=== PATIENT | female | born 1965 | race Caucasian/White ===

== ENCOUNTER 2020-12-01 13:39 | Outpatient (REF) | payer OTHER, SELFPAY ==
[2020-12-01 17:51] LABS: Fentanyl, urine POSITIVE (Not Detect)
== END 2020-12-01 13:40 | disposition home or self-care (01) ==
LOC: HO.LNP 13:39
PROVIDERS: Visit Provider Internal Medicine
DX: F11.20 Opioid dependence, uncomplicated (principal); Z51.81 Encounter for therapeutic drug level monitoring
CPT/HCPCS: 80305; 80307

== ENCOUNTER 2020-12-08 10:48 | Outpatient (REF) | payer OTHER, SELFPAY ==
[2020-12-08 13:27] LABS: Fentanyl, urine POSITIVE (Not Detect)
== END 2020-12-08 10:49 | disposition home or self-care (01) ==
LOC: HO.LNP 10:48
PROVIDERS: Visit Provider Internal Medicine
DX: F11.90 Opioid use, unspecified, uncomplicated (principal); Z79.899 Other long term (current) drug therapy
CPT/HCPCS: 80305; 80307

== ENCOUNTER 2021-01-17 14:33 | Outpatient (REF) | payer OTHER, SELFPAY ==
[2021-01-17 18:48] LABS: Fentanyl, urine POSITIVE (Not Detect)
== END 2021-01-17 14:34 | disposition home or self-care (01) ==
LOC: HO.LNP 14:33
PROVIDERS: Visit Provider Internal Medicine
DX: F11.20 Opioid dependence, uncomplicated (principal); Z79.899 Other long term (current) drug therapy
CPT/HCPCS: 80305; 80307

== ENCOUNTER 2021-01-26 15:11 | Outpatient (REF) | payer OTHER, SELFPAY ==
[2021-01-26 17:31] LABS: Fentanyl, urine Not Detected (Not Detect)
== END 2021-01-26 15:12 | disposition home or self-care (01) ==
LOC: HO.LNP 15:11
PROVIDERS: Visit Provider Internal Medicine
DX: F11.20 Opioid dependence, uncomplicated (principal); Z79.899 Other long term (current) drug therapy
CPT/HCPCS: 80305; 80307

== ENCOUNTER → 2021-02-23 13:59 | Outpatient (BNVA) | payer OTHER, SELFPAY | DX: Z51.81 Encounter for therapeutic drug level monitoring (principal); F11.20 Opioid dependence, uncomplicated | CPT/HCPCS: 80305 ==

== ENCOUNTER 2021-03-07 15:03 | Outpatient (REF) | payer OTHER, SELFPAY ==
[2021-03-07 18:42] LABS: Fentanyl, urine Not Detected (Not Detect)
[2021-03-11 09:03] LABS: Buprenorphine 195; Naloxone 213; Norbuprenorphine 700
== END 2021-03-07 15:04 | disposition home or self-care (01) ==
LOC: HO.LAB 15:03
PROVIDERS: Visit Provider Internal Medicine
DX: F11.90 Opioid use, unspecified, uncomplicated (principal); Z51.81 Encounter for therapeutic drug level monitoring
CPT/HCPCS: 80305; 80307; 80348; 80362

== ENCOUNTER → 2021-03-14 16:10 | Outpatient (BNVA) | payer OTHER, SELFPAY | PROVIDERS: Visit Provider Internal Medicine | DX: Z51.81 Encounter for therapeutic drug level monitoring (principal); Z79.899 Other long term (current) drug therapy | CPT/HCPCS: 80305 ==

== ENCOUNTER → 2021-03-22 15:17 | Outpatient (BNVA) | payer OTHER, SELFPAY | PROVIDERS: Visit Provider Internal Medicine | DX: F11.20 Opioid dependence, uncomplicated (principal) | CPT/HCPCS: 80305 ==

== ENCOUNTER 2021-06-07 23:40 | Inpatient (IN) | payer OTHER, SELFPAY ==
--- NOTE | ~2021-06-07 | CT_ITS ---
EXAMINATION: CT HEAD WITHOUT CONTRAST CLINICAL INFORMATION: Altered mental status COMPARISON: None TECHNIQUE: Contiguous axial imaging was performed from the skull base to vertex without intravenous administration of contrast. This CT examination was performed using dose optimization techniques as appropriate, variously including the following: *Automated exposure control *Adjustment of mA and/or kV according to patient size (this includes techniques or standardized protocols for targeted exams where dose is matched to indication/reason for exam; i.e. extremities or head) *Use of iterative reconstruction technique DLP: 582 mGy-cm FINDINGS: There is no evidence of acute intracranial hemorrhage or territorial infarction. No abnormal mass effect or midline shift is seen. Bradley to white matter differentiation is well preserved. No extra-axial fluid collections are identified. The ventricles are normal in size. There is no abnormal attenuation within the brain parenchyma. The osseous structures and soft tissues are normal. The mastoid air cells and visualized portions of the paranasal sinuses are well aerated. CT/CT head/brain wo con IMPRESSION: No acute intracranial pathology.
--- NOTE | ~2021-06-07 | CT_ITS ---
EXAMINATION: CT ABDOMEN AND PELVIS WITHOUT CONTRAST CLINICAL INFORMATION: Abdominal pain. Altered mental status. COMPARISON: CT chest noncontrast 06/08/2021. TECHNIQUE: Multidetector volumetric imaging was performed from the superior aspect of the liver through the pubic symphysis without contrast. Sagittal and coronal reformatted images were obtained on the technologist's workstation. CT chest also performed, described in separate report. Preliminary wet read provided earlier during a CT scan time. This CT examination was performed using dose optimization techniques as appropriate, variously including the following: *Automated exposure control *Adjustment of mA and/or kV according to patient size (this includes techniques or standardized protocols for targeted exams where dose is matched to indication/reason for exam; i.e. extremities or head) *Use of iterative reconstruction technique DLP: 385 mGy-cm FINDINGS: LUNG BASES: The visualized lung bases are unremarkable. LIVER, GALLBLADDER, AND BILIARY TREE: Streak artifact upper abdomen, patient's arms down. Liver is smooth in contour and homogeneous. No intrahepatic ductal dilatation. Gallbladder not well visualized, no stone visible wall thickening. Common duct 6-7 mm, upper normal. No visible ductal calculus. PANCREAS: Unremarkable. SPLEEN: Unremarkable. ADRENAL GLANDS: Unremarkable. KIDNEYS AND URETERS: Normal in size and smooth in contour. No hydronephrosis or hydroureter or perinephric stranding. No calculi. Probable tiny cyst mid lower right kidney. No additional imaging follow-up recommended. BLADDER: The bladder is distended despite presence of a Arevalo catheter. No wall thickening or debris. GASTROINTESTINAL TRACT: No bowel obstruction or focal inflammatory changes in bowel or mesentery. Normal appendix. No ascites or fluid collection. ABDOMINAL WALL: No significant hernia is appreciated. LYMPH NODES: No lymphadenopathy. VASCULAR: Unremarkable. PELVIC VISCERA: Unremarkable. OSSEOUS STRUCTURES: Grade 1 spondylolisthesis L4-L5. No spondylolysis. CT/CT abdomen pelvis wo con IMPRESSION: -No bowel obstruction or focal inflammatory changes. Normal appendix. -Common duct upper normal. No visible calculus. No intrahepatic ductal dilatation. -No hydronephrosis or perinephric stranding. -Distended urinary bladder, Arevalo catheter present, possibly clamped. -Grade 1 spondylolisthesis L4-L5. -CT chest described in separate report.
--- NOTE | ~2021-06-07 | CT_ITS ---
EXAMINATION: CT CHEST WITHOUT CONTRAST CLINICAL INFORMATION: Altered mental status, pain COMPARISON: None TECHNIQUE: Multidetector volumetric CT imaging of the chest is performed without intravenous contrast. Axial MIP volume rendering provided. Sagittal and coronal reformatted images were obtained. CT abdomen and pelvis described in separate report. Preliminary retrograde provided earlier during IT downtime. This CT examination was performed using dose optimization techniques as appropriate, variously including the following: *Automated exposure control *Adjustment of mA and/or kV according to patient size (this includes techniques or standardized protocols for targeted exams where dose is matched to indication/reason for exam; i.e. extremities or head) *Use of iterative reconstruction technique DLP: 242 mGy-cm FINDINGS: LUNGS: No pneumothorax. No airspace consolidation or groundglass opacity. There is some respiratory motion artifact punctate subpleural nodule anterior right upper lobe measures under 4 mm, series . Fleischner guidelines below. MEDIASTINUM: Heart size normal. No pericardial effusion. Thoracic aorta normal in caliber. No hilar or mediastinal adenopathy. Streak artifact through supraclavicular region limits assessment thyroid. PLEURA: No pneumothorax, pleural thickening, or effusion. AXILLA: No lymphadenopathy. UPPER ABDOMEN: CT abdomen and pelvis described in separate report. OSSEOUS STRUCTURES: No acute bony abnormality. There is hardware lower cervical spine with Zero profile implants. CT/CT chest wo con IMPRESSION: -No pneumothorax, airspace consolidation, or effusion. -Mediastinum unremarkable on noncontrast exam. -CT abdomen and pelvis described in separate report. -Small subpleural nodule anterior right upper lobe under 4 mm. Fleischner guidelines below. Reference: The Fleischner Society recommendations for management of incidentally detected pulmonary nodules in adults age 35 and greater are based on average nodule size and patient risk category. The recommendations do not apply to lung cancer screening, patients with immunosuppression, or patients with known primary cancer. Single solid nodule average size < 6 mm: Low Risk Patient: No routine follow-up. High Risk Patient: Optional CT at 12 months. Certain patients at high risk with suspicious nodule morphology, upper lobe location, or both may warrant 12-month follow-up.
[2021-06-07 23:46] VITALS: BP 150/97; PULSE 84; O2SAT 98; BMI 22.4
[2021-06-08] VITALS (19 sets, daily range): BP systolic 111–166; BP diastolic 62–97; PULSE 71–102; RESP 16–29; TEMP 36.6–37.6; O2SAT 94–100; BMI 16.8
--- NOTE | 2021-06-08 02:48 | ED.GENADULT ---
HPI - General Adult General Chief complaint: General Medical Stated complaint: withdrawal Time Seen by Provider: 06/08/21 02:48 Source: patient Mode of arrival: ambulatory Limitations: altered mental status History of Present Illness HPI narrative: Patient history of fentanyl abuse supposed to be on Suboxone comes here as is feeling withdrawal from opiates which she used about 20 hours ago patient is very confused not speaking Straight, not telling us in details Related Data Previous Rx's Medication Instructions Recorded buprenorphine 12 mg-naloxone 3 mg 1 film SUBLINGUAL Q24H 14 Days #14 03/23/21 sublingual film (Suboxone) ea Allergies Allergy/AdvReac Type Severity Reaction Status Date / Time No Known Allergies Allergy Verified 03/22/21 15:33 Review of Systems Review of Systems: Yes Unobtainable due to mental status PMFSH Past Medical History Medical History Opioid use disorder Social History Social History Patient Tobacco Use Status: Current everyday Tobacco user Cigarettes Per Day: 3 Years Smoked: 30 Advance Directives: No Physical Exam ED Vital Signs: Vital Signs - 24 hr 06/08/21 02:54 06/08/21 04:00 06/08/21 06:00 Temperature 97.8 F Pulse Rate 80 88 Respiratory Rate 22 H 16 16 Blood Pressure 138/88 161/93 H Pulse Oximetry 99 100 BMI result Body Mass Index 22.4 Appearance: Sleepy. Eyes: PERRLA, HEENT: Pharynx normal. Oral Mucosa moist atraumatic normocephalic Neck: Normal inspection. Neck supple. CVS: Normal heart rate and rhythm. Pulses normal. Respiratory: No respiratory distress. Equal air entry bilateral, Abdomen: Soft and nontender. Bowel sounds are present, no mass palpable, Skin: Skin warm and dry. Normal skin color. Normal skin turgor. Extremities: No lower extremity edema. No calf tenderness Neuro: Lethargic and sleepy No motor deficit. Medical Decision Making MDM Narrative Medical decision making narrative: Patient with history of fentanyl abuse lab shows dehydration with calcium level of 11 bicarb of 21 unable to get the urine yet patient is still confused will get head CT although there is no signs of trauma Lab Data Result diagrams: 06/08/21 03:09 06/08/21 03:09 Labs: Lab Results 06/08/21 06/08/21 06/08/21 Range/Units 03:09 03:09 03:09 WBC 9.8 (4.8-10.8) X10*3/uL RBC 6.20 H (4.20-5.50) X10*6/uL Hgb 18.2 H (12.0-16.0) g/dl Hct 51.8 H (37.0-47.0) % MCV 83.5 (80.0-98.0) fL MCH 29.4 (27.0-33.0) pg MCHC 35.1 H (31.0-35.0) g/dl RDW 12.2 (11.0-16.0) % Plt Count 302 (160-400) X10*3/uL MPV 9.5 (9.4-12.3) fL Immature Gran % (Auto) 0.4 (0.0-0.4) % Neut % (Auto) 91.6 H (45-73) % Lymph % (Auto) 6.1 L (20-40) % [place] % (Auto) 1.8 L (2-11) % Eos % (Auto) 0.0 (0-4) % Baso % (Auto) 0.1 (0-2) % Lymph # (Auto) 0.6 L (1.2-4.9) X10*3/uL [place] # (Auto) 0.2 (0.1-1.2) X10*3/uL Eos # (Auto) 0.0 (0.0-0.4) X10*3/uL Baso # (Auto) 0.0 (0.0-0.2) X10*3/uL Abs Immat Gran (auto) 0.04 H (0.00-0.03) X10*3/uL Absolute Neuts (auto) 9.0 H (2.0-8.3) x10*3/uL Absolute Nucleated RBC 0.000 (0.0-0.012) X10*3/uL Nucleated RBC % (auto) 0.0 (0.0-0.2) /100WBC Smear Tech's Comments VERIFIED Sodium 138 (135-145) mmol/L Potassium 4.4 (3.3-5.1) mmol/L Chloride 101 (96-108) mmol/L Carbon Dioxide 21 L (22-29) mmol/L Anion Gap 20 (12-20) BUN 8 L (9-16) mg/dL Creatinine 0.82 (0.5-1.4) mg/dL Estim Creat Clear Calc 68.9 Estimated GFR > 60 Random Glucose 122 H (60-115) mg/dL Calcium 11.0 H (8.4-10.2) mg/dL Total Bilirubin 1.2 H (0.0-1.0) mg/dL AST 33 H (5-31) U/L ALT 16 (0-31) U/L Alkaline Phosphatase 99 (39-117) U/L Total Protein 9.3 H (6.5-8.0) g/dL Albumin 5.7 H (3.5-5.0) g/dL Ethyl Alcohol < 10 mg/dL Discharge Plan Discharge Clinical Impression: Opioid use disorder Patient Disposition: Still a Patient Instructions: Opioid Use Disorder (ED) Prescriptions: No Action buprenorphine-naloxone [Suboxone] 12-3 mg film 1 film sublingual Q24H 14 Days Qty: 14 0RF
[2021-06-08 03:13] LABS: Basophils Percent Auto 0.1 % (0-2); Hematocrit 51.8 % (37.0-47.0); Hemoglobin 18.2 g/dl (12.0-16.0); Imm Gran Abs Auto 0.04 X10*3/uL (0.00-0.03); Imm Gran Pct Auto 0.4 % (0.0-0.4); Lymphocytes Absolute Auto 0.6 X10*3/uL (1.2-4.9); Lymphocytes Percent Auto 6.1 % (20-40); MANUAL DIFF FLAG SCAN; Mean Corpuscular HGB Conc 35.1 g/dl (31.0-35.0); Mean Corpuscular Hemoglobin 29.4 pg (27.0-33.0); Mean Corpuscular Volume 83.5 fL (80.0-98.0); Mean Platelet Volume 9.5 fL (9.4-12.3); Monocytes Absolute Auto 0.2 X10*3/uL (0.1-1.2); Monocytes Percent Auto 1.8 % (2-11); Neutrophils Percent Auto 91.6 % (45-73); Platelet Count 302 X10*3/uL (160-400); Red Cell Distribution Width 12.2 % (11.0-16.0); SCAN SMEAR FLAG 1; White Blood Count 9.8 X10*3/uL (4.8-10.8)
[2021-06-08 03:30] LABS: Ethanol < 10 mg/dL
[2021-06-08 03:31] LABS: SLIDE REVIEW VERIFIED
[2021-06-08 03:44] LABS: Alanine Aminotransferase 16 U/L (0-31); Albumin Level 5.7 g/dL (3.5-5.0); Alkaline Phosphatase 99 U/L (39-117); Anion Gap 20 (12-20); Aspartate Amino Transferase 33 U/L (5-31); Bilirubin Total 1.2 mg/dL (0.0-1.0); Blood Urea Nitrogen 8 mg/dL (9-16); Carbon Dioxide 21 mmol/L (22-29); Chloride 101 mmol/L (96-108); Creatinine Clr Calc Pharmacy 68.9; Estimated Glomerular Filt Rate > 60; Glucose Random 122 mg/dL (60-115); Potassium 4.4 mmol/L (3.3-5.1); Sodium 138 mmol/L (135-145); Total Protein 9.3 g/dL (6.5-8.0)
[2021-06-08] MEDS: 0.9 % Sodium Chloride 1,000 ML 999 ML IV ×3 (04:55→11:49)
[2021-06-08] MEDS: Buprenorphine/Naloxone 4/1 mg FILM 1 FILM SUBLINGUAL ×2 (07:31→08:53)
[2021-06-08 08:02] LABS: COVID-19 Test Negative (Negative); IDNOW Serial# 16C4AD1C
--- NOTE | 2021-06-08 08:09 | PC.NURSE ---
Report received, patient is asleep on stretcher. Dr. Mccormick at bedside. Patient is confused, unable to state place, year, or president, Patient appears to be in withdrawal. Unable to state the last time she used heroin or suboxone, states days ago. Patient is tremorous, sneezing, yawning, hypertensive. aware. Medicated with suboxone and changed at this time.
[2021-06-08 08:31] LABS: Appearance Urine CLEAR; Color Urine YELLOW; Glucose Urine UA NEG (NEG); Leukocyte Esterase Urine NEG (NEG); Nitrite Urine NEG (NEG); PH 6.5 (5.0-8.0); Specific Gravity - Urine 1.015 (1.005-1.025); UACC Culture Trigger NO; Urine Blood TRACE (NEG); Urine Ketones 40 MG/DL (NEG); Urine Protein NEG (NEG-TRACE)
[2021-06-08] MEDS: LORazepam 2 MG/ML VIAL 1 MG IVPUSH (08:53)
--- NOTE | 2021-06-08 08:53 | MHC.RECOVRN ---
Met with pt in ED18 to discuss substance use. Pt oriented to self only. Pt is unable to report last use of substances, however, reports using heroin 4-5 bags, [place], in the past. Pt reports occasional alcohol use. Denies other substances. Pt reports GI upset, visibly tearing, yawning, and anxious during conversation. When asked questions, pt consistently states I don't know. Pt reports hx of Suboxone, believes it to be recent. Per Cristobal, pts last script was in March from the [facility]. When asked where pt received Suboxone pt only able to state a treatment facility. Discussed with provider. Will continue to follow.
[2021-06-08 09:06] LABS: Amphetamine Screen Urine Not Detected (Not Detect); Barbiturates, Urine Not Detected (Not Detect); Benzodiazepines Screen Urine Not Detected (Not Detect); Cannabinoid Screen Urine Not Detected (Not Detect); Cocaine Screen Urine Not Detected (Not Detect); Fentanyl, urine POSITIVE (Not Detect); Opiate Screen Urine POSITIVE (Not Detect); Phencyclidine Screen Urine Not Detected (Not Detect); RBC Urine 0 /HPF (0); WBC Urine 0 /HPF (0-4)
--- NOTE | 2021-06-08 09:12 | PC.NURSE ---
Patient ambulated to restroom with assistance and urine sample obtained. Patient remains confused. project coach came to bedside to talk with patient but patient a poor historian at this time. Medicated with Ativan and additional dose of suboxone. Will continue to monitor.
[2021-06-08 10:39] LABS: INTERNATIONAL NORM RATIO 1.1 (0.9-1.1); Prothrombin Time 12.2 SEC (9.9-13.0)
[2021-06-08 10:42] LABS: Partial Thromboplastin Time 41.6 SEC (24.1-38.0)
[2021-06-08 10:43] LABS: Lactic Acid 1.1 mmol/L (0.5-2.0)
[2021-06-08 10:45] LABS: C Reactive Protein 0.04 mg/dL (< or = 0.50)
--- NOTE | 2021-06-08 10:54 | MHC.RECOVRN ---
Follow up with pt after Ativan and second Suboxone dose. Pt appears in less opiate withdrawal, no tearing or yawning. Pt completely unable to hold a conversation, more confused and disoriented since prior interaction. Discussed with provider as well as Gardenia Paulson APRN.
[2021-06-08] MEDS: LORazepam 2 MG/ML VIAL IVPUSH ×2 (10:58→11:25)
--- NOTE | 2021-06-08 11:00 | PC.NURSE ---
Addendum entered by Mahsa Ruvalcaba 06/08/21 14:59: Patients daughter arrives and reports patient was seen at [facility] last night and discharged even though A+O x 2. Patient found to be at mothers house confused and banging on door with no shoes on. Daughter reports patient has hx of epilepsy and takes Keppra. Reports this is not patients baseline. Original Note: Patient continues to be disoriented, becoming increasingly agitated. Patient trying to get out of bed but is unsteady, altered, and disoriented. Respirations regular and even, vitals remain stable. Patient medicated with Ativan and Hung NS 1L. Will continue to monitor. 1:1 at bedside to ensure patient safety.
--- NOTE | 2021-06-08 11:21 | ECG_ITS ---
Test Reason : medical clearance Blood Pressure : / mmHG Vent. Rate : 102 BPM Atrial Rate : 102 BPM P-R Int : 170 ms QRS Dur : 084 ms QT Int : 354 ms P-R-T Axes : 080 077 019 degrees QTc Int : 461 ms Artifact in tracing Sinus tachycardia cannot exclude old Septal infarct , age undetermined ; can be from body habitus/lead placement Abnormal ECG No previous ECGs available Referred By: Geovanna Mccormick Electronically Signed By:MARITZA FREEMAN
--- NOTE | 2021-06-08 11:25 | PC.NURSE ---
Patient medicated with additional dose of Ativan. Remains agitated. MD aware. Will continue to monitor.
[2021-06-08 11:27] LABS: Erythrocyte Sedimentation Rate 2 MM/HR (0-20)
--- NOTE | 2021-06-08 11:45 | PC.NURSE ---
Patient medicated with olanzapine. Becoming increasingly agitated and disoriented. Patient is confused and not making sense. Respirations regular and even. Alligator skin on legs. No longer yawning. Frequent attempts to go to bathroom but only voids minimal amount. Bladder scan reveals retaining urine ~500ml. Plan is for cline cath but once patient is calm and can tolerate.
[2021-06-08] MEDS: OLANZapine 10 MG VIAL 5 MG IM (11:46)
[2021-06-08] MEDS: Thiamine HCL 200 MG in 0.9 % Sodium Chloride 100 ML 204 MG IV (11:49)
--- NOTE | 2021-06-08 12:20 | PC.NURSE ---
Patient medicated with valium due to continued agitation.
[2021-06-08 12:24] LABS: Magnesium 1.9 mg/dL (1.6-2.6)
--- NOTE | 2021-06-08 12:24 | ED_ITS ---
HPI - General Adult General Chief complaint: General Medical Stated complaint: withdrawal Time Seen by Provider: 06/08/21 02:48 Source: patient Mode of arrival: ambulatory Limitations: altered mental status Related Data Home Medications Medication Instructions Recorded Confirmed amitriptyline 10 mg tablet 2 tab PO BEDTIME 06/08/21 06/08/21 amlodipine 10 mg tablet 1 tab PO DAILY 06/08/21 06/08/21 buprenorphine 8 mg-naloxone 2 mg 2 film SUBLINGUAL DAILY 06/08/21 06/08/21 sublingual film levetiracetam 500 mg tablet 750 mg PO Q12H 06/08/21 06/08/21 Allergies Allergy/AdvReac Type Severity Reaction Status Date / Time No Known Allergies Allergy Verified 03/22/21 15:33 [facility] Past Medical History Medical History Opioid use disorder Social History Social History Household Members: Unknown / Unable to assess Unable to assess alcohol history related to: Unknown Patient Tobacco Use Status: Tobacco use Unknown Cigarettes Per Day: 3 Years Smoked: 30 Use of substances other than those prescribed or required for medical reasons: Unknown Substance Use Type Other:: TOX SCREEN POSITIVE FOR OPIATES AND FENTANYL Currently Displaying Signs/Symptoms of Drug Intoxication Withdrawal: No Advance Directives: No Recently lost weight without trying: Unsure Nutrition Risks: On aspiration precautions Patient : No : No Poor oral hygiene: Yes Physical Exam ED Vital Signs: Vital Signs - 24 hr 06/08/21 07:24 06/08/21 08:11 06/08/21 11:00 Temperature 98.4 F 98.6 F 98.6 F Pulse Rate 95 82 93 Respiratory Rate 19 16 17 Blood Pressure 166/96 H 143/91 H 160/83 H Pulse Oximetry 100 99 97 06/08/21 12:00 06/08/21 14:09 Temperature Pulse Rate 102 H 102 H Respiratory Rate 18 18 Blood Pressure 114/97 H 165/95 H Pulse Oximetry 97 BMI result Body Mass Index 22.4 Medical Decision Making Lab Data Result diagrams: 06/09/21 05:10 06/09/21 05:10 Labs: Lab Results 06/08/21 06/08/21 06/08/21 Range/Units 03:09 03:09 03:09 WBC 9.8 (4.8-10.8) X10*3/uL RBC 6.20 H (4.20-5.50) X10*6/uL Hgb 18.2 H (12.0-16.0) g/dl Hct 51.8 H (37.0-47.0) % MCV 83.5 (80.0-98.0) fL MCH 29.4 (27.0-33.0) pg MCHC 35.1 H (31.0-35.0) g/dl RDW 12.2 (11.0-16.0) % Plt Count 302 (160-400) X10*3/uL MPV 9.5 (9.4-12.3) fL Immature Gran % (Auto) 0.4 (0.0-0.4) % Neut % (Auto) 91.6 H (45-73) % Lymph % (Auto) 6.1 L (20-40) % [place] % (Auto) 1.8 L (2-11) % Eos % (Auto) 0.0 (0-4) % Baso % (Auto) 0.1 (0-2) % Lymph # (Auto) 0.6 L (1.2-4.9) X10*3/uL [place] # (Auto) 0.2 (0.1-1.2) X10*3/uL Eos # (Auto) 0.0 (0.0-0.4) X10*3/uL Baso # (Auto) 0.0 (0.0-0.2) X10*3/uL Abs Immat Gran (auto) 0.04 H (0.00-0.03) X10*3/uL Absolute Neuts (auto) 9.0 H (2.0-8.3) x10*3/uL Absolute Nucleated RBC 0.000 (0.0-0.012) X10*3/uL Nucleated RBC % (auto) 0.0 (0.0-0.2) /100WBC Smear Tech's Comments VERIFIED ESR (0-20) MM/HR PT (9.9-13.0) SEC INR (0.9-1.1) APTT (24.1-38.0) SEC VBG pH (7.32-7.43) VBG pCO2 mmHg VBG pO2 mmHg VBG HCO3 (22-26) mmol/L VBG O2 Saturation % VBG Base Excess mmol/L Sodium 138 (135-145) mmol/L Potassium 4.4 (3.3-5.1) mmol/L Chloride 101 (96-108) mmol/L Carbon Dioxide 21 L (22-29) mmol/L Anion Gap 20 (12-20) BUN 8 L (9-16) mg/dL Creatinine 0.82 (0.5-1.4) mg/dL Estim Creat Clear Calc 68.9 Estimated GFR > 60 Random Glucose 122 H (60-115) mg/dL Lactic Acid (0.5-2.0) mmol/L Calcium 11.0 H (8.4-10.2) mg/dL Magnesium (1.6-2.6) mg/dL Total Bilirubin 1.2 H (0.0-1.0) mg/dL AST 33 H (5-31) U/L ALT 16 (0-31) U/L Alkaline Phosphatase 99 (39-117) U/L Ammonia (13-55) umol/L Total Creatine Kinase (26-140) U/L C-Reactive Protein (< or = 0.50) mg/dL Total Protein 9.3 H (6.5-8.0) g/dL Albumin 5.7 H (3.5-5.0) g/dL Urine Color Urine Appearance Urine pH (5.0-8.0) Ur Specific [place] (1.005-1.025) Urine Protein (NEG-TRACE) MG/DL Urine Glucose (UA) (NEG) MG/DL Urine Ketones (NEG) MG/DL Urine Blood (NEG) Urine Nitrite (NEG) Ur Leukocyte Esterase (NEG) Urine RBC (0) /HPF Urine WBC (0-4) /HPF Ur Squamous Epith Cells /LPF Urine Bacteria /LPF Salicylates (15-30) mg/dL Urine Opiates Screen (Not Detect) Urine Fentanyl Screen (Not Detect) Acetaminophen (<30) mcg/mL Ur Barbiturates Screen (Not Detect) Ur Phencyclidine Scrn (Not Detect) Ur Amphetamines Screen (Not Detect) U Benzodiazepines Scrn (Not Detect) Urine Cocaine Screen (Not Detect) U Marijuana (THC) Screen (Not Detect) Ethyl Alcohol < 10 mg/dL COVID-19 (CHANG) (Negative) COVID-19 Clin Com 06/08/21 06/08/21 06/08/21 Range/Units 07:23 08:24 08:24 WBC (4.8-10.8) X10*3/uL RBC (4.20-5.50) X10*6/uL Hgb (12.0-16.0) g/dl Hct (37.0-47.0) % MCV (80.0-98.0) fL MCH (27.0-33.0) pg MCHC (31.0-35.0) g/dl RDW (11.0-16.0) % Plt Count (160-400) X10*3/uL MPV (9.4-12.3) fL Immature Gran % (Auto) (0.0-0.4) % Neut % (Auto) (45-73) % Lymph % (Auto) (20-40) % [place] % (Auto) (2-11) % Eos % (Auto) (0-4) % Baso % (Auto) (0-2) % Lymph # (Auto) (1.2-4.9) X10*3/uL [place] # (Auto) (0.1-1.2) X10*3/uL Eos # (Auto) (0.0-0.4) X10*3/uL Baso # (Auto) (0.0-0.2) X10*3/uL Abs Immat Gran (auto) (0.00-0.03) X10*3/uL Absolute Neuts (auto) (2.0-8.3) x10*3/uL Absolute Nucleated RBC (0.0-0.012) X10*3/uL Nucleated RBC % (auto) (0.0-0.2) /100WBC Smear Tech's Comments ESR (0-20) MM/HR PT (9.9-13.0) SEC INR (0.9-1.1) APTT (24.1-38.0) SEC VBG pH (7.32-7.43) VBG pCO2 mmHg VBG pO2 mmHg VBG HCO3 (22-26) mmol/L VBG O2 Saturation % VBG Base Excess mmol/L Sodium (135-145) mmol/L Potassium (3.3-5.1) mmol/L Chloride (96-108) mmol/L Carbon Dioxide (22-29) mmol/L Anion Gap (12-20) BUN (9-16) mg/dL Creatinine (0.5-1.4) mg/dL Estim Creat Clear Calc Estimated GFR Random Glucose (60-115) mg/dL Lactic Acid (0.5-2.0) mmol/L Calcium (8.4-10.2) mg/dL Magnesium (1.6-2.6) mg/dL Total Bilirubin (0.0-1.0) mg/dL AST (5-31) U/L ALT (0-31) U/L Alkaline Phosphatase (39-117) U/L Ammonia (13-55) umol/L Total Creatine Kinase (26-140) U/L C-Reactive Protein (< or = 0.50) mg/dL Total Protein (6.5-8.0) g/dL Albumin (3.5-5.0) g/dL Urine Color YELLOW Urine Appearance CLEAR Urine pH 6.5 (5.0-8.0) Ur Specific [place] 1.015 (1.005-1.025) Urine Protein NEG (NEG-TRACE) MG/DL Urine Glucose (UA) NEG (NEG) MG/DL Urine Ketones 40 (NEG) MG/DL Urine Blood TRACE (NEG) Urine Nitrite NEG (NEG) Ur Leukocyte Esterase NEG (NEG) Urine RBC 0 (0) /HPF Urine WBC 0 (0-4) /HPF Ur Squamous Epith Cells NONE /LPF Urine Bacteria NONE /LPF Salicylates (15-30) mg/dL Urine Opiates Screen POSITIVE H (Not Detect) Urine Fentanyl Screen POSITIVE H (Not Detect) Acetaminophen (<30) mcg/mL Ur Barbiturates Screen Not Detected (Not Detect) Ur Phencyclidine Scrn Not Detected (Not Detect) Ur Amphetamines Screen Not Detected (Not Detect) U Benzodiazepines Scrn Not Detected (Not Detect) Urine Cocaine Screen Not Detected (Not Detect) U Marijuana (THC) Screen Not Detected (Not Detect) Ethyl Alcohol mg/dL COVID-19 (CHANG) Negative (Negative) COVID-19 Clin Com See Note 06/08/21 06/08/21 06/08/21 Range/Units 10:21 10:21 10:22 WBC (4.8-10.8) X10*3/uL RBC (4.20-5.50) X10*6/uL Hgb (12.0-16.0) g/dl Hct (37.0-47.0) % MCV (80.0-98.0) fL MCH (27.0-33.0) pg MCHC (31.0-35.0) g/dl RDW (11.0-16.0) % Plt Count (160-400) X10*3/uL MPV (9.4-12.3) fL Immature Gran % (Auto) (0.0-0.4) % Neut % (Auto) (45-73) % Lymph % (Auto) (20-40) % [place] % (Auto) (2-11) % Eos % (Auto) (0-4) % Baso % (Auto) (0-2) % Lymph # (Auto) (1.2-4.9) X10*3/uL [place] # (Auto) (0.1-1.2) X10*3/uL Eos # (Auto) (0.0-0.4) X10*3/uL Baso # (Auto) (0.0-0.2) X10*3/uL Abs Immat Gran (auto) (0.00-0.03) X10*3/uL Absolute Neuts (auto) (2.0-8.3) x10*3/uL Absolute Nucleated RBC (0.0-0.012) X10*3/uL Nucleated RBC % (auto) (0.0-0.2) /100WBC Smear Tech's Comments ESR 2 (0-20) MM/HR PT (9.9-13.0) SEC INR (0.9-1.1) APTT (24.1-38.0) SEC VBG pH (7.32-7.43) VBG pCO2 mmHg VBG pO2 mmHg VBG HCO3 (22-26) mmol/L VBG O2 Saturation % VBG Base Excess mmol/L Sodium (135-145) mmol/L Potassium (3.3-5.1) mmol/L Chloride (96-108) mmol/L Carbon Dioxide (22-29) mmol/L Anion Gap (12-20) BUN (9-16) mg/dL Creatinine (0.5-1.4) mg/dL Estim Creat Clear Calc Estimated GFR Random Glucose (60-115) mg/dL Lactic Acid 1.1 (0.5-2.0) mmol/L Calcium (8.4-10.2) mg/dL Magnesium 1.9 (1.6-2.6) mg/dL Total Bilirubin (0.0-1.0) mg/dL AST (5-31) U/L ALT (0-31) U/L Alkaline Phosphatase (39-117) U/L Ammonia (13-55) umol/L Total Creatine Kinase 78 (26-140) U/L C-Reactive Protein 0.04 (< or = 0.50) mg/dL Total Protein (6.5-8.0) g/dL Albumin (3.5-5.0) g/dL Urine Color Urine Appearance Urine pH (5.0-8.0) Ur Specific [place] (1.005-1.025) Urine Protein (NEG-TRACE) MG/DL Urine Glucose (UA) (NEG) MG/DL Urine Ketones (NEG) MG/DL Urine Blood (NEG) Urine Nitrite (NEG) Ur Leukocyte Esterase (NEG) Urine RBC (0) /HPF Urine WBC (0-4) /HPF Ur Squamous Epith Cells /LPF Urine Bacteria /LPF Salicylates (15-30) mg/dL Urine Opiates Screen (Not Detect) Urine Fentanyl Screen (Not Detect) Acetaminophen (<30) mcg/mL Ur Barbiturates Screen (Not Detect) Ur Phencyclidine Scrn (Not Detect) Ur Amphetamines Screen (Not Detect) U Benzodiazepines Scrn (Not Detect) Urine Cocaine Screen (Not Detect) U Marijuana (THC) Screen (Not Detect) Ethyl Alcohol mg/dL COVID-19 (CHANG) (Negative) COVID-19 Clin Com 06/08/21 06/08/21 06/08/21 Range/Units 10:22 13:10 13:10 WBC (4.8-10.8) X10*3/uL RBC (4.20-5.50) X10*6/uL Hgb (12.0-16.0) g/dl Hct (37.0-47.0) % MCV (80.0-98.0) fL MCH (27.0-33.0) pg MCHC (31.0-35.0) g/dl RDW (11.0-16.0) % Plt Count (160-400) X10*3/uL MPV (9.4-12.3) fL Immature Gran % (Auto) (0.0-0.4) % Neut % (Auto) (45-73) % Lymph % (Auto) (20-40) % [place] % (Auto) (2-11) % Eos % (Auto) (0-4) % Baso % (Auto) (0-2) % Lymph # (Auto) (1.2-4.9) X10*3/uL [place] # (Auto) (0.1-1.2) X10*3/uL Eos # (Auto) (0.0-0.4) X10*3/uL Baso # (Auto) (0.0-0.2) X10*3/uL Abs Immat Gran (auto) (0.00-0.03) X10*3/uL Absolute Neuts (auto) (2.0-8.3) x10*3/uL Absolute Nucleated RBC (0.0-0.012) X10*3/uL Nucleated RBC % (auto) (0.0-0.2) /100WBC Smear Tech's Comments ESR (0-20) MM/HR PT 12.2 (9.9-13.0) SEC INR 1.1 (0.9-1.1) APTT 41.6 H (24.1-38.0) SEC VBG pH (7.32-7.43) VBG pCO2 mmHg VBG pO2 mmHg VBG HCO3 (22-26) mmol/L VBG O2 Saturation % VBG Base Excess mmol/L Sodium (135-145) mmol/L Potassium (3.3-5.1) mmol/L Chloride (96-108) mmol/L Carbon Dioxide (22-29) mmol/L Anion Gap (12-20) BUN (9-16) mg/dL Creatinine (0.5-1.4) mg/dL Estim Creat Clear Calc Estimated GFR Random Glucose (60-115) mg/dL Lactic Acid (0.5-2.0) mmol/L Calcium (8.4-10.2) mg/dL Magnesium (1.6-2.6) mg/dL Total Bilirubin (0.0-1.0) mg/dL AST (5-31) U/L ALT (0-31) U/L Alkaline Phosphatase (39-117) U/L Ammonia 25 (13-55) umol/L Total Creatine Kinase (26-140) U/L C-Reactive Protein (< or = 0.50) mg/dL Total Protein (6.5-8.0) g/dL Albumin (3.5-5.0) g/dL Urine Color Urine Appearance Urine pH (5.0-8.0) Ur Specific [place] (1.005-1.025) Urine Protein (NEG-TRACE) MG/DL Urine Glucose (UA) (NEG) MG/DL Urine Ketones (NEG) MG/DL Urine Blood (NEG) Urine Nitrite (NEG) Ur Leukocyte Esterase (NEG) Urine RBC (0) /HPF Urine WBC (0-4) /HPF Ur Squamous Epith Cells /LPF Urine Bacteria /LPF Salicylates < 5.0 L (15-30) mg/dL Urine Opiates Screen (Not Detect) Urine Fentanyl Screen (Not Detect) Acetaminophen < 1 (<30) mcg/mL Ur Barbiturates Screen (Not Detect) Ur Phencyclidine Scrn (Not Detect) Ur Amphetamines Screen (Not Detect) U Benzodiazepines Scrn (Not Detect) Urine Cocaine Screen (Not Detect) U Marijuana (THC) Screen (Not Detect) Ethyl Alcohol mg/dL COVID-19 (CHANG) (Negative) COVID-19 Clin Com 06/08/21 Range/Units 13:13 WBC (4.8-10.8) X10*3/uL RBC (4.20-5.50) X10*6/uL Hgb (12.0-16.0) g/dl Hct (37.0-47.0) % MCV (80.0-98.0) fL MCH (27.0-33.0) pg MCHC (31.0-35.0) g/dl RDW (11.0-16.0) % Plt Count (160-400) X10*3/uL MPV (9.4-12.3) fL Immature Gran % (Auto) (0.0-0.4) % Neut % (Auto) (45-73) % Lymph % (Auto) (20-40) % [place] % (Auto) (2-11) % Eos % (Auto) (0-4) % Baso % (Auto) (0-2) % Lymph # (Auto) (1.2-4.9) X10*3/uL [place] # (Auto) (0.1-1.2) X10*3/uL Eos # (Auto) (0.0-0.4) X10*3/uL Baso # (Auto) (0.0-0.2) X10*3/uL Abs Immat Gran (auto) (0.00-0.03) X10*3/uL Absolute Neuts (auto) (2.0-8.3) x10*3/uL Absolute Nucleated RBC (0.0-0.012) X10*3/uL Nucleated RBC % (auto) (0.0-0.2) /100WBC Smear Tech's Comments ESR (0-20) MM/HR PT (9.9-13.0) SEC INR (0.9-1.1) APTT (24.1-38.0) SEC VBG pH 7.32 (7.32-7.43) VBG pCO2 42 mmHg VBG pO2 38 mmHg VBG HCO3 22 (22-26) mmol/L VBG O2 Saturation 56.0 % VBG Base Excess -3.6 mmol/L Sodium (135-145) mmol/L Potassium (3.3-5.1) mmol/L Chloride (96-108) mmol/L Carbon Dioxide (22-29) mmol/L Anion Gap (12-20) BUN (9-16) mg/dL Creatinine (0.5-1.4) mg/dL Estim Creat Clear Calc Estimated GFR Random Glucose (60-115) mg/dL Lactic Acid (0.5-2.0) mmol/L Calcium (8.4-10.2) mg/dL Magnesium (1.6-2.6) mg/dL Total Bilirubin (0.0-1.0) mg/dL AST (5-31) U/L ALT (0-31) U/L Alkaline Phosphatase (39-117) U/L Ammonia (13-55) umol/L Total Creatine Kinase (26-140) U/L C-Reactive Protein (< or = 0.50) mg/dL Total Protein (6.5-8.0) g/dL Albumin (3.5-5.0) g/dL Urine Color Urine Appearance Urine pH (5.0-8.0) Ur Specific [place] (1.005-1.025) Urine Protein (NEG-TRACE) MG/DL Urine Glucose (UA) (NEG) MG/DL Urine Ketones (NEG) MG/DL Urine Blood (NEG) Urine Nitrite (NEG) Ur Leukocyte Esterase (NEG) Urine RBC (0) /HPF Urine WBC (0-4) /HPF Ur Squamous Epith Cells /LPF Urine Bacteria /LPF Salicylates (15-30) mg/dL Urine Opiates Screen (Not Detect) Urine Fentanyl Screen (Not Detect) Acetaminophen (<30) mcg/mL Ur Barbiturates Screen (Not Detect) Ur Phencyclidine Scrn (Not Detect) Ur Amphetamines Screen (Not Detect) U Benzodiazepines Scrn (Not Detect) Urine Cocaine Screen (Not Detect) U Marijuana (THC) Screen (Not Detect) Ethyl Alcohol mg/dL COVID-19 (CHANG) (Negative) COVID-19 Clin Com Discharge Plan Discharge Clinical Impression: Opioid use disorder, Acute delirium Patient Disposition: Admitted As Inpatient Interventions: Admission Worksheet (ED) Last Done: 06/08/21 23:32 Discharge Date/Time: 06/08/21 21:00
--- NOTE | 2021-06-08 12:27 | PC.NURSE ---
Patient remains agitated and altered. Patient is confused, recognizes daughter but continues to not remember year, place, or president. Respirations regular and even, vitals stable. Dr. Mccormick at bedside and will order new medication for agitation.
--- NOTE | 2021-06-08 12:40 | PC.NURSE ---
Hung NS 1L and Thiamine drip,? alcohol withdrawal per daughter she drinks one drink per day. Patient remains disoriented, aggitated, and confused.
[2021-06-08] MEDS: diazePAM 10 MG/2 ML CARTRIDGE 5 MG IVPUSH (12:50)
--- NOTE | 2021-06-08 12:58 | PC.NURSE ---
mc from [facility] with [facility] worker in rp room. daughter with them as well.
[2021-06-08 13:20] LABS: VBG Base Excess -3.6 mmol/L; VBG HCO3 22 mmol/L (22-26); VBG pCO2 42 mmHg; VBG pH 7.32 (7.32-7.43); VBG pO2 38 mmHg
[2021-06-08 13:24] LABS: Ammonia 25 umol/L (13-55)
[2021-06-08 13:32] LABS: Acetaminophen LAB < 1 mcg/mL (<30); Salicylate < 5.0 mg/dL (15-30)
[2021-06-08 13:44] LABS: Venous Blood Gas Refer to POC result
[2021-06-08] MEDS: dexmedeTOMIDidine HCL/NS 400 MCG/100 ML INFUS..BTL 15.31 MCG IVCONT (13:49)
--- NOTE | 2021-06-08 14:12 | PHA.MEDREC ---
Pharmacy Consult ? Medication Reconciliation Pharmacy has completed the medication reconciliation. Med history obtained from pt's pharmacy
[2021-06-08 16:52] LABS: TSH reflex Free T4 0.15 uIU/mL (0.32-4.0)
[2021-06-08] MEDS: dexmedeTOMIDidine HCL/NS 400 MCG/100 ML INFUS..BTL 5.74 MCG IVCONT (16:53)
[2021-06-08] MEDS: Dextrose 5 % and 0.9 % NaCl 1,000 ML 100 ML IVCONT (16:59)
[2021-06-08 17:26] LABS: Free T4 (Free Thyroxine) 1.04 ng/dL (0.71-1.85)
--- NOTE | 2021-06-08 17:38 | PC.NURSE ---
PER PATIENT RECORDS PRIMARY CONTACT WAS HER CASA OCHOA ([phone]). HE IS CURRENTLY AT [facility] IN THE ICU AND UNABLE TO BE REACHED FOR CONSENT/AUTHORIZATION. PATIENTS SECOND CONTACT WAS HER PARENT/MOTHER MEGHAN ([phone]). SHE IS PER PATIENT'S DAUGHTER ROLO. NEW PERSON TO NOTIFY IS PATIENTS DAUGHTER ROLO ([phone]). ADMISSION WEIGHT: 45.9 KG. MD AND PHARMACY NOTIFIED. PATIENT ARRIVED ON PRECEDEX GTT AT 1.2 MCG/KG/HR. DECREASED TO 0.5 MCG/KG/HR PER MD. BEDSIDE ETCO2 SETUP AND CURRENT READING OF 25 ON ROOM AIR.
[2021-06-08 19:59] LABS: Alanine Aminotransferase 9 U/L (0-31); Albumin Level 3.7 g/dL (3.5-5.0); Alkaline Phosphatase 59 U/L (39-117); Anion Gap 10 (12-20); Aspartate Amino Transferase 17 U/L (5-31); Bilirubin Total 0.9 mg/dL (0.0-1.0); Blood Urea Nitrogen 9 mg/dL (9-16); Carbon Dioxide 21 mmol/L (22-29); Chloride 112 mmol/L (96-108); Estimated Glomerular Filt Rate > 60; Glucose Random 136 mg/dL (60-115); Magnesium 2.1 mg/dL (1.6-2.6); Phosphorus 2.7 mg/dL (2.7-4.5); Potassium 3.6 mmol/L (3.3-5.1); Sodium 139 mmol/L (135-145); Total Protein 5.7 g/dL (6.5-8.0)
[2021-06-08] MEDS: Lactated Ringers 500 ML 999 ML IV (21:34)
[2021-06-08] MEDS: KCl 20 mEq in 5% Dex/0.45% Sod 20 MEQ/1,000 ML IV.SOLN 125 MEQ IVCONT (22:05)
[2021-06-09] VITALS (15 sets, daily range): BP systolic 114–166; BP diastolic 69–94; PULSE 63–110; RESP 11–31; TEMP 36.1–37.3; O2SAT 93–98; BMI 17.0
--- NOTE | 2021-06-09 00:11 | P.HPCC_ITS ---
History of Present Illness Date of Service: 06/08/21 <Genia Ryan PA-C - Last Filed: 06/09/21 00:27> Attending physician on admission: Eleanor Gan <AYSHA Ruiz Last Filed: 06/09/21 00:27> Chief Complaint: AMS <Genia Ryan PA-C - Last Filed: 06/09/21 00:27> Patient is a 55-year-old female with a past medical history of opioid use disorder, previously on Suboxone with RX as recently as March 23, 2021 pres ented to the ED early this morning c/o feeling like she was withdrawing from opiates. patient was able to report that she last used about 20 hours prior to arrival but otherwise is not able to give an accurate history. patient's daughter came to the emergency department several hours after her mother's arrival and explained that she was at [facility] yesterday for abdominal pain, was told was opiate withdrawal, was given Suboxone and sent to her mother's house in an Uber. Physical exam revealed no signs of trauma, labs revealed dehydration with calcium of 11, bicarb of 21. Tox screen + opiates and fentanyl. Head CT was negative. Hours later, patient then began showing signs of withdrawal, piloerection, fatigue and hypertensive. patient was given low-dose Suboxone 05/13 which helped albeit mildly. patient became extremely agitated in the emergency department, she was given several doses of IV Ativan, IM zyprexa, IV valium. addiction medicine was consulted and they did come evaluate the patient while she was in the emergency department. At this point, the patient was admitted to the ICU by Dr Gan to manage her delirium and agitation. She was started on a Precedex drip with very good results. Intubation was not necessary. <AYSHA Ruiz Last Filed: 06/09/21 00:27> Review of Systems Review of Systems: Yes Unobtainable due to mental status <AYSHA Ruiz Last Filed: 06/09/21 00:27> [facility] Past Medical History Medical History: Medical History Opioid use disorder <AYSHA Ruiz Filed: 06/09/21 00:27> Social History Social History: Social History Household Members: Unknown / Unable to assess Unable to assess alcohol history related to: Unknown Patient Tobacco Use Status: Tobacco use Unknown Cigarettes Per Day: 3 Years Smoked: 30 service: No Current occupational status: employed <Genia Ryan PA-C - Last Filed: 06/09/21 00:27> Meds Allergies/Adverse reactions: Allergies Allergy/AdvReac Type Severity Reaction Status Date / Time No Known Allergies Allergy Verified 06/23/21 15:12 <Genia Ryan PA-C - Last Filed: 06/09/21 00:27> Active Medications: Current Medications Dexmedetomidine HCl (Precedex) 400 mcg in 100 mls @ 0 mls/hr IVCONT .Q0M VEL; Protocol Last Admin: 06/08/21 16:53 Dose: 0.5 mcg/kg/hr, 5.74 mls/hr Documented by: Potassium Chloride/Dextrose/Sod Cl () 20 meq in 1,000 mls @ 125 mls/hr IVCONT .Q8H VEL Last Admin: 06/08/21 22:05 Dose: 125 mls/hr Documented by: Pharmacy Consult (Consult Rx Perform Med Rec) 1 each MISCELLANE ONCE PRN PRN Reason: Consult order <Genia Ryan PA-C - Last Filed: 06/09/21 00:27> Home medications: Home Medications Medication Instructions Recorded Confirmed Last Taken Type amitriptyline 10 mg tablet 2 tab PO BEDTIME 06/08/21 06/08/21 Unknown History amlodipine 10 mg tablet 1 tab PO DAILY 06/08/21 06/08/21 Unknown History levetiracetam 500 mg tablet 750 mg PO Q12H 06/08/21 06/08/21 Unknown History <Genia Ryan PA-C - Last Filed: 06/09/21 00:27> Physical Exam Vital Signs: Vital Signs: Last Vital Signs Temp 99.6 F 06/08/21 21:00 Pulse 80 06/08/21 23:00 Resp 24 H 06/08/21 23:00 BP 126/68 06/08/21 23:00 Pulse Ox 96 06/08/21 23:00 BMI result Body Mass Index 16.8 <Genia Ryan PA-C - Last Filed: 06/09/21 00:27> Const: Other: patient is sleeping soundly in her hospital bed <Genia Ryan PA-C - Last Filed: 06/09/21 00:27> General: poor hygiene <Genia Ryan PA-C - Last Filed: 06/09/21 00:27> Nutritional Appearance: thin <Genia Ryan PA-C - Last Filed: 06/09/21 00:27> HEENT: Head: Yes normal to inspection, Yes normocephalic and Yes atraumatic <Genia Ryan PA-C - Last Filed: 06/09/21 00:27> General nose exam: Normal external nose present <Genia Ryan PA-C - Last Filed: 06/09/21 00:27> Face and sinus: Yes normal facial exam <Genia Ryan PA-C - Last Filed: 06/09/21 00:27> Neck: Neck: Yes normal visual inspection <Genia Ryan PA-C - Last Filed: 06/09/21 00:27> Resp: Effort & Inspection: normal respiratory effort <Genia Ryan PA-C - Last Filed: 06/09/21 00:27> Auscultation: clear to auscultation bilaterally <Genia Ryan PA-C - Last Filed: 06/09/21 00:27> Cardio: Rate: regular rate <Genia Ryan PA-C - Last Filed: 06/09/21 00:27> Rhythm: regular rhythm <AYSHA Ruiz Last Filed: 06/09/21 00:27> Heart sounds: normal S1 and S2 <Genia Ryan PA-C - Last Filed: 06/09/21 00:27> GI: Palpation (GI): Soft to palpation and nontender <JASON Ruiz Last Filed: 06/09/21 00:27> Extrem: General: Yes no pedal edema <AYSHA Ruiz Last Filed: 06/09/21 00:27> Results Labs CBC and Chem 7: : 06/09/21 05:10 06/09/21 05:10 <Genia Ryan PA-C - Last Filed: 06/09/21 00:27> Labs: Laboratory Results - last 24 hr 06/08/21 06/08/21 06/08/21 03:09 03:09 03:09 MCV 83.5 MCH 29.4 MCHC 35.1 H RDW 12.2 Plt Count 302 MPV 9.5 Immature Gran % (Auto) 0.4 Neut % (Auto) 91.6 H Lymph % (Auto) 6.1 L [place] % (Auto) 1.8 L Eos % (Auto) 0.0 Baso % (Auto) 0.1 Lymph # (Auto) 0.6 L [place] # (Auto) 0.2 Eos # (Auto) 0.0 Baso # (Auto) 0.0 Abs Immat Gran (auto) 0.04 H Absolute Neuts (auto) 9.0 H Absolute Nucleated RBC 0.000 Nucleated RBC % (auto) 0.0 Smear Tech's Comments VERIFIED ESR PT INR APTT VBG pH VBG pCO2 VBG pO2 VBG HCO3 VBG O2 Saturation VBG Base Excess Anion Gap 20 Estim Creat Clear Calc 68.9 Estimated GFR > 60 Random Glucose 122 H Lactic Acid Calcium 11.0 H Phosphorus Magnesium Total Bilirubin 1.2 H AST 33 H ALT 16 Alkaline Phosphatase 99 Ammonia Total Creatine Kinase C-Reactive Protein Total Protein 9.3 H Albumin 5.7 H TSH Free T4 Urine Color Urine Appearance Urine pH Ur Specific [place] Urine Protein Urine Glucose (UA) Urine Ketones Urine Blood Urine Nitrite Ur Leukocyte Esterase Urine RBC Urine WBC Ur Squamous Epith Cells Urine Bacteria Salicylates Urine Opiates Screen Urine Fentanyl Screen Acetaminophen Ur Barbiturates Screen Ur Phencyclidine Scrn Ur Amphetamines Screen U Benzodiazepines Scrn Urine Cocaine Screen U Marijuana (THC) Screen Ethyl Alcohol < 10 COVID-19 (CHANG) COVID-19 Clin Com 06/08/21 06/08/21 06/08/21 07:23 08:24 08:24 MCV MCH MCHC RDW Plt Count MPV Immature Gran % (Auto) Neut % (Auto) Lymph % (Auto) [place] % (Auto) Eos % (Auto) Baso % (Auto) Lymph # (Auto) [place] # (Auto) Eos # (Auto) Baso # (Auto) Abs Immat Gran (auto) Absolute Neuts (auto) Absolute Nucleated RBC Nucleated RBC % (auto) Smear Tech's Comments ESR PT INR APTT VBG pH VBG pCO2 VBG pO2 VBG HCO3 VBG O2 Saturation VBG Base Excess Anion Gap Estim Creat Clear Calc Estimated GFR Random Glucose Lactic Acid Calcium Phosphorus Magnesium Total Bilirubin AST ALT Alkaline Phosphatase Ammonia Total Creatine Kinase C-Reactive Protein Total Protein Albumin TSH Free T4 Urine Color YELLOW Urine Appearance CLEAR Urine pH 6.5 Ur Specific [place] 1.015 Urine Protein NEG Urine Glucose (UA) NEG Urine Ketones 40 Urine Blood TRACE Urine Nitrite NEG Ur Leukocyte Esterase NEG Urine RBC 0 Urine WBC 0 Ur Squamous Epith Cells NONE Urine Bacteria NONE Salicylates Urine Opiates Screen POSITIVE H Urine Fentanyl Screen POSITIVE H Acetaminophen Ur Barbiturates Screen Not Detected Ur Phencyclidine Scrn Not Detected Ur Amphetamines Screen Not Detected U Benzodiazepines Scrn Not Detected Urine Cocaine Screen Not Detected U Marijuana (THC) Screen Not Detected Ethyl Alcohol COVID-19 (CHANG) Negative COVID-[employer] See Note 06/08/21 06/08/21 06/08/21 10:21 10:21 10:22 MCV MCH MCHC RDW Plt Count MPV Immature Gran % (Auto) Neut % (Auto) Lymph % (Auto) [place] % (Auto) Eos % (Auto) Baso % (Auto) Lymph # (Auto) [place] # (Auto) Eos # (Auto) Baso # (Auto) Abs Immat Gran (auto) Absolute Neuts (auto) Absolute Nucleated RBC Nucleated RBC % (auto) Smear Tech's Comments ESR 2 PT INR APTT VBG pH VBG pCO2 VBG pO2 VBG HCO3 VBG O2 Saturation VBG Base Excess Anion Gap Estim Creat Clear Calc Estimated GFR Random Glucose Lactic Acid 1.1 Calcium Phosphorus Magnesium 1.9 Total Bilirubin AST ALT Alkaline Phosphatase Ammonia Total Creatine Kinase 78 C-Reactive Protein 0.04 Total Protein Albumin TSH Free T4 Urine Color Urine Appearance Urine pH Ur Specific [place] Urine Protein Urine Glucose (UA) Urine Ketones Urine Blood Urine Nitrite Ur Leukocyte Esterase Urine RBC Urine WBC Ur Squamous Epith Cells Urine Bacteria Salicylates Urine Opiates Screen Urine Fentanyl Screen Acetaminophen Ur Barbiturates Screen Ur Phencyclidine Scrn Ur Amphetamines Screen U Benzodiazepines Scrn Urine Cocaine Screen U Marijuana (THC) Screen Ethyl Alcohol COVID-19 (CHANG) COVID-[employer] 06/08/21 06/08/21 06/08/21 10:22 13:10 13:10 MCV MCH MCHC RDW Plt Count MPV Immature Gran % (Auto) Neut % (Auto) Lymph % (Auto) [place] % (Auto) Eos % (Auto) Baso % (Auto) Lymph # (Auto) [place] # (Auto) Eos # (Auto) Baso # (Auto) Abs Immat Gran (auto) Absolute Neuts (auto) Absolute Nucleated RBC Nucleated RBC % (auto) Smear Tech's Comments ESR PT 12.2 INR 1.1 APTT 41.6 H VBG pH VBG pCO2 VBG pO2 VBG HCO3 VBG O2 Saturation VBG Base Excess Anion Gap Estim Creat Clear Calc Estimated GFR Random Glucose Lactic Acid Calcium Phosphorus Magnesium Total Bilirubin AST ALT Alkaline Phosphatase Ammonia 25 Total Creatine Kinase C-Reactive Protein Total Protein Albumin TSH Free T4 Urine Color Urine Appearance Urine pH Ur Specific [place] Urine Protein Urine Glucose (UA) Urine Ketones Urine Blood Urine Nitrite Ur Leukocyte Esterase Urine RBC Urine WBC Ur Squamous Epith Cells Urine Bacteria Salicylates < 5.0 L Urine Opiates Screen Urine Fentanyl Screen Acetaminophen < 1 Ur Barbiturates Screen Ur Phencyclidine Scrn Ur Amphetamines Screen U Benzodiazepines Scrn Urine Cocaine Screen U Marijuana (THC) Screen Ethyl Alcohol COVID-19 (CHANG) COVID-19 Clin Com 06/08/21 06/08/21 06/08/21 13:13 15:57 19:34 MCV MCH MCHC RDW Plt Count MPV Immature Gran % (Auto) Neut % (Auto) Lymph % (Auto) [place] % (Auto) Eos % (Auto) Baso % (Auto) Lymph # (Auto) [place] # (Auto) Eos # (Auto) Baso # (Auto) Abs Immat Gran (auto) Absolute Neuts (auto) Absolute Nucleated RBC Nucleated RBC % (auto) Smear Tech's Comments ESR PT INR APTT VBG pH 7.32 VBG pCO2 42 VBG pO2 38 VBG HCO3 22 VBG O2 Saturation 56.0 VBG Base Excess -3.6 Anion Gap 10 L Estim Creat Clear Calc 70.0 Estimated GFR > 60 Random Glucose 136 H Lactic Acid Calcium 9.0 D Phosphorus 2.7 Magnesium 2.1 Total Bilirubin 0.9 AST 17 D ALT 9 Alkaline Phosphatase 59 D Ammonia Total Creatine Kinase C-Reactive Protein Total Protein 5.7 L D Albumin 3.7 D TSH 0.15 L Free T4 1.04 Urine Color Urine Appearance Urine pH Ur Specific [place] Urine Protein Urine Glucose (UA) Urine Ketones Urine Blood Urine Nitrite Ur Leukocyte Esterase Urine RBC Urine WBC Ur Squamous Epith Cells Urine Bacteria Salicylates Urine Opiates Screen Urine Fentanyl Screen Acetaminophen Ur Barbiturates Screen Ur Phencyclidine Scrn Ur Amphetamines Screen U Benzodiazepines Scrn Urine Cocaine Screen U Marijuana (THC) Screen Ethyl Alcohol COVID-19 (CHANG) COVID-19 Clin Com <Genia Ryan PA-C - Last Filed: 06/09/21 00:27> Imaging Radiologist's Impressions: Impressions Head CT 06/08/21 06:58 IMPRESSION: No acute intracranial pathology. Abdomen/Pelvis CT 06/08/21 16:34 IMPRESSION: -No bowel obstruction or focal inflammatory changes. Normal appendix. -Common duct upper normal. No visible calculus. No intrahepatic ductal dilatation. -No hydronephrosis or perinephric stranding. -Distended urinary bladder, Arevalo catheter present, possibly clamped. -Grade 1 spondylolisthesis L4-L5. -CT chest described in separate report. Chest CT 06/08/21 16:34 IMPRESSION: -No pneumothorax, airspace consolidation, or effusion. -Mediastinum unremarkable on noncontrast exam. -CT abdomen and pelvis described in separate report. -Small subpleural nodule anterior right upper lobe under 4 mm. Fleischner guidelines below. Reference: The Fleischner Society recommendations for management of incidentally detected pulmonary nodules in adults age 35 and greater are based on average nodule size and patient risk category. The recommendations do not apply to lung cancer screening, patients with immunosuppression, or patients with known primary cancer. Single solid nodule average size < 6 mm: Low Risk Patient: No routine follow-up. High Risk Patient: Optional CT at 12 months. Certain patients at high risk with suspicious nodule morphology, upper lobe location, or both may warrant 12-month follow-up. <Genia Ryan PA-C - Last Filed: 06/09/21 00:27> Assessment and Plan (1) Opioid use disorder: likely continue Suboxone tomorrow <Genia Ryan PA-C - Last Filed: 06/09/21 00:27> (2) Acute delirium: Status: Resolved <AYSHA Ruiz Last Filed: 06/09/21 00:27> Recheck CMP, phos, mag; monitor vital signs and patient's breathing, keep patient on Precedex drip overnight and reassess in the morning with sedation vacation <Genia Ryan PA-C - Last Filed: 06/09/21 00:27> Critical Care Time Critical Care Time (minutes): 30 <Genia Ryan PA-C - Last Filed: 06/09/21 00:27>
[2021-06-09] MEDS: Nicotine 14 MG PATCH.TD24 TRANSDERMA (01:28)
[2021-06-09 05:18] LABS: VBG Base Excess -2.8 mmol/L; VBG HCO3 19 mmol/L (22-26); VBG pCO2 27 mmHg; VBG pH 7.46 (7.32-7.43); VBG pO2 95 mmHg
[2021-06-09 05:21] LABS: MANUAL DIFF FLAG NO
[2021-06-09 05:25] LABS: Basophils Percent Auto 0.3 % (0-2); Eosinophils Percent Auto 0.6 % (0-4); Hematocrit 39.8 % (37.0-47.0); Hemoglobin 13.9 g/dl (12.0-16.0); Imm Gran Abs Auto 0.04 X10*3/uL (0.00-0.03); Imm Gran Pct Auto 0.6 % (0.0-0.4); Lymphocytes Absolute Auto 1.8 X10*3/uL (1.2-4.9); Mean Corpuscular HGB Conc 34.9 g/dl (31.0-35.0); Mean Corpuscular Hemoglobin 29.4 pg (27.0-33.0); Mean Corpuscular Volume 84.1 fL (80.0-98.0); Mean Platelet Volume 9.7 fL (9.4-12.3); Monocytes Absolute Auto 0.5 X10*3/uL (0.1-1.2); Monocytes Percent Auto 7.1 % (2-11); Neutrophils Absolute Auto 4.6 x10*3/uL (2.0-8.3); Neutrophils Percent Auto 65.4 % (45-73); Platelet Count 231 X10*3/uL (160-400); Red Blood Count 4.73 X10*6/uL (4.20-5.50)
--- NOTE | 2021-06-09 05:27 | PC.NURSE ---
Addendum entered by Jamey Prescott RN 06/09/21 06:25: Patient voices interest in continuing suboxone today. MD aware. Addendum entered by Jamey Prescott RN 06/09/21 05:48: Precedex gtt turned off at 05:45 per PA. Patient resting calmly in bed. Original Note: Assumed care at 19:00. Patient is continuing on precedex gtt related to agitation. She was initially on a doserate of 0.5 mcg/kg/hour. She was restless and picking at lines and tubes. She was mostly redirectable, but this was recurring, with telesitter in place. Precedex was uptitrated to 0.75 mcg/kg/hr per PA. Plan to turn this off in the morning. Patient remains easily arousable, oriented to name and location, vague to confused about situation and time. Forgetful. Poor articulation. Follows commands, moves all extremities. PERRLA. Patient denies pain and nausea. T-max was 99.6 temporal artery scan. Patient was tachypneic at times, especially while asleep with RR in 20's-30. Other vitals unremarkable. CO2 sensor nasal cannula with readings around 25-27. Room air, despite intermittent tachypnea, is breathing easily, and with shallow respirations, diminished lung sounds to auscultation at bases. Patient with sinus rhythm on monitor with mildly elevated T-waves during the 19:00-00:00 portion of the night, which seemed to correct over the course of the morning; she also has U-waves that are not elevated. Patient with NPO status in effect as a precaution due to initial concern of risk for intubation, discussed with PA, and order remained overnight. Patient with no BM overnight. Arevalo catheter per MD and for I/Os. Patient had 4 hours of 15 cc/hour pale dilute urine at the start of the evening. Discussed with PA, and fluids were changed in response, patient recieved a 500 cc LR bolus, follwed by a change in the continuous fluids to D5% 1/2 NS with 20 mEq of KCl. Skin is intact. No signs of withdrawal. Patient is pleasant and somewhat resistant to care at times, which seems to be improving overnight.
[2021-06-09 05:28] LABS: Venous Blood Gas Refer to POC result
[2021-06-09 05:40] LABS: Alanine Aminotransferase 7 U/L (0-31); Albumin Level 3.6 g/dL (3.5-5.0); Alkaline Phosphatase 59 U/L (39-117); Anion Gap 9 (12-20); Aspartate Amino Transferase 17 U/L (5-31); Bilirubin Total 1.1 mg/dL (0.0-1.0); Blood Urea Nitrogen 9 mg/dL (9-16); Carbon Dioxide 22 mmol/L (22-29); Chloride 112 mmol/L (96-108); Creatinine Clr Calc Pharmacy 66.9; Estimated Glomerular Filt Rate > 60; Glucose Random 137 mg/dL (60-115); Magnesium 1.9 mg/dL (1.6-2.6); Phosphorus 2.2 mg/dL (2.7-4.5); Potassium 3.7 mmol/L (3.3-5.1); Sodium 139 mmol/L (135-145); Total Protein 5.5 g/dL (6.5-8.0)
[2021-06-09] MEDS: KCl 20 mEq in 5% Dex/0.45% Sod 20 MEQ/1,000 ML IV.SOLN 125 MEQ IVCONT ×2 (06:20→14:53)
--- NOTE | 2021-06-09 08:28 | P.PNCC_ITS ---
Subjective Subjective Date of Service: 06/09/21 Interval History: 55-year-old female who was admitted with acute delirium with a urine urinalysis positive for opiates and fen supposedly on a Suboxone withdrawal program also is a smoker but we do not know anything about alcohol history and had a normal EKG in normal sinus rhythm really did not display features of a significant toxidrome and she responded to into her agitation very well but with some he dexmedetomidine and basically slept all night and then this morning she awakens with good cognitive function calm comfortable asking for her Suboxone and were waiting for dose of eyesight Critical Care Time (minutes): 35 Physical Exam Vital Signs: Vital Signs: Last Vital Signs Temp 97.3 F 06/09/21 07:00 Pulse 80 06/09/21 08:00 Resp 29 H 06/09/21 08:00 BP 131/84 06/09/21 08:00 Pulse Ox 96 06/09/21 08:00 BMI result Body Mass Index 17.0 Wake alert and oriented nonfocal neurologically Cardiovascular by bedside echo showing normal LV and RV function Abdomen benign soft no organomegaly The chest without adventitious Sounds skin periphery no cellulitis no livedo Objective Data Labs CBC & Chem 7: 06/09/21 05:10 06/09/21 05:10 Labs: Laboratory Results - last 24 hr 06/08/21 06/08/21 06/08/21 08:24 08:24 10:21 WBC RBC Hgb Hct MCV MCH MCHC RDW Plt Count MPV Immature Gran % (Auto) Neut % (Auto) Lymph % (Auto) [place] % (Auto) Eos % (Auto) Baso % (Auto) Lymph # (Auto) [place] # (Auto) Eos # (Auto) Baso # (Auto) Abs Immat Gran (auto) Absolute Neuts (auto) Absolute Nucleated RBC Nucleated RBC % (auto) ESR PT INR APTT VBG pH VBG pCO2 VBG pO2 VBG HCO3 VBG O2 Saturation VBG Base Excess Sodium Potassium Chloride Carbon Dioxide Anion Gap BUN Creatinine Estim Creat Clear Calc Estimated GFR Random Glucose Lactic Acid 1.1 Calcium Phosphorus Magnesium Total Bilirubin AST ALT Alkaline Phosphatase Ammonia Total Creatine Kinase C-Reactive Protein Total Protein Albumin TSH Free T4 Urine Color YELLOW Urine Appearance CLEAR Urine pH 6.5 Ur Specific [place] 1.015 Urine Protein NEG Urine Glucose (UA) NEG Urine Ketones 40 Urine Blood TRACE Urine Nitrite NEG Ur Leukocyte Esterase NEG Urine RBC 0 Urine WBC 0 Ur Squamous Epith Cells NONE Urine Bacteria NONE Salicylates Urine Opiates Screen POSITIVE H Urine Fentanyl Screen POSITIVE H Acetaminophen Ur Barbiturates Screen Not Detected Ur Phencyclidine Scrn Not Detected Ur Amphetamines Screen Not Detected U Benzodiazepines Scrn Not Detected Urine Cocaine Screen Not Detected U Marijuana (THC) Screen Not Detected 06/08/21 06/08/21 06/08/21 10:21 10:22 10:22 WBC RBC Hgb Hct MCV MCH MCHC RDW Plt Count MPV Immature Gran % (Auto) Neut % (Auto) Lymph % (Auto) [place] % (Auto) Eos % (Auto) Baso % (Auto) Lymph # (Auto) [place] # (Auto) Eos # (Auto) Baso # (Auto) Abs Immat Gran (auto) Absolute Neuts (auto) Absolute Nucleated RBC Nucleated RBC % (auto) ESR 2 PT 12.2 INR 1.1 APTT 41.6 H VBG pH VBG pCO2 VBG pO2 VBG HCO3 VBG O2 Saturation VBG Base Excess Sodium Potassium Chloride Carbon Dioxide Anion Gap BUN Creatinine Estim Creat Clear Calc Estimated GFR Random Glucose Lactic Acid Calcium Phosphorus Magnesium 1.9 Total Bilirubin AST ALT Alkaline Phosphatase Ammonia Total Creatine Kinase 78 C-Reactive Protein 0.04 Total Protein Albumin TSH Free T4 Urine Color Urine Appearance Urine pH Ur Specific [place] Urine Protein Urine Glucose (UA) Urine Ketones Urine Blood Urine Nitrite Ur Leukocyte Esterase Urine RBC Urine WBC Ur Squamous Epith Cells Urine Bacteria Salicylates Urine Opiates Screen Urine Fentanyl Screen Acetaminophen Ur Barbiturates Screen Ur Phencyclidine Scrn Ur Amphetamines Screen U Benzodiazepines Scrn Urine Cocaine Screen U Marijuana (THC) Screen 06/08/21 06/08/21 06/08/21 13:10 13:10 13:13 WBC RBC Hgb Hct MCV MCH MCHC RDW Plt Count MPV Immature Gran % (Auto) Neut % (Auto) Lymph % (Auto) [place] % (Auto) Eos % (Auto) Baso % (Auto) Lymph # (Auto) [place] # (Auto) Eos # (Auto) Baso # (Auto) Abs Immat Gran (auto) Absolute Neuts (auto) Absolute Nucleated RBC Nucleated RBC % (auto) ESR PT INR APTT VBG pH 7.32 VBG pCO2 42 VBG pO2 38 VBG HCO3 22 VBG O2 Saturation 56.0 VBG Base Excess -3.6 Sodium Potassium Chloride Carbon Dioxide Anion Gap BUN Creatinine Estim Creat Clear Calc Estimated GFR Random Glucose Lactic Acid Calcium Phosphorus Magnesium Total Bilirubin AST ALT Alkaline Phosphatase Ammonia 25 Total Creatine Kinase C-Reactive Protein Total Protein Albumin TSH Free T4 Urine Color Urine Appearance Urine pH Ur Specific [place] Urine Protein Urine Glucose (UA) Urine Ketones Urine Blood Urine Nitrite Ur Leukocyte Esterase Urine RBC Urine WBC Ur Squamous Epith Cells Urine Bacteria Salicylates < 5.0 L Urine Opiates Screen Urine Fentanyl Screen Acetaminophen < 1 Ur Barbiturates Screen Ur Phencyclidine Scrn Ur Amphetamines Screen U Benzodiazepines Scrn Urine Cocaine Screen U Marijuana (THC) Screen 06/08/21 06/08/21 06/09/21 15:57 19:34 05:10 WBC 7.0 RBC 4.73 D Hgb 13.9 D Hct 39.8 D MCV 84.1 MCH 29.4 MCHC 34.9 RDW 12.0 Plt Count 231 MPV 9.7 Immature Gran % (Auto) 0.6 H Neut % (Auto) 65.4 Lymph % (Auto) 26.0 [place] % (Auto) 7.1 Eos % (Auto) 0.6 Baso % (Auto) 0.3 Lymph # (Auto) 1.8 [place] # (Auto) 0.5 Eos # (Auto) 0.0 Baso # (Auto) 0.0 Abs Immat Gran (auto) 0.04 H Absolute Neuts (auto) 4.6 Absolute Nucleated RBC 0.000 Nucleated RBC % (auto) 0.0 ESR PT INR APTT VBG pH VBG pCO2 VBG pO2 VBG HCO3 VBG O2 Saturation VBG Base Excess Sodium 139 Potassium 3.6 Chloride 112 H Carbon Dioxide 21 L Anion Gap 10 L BUN 9 Creatinine 0.65 Estim Creat Clear Calc 70.0 Estimated GFR > 60 Random Glucose 136 H Lactic Acid Calcium 9.0 D Phosphorus 2.7 Magnesium 2.1 Total Bilirubin 0.9 AST 17 D ALT 9 Alkaline Phosphatase 59 D Ammonia Total Creatine Kinase C-Reactive Protein Total Protein 5.7 L D Albumin 3.7 D TSH 0.15 L Free T4 1.04 Urine Color Urine Appearance Urine pH Ur Specific [place] Urine Protein Urine Glucose (UA) Urine Ketones Urine Blood Urine Nitrite Ur Leukocyte Esterase Urine RBC Urine WBC Ur Squamous Epith Cells Urine Bacteria Salicylates Urine Opiates Screen Urine Fentanyl Screen Acetaminophen Ur Barbiturates Screen Ur Phencyclidine Scrn Ur Amphetamines Screen U Benzodiazepines Scrn Urine Cocaine Screen U Marijuana (THC) Screen 06/09/21 06/09/21 05:10 05:10 WBC RBC Hgb Hct MCV MCH MCHC RDW Plt Count MPV Immature Gran % (Auto) Neut % (Auto) Lymph % (Auto) [place] % (Auto) Eos % (Auto) Baso % (Auto) Lymph # (Auto) [place] # (Auto) Eos # (Auto) Baso # (Auto) Abs Immat Gran (auto) Absolute Neuts (auto) Absolute Nucleated RBC Nucleated RBC % (auto) ESR PT INR APTT VBG pH 7.46 H VBG pCO2 27 VBG pO2 95 VBG HCO3 19 L VBG O2 Saturation 98.0 VBG Base Excess -2.8 Sodium 139 Potassium 3.7 Chloride 112 H Carbon Dioxide 22 Anion Gap 9 L BUN 9 Creatinine 0.68 Estim Creat Clear Calc 66.9 Estimated GFR > 60 Random Glucose 137 H Lactic Acid Calcium 9.0 Phosphorus 2.2 L Magnesium 1.9 Total Bilirubin 1.1 H AST 17 ALT 7 Alkaline Phosphatase 59 Ammonia Total Creatine Kinase C-Reactive Protein Total Protein 5.5 L Albumin 3.6 TSH Free T4 Urine Color Urine Appearance Urine pH Ur Specific [place] Urine Protein Urine Glucose (UA) Urine Ketones Urine Blood Urine Nitrite Ur Leukocyte Esterase Urine RBC Urine WBC Ur Squamous Epith Cells Urine Bacteria Salicylates Urine Opiates Screen Urine Fentanyl Screen Acetaminophen Ur Barbiturates Screen Ur Phencyclidine Scrn Ur Amphetamines Screen U Benzodiazepines Scrn Urine Cocaine Screen U Marijuana (THC) Screen Progress Note: A&P Assessment and plan (1) Acute delirium: Status: Acute (2) Opioid use disorder: Status: Acute (3) Opioid use: Status: Acute (4) Encephalopathy, toxic: Status: Acute Plan And plan is to transfer upstairs probably should have a a behavioral health consult I think at this point Quality Stroke Does the patient have a stroke diagnosis?: No VTE Prior VTE?: No VTE Risk Level:: Medical - moderate - high VTE Device Contraindication: N/A - Device Ordered VTE Drug Contraindication: Treatment Not Tolerated
--- NOTE | 2021-06-09 09:24 | P.CDIC_ITS ---
CDI Concurrent Query Documentation Clarification: PHYSICIAN'S DOCUMENTATION REQUEST Date of Query: 06/09/21 0925 Patient Name: Mary Aviles Admit Date: 06/08/21 Dear Doctor, A review of the medical record indicates additional documentation may be needed. Please review below and update the documentation accordingly. Clinical Indicators: Height: [] 5'5 Weight: [] 46.5 kg BMI: [] 17.1 Other Clinical Notes Supporting Significance of the BMI: Risk Factors/Clinical Indicators/Treatments Per H&P, nutritional appearance thin No Nutrition Assessment in EMR If possible, please provide an associated diagnosis related to the abnormal BMI, such as: For a BMI <= 19: * Underweight * Weight loss * Cachexia * Anorexia Or: * BMI is not significant * Other (please specify) * Unable to determine Use of terms such as suspected, likely, concern for, or probable (associated with a specific diagnosis that is being evaluated, monitored, or treated as if it exists) are acceptable and can be coded in the inpatient setting, when documented at the time of discharge. Thank you, Jimena Sheppard RN Extension: [phone] Please use your independent medical judgment in providing your response. THIS QUERY IS PART OF THE PERMANENT MEDICAL RECORD Provider Response: Other Other Diagnosis: BMI not significant
--- NOTE | 2021-06-09 09:48 | MHC.RECOVRN ---
Met with pt in 253 to follow up regarding Suboxone. Pt awake, alert, sitting in bed eating breakfast. Easily engaged in conversation. Pt reports last use of heroin was 3-4 days ago, 1 sniff. Pt would like to reinitiate Suboxone. After discussion with MD, pt will receive 4/1 mg film. Will continue to follow. Discussed with Gardenia Paulson APRN.
[2021-06-09] MEDS: Buprenorphine/Naloxone 4/1 mg FILM 1 FILM SUBLINGUAL ×3 (10:08→17:50)
--- NOTE | 2021-06-09 10:10 | MHC.CM.PN ---
Met with pt to discuss d/c planning needs. Pt resides with spouse (currently hospitalized) and minor dtr (17). She works, drives and has no services or adaptive equipment. Pt is active with [facility] outpt treatment office of Dr. Cruz for suboxone and plans to continue upon d/c. She states her PCP is someone at [address] [place] [address] but hasn't received care in years and can't recall MD. Will attempt to verify. Pt states she will call her dtr for transport when she is medically ready. She notes her spouse is presently hospitalized at [facility]. HCP declined at this time. CM to follow for d/c needs.
--- NOTE | 2021-06-09 10:21 | MHC.CLN ---
RE: CONSULT PT IS UNDER WT FOR HT PT WITH BMI 17 AND WT HX REVEALS WT BELOW IBW X 6 MONTHS WITH HX OPIOD USE DISORDER PREVIOUS WT HX 43.09KG (12/01/20); PT WITH 8% WT GAIN X 6 MONTHS OVER ALL BUT REMAINS UNDER WT FOR HT DIET RX: REGULAR-APPROPRIATE OBSERVED PT SITTING UP IN BED EATING BREAKFAST RECOMMEND ADDING ENSURE BID TO INCREASE KCALS AND PROMOTE WT GAIN SUPP TO PROVIDE 700KCALS, 40G PROTEIN MONITOR PO INTAKE CLOSELY SEE ALSO FULL CLINICAL NUTRITION ASSESSMENT
[2021-06-09] MEDS: levETIRAcetam 250 MG TABLET 750 MG PO ×2 (14:08→21:29)
--- NOTE | 2021-06-09 15:12 | PC.NURSE ---
PRECEDEX GTT TURNED OFF AT 0547. PALMER REMOVED AT 0730. ALL DTV COMPLETED. BM X 1. PASSED SWALLOW EVALUATION - ATE 50% OF MEALS. SUBOXONE X 2 ADMINISTERED ORDERED. PATIENTS DAUGHTER BEDSIDE TO VISIT AND UPDATED ON STATUS AND TRANSFER TO NEW UNIT.
--- NOTE | 2021-06-09 16:41 | PC.NURSE ---
Patient HR noted to be 145 per electronic device monitor tech while patient was transferring to the bedside commode. HR down to 88 when patient was back to bed. LAUREN Fletcher made aware.
[2021-06-09] MEDS: Acetaminophen 325 MG TABLET 650 MG PO (16:49)
--- NOTE | 2021-06-09 18:45 | HO.ADDICT_ITS ---
History of Present Illness Date of Service: 06/09/2021 Chief Complaint: A toxic delirium Reason for Consult: OUD-restart suboxone Requesting physician: Eleanor Gan Sources of Information: patient interviewed and chart reviewed Additional Sources of Information: Recovery Support RN [facility] Narrative: Patient is a 56 year old female with history of OUD currently medically admitted after presenting to ED with acute delirium of unknown etiology. Required brief intubation and stay in ICU. When seen by this music writer, patient awake, alert pleasant and engaged in interview. Chart reviewed and noted that patient was being seen at [facility] program late last year for OUD. Patient requesting to restart suboxone, state historical society director ordered and administered Suboxone 4mg earlier with good effect. At time of interview, patient's teenage daughter present, so full history not obtained. Patient reporting that 4mg helpful, requesting additional 4mg later today. Did not appear to be experiencing acute withdrwawal sx. Denies any withdrawal sx aside from some anxiety. Review of Systems Constitutional: Reports as per HPI Diagnostics Vital Signs (24Hr): Vital Signs - 24 hr 06/08/21 19:00 06/08/21 20:00 06/08/21 21:00 Temperature 99.6 F Pulse Rate 71 93 83 Respiratory Rate 27 H 27 H 25 H Blood Pressure 118/74 119/69 116/62 Pulse Oximetry 95 95 96 06/08/21 22:00 06/08/21 23:00 06/09/21 00:00 Temperature 99.1 F Pulse Rate 71 80 78 Respiratory Rate 26 H 24 H 29 H Blood Pressure 116/62 126/68 114/71 Pulse Oximetry 96 96 96 06/09/21 01:00 06/09/21 02:00 06/09/21 03:00 Temperature Pulse Rate 71 68 71 Respiratory Rate 29 H 26 H 30 H Blood Pressure 125/71 124/76 122/78 Pulse Oximetry 96 96 95 06/09/21 04:00 06/09/21 05:00 06/09/21 06:00 Temperature 98.1 F Pulse Rate 67 63 65 Respiratory Rate 29 H 19 27 H Blood Pressure 128/69 139/91 H 139/91 H Pulse Oximetry 96 95 96 06/09/21 07:00 06/09/21 08:00 06/09/21 09:00 Temperature 97.3 F Pulse Rate 76 80 105 H Respiratory Rate 17 29 H 11 L Blood Pressure 122/71 131/84 133/82 Pulse Oximetry 98 96 93 06/09/21 10:00 06/09/21 12:00 06/09/21 16:00 Temperature 98.8 F 98.2 F Pulse Rate 102 H 110 H 83 Respiratory Rate 31 H 19 Blood Pressure 145/92 H 166/88 H Pulse Oximetry 97 94 98 BMI result Body Mass Index 17.0 Labs Results: 06/09/21 05:10 06/09/21 05:10 Labs: Laboratory Results - last 48 hr 06/08/21 06/08/21 06/08/21 03:09 03:09 03:09 WBC 9.8 RBC 6.20 H Hgb 18.2 H Hct 51.8 H MCV 83.5 MCH 29.4 MCHC 35.1 H RDW 12.2 Plt Count 302 MPV 9.5 Immature Gran % (Auto) 0.4 Neut % (Auto) 91.6 H Lymph % (Auto) 6.1 L Stanley % (Auto) 1.8 L Eos % (Auto) 0.0 Baso % (Auto) 0.1 Lymph # (Auto) 0.6 L Stanley # (Auto) 0.2 Eos # (Auto) 0.0 Baso # (Auto) 0.0 Abs Immat Gran (auto) 0.04 H Absolute Neuts (auto) 9.0 H Absolute Nucleated RBC 0.000 Nucleated RBC % (auto) 0.0 Smear Tech's Comments VERIFIED ESR PT INR APTT VBG pH VBG pCO2 VBG pO2 VBG HCO3 VBG O2 Saturation VBG Base Excess Sodium 138 Potassium 4.4 Chloride 101 Carbon Dioxide 21 L Anion Gap 20 BUN 8 L Creatinine 0.82 Estim Creat Clear Calc 68.9 Estimated GFR > 60 Random Glucose 122 H Lactic Acid Calcium 11.0 H Phosphorus Magnesium Total Bilirubin 1.2 H AST 33 H ALT 16 Alkaline Phosphatase 99 Ammonia Total Creatine Kinase C-Reactive Protein Total Protein 9.3 H Albumin 5.7 H TSH Free T4 Urine Color Urine Appearance Urine pH Ur Specific [place] Urine Protein Urine Glucose (UA) Urine Ketones Urine Blood Urine Nitrite Ur Leukocyte Esterase Urine RBC Urine WBC Ur Squamous Epith Cells Urine Bacteria Salicylates Urine Opiates Screen Urine Fentanyl Screen Acetaminophen Ur Barbiturates Screen Ur Phencyclidine Scrn Ur Amphetamines Screen U Benzodiazepines Scrn Urine Cocaine Screen U Marijuana (THC) Screen Ethyl Alcohol < 10 COVID-19 (CHANG) COVID-19 Clin Com 06/08/21 06/08/21 06/08/21 07:23 08:24 08:24 WBC RBC Hgb Hct MCV MCH MCHC RDW Plt Count MPV Immature Gran % (Auto) Neut % (Auto) Lymph % (Auto) Stanley % (Auto) Eos % (Auto) Baso % (Auto) Lymph # (Auto) Stanley # (Auto) Eos # (Auto) Baso # (Auto) Abs Immat Gran (auto) Absolute Neuts (auto) Absolute Nucleated RBC Nucleated RBC % (auto) Smear Tech's Comments ESR PT INR APTT VBG pH VBG pCO2 VBG pO2 VBG HCO3 VBG O2 Saturation VBG Base Excess Sodium Potassium Chloride Carbon Dioxide Anion Gap BUN Creatinine Estim Creat Clear Calc Estimated GFR Random Glucose Lactic Acid Calcium Phosphorus Magnesium Total Bilirubin AST ALT Alkaline Phosphatase Ammonia Total Creatine Kinase C-Reactive Protein Total Protein Albumin TSH Free T4 Urine Color YELLOW Urine Appearance CLEAR Urine pH 6.5 Ur Specific [place] 1.015 Urine Protein NEG Urine Glucose (UA) NEG Urine Ketones 40 Urine Blood TRACE Urine Nitrite NEG Ur Leukocyte Esterase NEG Urine RBC 0 Urine WBC 0 Ur Squamous Epith Cells NONE Urine Bacteria NONE Salicylates Urine Opiates Screen POSITIVE H Urine Fentanyl Screen POSITIVE H Acetaminophen Ur Barbiturates Screen Not Detected Ur Phencyclidine Scrn Not Detected Ur Amphetamines Screen Not Detected U Benzodiazepines Scrn Not Detected Urine Cocaine Screen Not Detected U Marijuana (THC) Screen Not Detected Ethyl Alcohol COVID-19 (CHANG) Negative COVID-19 [facility] See Note 06/08/21 06/08/21 06/08/21 10:21 10:21 10:22 WBC RBC Hgb Hct MCV MCH MCHC RDW Plt Count MPV Immature Gran % (Auto) Neut % (Auto) Lymph % (Auto) Stanley % (Auto) Eos % (Auto) Baso % (Auto) Lymph # (Auto) Stanley # (Auto) Eos # (Auto) Baso # (Auto) Abs Immat Gran (auto) Absolute Neuts (auto) Absolute Nucleated RBC Nucleated RBC % (auto) Smear Tech's Comments ESR 2 PT INR APTT VBG pH VBG pCO2 VBG pO2 VBG HCO3 VBG O2 Saturation VBG Base Excess Sodium Potassium Chloride Carbon Dioxide Anion Gap BUN Creatinine Estim Creat Clear Calc Estimated GFR Random Glucose Lactic Acid 1.1 Calcium Phosphorus Magnesium 1.9 Total Bilirubin AST ALT Alkaline Phosphatase Ammonia Total Creatine Kinase 78 C-Reactive Protein 0.04 Total Protein Albumin TSH Free T4 Urine Color Urine Appearance Urine pH Ur Specific [place] Urine Protein Urine Glucose (UA) Urine Ketones Urine Blood Urine Nitrite Ur Leukocyte Esterase Urine RBC Urine WBC Ur Squamous Epith Cells Urine Bacteria Salicylates Urine Opiates Screen Urine Fentanyl Screen Acetaminophen Ur Barbiturates Screen Ur Phencyclidine Scrn Ur Amphetamines Screen U Benzodiazepines Scrn Urine Cocaine Screen U Marijuana (THC) Screen Ethyl Alcohol COVID-19 (CHANG) COVID-[place] 06/08/21 06/08/21 06/08/21 10:22 13:10 13:10 WBC RBC Hgb Hct MCV MCH MCHC RDW Plt Count MPV Immature Gran % (Auto) Neut % (Auto) Lymph % (Auto) Stanley % (Auto) Eos % (Auto) Baso % (Auto) Lymph # (Auto) Stanley # (Auto) Eos # (Auto) Baso # (Auto) Abs Immat Gran (auto) Absolute Neuts (auto) Absolute Nucleated RBC Nucleated RBC % (auto) Smear Tech's Comments ESR PT 12.2 INR 1.1 APTT 41.6 H VBG pH VBG pCO2 VBG pO2 VBG HCO3 VBG O2 Saturation VBG Base Excess Sodium Potassium Chloride Carbon Dioxide Anion Gap BUN Creatinine Estim Creat Clear Calc Estimated GFR Random Glucose Lactic Acid Calcium Phosphorus Magnesium Total Bilirubin AST ALT Alkaline Phosphatase Ammonia 25 Total Creatine Kinase C-Reactive Protein Total Protein Albumin TSH Free T4 Urine Color Urine Appearance Urine pH Ur Specific [place] Urine Protein Urine Glucose (UA) Urine Ketones Urine Blood Urine Nitrite Ur Leukocyte Esterase Urine RBC Urine WBC Ur Squamous Epith Cells Urine Bacteria Salicylates < 5.0 L Urine Opiates Screen Urine Fentanyl Screen Acetaminophen < 1 Ur Barbiturates Screen Ur Phencyclidine Scrn Ur Amphetamines Screen U Benzodiazepines Scrn Urine Cocaine Screen U Marijuana (THC) Screen Ethyl Alcohol COVID-19 (CHANG) COVID-[place] 06/08/21 06/08/21 06/08/21 13:13 15:57 19:34 WBC RBC Hgb Hct MCV MCH MCHC RDW Plt Count MPV Immature Gran % (Auto) Neut % (Auto) Lymph % (Auto) Stanley % (Auto) Eos % (Auto) Baso % (Auto) Lymph # (Auto) Stanley # (Auto) Eos # (Auto) Baso # (Auto) Abs Immat Gran (auto) Absolute Neuts (auto) Absolute Nucleated RBC Nucleated RBC % (auto) Smear Tech's Comments ESR PT INR APTT VBG pH 7.32 VBG pCO2 42 VBG pO2 38 VBG HCO3 22 VBG O2 Saturation 56.0 VBG Base Excess -3.6 Sodium 139 Potassium 3.6 Chloride 112 H Carbon Dioxide 21 L Anion Gap 10 L BUN 9 Creatinine 0.65 Estim Creat Clear Calc 70.0 Estimated GFR > 60 Random Glucose 136 H Lactic Acid Calcium 9.0 D Phosphorus 2.7 Magnesium 2.1 Total Bilirubin 0.9 AST 17 D ALT 9 Alkaline Phosphatase 59 D Ammonia Total Creatine Kinase C-Reactive Protein Total Protein 5.7 L D Albumin 3.7 D TSH 0.15 L Free T4 1.04 Urine Color Urine Appearance Urine pH Ur Specific [place] Urine Protein Urine Glucose (UA) Urine Ketones Urine Blood Urine Nitrite Ur Leukocyte Esterase Urine RBC Urine WBC Ur Squamous Epith Cells Urine Bacteria Salicylates Urine Opiates Screen Urine Fentanyl Screen Acetaminophen Ur Barbiturates Screen Ur Phencyclidine Scrn Ur Amphetamines Screen U Benzodiazepines Scrn Urine Cocaine Screen U Marijuana (THC) Screen Ethyl Alcohol COVID-19 (CHANG) COVID-19 Clin Com 06/09/21 06/09/21 06/09/21 05:10 05:10 05:10 WBC 7.0 RBC 4.73 D Hgb 13.9 D Hct 39.8 D MCV 84.1 MCH 29.4 MCHC 34.9 RDW 12.0 Plt Count 231 MPV 9.7 Immature Gran % (Auto) 0.6 H Neut % (Auto) 65.4 Lymph % (Auto) 26.0 Stanley % (Auto) 7.1 Eos % (Auto) 0.6 Baso % (Auto) 0.3 Lymph # (Auto) 1.8 Stanley # (Auto) 0.5 Eos # (Auto) 0.0 Baso # (Auto) 0.0 Abs Immat Gran (auto) 0.04 H Absolute Neuts (auto) 4.6 Absolute Nucleated RBC 0.000 Nucleated RBC % (auto) 0.0 Smear Tech's Comments ESR PT INR APTT VBG pH 7.46 H VBG pCO2 27 VBG pO2 95 VBG HCO3 19 L VBG O2 Saturation 98.0 VBG Base Excess -2.8 Sodium 139 Potassium 3.7 Chloride 112 H Carbon Dioxide 22 Anion Gap 9 L BUN 9 Creatinine 0.68 Estim Creat Clear Calc 66.9 Estimated GFR > 60 Random Glucose 137 H Lactic Acid Calcium 9.0 Phosphorus 2.2 L Magnesium 1.9 Total Bilirubin 1.1 H AST 17 ALT 7 Alkaline Phosphatase 59 Ammonia Total Creatine Kinase C-Reactive Protein Total Protein 5.5 L Albumin 3.6 TSH Free T4 Urine Color Urine Appearance Urine pH Ur Specific [place] Urine Protein Urine Glucose (UA) Urine Ketones Urine Blood Urine Nitrite Ur Leukocyte Esterase Urine RBC Urine WBC Ur Squamous Epith Cells Urine Bacteria Salicylates Urine Opiates Screen Urine Fentanyl Screen Acetaminophen Ur Barbiturates Screen Ur Phencyclidine Scrn Ur Amphetamines Screen U Benzodiazepines Scrn Urine Cocaine Screen U Marijuana (THC) Screen Ethyl Alcohol COVID-19 (CHANG) COVID-19 Clin Com Imaging Radiology Impressions: ITS Impressions Head CT 06/08/21 06:58 IMPRESSION: No acute intracranial pathology. Abdomen/Pelvis CT 06/08/21 16:34 IMPRESSION: -No bowel obstruction or focal inflammatory changes. Normal appendix. -Common duct upper normal. No visible calculus. No intrahepatic ductal dilatation. -No hydronephrosis or perinephric stranding. -Distended urinary bladder, Arevalo catheter present, possibly clamped. -Grade 1 spondylolisthesis L4-L5. -CT chest described in separate report. Chest CT 06/08/21 16:34 IMPRESSION: -No pneumothorax, airspace consolidation, or effusion. -Mediastinum unremarkable on noncontrast exam. -CT abdomen and pelvis described in separate report. -Small subpleural nodule anterior right upper lobe under 4 mm. Fleischner guidelines below. Reference: The Fleischner Society recommendations for management of incidentally detected pulmonary nodules in adults age 35 and greater are based on average nodule size and patient risk category. The recommendations do not apply to lung cancer screening, patients with immunosuppression, or patients with known primary cancer. Single solid nodule average size < 6 mm: Low Risk Patient: No routine follow-up. High Risk Patient: Optional CT at 12 months. Certain patients at high risk with suspicious nodule morphology, upper lobe location, or both may warrant 12-month follow-up. Mental Status Exam Mental Status Exam Patient Appearance: Disheveled (hospital attire) Patient Orientation: Person, Place and Situation Level of Consciousness: Awake, Appropriate and Alert Patient Behavior: Appropriate and Cooperative Affect Description: Appropriate and Anxious Patient Cognition Impaired: No Thought Process: Intact Judgement: Good Medications Medications Current Medications Acetaminophen (Acetaminophen 325 Mg Tablet) 650 mg PO Q6H PRN PRN Reason: mild pain (Scale 1-3), fever Last Admin: 06/09/21 16:49 Dose: 650 mg Documented by: Amlodipine Besylate (Amlodipine Besylate 10 Mg Tablet) 10 mg PO DAILY [facility]; Protocol Buprenorphine/Naloxone (Buprenorphine/Naloxone 8/2 Mg Film) 2 film SUBLINGUAL DAILY [facility] Potassium Chloride/Dextrose/Sod Cl () 20 meq in 1,000 mls @ 125 mls/hr IVCONT .Q8H [facility] Last Admin: 06/09/21 14:53 Dose: 125 mls/hr Documented by: Levetiracetam (Levetiracetam 250 Mg Tablet) 750 mg PO BID [facility] Last Admin: 06/09/21 14:08 Dose: 750 mg Documented by: Nicotine (Nicotine 14 Mg Patch.Td24) 14 mg TRANSDERMA DAILY [facility] Last Admin: 06/09/21 07:36 Dose: Not Given Documented by: Pharmacy Consult (Consult Rx Perform Med Rec) 1 each MISCELLANE ONCE PRN PRN Reason: Consult order Allergies Allergies Allergy/AdvReac Type Severity Reaction Status Date / Time No Known Allergies Allergy Verified 03/22/21 15:33 Assessment & Plan Assessment & Plan (1) Opioid use disorder: Status: Acute Code(s): F11.90 - Opioid use, unspecified, uncomplicated Assessment and Plan: * additional 4mg at 2pm and another 4mg at 6pm (total of 12 mg today) * 8mg BID already ordered for tomorrow * Recovery support will follow up in AM and ensure connection to community providers I spent ___30___ minutes with the patient and/or on the patient floor today, greater than?50% of which was spent counseling/coordinating care. [facility] Past Medical History Medical History Opioid use disorder Social History Social History Household Members: Unknown / Unable to assess Unable to assess alcohol history related to: Unknown Patient Tobacco Use Status: Tobacco use Unknown Cigarettes Per Day: 3 Years Smoked: 30 Use of substances other than those prescribed or required for medical reasons: Unknown Substance Use Type Other:: TOX SCREEN POSITIVE FOR OPIATES AND FENTANYL Currently Displaying Signs/Symptoms of Drug Intoxication Withdrawal: No Advance Directives: No Recently lost weight without trying: Unsure Nutrition Risks: On aspiration precautions Patient : No : No Poor oral hygiene: Yes service: No Current occupational status: employed
[2021-06-10] MEDS: KCl 20 mEq in 5% Dex/0.45% Sod 20 MEQ/1,000 ML IV.SOLN 125 MEQ IVCONT (01:23)
[2021-06-10 03:24] VITALS: BP 147/98; PULSE 87; RESP 18; TEMP 36.1; O2SAT 98
[2021-06-10 04:00] VITALS: BMI 16.9
[2021-06-10 08:00] VITALS: BP 140/91; PULSE 86; RESP 17; TEMP 36; O2SAT 98
[2021-06-10] MEDS: Buprenorphine/Naloxone 8/2 mg FILM 1 FILM SUBLINGUAL ×2 (09:36→17:29)
[2021-06-10] MEDS: levETIRAcetam 250 MG TABLET 750 MG PO ×2 (09:36→20:02)
[2021-06-10] MEDS: Nicotine 14 MG PATCH.TD24 TRANSDERMA (09:36)
[2021-06-10] MEDS: amLODIPine Besylate 10 MG TABLET PO (09:37)
--- NOTE | 2021-06-10 11:46 | HO.PM.IMPN ---
Subjective Subjective Date of Service: 06/10/21 Interval History: downgraded from the ICU yesterday, no overnight events seen and examined this morning vague about events leading up to hospitalization/drug use still seems a bit confused no specific complaints Review of Systems Review of Systems: Yes all other systems are reviewed and are negative Constitutional Constitutional: Denies chills and Denies fever(s) Cardiovascular Cardiovascular: Denies chest pain, Denies palpitations and Denies dyspnea Respiratory Respiratory: Denies cough and Denies dyspnea Gastrointestinal Gastrointestinal: Denies abdominal pain, Denies nausea and Denies vomiting Endocrine Endocrine: Denies palpitations Physical Exam Vital Signs: Vital Signs: Last Vital Signs Temp 96.8 F 06/10/21 08:00 Pulse 86 06/10/21 08:00 Resp 17 06/10/21 08:00 BP 140/91 H 06/10/21 08:00 Pulse Ox 98 06/10/21 08:00 BMI result Body Mass Index 16.9 Const: General: cooperative, comfortable, alert and awake Nutritional Appearance: average body habitus Eyes: Pupils: Equal, round and reactive pupils present EOM: EOMs intact bilaterally Resp: Effort & Inspection: normal respiratory effort and able to speak in complete sentences Auscultation: clear to auscultation bilaterally Cardio: Rate: regular rate Heart sounds: S1 normal heart sound present and S2 normal heart sound present GI: Inspection: No distended Palpation (GI): Soft to palpation and nontender Neuro: Cranial nerves: Yes Equal, round and reactive pupils present Extrem: Other: moving all 4 extremities spontaneously, no pedal edema Objective Data Active Medications Acetaminophen (Acetaminophen 325 Mg Tablet) 650 mg PO Q6H PRN PRN Reason: mild pain (Scale 1-3), fever Last Admin: 06/09/21 16:49 Dose: 650 mg Documented by: COTDUANE Amlodipine Besylate (Amlodipine Besylate 10 Mg Tablet) 10 mg PO DAILY [facility]; Protocol Last Admin: 06/10/21 09:37 Dose: 10 mg Documented by: SASCHA Buprenorphine/Naloxone (Buprenorphine/Naloxone 8/2 Mg Film) 1 film SUBLINGUAL BID [facility] Last Admin: 06/10/21 09:36 Dose: 1 film Documented by: SASCHA Levetiracetam (Levetiracetam 250 Mg Tablet) 750 mg PO BID [facility] Last Admin: 06/10/21 09:36 Dose: 750 mg Documented by: SASCHA Nicotine (Nicotine 14 Mg Patch.Td24) 14 mg TRANSDERMA DAILY [facility] Last Admin: 06/10/21 09:36 Dose: 14 mg Documented by: SASCHA Pharmacy Consult (Consult Rx Perform Med Rec) 1 each MISCELLANE ONCE PRN PRN Reason: Consult order Labs CBC & Chem 7: 06/09/21 05:10 06/09/21 05:10 Microbiology Microbiology Results: Microbiology 06/08/21 10:21 Blood Culture - Preliminary Blood - Venous No growth after 24 hours. 06/08/21 10:22 Blood Culture - Preliminary Blood - Venous No growth after 24 hours. Assessment and Plan (1) Encephalopathy, toxic: Status: Acute Plan This is a 55 year old female with a history of opiate use disorder previously on suboxone, seizure disorder, HTN who presented to the ED 06/08 and admitted to the ICU for delirium/encephalopathy suspected secondary to drug overdose requiring precedex drip secondary to agitation downgraded to the medical floor on 06/09 Toxic encephalopathy Suspected secondary to drug ingestion. Tox screen +for fentanyl and opiates. brain imaging negative no infectious etiology identified, chest CT, abdominal CT, UA negative blood cultures negative to date seems to be improving Opiate use disorder addiction medicine following resumed on suboxone seizure disorder continue Keppra hypertension continue Norvasc monitor blood pressure closely Attending - dr. bui patient requires ongoing inpatient hospitalization secondary to encephalopathy Quality Stroke Does the patient have a stroke diagnosis?: No VTE Prior VTE?: No VTE Risk Level:: Medical - moderate - high VTE Device Contraindication: N/A - Device Ordered VTE Drug Contraindication: Treatment Not Tolerated
[2021-06-10 11:47] VITALS: BP 133/76; PULSE 99; RESP 17; TEMP 36; O2SAT 100
--- NOTE | 2021-06-10 12:25 | MHC.CM.PN ---
CASE MANAGEMENT FOLLOWING FOR DISCHARGE. PLAN IS CARE TEAM CONSULT AND DC HOME - SELF CARE
--- NOTE | 2021-06-10 12:38 | MHC.RECOVRN ---
Pt has a follow up appt at the [facility] with Gardenia Paulson APRN, on 06/16/21 at 11:15AM.
[2021-06-10 13:02] LABS: Calcium (PTHI) 9.1 mg/dL (8.6-10.4); PTHI 70 pg/mL (16-77)
--- NOTE | 2021-06-10 14:19 | HO.ADDICTPRO ---
Subjective Subjective Date of Service: 06/10/21 Reason For Visit: A toxic delirium Interim History: Patient seen in follow up with [facility]SRN. Awake, alert, somewhat slow to respond to questions Reports currently using approx 4 bags heroin IN QD. Reports she starting using heroin approx 2 years ago to deal with her migraines--previous MAT provided noted that patient was using opiates on and off since age 19. Tolerating Suboxone dosing. Denies any withdrawal sx. Discussed recovery supports--patient could not identify any. Patient was noted to have some difficulty with word finding or even recalling things such as name of her pharmacy or current day of the week. Per RN who saw her in ED, patient has much improved. Discussed this with attending provider Review of Systems Medical Review of Systems: unchanged Mental Status Exam Mental Status Exam Patient Appearance: Appropriate Patient Orientation: Person and Place Level of Consciousness: Awake and Alert Patient Behavior: Appropriate and Guarded Mood Description: Anxious ( overwhelmed ) Affect Description: Anxious Speech Pattern: Clear and Difficulty Finding Words Thought Process: Linear Thought Content: positive for [place] Judgement: Fair Diagnostics Vital Signs (24Hr): Vital Signs - 24 hr 06/09/21 16:00 06/09/21 20:00 06/09/21 23:39 Temperature 98.2 F 97 F 97.2 F Pulse Rate 83 92 88 Respiratory Rate 19 20 20 Blood Pressure 166/88 H 160/93 H 150/94 H Pulse Oximetry 98 97 97 06/10/21 03:24 06/10/21 08:00 06/10/21 11:47 Temperature 97 F 96.8 F 96.8 F Pulse Rate 87 86 99 Respiratory Rate 18 17 17 Blood Pressure 147/98 H 140/91 H 133/76 Pulse Oximetry 98 98 100 BMI result Body Mass Index 16.9 Labs Results: 06/09/21 05:10 06/09/21 05:10 Labs: Laboratory Results - last 48 hr 06/08/21 06/08/21 06/08/21 15:57 15:58 19:34 WBC RBC Hgb Hct MCV MCH MCHC RDW Plt Count MPV Immature Gran % (Auto) Neut % (Auto) Lymph % (Auto) Butts % (Auto) Eos % (Auto) Baso % (Auto) Lymph # (Auto) Butts # (Auto) Eos # (Auto) Baso # (Auto) Abs Immat Gran (auto) Absolute Neuts (auto) Absolute Nucleated RBC Nucleated RBC % (auto) VBG pH VBG pCO2 VBG pO2 VBG HCO3 VBG O2 Saturation VBG Base Excess Sodium 139 Potassium 3.6 Chloride 112 H Carbon Dioxide 21 L Anion Gap 10 L BUN 9 Creatinine 0.65 Estim Creat Clear Calc 70.0 Estimated GFR > 60 Random Glucose 136 H Calcium 9.0 D Phosphorus 2.7 Magnesium 2.1 Total Bilirubin 0.9 AST 17 D ALT 9 Alkaline Phosphatase 59 D Total Protein 5.7 L D Albumin 3.7 D TSH 0.15 L Free T4 1.04 PTH Intact 70 Calcium (PTH Intact) 9.1 06/09/21 06/09/21 06/09/21 05:10 05:10 05:10 WBC 7.0 RBC 4.73 D Hgb 13.9 D Hct 39.8 D MCV 84.1 MCH 29.4 MCHC 34.9 RDW 12.0 Plt Count 231 MPV 9.7 Immature Gran % (Auto) 0.6 H Neut % (Auto) 65.4 Lymph % (Auto) 26.0 Butts % (Auto) 7.1 Eos % (Auto) 0.6 Baso % (Auto) 0.3 Lymph # (Auto) 1.8 Butts # (Auto) 0.5 Eos # (Auto) 0.0 Baso # (Auto) 0.0 Abs Immat Gran (auto) 0.04 H Absolute Neuts (auto) 4.6 Absolute Nucleated RBC 0.000 Nucleated RBC % (auto) 0.0 VBG pH 7.46 H VBG pCO2 27 VBG pO2 95 VBG HCO3 19 L VBG O2 Saturation 98.0 VBG Base Excess -2.8 Sodium 139 Potassium 3.7 Chloride 112 H Carbon Dioxide 22 Anion Gap 9 L BUN 9 Creatinine 0.68 Estim Creat Clear Calc 66.9 Estimated GFR > 60 Random Glucose 137 H Calcium 9.0 Phosphorus 2.2 L Magnesium 1.9 Total Bilirubin 1.1 H AST 17 ALT 7 Alkaline Phosphatase 59 Total Protein 5.5 L Albumin 3.6 TSH Free T4 PTH Intact Calcium (PTH Intact) Imaging Radiology Impressions: ITS Impressions Head CT 06/08/21 06:58 IMPRESSION: No acute intracranial pathology. Abdomen/Pelvis CT 06/08/21 16:34 IMPRESSION: -No bowel obstruction or focal inflammatory changes. Normal appendix. -Common duct upper normal. No visible calculus. No intrahepatic ductal dilatation. -No hydronephrosis or perinephric stranding. -Distended urinary bladder, Arevalo catheter present, possibly clamped. -Grade 1 spondylolisthesis L4-L5. -CT chest described in separate report. Chest CT 06/08/21 16:34 IMPRESSION: -No pneumothorax, airspace consolidation, or effusion. -Mediastinum unremarkable on noncontrast exam. -CT abdomen and pelvis described in separate report. -Small subpleural nodule anterior right upper lobe under 4 mm. Fleischner guidelines below. Reference: The Fleischner Society recommendations for management of incidentally detected pulmonary nodules in adults age 35 and greater are based on average nodule size and patient risk category. The recommendations do not apply to lung cancer screening, patients with immunosuppression, or patients with known primary cancer. Single solid nodule average size < 6 mm: Low Risk Patient: No routine follow-up. High Risk Patient: Optional CT at 12 months. Certain patients at high risk with suspicious nodule morphology, upper lobe location, or both may warrant 12-month follow-up. Medications Medications Current Medications Acetaminophen (Acetaminophen 325 Mg Tablet) 650 mg PO Q6H PRN PRN Reason: mild pain (Scale 1-3), fever Last Admin: 06/09/21 16:49 Dose: 650 mg Documented by: Amlodipine Besylate (Amlodipine Besylate 10 Mg Tablet) 10 mg PO DAILY [facility]; Protocol Last Admin: 06/10/21 09:37 Dose: 10 mg Documented by: Buprenorphine/Naloxone (Buprenorphine/Naloxone 8/2 Mg Film) 1 film SUBLINGUAL BID [facility] Last Admin: 06/10/21 09:36 Dose: 1 film Documented by: Levetiracetam (Levetiracetam 250 Mg Tablet) 750 mg PO BID [facility] Last Admin: 06/10/21 09:36 Dose: 750 mg Documented by: Nicotine (Nicotine 14 Mg Patch.Td24) 14 mg TRANSDERMA DAILY [facility] Last Admin: 06/10/21 09:36 Dose: 14 mg Documented by: Pharmacy Consult (Consult Rx Perform Med Rec) 1 each MISCELLANE ONCE PRN PRN Reason: Consult order Allergies Allergies Allergy/AdvReac Type Severity Reaction Status Date / Time No Known Allergies Allergy Verified 03/22/21 15:33 Assessment & Plan Assessment & Plan (1) Opioid use disorder: Status: Acute Code(s): F11.90 - Opioid use, unspecified, uncomplicated Assessment and Plan: Suboxone 8mg BID--will change second dose to earlier in the evning as patient identified late dosing affects her sleep Outpatient rx sent to pharmacy on record Appt scheduled at [facility] for June 16 11:15am take home narcan ordreed as well I spent __20____ minutes with the patient and/or on the patient floor today, greater than?50% of which was spent counseling/coordinating care.
[2021-06-10 16:00] VITALS: BP 112/73; PULSE 86; RESP 16; TEMP 37.3; O2SAT 99
[2021-06-10 20:00] VITALS: BP 135/84; PULSE 78; RESP 18; TEMP 37.3; O2SAT 100
[2021-06-10] MEDS: Acetaminophen 325 MG TABLET 650 MG PO (20:08)
[2021-06-11] VITALS: BP 113/74; PULSE 83; RESP 16; TEMP 36.5; O2SAT 98
[2021-06-11 04:00] VITALS: BP 130/61; PULSE 64; RESP 16; TEMP 36.9; O2SAT 98
[2021-06-11 06:00] VITALS: BMI 18.1
[2021-06-11 07:31] VITALS: BP 126/69; PULSE 86; RESP 16; TEMP 36.3; O2SAT 99
[2021-06-11] MEDS: Buprenorphine/Naloxone 8/2 mg FILM 1 FILM SUBLINGUAL (09:33)
[2021-06-11] MEDS: Nicotine 14 MG PATCH.TD24 TRANSDERMA (09:33)
[2021-06-11] MEDS: levETIRAcetam 250 MG TABLET 750 MG PO (09:34)
[2021-06-11] MEDS: amLODIPine Besylate 10 MG TABLET PO (09:34)
--- NOTE | 2021-06-11 10:03 | MHC.CM.PN ---
Addendum entered by Ольга Fabian 06/11/21 11:00: THIS GEOLOGY SCIENTIST SPOKE WITH DAUGHTER ROLO ([phone]) WHO STATES THAT BECAUSE SHE IS IN DCF CUSTODY, SHE SHOULD NOT BE THE ONE TO TRANSPORT PATIENT HOME. ROLO HAS SECURED TRANSPORTATION WITH PATIENT'S SISTER, ULISES ([phone]) AT TIME OF DC. CASE MANAGEMENT TO NOTIFY ULISES WHEN CARE TEAM HAS MET WITH PATIENT IS SHE IS READY TO GO HOME. RN AWARE. Original Note: PATIENT IS DC HOME TODAY SHE WILL NEED HELP WITH TRANSPORT. CARE TEAM NEEDS TO VISIT TO GIVE UPCOMING APPOINTMENT INFORMATION.
--- NOTE | 2021-06-11 10:40 | PM.DS ---
DS: Providers Provider Date of Service: 06/11/21 Date of admission: 06/08/21 14:21 Primary care physician: Luis Medina MD Consults: 06/09/21 06:43 Addiction Medicine Routine Consulting Provider: Gardenia Paulson Reason for consultation: suboxone for opiate abuse Has provider been notified: Yes 06/09/21 08:45 Consult to Care Team Routine Comment: Reason for consultation: drug intoxication/overdose causing delirium now resolved Attending physician on discharge: Obed Granados Discharging clinician: Sofia Gil DS: Diagnosis Discharge Diagnosis (1) Opioid use disorder: Status: Acute DS: Summary Hospital Course Hospital Course: HP as per admitting provider Patient is a 55-year-old female with a past medical history of opioid use disorder, previously on Suboxone? with RX as recently as March 23, 2021 presented to the ED early this morning c/o feeling like she was withdrawing from opiates.? patient was able to report that she last used about 20 hours prior to arrival but otherwise is not able to give an accurate history.? patient's daughter came to the emergency department several hours after her mother's arrival and explained that she was at [facility] yesterday for abdominal pain, was told was opiate withdrawal, was given Suboxone and sent to her mother's house in an Uber. Physical exam revealed no signs of trauma, labs revealed dehydration with calcium of 11, bicarb of 21. Tox screen + opiates and fentanyl. Head CT was negative. Hours later, patient? then began showing signs of withdrawal, piloerection, fatigue and hypertensive.? patient was given low-dose Suboxone 05/13 which helped albeit mildly.? patient? became extremely agitated in the emergency department, she was given several doses of IV Ativan, IM zyprexa, IV valium.? addiction medicine was consulted and they did come evaluate the patient while she was in the emergency department. At this point, the patient was admitted to the ICU by Dr Gan to manage her delirium and agitation.? She was started on a Precedex drip with very good results. Intubation was not necessary . She was subsequently tx to the medical floor. Toxic encephalopathy Suspected secondary to drug ingestion. Tox screen +for fentanyl and opiates. brain imaging negative no infectious etiology identified, chest CT, abdominal CT, UA negative blood cultures negative to date significantly improved encouraged to stop using street drugs and continue on with recovery Opiate use disorder Seen by addiction medicine resumed on suboxone ?seizure disorder ?continue Keppra ?hypertension ?continue Norvas Time Spent with Patient Time attestation: Total time spent providing and/or coordinating discharge services: Discharge coordination time: Greater than 30 minutes Quality: Safe Use of Opioids Does Pt have an Active Cancer Diagnosis on the Problem List?: No Quality: Stroke Does the patient have a stroke diagnosis?: No Physical Exam Vital Signs: Vital Signs: Last Vital Signs Temp 97.3 F 06/11/21 07:31 Pulse 86 06/11/21 07:31 Resp 16 06/11/21 07:31 BP 126/69 06/11/21 07:31 Pulse Ox 99 06/11/21 07:31 BMI result Body Mass Index 18.1 Appearing in no acute distress head is normocephalic atraumatic eyes pupils are PERRLA sclera is anicteric mouth throat mucous membranes are intact and moist neck is supple no lymphadenopathy, no JVD noted lung sounds are clear to auscultation heart regular rate rhythm, clear S1, S2 positive bowel sounds, abdomen is soft, nontender neuro patient is alert x3, no focal deficits DS: Data Data Completed and Pending Labs on day of discharge: Laboratory Results - last 24 hr 06/08/21 15:58 PTH Intact 70 Calcium (PTH Intact) 9.1 Preliminary micro results at discharge 06/08/21 10:21 Blood Culture - Preliminary Blood - Venous No growth after 48 hours. 06/08/21 10:22 Blood Culture - Preliminary Blood - Venous No growth after 48 hours. Discharge Plan Discharge Anticipated Discharge Date/Time: 06/11/21 10:24 Patient Disposition: Home, Self-Care Discharge Diagnosis: Delirium Discharge Medications: New buprenorphine-naloxone [Suboxone] 8-2 mg film 1 film sublingual BID 5 Days Qty: 11 0RF Continued levetiracetam 500 mg tablet 750 mg PO Q12H 0RF amitriptyline 10 mg tablet 2 tab PO BEDTIME 0RF amlodipine 10 mg tablet 1 tab PO DAILY 0RF buprenorphine-naloxone 8-2 mg film 2 film sublingual DAILY 0RF Discharge Orders: Discharge Order (Routine); Ordered 06/11/21 Ordered By: Sofia Gil Diet: advance to usual diet Activity on Discharge: As tolerated Stand Alone Forms: Patient Portal Discharge page Care Plan Goals: No further drug use Health Concerns: Delirium Plan of Treatment: Follow up with your primary care provider as needed continue with suboxone stop using drugs and and seek community supports for help with drug cessation Assessment: See discharge summary Patient Instructions: Opioid Use Disorder (ED)
[2021-06-13 10:01] LABS: PEU-Protein Creat Ratio Rand 0.222 (0.021-0.161); PEU-Rand. Prot/Creat Ratio 222 mg/g creat (21-161); PEU-Random Ur. Gamma Globulin 0 %; PEU-Random Urine A1 Globulin 0 %; PEU-Random Urine A2 Globulin 0 %; PEU-Random Urine Albumin 100 %; PEU-Random Urine Beta Globulin 0 %; PEU-Random Urine Creatinine 27 mg/dL (20-275); PEU-Random Urine Protein 6 mg/dL (5-24)
[2021-06-13 23:20] LABS: Prot Elec - Alpha1 0.3 g/dL (0.2-0.3); Prot Elec - Alpha2 0.6 g/dL (0.5-0.9); Prot Elec - Beta 1 0.4 g/dL (0.4-0.6); Prot Elec - Beta 2 0.2 g/dL (0.2-0.5); Prot Elec - Gamma 0.6 g/dL (0.8-1.7); Prot Elec - Total Protein 6.1 g/dL (6.1-8.1)
== END 2021-06-11 12:28 | disposition home or self-care (01) | DRG 812 ==
LOC: HO.ED 06-08 13:11 → HO.EDOVER 06-08 15:05 → HO.ICU 06-08 15:36 → HO.S3 06-09 14:06
PROVIDERS: Emergency Medicine; Physician Assistant; Admitting Provider Internal Medicine Cardiovascular Disease; Emergency Provider Internal Medicine; PCP Psychiatry & Neurology Neurology; Visit Provider Nurse Practitioner Acute Care
DX: T40.2X1A Poisoning by other opioids, accidental (unintentional), initial encounter (principal); G92.8 Other toxic encephalopathy; F11.921 Opioid use, unspecified with intoxication delirium; G40.909 Epilepsy, unspecified, not intractable, without status epilepticus; I10 Essential (primary) hypertension; E86.0 Dehydration; Z20.822 Contact with and (suspected) exposure to COVID-19; Z79.899 Other long term (current) drug therapy
CPT/HCPCS: 36415; 70450; 71250; 74176; 80053; 80143; 80179; 80307; 81001; 82077; 82140; 82550; 82570; 82803; 83605; 83735; 83970; 84100; 84156; 84165; 84166; 84439; 84443; 85025; 85610; 85652; 85730; 86140; 87040; 87635; 93005; 96361; 96365; 96366; 96372; 96375; 96376; 99285; C1758; J2060; J3360; J3411

== ENCOUNTER → 2021-06-16 11:19 | Outpatient (BNVA) | payer OTHER, SELFPAY | PROVIDERS: PCP Psychiatry & Neurology Neurology; Visit Provider Nurse Practitioner Psychiatric/Mental Health | DX: Z51.81 Encounter for therapeutic drug level monitoring (principal); F11.20 Opioid dependence, uncomplicated | CPT/HCPCS: 80305 ==

== ENCOUNTER → 2021-06-23 15:03 | Outpatient (BNVA) | payer OTHER, SELFPAY | PROVIDERS: PCP Psychiatry & Neurology Neurology; Visit Provider Nurse Practitioner Psychiatric/Mental Health | DX: Z51.81 Encounter for therapeutic drug level monitoring (principal); F11.20 Opioid dependence, uncomplicated | CPT/HCPCS: 80305 ==

== ENCOUNTER 2022-09-08 13:03 | Inpatient (IN) | payer SELFPAY ==
[2022-09-08] VITALS (21 sets, daily range): BP systolic 140–191; BP diastolic 89–125; PULSE 74–156; RESP 15–30; TEMP 32–38.6; O2SAT 97–100; BMI 17.6
--- NOTE | ~2022-09-08 | CT_ITS ---
EXAMINATION: CT HEAD WITHOUT CONTRAST CLINICAL INFORMATION: Altered mental status. Headache. COMPARISON: 06/08/2021 TECHNIQUE: Contiguous axial imaging was performed from the skull base to vertex without intravenous administration of contrast. This CT examination was performed using dose optimization techniques as appropriate, variously including the following: *Automated exposure control *Adjustment of mA and/or kV according to patient size (this includes techniques or standardized protocols for targeted exams where dose is matched to indication/reason for exam; i.e. extremities or head) *Use of iterative reconstruction technique DLP: 562 mGy-cm FINDINGS: Motion artifact technically degrades image quality. There is no evidence of acute intracranial hemorrhage or large territorial infarction. No mass effect or midline shift is seen. Bradley to white matter differentiation is preserved. No extra-axial fluid collections are identified. The ventricles are normal in size. The osseous structures and soft tissues are unremarkable. The mastoid air cells and visualized portions of the paranasal sinuses are well aerated. CT/CT head/brain wo IV con IMPRESSION: No acute intracranial pathology.
--- NOTE | ~2022-09-08 | CT_ITS ---
EXAMINATION: CT ANGIOGRAM OF THE CHEST WITH AND WITHOUT CONTRAST (CT PULMONARY ANGIOGRAM FOR PE) CLINICAL INFORMATION: Reason for Exam R/O PE, PNA COMPARISON: Radiograph from earlier today. TECHNIQUE: Prior to contrast administration, noncontrast localization images were obtained. Subsequently, multidetector volumetric imaging was performed from the thoracic inlet to below the diaphragms following the administration of 65 mL Omnipaque 350 intravenous contrast. No contrast reaction reported Sagittal, coronal, and MIP oblique sagittal reformatted images were obtained on the CT workstation, uploaded to PACS, and reviewed. This CT examination was performed using dose optimization techniques as appropriate, variously including the following: *Automated exposure control *Adjustment of mA and/or kV according to patient size (this includes techniques or standardized protocols for targeted exams where dose is matched to indication/reason for exam; i.e. extremities or head) *Use of iterative reconstruction technique Total exam dose-length product 254 mGy-cm FINDINGS: QUALITY OF STUDY/CONTRAST BOLUS: Suboptimal. PULMONARY ARTERIES: There is no central pulmonary embolism. Suboptimal opacification of the lobar and segmental levels. THORACIC AORTA: No aneurysm. No dissection. LUNG: Endotracheal tube terminates 4 cm above the roni. The central airways are patent. Moderate centrilobular and paraseptal emphysema. No pulmonary nodules. PLEURA: No pleural effusion or pneumothorax. MEDIASTINUM: Normal heart size. No pericardial effusion. No hilar or mediastinal lymphadenopathy. No evidence of septal bowing or right heart strain. CORONARY ARTERY CALCIFICATION: None visualized on this study. CHEST WALL/AXILLA: No axillary or internal mammary lymphadenopathy. OSSEOUS STRUCTURES: No acute or suspicious osseous abnormality. UPPER ABDOMEN: Unremarkable. No reflux of contrast into the hepatic veins to suggest elevated right heart pressures. CT/CT angio chest PE protocol IMPRESSION: 1. No central pulmonary embolism. Suboptimal opacification of the lobar and segmental levels. If clinically indicated repeat attempt of CT angiogram could be performed. Alternatively a nuclear medicine VQ scan could be performed. 2. Moderate emphysema. No acute pulmonary finding. VTE: indeterminate
--- NOTE | ~2022-09-08 | XR_ITS ---
EXAMINATION: XR CHEST CLINICAL INFORMATION: Intubated, check endotracheal tube. COMPARISON: None available. TECHNIQUE: Frontal view of the chest was obtained. FINDINGS: Support devices: Endotracheal tube tip approximately 5 cm proximal to roni. Enteric tube not included on the study but seen below left hemidiaphragm. The side port overlies the gastroesophageal junction. No significant abnormality is noted involving the heart, lungs, mediastinum, bony thorax or soft tissues. XR/XR chest 1V IMPRESSION: 1. Endotracheal tube tip approximately 5 cm proximal to roni. 2. Enteric tube side-port overlies the gastroesophageal junction and should be advanced approximately 3 to 5 cm. 3. No acute cardiopulmonary process.
[2022-09-08] MEDS: 0.9 % Sodium Chloride 1,000 ML 999 ML IV (13:10)
[2022-09-08] MEDS: diphenhydrAMINE HCL 50 MG/ML VIAL IVPUSH (13:10)
[2022-09-08] MEDS: LORazepam 2 MG/ML VIAL IM (13:15)
[2022-09-08] MEDS: Rocuronium Bromide 50 MG/5 ML VIAL 30 MG IVPUSH (13:25)
[2022-09-08] MEDS: Etomidate 20 MG/10 ML VIAL 15 MG IVPUSH (13:25)
--- NOTE | 2022-09-08 13:29 | ECG_ITS ---
Test Reason : SEIZRE Blood Pressure : / mmHG Vent. Rate : 172 BPM Atrial Rate : 000 BPM P-R Int : 000 ms QRS Dur : 078 ms QT Int : 270 ms P-R-T Axes : 000 087 -04 degrees QTc Int : 456 ms Sinus tachycardia Marked ST abnormality, possible inferior subendocardial injury Marked ST abnormality, possible anterior subendocardial injury Abnormal ECG When compared with ECG of 08-JUN-2021 13:16, Vent. rate has increased BY 70 BPM Criteria for Septal infarct are no longer Present ST now depressed in Inferior leads ST now depressed in Anterolateral leads Referred By: David Mcgee Electronically Signed By:MARK RODRIGUEZ MD
[2022-09-08] MEDS: propofoL 1,000 MG/100 ML VIAL 8.1 MG IVCONT (13:35)
--- NOTE | 2022-09-08 13:51 | ED_ITS ---
HPI - Altered Mental Status General Chief Complaint: Altered Mental Status Stated Complaint: OD Time Seen by Provider: 09/08/22 13:11 Source: family ( and daughter) Mode of arrival: other (Carried into the emergency department by her ) Limitations: altered mental status History of Present Illness HPI narrative: 57-year-old female with history of opiate use disorder who presents emergency department for evaluation of altered mental status. The states the patient got up this morning and was having a migraine headache and appeared to be altered. He states that this is happened to her before in the past. The patient drank some Coca-Cola and then ice water at around 11:30 hours. At [facility] 12:00 hours the patient became more altered and agitated, her eyes were open, she was not answering questions. The patient may have had a seizure at home. The patient became less responsive and the family then decided to bring her to the emergency department. The patient was carried into the emergency department by her and in triage she was given Narcan intranasal with no effect and brought immediately to the resuscitation room. I evaluated the patient immediately on presentation to the room, she was awake but seemed to be in rigid spasm, her head was twisted to 1 side, her mouth was open and stiff, she seem respond to verbal stimuli but did not answer questions, she had pedal spasm in carpal spasm and rigidity of her upper extremities. The patient was very tachycardic, she was breathing spontaneously in her O2 saturations were 98% on 4 L via nasal cannula pain. Initially I thought she was either having a dystonic reaction or hyperventilation syndrome with carpal pedal spasm. She was given Benadryl 50 mg IV and I ordered Ativan 2 mg IV however prior to getting the Ativan the patient had a tonic clonic seizure, after the seizure she was breathing spontaneously but was not protecting her airway therefore I decided to intubate her to protect her airway. She was given etomidate 15 mg IV and rocuronium 30 mg IV and she was intubated by the Physician Nozzleman. Shila Maxwell. She was placed on a propofol drip . I ordered a laboratory evaluation CT scan of the brain was ordered. Was able to obtain more information from the patient's . Patient does use intranasal heroin daily. He states that she does not eat and may have undiagnosed anorexia. states that the patient did take her Keppra and amitriptyline for her migraine headache prior to the onset of her symptoms The patient was hospitalized here 420 08/2021 for opiate withdrawal an agitated delirium and was in the intensive care unit. Related Data Home Medications Medication Instructions Recorded Confirmed amitriptyline 10 mg tablet 2 tab PO BEDTIME 06/08/21 09/08/22 amlodipine 10 mg tablet 1 tab PO DAILY 06/08/21 09/08/22 levetiracetam 500 mg tablet 750 mg PO Q12H 06/08/21 09/08/22 Allergies Allergy/AdvReac Type Severity Reaction Status Date / Time No Known Allergies Allergy Verified 06/23/21 15:12 Review of Systems 2 Review of Systems: Yes Unobtainable due to mental status PMFSH Past Medical History PMFSH Narrative: Past medical history: Opiate use disorder , daily intranasal heroin use, agita jolynn delirium requiring hospitalization. Social history: She lives with her . Her and daughter here in the emergency department patient occasionally smokes cigarettes. The patient drinks 1 rum and Coke per night according to the . The patient does use daily intranasal heroin. Medical History Opioid use disorder Social History Social History Household Members: Unknown / Unable to assess Unable to assess alcohol history related to: Unknown Patient Tobacco Use Status: Tobacco use Unknown Cigarettes Per Day: 3 Years Smoked: 30 Advance Directives: Yes Advance Directives Information Provided: Yes Advance Directives on File: No service: No Current occupational status: employed Physical Exam ED Vital Signs: Vital Signs - 24 hr 09/08/22 13:09 09/08/22 13:35 09/08/22 13:40 Temperature Pulse Rate 156 H 147 H Respiratory Rate 30 H 16 Blood Pressure 191/121 H 171/125 H Pulse Oximetry 98 100 Oxygen Delivery Method Room Air Fraction of Inspired Oxygen 50 09/08/22 14:04 09/08/22 14:43 09/08/22 14:57 Temperature 101 F H Pulse Rate 151 H Respiratory Rate 16 Blood Pressure 165/119 H Pulse Oximetry 99 Oxygen Delivery Method Fraction of Inspired Oxygen 50 09/08/22 15:10 09/08/22 15:44 09/08/22 15:50 Temperature 99.0 F 99 F Pulse Rate 142 H 148 H Respiratory Rate 20 20 Blood Pressure 163/118 H 172/116 H Pulse Oximetry 98 Oxygen Delivery Method Mechanical Ventilation Fraction of Inspired Oxygen BMI result Body Mass Index 17.6 Vital signs revealed tachycardia, tachypnea, hypertension and O2 saturation whi ch was 98% initially on room air and 98% on 4 L via nasal cannula General: Patient appears to be awake but has spasms of her neck with her head twisted to left, her mouth is open, her upper extremities are rigid, she has carpals pedal spasm, she seems to minimally respond to verbal stimuli but does not respond to painful stimuli Neck: Spasm Lungs: Clear to auscultation breath sounds symmetric bilateral Heart: Tachycardia Lungs: Breath sounds are symmetric bilaterally, no wheezing rales or rhonchi Abdomen: Thin, normal bowel sounds, no tenderness Back: No CVA tenderness Extremities: Carpal pedal spasm, rigid upper and lower extremity Neuro: Patient has rigidity in spasm of her neck upper extremities and lower extremity Medications Administered Generic Name Dose Route Start Last Admin Trade Name Freq PRN Reason Stop Dose Admin Heparin Sodium (Porcine) 5,000 unit 09/08/22 17:00 09/08/22 17:00 Heparin Sodium,Porcine 5,000 Unit/Ml Vial SUBCUT 5,000 unit Q8H VEL Administration Propofol 1,000 mg in 100 mls @ 0 mls/hr 09/08/22 13:45 09/08/22 15:10 Diprivan IVCONT 50 mcg/kg/min .Q0M VEL 13.5 mls/hr Titration Protocol Per Protocol Lactated Ringer's 1,000 mls @ 100 mls/hr 09/08/22 16:45 09/08/22 16:59 Lr IVCONT 100 mls/hr .Q10H VEL Administration Fentanyl 1,000 mcg in 100 mls @ 5 mls/hr 09/08/22 16:45 09/08/22 16:57 Sublimaze/Ns IVCONT 50 mcg/hr .Q20H VEL 5 mls/hr Administration Protocol 50 MCG/HR Levetiracetam 1,000 mg in 100 mls @ 400 mls/hr 09/08/22 18:00 09/08/22 18:22 Keppra IV Infused Q12H VEL Infusion Discontinued Medications Generic Name Dose Route Start Last Admin Trade Name Freq PRN Reason Stop Dose Admin Acetaminophen 650 mg 09/08/22 14:49 09/08/22 14:54 Acetaminophen Supp 650 Mg Supp.Rect NE 09/08/22 14:50 650 mg ONCE ONE Administration Diphenhydramine HCl 50 mg 09/08/22 13:28 09/08/22 13:10 Diphenhydramine Hcl 50 Mg/Ml Vial IVPUSH 09/08/22 13:29 50 mg ONCE STA Administration Etomidate 15 mg 09/08/22 13:32 09/08/22 13:25 Etomidate 20 Mg/10 Ml Vial IVPUSH 09/08/22 13:33 15 mg ONCE ONE Administration Sodium Chloride 1,000 mls @ 999 mls/hr 09/08/22 13:28 09/08/22 14:10 Ns IV 09/08/22 14:28 Infused .Q1H1M STA Infusion Ceftriaxone Sodium 1 gm/ 50 mls @ 100 mls/hr 09/08/22 15:23 09/08/22 16:25 Sodium Chloride IV 09/08/22 15:52 Infused ONCE ONE Infusion Vancomycin HCl 1,250 mg/ 250 mls @ 166.667 mls/hr 09/08/22 15:30 09/08/22 18:01 Sodium Chloride IV 09/08/22 16:59 Infused ONCE ONE Infusion Lorazepam 2 mg 09/08/22 13:28 09/08/22 13:15 Lorazepam 2 Mg/Ml Vial IM 09/08/22 13:29 2 mg STAT STA Administration Rocuronium [place] 30 mg 09/08/22 13:32 09/08/22 13:25 Rocuronium [place] 50 Mg/5 Ml Vial IVPUSH 09/08/22 13:33 30 mg ONCE ONE Administration Medical Decision Making Medical Decision Making MDM Narrative: 57-year-old female who is brought to the emergency department for evaluation of altered mental status which started this morning when the patient woke up and got progressively worse. The patient was brought to emergency department by her family and was carried into the triage area by her . She was given Narcan in triage. In the resuscitation room the patient appeared to be awake, did respond to verbal stimuli but not painful stimuli, she was in rigid spasm with her head twisted to 1 side, her upper extremities were rigid she had carpal pedal spasm. Patient was given Benadryl 50 mg IV and then shortly after that she had a tonic clonic seizure. She was given Ativan 2 mg IV. The seizure stopped with the patient was not protecting her airway therefore she given RSI with etomidate and rocuronium and intubated with a 7.0 endotracheal tube. Patient was placed on a ventilator with settings of AC/respiratory rate 16/tidal volume 350/50% FiO2. Patient was also started on a propofol drip. I will obtain CT scan of the head, chest x-ray and laboratory evaluation. 1513: The patient did have a rectal temperature of a 101 degrees F, therefore I performed a spinal tap to rule out meningitis. I did order ceftriaxone 1 g IV and vancomycin 1250 mg IV I did discuss the patient's presentation with the covering rpg programmer analyst, Dr. Meeks. 1805: I did discuss the patient's laboratory abnormalities with the covering rpg programmer analyst, and he was aware of them and wrote admitting orders I did discuss these abnormalities with the patient's family as well. Repeat troponin will be obtained at 18:30 hours. 1955: Repeat high sensitive troponin I was 375.5 which is less than a 50% delta compared to time 0. This suggests that the patient did not have acute myocardial injury. Differential Diagnosis Differential Diagnoses: The differential diagnosis associated with the presentation includes Differential diagnosis includes but is not limited to stroke, cerebral bleed, hyperventilation syndrome with carpopedal spasm, dystonic reaction, heroin overdose, unknown drug overdose possibly Xylazine, meningitis, seizure Admission/Observation Consideration of admission/observation: Escalation of care including admission/observation considered Consult Healthcare Provider Management of the patient was discussed with: Hospitalist (Powdered Sugar Pulverizer Operator, Dr. Meeks) Lab Data [facility] Lab Attestation statement: I reviewed the patient's lab results. 1753: My independent interpretation patient's laboratory evaluation is as follows: WBC elevated 20,200 with a left shift 86 neutrophils no bands. Elevated H&H 18.7 and 53.9. Platelet count was normal. Coags revealed an elevated PTT of 44.5. Sodium elevated 150-suggesting that she is dehydrated/water depleted. Chloride elevated 116 bicarb low 19. BUN elevated 23 with a normal creatinine at 0.81. Glucose elevated 138. Bilirubin elevated 1.6. CK elevated 200. Troponin elevated 280. BNP elevated 876. TSH low 0.08 but the T4 was normal. CSF analysis revealed normal glucose, normal protein, 0 WBCs, 10 RBCs, clear colorless fluid. Encephalitis panel was negative. 09/08/22 15:37 Labs: Lab Results 09/08/22 09/08/22 09/08/22 Range/Units 13:10 14:02 14:02 WBC (4.8-10.8) X10*3/uL RBC (4.20-5.50) X10*6/uL Hgb (12.0-16.0) g/dl Hct (37.0-47.0) % MCV (80.0-98.0) fL MCH (27.0-33.0) pg MCHC (31.0-35.0) g/dl RDW (11.0-16.0) % Plt Count (160-400) X10*3/uL MPV (9.4-12.3) fL Immature Gran % (Auto) (0.0-0.4) % Neut % (Auto) (45-73) % Lymph % (Auto) (20-40) % [place] % (Auto) (2-11) % Eos % (Auto) (0-4) % Baso % (Auto) (0-2) % Lymph # (Auto) (1.2-4.9) X10*3/uL [place] # (Auto) (0.1-1.2) X10*3/uL Eos # (Auto) (0.0-0.4) X10*3/uL Baso # (Auto) (0.0-0.2) X10*3/uL Abs Immat Gran (auto) (0.00-0.03) X10*3/uL Absolute Neuts (auto) (2.0-8.3) x10*3/uL Absolute Nucleated RBC (0.0-0.012) X10*3/uL Nucleated RBC % (auto) (0.0-0.2) /100WBC Smear Tech's Comments PT (11.1-13.3) SEC INR (0.9-1.1) APTT (26.0-36.4) SEC Sodium (135-145) mmol/L Potassium (3.3-5.1) mmol/L Chloride (96-108) mmol/L Carbon Dioxide (22-29) mmol/L Anion Gap (12-20) BUN (9-16) mg/dL Creatinine (0.5-1.4) mg/dL Estim Creat Clear Calc Estimated GFR POC Glucose 184 H (60-115) mg/dL Random Glucose (60-115) mg/dL Lactic Acid (0.5-2.0) mmol/L Calcium (8.4-10.2) mg/dL Total Bilirubin (0.0-1.0) mg/dL AST (5-31) U/L ALT (0-31) U/L Alkaline Phosphatase (39-117) U/L Total Creatine Kinase (26-140) U/L Troponin I High Sens (<3.5-17.0) ng/L B-Natriuretic Peptide (<100) pg/mL Total Protein (6.5-8.0) g/dL Albumin (3.5-5.0) g/dL Lipase (8-78) U/L TSH (0.32-4.0) uIU/mL Free T4 (0.71-1.85) ng/dL Thyroxine (T4) (4.5-12.0) ug/dL Urine Color Yellow Urine Appearance Cloudy Urine pH 5.5 (5.0-9.0) Ur Specific [place] 1.025 (1.005-1.025) Urine Protein >=1000 (4+) H (Neg-Trace) mg/dL Urine Glucose (UA) 100 H (Negative) mg/dL Urine Ketones Negative (Negative) mg/dL Urine Blood Large (3+) H (Negative) Urine Nitrite Negative (Negative) Ur Leukocyte Esterase Negative (Negative) Urine RBC 3-5 H (0-2) /HPF Urine WBC 6-10 H (0-5) /HPF Ur Squamous Epith Cells 6-10 (0-2) /HPF Urine Bacteria None Seen (None Seen) Hyaline Casts >20 (0-2) /LPF Granular Casts Present CSF Tube Number CSF Volume ML CSF Appearance CSF Color CSF WBC MM*3 CSF RBC MM*3 CSF Appearance (b) CSF Glucose mg/dL CSF Total Protein (15-45) mg/dL CSF C.neoform/gat PCR (Not Detect.) CSF CMV DNA (PCR) (Not Detect.) CSF Enterovirus (PCR) (Not Detect.) CSF E. coli K1 (PCR) (Not Detect.) CSF H. influenzae (PCR) (Not Detect.) CSF HSV I (PCR) (Not Detect.) CSF HSV II (PCR) (Not Detect.) CSF HHV 6 (PCR) (Not Detect.) CSF L.monocytogenes PCR (Not Detect.) CSF N. meningitidis PCR (Not Detect.) CSF Parechovirus (PCR) (Not Detect.) CSF S. agalactiae (PCR) (Not Detect.) CSF S. pneumoniae (PCR) (Not Detect.) CSF VZV (PCR) (Not Detect.) Salicylates (15-30) mg/dL Urine Opiates Screen Not Detected (Not Detect) Urine Fentanyl Screen POSITIVE H (Not Detect) Acetaminophen (<30) mcg/mL Ur Barbiturates Screen Not Detected (Not Detect) Ur Phencyclidine Scrn Not Detected (Not Detect) Ur Amphetamines Screen Not Detected (Not Detect) U Benzodiazepines Scrn Not Detected (Not Detect) Urine Cocaine Screen Not Detected (Not Detect) U Marijuana (THC) Screen Not Detected (Not Detect) Ethyl Alcohol mg/dL COVID-19 (CHANG) (Negative) COVID-19 Clin Com 09/08/22 09/08/22 09/08/22 Range/Units 15:19 15:19 15:19 WBC (4.8-10.8) X10*3/uL RBC (4.20-5.50) X10*6/uL Hgb (12.0-16.0) g/dl Hct (37.0-47.0) % MCV (80.0-98.0) fL MCH (27.0-33.0) pg MCHC (31.0-35.0) g/dl RDW (11.0-16.0) % Plt Count (160-400) X10*3/uL MPV (9.4-12.3) fL Immature Gran % (Auto) (0.0-0.4) % Neut % (Auto) (45-73) % Lymph % (Auto) (20-40) % [place] % (Auto) (2-11) % Eos % (Auto) (0-4) % Baso % (Auto) (0-2) % Lymph # (Auto) (1.2-4.9) X10*3/uL [place] # (Auto) (0.1-1.2) X10*3/uL Eos # (Auto) (0.0-0.4) X10*3/uL Baso # (Auto) (0.0-0.2) X10*3/uL Abs Immat Gran (auto) (0.00-0.03) X10*3/uL Absolute Neuts (auto) (2.0-8.3) x10*3/uL Absolute Nucleated RBC (0.0-0.012) X10*3/uL Nucleated RBC % (auto) (0.0-0.2) /100WBC Smear Tech's Comments PT (11.1-13.3) SEC INR (0.9-1.1) APTT (26.0-36.4) SEC Sodium (135-145) mmol/L Potassium (3.3-5.1) mmol/L Chloride (96-108) mmol/L Carbon Dioxide (22-29) mmol/L Anion Gap (12-20) BUN (9-16) mg/dL Creatinine (0.5-1.4) mg/dL Estim Creat Clear Calc Estimated GFR POC Glucose (60-115) mg/dL Random Glucose (60-115) mg/dL Lactic Acid (0.5-2.0) mmol/L Calcium (8.4-10.2) mg/dL Total Bilirubin (0.0-1.0) mg/dL AST (5-31) U/L ALT (0-31) U/L Alkaline Phosphatase (39-117) U/L Total Creatine Kinase (26-140) U/L Troponin I High Sens (<3.5-17.0) ng/L B-Natriuretic Peptide (<100) pg/mL Total Protein (6.5-8.0) g/dL Albumin (3.5-5.0) g/dL Lipase (8-78) U/L TSH (0.32-4.0) uIU/mL Free T4 (0.71-1.85) ng/dL Thyroxine (T4) (4.5-12.0) ug/dL Urine Color Urine Appearance Urine pH (5.0-9.0) Ur Specific [place] (1.005-1.025) Urine Protein (Neg-Trace) mg/dL Urine Glucose (UA) (Negative) mg/dL Urine Ketones (Negative) mg/dL Urine Blood (Negative) Urine Nitrite (Negative) Ur Leukocyte Esterase (Negative) Urine RBC (0-2) /HPF Urine WBC (0-5) /HPF Ur Squamous Epith Cells (0-2) /HPF Urine Bacteria (None Seen) Hyaline Casts (0-2) /LPF Granular Casts CSF Tube Number 2 4 CSF Volume 1.0 ML CSF Appearance CLEAR CSF Color COLORLESS CSF WBC 0 MM*3 CSF RBC 10 MM*3 CSF Appearance (b) Clear, Colorless CSF Glucose 114 mg/dL CSF Total Protein 39.5 (15-45) mg/dL CSF C.neoform/gat PCR Not Detected (Not Detect.) CSF CMV DNA (PCR) Not Detected (Not Detect.) CSF Enterovirus (PCR) Not Detected (Not Detect.) CSF E. coli K1 (PCR) Not Detected (Not Detect.) CSF H. influenzae (PCR) Not Detected (Not Detect.) CSF HSV I (PCR) Not Detected (Not Detect.) CSF HSV II (PCR) Not Detected (Not Detect.) CSF HHV 6 (PCR) Not Detected (Not Detect.) CSF L.monocytogenes PCR Not Detected (Not Detect.) CSF N. meningitidis PCR Not Detected (Not Detect.) CSF Parechovirus (PCR) Not Detected (Not Detect.) CSF S. agalactiae (PCR) Not Detected (Not Detect.) CSF S. pneumoniae (PCR) Not Detected (Not Detect.) CSF VZV (PCR) Not Detected (Not Detect.) Salicylates (15-30) mg/dL Urine Opiates Screen (Not Detect) Urine Fentanyl Screen (Not Detect) Acetaminophen (<30) mcg/mL Ur Barbiturates Screen (Not Detect) Ur Phencyclidine Scrn (Not Detect) Ur Amphetamines Screen (Not Detect) U Benzodiazepines Scrn (Not Detect) Urine Cocaine Screen (Not Detect) U Marijuana (THC) Screen (Not Detect) Ethyl Alcohol mg/dL COVID-19 (CHANG) (Negative) COVID-19 Clin Com 09/08/22 09/08/22 09/08/22 Range/Units 15:37 15:37 15:37 WBC 20.2 H (4.8-10.8) X10*3/uL RBC 6.37 H D (4.20-5.50) X10*6/uL Hgb 18.7 H D (12.0-16.0) g/dl Hct 53.9 H D (37.0-47.0) % MCV 84.6 (80.0-98.0) fL MCH 29.4 (27.0-33.0) pg MCHC 34.7 (31.0-35.0) g/dl RDW 12.9 (11.0-16.0) % Plt Count 355 D (160-400) X10*3/uL MPV 11.0 (9.4-12.3) fL Immature Gran % (Auto) 0.8 H (0.0-0.4) % Neut % (Auto) 86.1 H (45-73) % Lymph % (Auto) 4.8 L (20-40) % [place] % (Auto) 8.1 (2-11) % Eos % (Auto) 0.0 (0-4) % Baso % (Auto) 0.2 (0-2) % Lymph # (Auto) 1.0 L (1.2-4.9) X10*3/uL [place] # (Auto) 1.6 H (0.1-1.2) X10*3/uL Eos # (Auto) 0.0 (0.0-0.4) X10*3/uL Baso # (Auto) 0.0 (0.0-0.2) X10*3/uL Abs Immat Gran (auto) 0.17 H (0.00-0.03) X10*3/uL Absolute Neuts (auto) 17.4 H (2.0-8.3) x10*3/uL Absolute Nucleated RBC 0.000 (0.0-0.012) X10*3/uL Nucleated RBC % (auto) 0.0 (0.0-0.2) /100WBC Smear Tech's Comments VERIFIED PT 12.4 (11.1-13.3) SEC INR 1.0 (0.9-1.1) APTT 44.5 H (26.0-36.4) SEC Sodium (135-145) mmol/L Potassium (3.3-5.1) mmol/L Chloride (96-108) mmol/L Carbon Dioxide (22-29) mmol/L Anion Gap (12-20) BUN (9-16) mg/dL Creatinine (0.5-1.4) mg/dL Estim Creat Clear Calc Estimated GFR POC Glucose (60-115) mg/dL Random Glucose (60-115) mg/dL Lactic Acid 2.4 H* (0.5-2.0) mmol/L Calcium (8.4-10.2) mg/dL Total Bilirubin (0.0-1.0) mg/dL AST (5-31) U/L ALT (0-31) U/L Alkaline Phosphatase (39-117) U/L Total Creatine Kinase (26-140) U/L Troponin I High Sens (<3.5-17.0) ng/L B-Natriuretic Peptide (<100) pg/mL Total Protein (6.5-8.0) g/dL Albumin (3.5-5.0) g/dL Lipase (8-78) U/L TSH (0.32-4.0) uIU/mL Free T4 (0.71-1.85) ng/dL Thyroxine (T4) (4.5-12.0) ug/dL Urine Color Urine Appearance Urine pH (5.0-9.0) Ur Specific [place] (1.005-1.025) Urine Protein (Neg-Trace) mg/dL Urine Glucose (UA) (Negative) mg/dL Urine Ketones (Negative) mg/dL Urine Blood (Negative) Urine Nitrite (Negative) Ur Leukocyte Esterase (Negative) Urine RBC (0-2) /HPF Urine WBC (0-5) /HPF Ur Squamous Epith Cells (0-2) /HPF Urine Bacteria (None Seen) Hyaline Casts (0-2) /LPF Granular Casts CSF Tube Number CSF Volume ML CSF Appearance CSF Color CSF WBC MM*3 CSF RBC MM*3 CSF Appearance (b) CSF Glucose mg/dL CSF Total Protein (15-45) mg/dL CSF C.neoform/gat PCR (Not Detect.) CSF CMV DNA (PCR) (Not Detect.) CSF Enterovirus (PCR) (Not Detect.) CSF E. coli K1 (PCR) (Not Detect.) CSF H. influenzae (PCR) (Not Detect.) CSF HSV I (PCR) (Not Detect.) CSF HSV II (PCR) (Not Detect.) CSF HHV 6 (PCR) (Not Detect.) CSF L.monocytogenes PCR (Not Detect.) CSF N. meningitidis PCR (Not Detect.) CSF Parechovirus (PCR) (Not Detect.) CSF S. agalactiae (PCR) (Not Detect.) CSF S. pneumoniae (PCR) (Not Detect.) CSF VZV (PCR) (Not Detect.) Salicylates (15-30) mg/dL Urine Opiates Screen (Not Detect) Urine Fentanyl Screen (Not Detect) Acetaminophen (<30) mcg/mL Ur Barbiturates Screen (Not Detect) Ur Phencyclidine Scrn (Not Detect) Ur Amphetamines Screen (Not Detect) U Benzodiazepines Scrn (Not Detect) Urine Cocaine Screen (Not Detect) U Marijuana (THC) Screen (Not Detect) Ethyl Alcohol mg/dL COVID-19 (CHANG) (Negative) COVID-19 Clin Com 09/08/22 09/08/22 09/08/22 Range/Units 15:37 15:37 15:37 WBC (4.8-10.8) X10*3/uL RBC (4.20-5.50) X10*6/uL Hgb (12.0-16.0) g/dl Hct (37.0-47.0) % MCV (80.0-98.0) fL MCH (27.0-33.0) pg MCHC (31.0-35.0) g/dl RDW (11.0-16.0) % Plt Count (160-400) X10*3/uL MPV (9.4-12.3) fL Immature Gran % (Auto) (0.0-0.4) % Neut % (Auto) (45-73) % Lymph % (Auto) (20-40) % [place] % (Auto) (2-11) % Eos % (Auto) (0-4) % Baso % (Auto) (0-2) % Lymph # (Auto) (1.2-4.9) X10*3/uL [place] # (Auto) (0.1-1.2) X10*3/uL Eos # (Auto) (0.0-0.4) X10*3/uL Baso # (Auto) (0.0-0.2) X10*3/uL Abs Immat Gran (auto) (0.00-0.03) X10*3/uL Absolute Neuts (auto) (2.0-8.3) x10*3/uL Absolute Nucleated RBC (0.0-0.012) X10*3/uL Nucleated RBC % (auto) (0.0-0.2) /100WBC Smear Tech's Comments PT (11.1-13.3) SEC INR (0.9-1.1) APTT (26.0-36.4) SEC Sodium (135-145) mmol/L Potassium (3.3-5.1) mmol/L Chloride (96-108) mmol/L Carbon Dioxide (22-29) mmol/L Anion Gap (12-20) BUN (9-16) mg/dL Creatinine (0.5-1.4) mg/dL Estim Creat Clear Calc Estimated GFR POC Glucose (60-115) mg/dL Random Glucose (60-115) mg/dL Lactic Acid (0.5-2.0) mmol/L Calcium (8.4-10.2) mg/dL Total Bilirubin (0.0-1.0) mg/dL AST (5-31) U/L ALT (0-31) U/L Alkaline Phosphatase (39-117) U/L Total Creatine Kinase (26-140) U/L Troponin I High Sens 280.7 H* (<3.5-17.0) ng/L B-Natriuretic Peptide 876 H (<100) pg/mL Total Protein (6.5-8.0) g/dL Albumin (3.5-5.0) g/dL Lipase (8-78) U/L TSH (0.32-4.0) uIU/mL Free T4 (0.71-1.85) ng/dL Thyroxine (T4) (4.5-12.0) ug/dL Urine Color Urine Appearance Urine pH (5.0-9.0) Ur Specific [place] (1.005-1.025) Urine Protein (Neg-Trace) mg/dL Urine Glucose (UA) (Negative) mg/dL Urine Ketones (Negative) mg/dL Urine Blood (Negative) Urine Nitrite (Negative) Ur Leukocyte Esterase (Negative) Urine RBC (0-2) /HPF Urine WBC (0-5) /HPF Ur Squamous Epith Cells (0-2) /HPF Urine Bacteria (None Seen) Hyaline Casts (0-2) /LPF Granular Casts CSF Tube Number CSF Volume ML CSF Appearance CSF Color CSF WBC MM*3 CSF RBC MM*3 CSF Appearance (b) CSF Glucose mg/dL CSF Total Protein (15-45) mg/dL CSF C.neoform/gat PCR (Not Detect.) CSF CMV DNA (PCR) (Not Detect.) CSF Enterovirus (PCR) (Not Detect.) CSF E. coli K1 (PCR) (Not Detect.) CSF H. influenzae (PCR) (Not Detect.) CSF HSV I (PCR) (Not Detect.) CSF HSV II (PCR) (Not Detect.) CSF HHV 6 (PCR) (Not Detect.) CSF L.monocytogenes PCR (Not Detect.) CSF N. meningitidis PCR (Not Detect.) CSF Parechovirus (PCR) (Not Detect.) CSF S. agalactiae (PCR) (Not Detect.) CSF S. pneumoniae (PCR) (Not Detect.) CSF VZV (PCR) (Not Detect.) Salicylates (15-30) mg/dL Urine Opiates Screen (Not Detect) Urine Fentanyl Screen (Not Detect) Acetaminophen (<30) mcg/mL Ur Barbiturates Screen (Not Detect) Ur Phencyclidine Scrn (Not Detect) Ur Amphetamines Screen (Not Detect) U Benzodiazepines Scrn (Not Detect) Urine Cocaine Screen (Not Detect) U Marijuana (THC) Screen (Not Detect) Ethyl Alcohol mg/dL COVID-19 (CHANG) Negative (Negative) COVID-19 Clin Com See Note 09/08/22 09/08/22 09/08/22 Range/Units 15:37 15:37 15:59 WBC (4.8-10.8) X10*3/uL RBC (4.20-5.50) X10*6/uL Hgb (12.0-16.0) g/dl Hct (37.0-47.0) % MCV (80.0-98.0) fL MCH (27.0-33.0) pg MCHC (31.0-35.0) g/dl RDW (11.0-16.0) % Plt Count (160-400) X10*3/uL MPV (9.4-12.3) fL Immature Gran % (Auto) (0.0-0.4) % Neut % (Auto) (45-73) % Lymph % (Auto) (20-40) % [place] % (Auto) (2-11) % Eos % (Auto) (0-4) % Baso % (Auto) (0-2) % Lymph # (Auto) (1.2-4.9) X10*3/uL [place] # (Auto) (0.1-1.2) X10*3/uL Eos # (Auto) (0.0-0.4) X10*3/uL Baso # (Auto) (0.0-0.2) X10*3/uL Abs Immat Gran (auto) (0.00-0.03) X10*3/uL Absolute Neuts (auto) (2.0-8.3) x10*3/uL Absolute Nucleated RBC (0.0-0.012) X10*3/uL Nucleated RBC % (auto) (0.0-0.2) /100WBC Smear Tech's Comments PT (11.1-13.3) SEC INR (0.9-1.1) APTT (26.0-36.4) SEC Sodium 150 H (135-145) mmol/L Potassium 3.8 (3.3-5.1) mmol/L Chloride 116 H (96-108) mmol/L Carbon Dioxide 19 L (22-29) mmol/L Anion Gap 19 (12-20) BUN 23 H (9-16) mg/dL Creatinine 0.81 (0.5-1.4) mg/dL Estim Creat Clear Calc 53.7 Estimated GFR > 60 POC Glucose (60-115) mg/dL Random Glucose 138 H (60-115) mg/dL Lactic Acid (0.5-2.0) mmol/L Calcium 10.4 H D (8.4-10.2) mg/dL Total Bilirubin 1.6 H (0.0-1.0) mg/dL AST 28 (5-31) U/L ALT 22 (0-31) U/L Alkaline Phosphatase 70 (39-117) U/L Total Creatine Kinase 201 H (26-140) U/L Troponin I High Sens (<3.5-17.0) ng/L B-Natriuretic Peptide (<100) pg/mL Total Protein 7.9 (6.5-8.0) g/dL Albumin 5.2 H (3.5-5.0) g/dL Lipase 103 H (8-78) U/L TSH 0.08 L (0.32-4.0) uIU/mL Free T4 1.12 (0.71-1.85) ng/dL Thyroxine (T4) 8.7 (4.5-12.0) ug/dL Urine Color Urine Appearance Urine pH (5.0-9.0) Ur Specific Brielle (1.005-1.025) Urine Protein (Neg-Trace) mg/dL Urine Glucose (UA) (Negative) mg/dL Urine Ketones (Negative) mg/dL Urine Blood (Negative) Urine Nitrite (Negative) Ur Leukocyte Esterase (Negative) Urine RBC (0-2) /HPF Urine WBC (0-5) /HPF Ur Squamous Epith Cells (0-2) /HPF Urine Bacteria (None Seen) Hyaline Casts (0-2) /LPF Granular Casts CSF Tube Number CSF Volume ML CSF Appearance CSF Color CSF WBC MM*3 CSF RBC MM*3 CSF Appearance (b) CSF Glucose mg/dL CSF Total Protein (15-45) mg/dL CSF C.neoform/gat PCR (Not Detect.) CSF CMV DNA (PCR) (Not Detect.) CSF Enterovirus (PCR) (Not Detect.) CSF E. coli K1 (PCR) (Not Detect.) CSF H. influenzae (PCR) (Not Detect.) CSF HSV I (PCR) (Not Detect.) CSF HSV II (PCR) (Not Detect.) CSF HHV 6 (PCR) (Not Detect.) CSF L.monocytogenes PCR (Not Detect.) CSF N. meningitidis PCR (Not Detect.) CSF Parechovirus (PCR) (Not Detect.) CSF S. agalactiae (PCR) (Not Detect.) CSF S. pneumoniae (PCR) (Not Detect.) CSF VZV (PCR) (Not Detect.) Salicylates < 5.0 L (15-30) mg/dL Urine Opiates Screen (Not Detect) Urine Fentanyl Screen (Not Detect) Acetaminophen < 17 (<30) mcg/mL Ur Barbiturates Screen (Not Detect) Ur Phencyclidine Scrn (Not Detect) Ur Amphetamines Screen (Not Detect) U Benzodiazepines Scrn (Not Detect) Urine Cocaine Screen (Not Detect) U Marijuana (THC) Screen (Not Detect) Ethyl Alcohol < 10 mg/dL COVID-19 ([facility]ANG) (Negative) COVID-19 Clin Com Independent Interpretation I performed an independent interpretation of an: EKG, Plain X-Ray and CT Scan Interpretation: My independent interpretation the patient's chest x-ray is as follows: SVT with a rate of 172, no ST segment elevation, no ST segment depression, no PACs, no PVCs My independent interpretation of the patient's chest x-ray one view: Hyperinflated lungs, no pneumonia, ET tube above the roni, NG tube in stomach My independent interpretation the patient's CT scan the brain is as follows: No acute disease, no bleed, no fracture Radiology Impression Discussion of test interpretation with radiology: I have reviewed the radio logist's reading. Radiologist Impression: CT head/brain wo IV con IMPRESSION: No acute intracranial pathology. Dictated By: Demarcus Ga MD XR chest 1V IMPRESSION: 1. Endotracheal tube tip approximately 5 cm proximal to roni. 2. Enteric tube side-port overlies the gastroesophageal junction and should be advanced approximately 3 to 5 cm. 3. No acute cardiopulmonary process. Dictated By:Rod Jackson MD Procedures Intubation Time out performed: Yes sedative: Etomidate Mg Given: 15 paralytic: Rocuronium Mg Given: 30 Laryngoscope: fiber optic video scope Assist Device Used: fiber optic device ET Tube Size: 7 ET Tube Uncuffed: No Tube Secured Depth (cm): 22 Tube Secured Location: lips Lumbar Puncture Time Out Performed: No Patient Position: right lateral decubitus Skin Prep: Povidone-Iodine 1% Local Anesthetic: lidocaine 1% Amount of anesthesia used (mL): 3 Spinal Needle Gauge: 20G Interspace Used: L4-L5 Fluid Initially Obtained: bloody (Traumatic tap, cleared by 4th 2) Complications: none Critical Care Time Critical Care Time Total Critical Care Time: 80 Attestation: Critical Care: The patient was critically ill with a high probability of imminent or life threatening deterioration. I spent greater than 30 minutes of discontinuous time evaluating the patient,delivering critical care at the bedside, discussing and evaluating pertinent data with consultants. Critical care time does not include time spent performing separately billable procedures or teaching. Total time spent performing critical care was 80 minutes. Discharge Plan Discharge Clinical Impression: Acute alteration in mental status, Generalized tonic-clonic seizure, Dystonia, Opiate use Patient Disposition: Admitted As Inpatient
--- NOTE | 2022-09-08 14:05 | PC.NURSE ---
At 1400 soft restraints applied, due to Pt being intubated on vent to avoid interference with medical tubing.
[2022-09-08 14:12] LABS: Appearance Urine Cloudy; Color Urine Yellow; Glucose Urine UA 100 mg/dL (Negative); Leukocyte Esterase Urine Negative (Negative); Nitrite Urine Negative (Negative); PH 5.5 (5.0-9.0); Specific Gravity - Urine 1.025 (1.005-1.025); UMIC TRIGGER UACC YES; Urine Blood Large (3+) (Negative); Urine Ketones Negative (Negative); Urine Protein >=1000 (4+) mg/dL (Neg-Trace)
[2022-09-08 14:25] LABS: Amphetamine Screen Urine Not Detected (Not Detect); Barbiturates, Urine Not Detected (Not Detect); Benzodiazepines Screen Urine Not Detected (Not Detect); Cannabinoid Screen Urine Not Detected (Not Detect); Cocaine Screen Urine Not Detected (Not Detect); Fentanyl, urine POSITIVE (Not Detect); Opiate Screen Urine Not Detected (Not Detect); Phencyclidine Screen Urine Not Detected (Not Detect)
[2022-09-08 14:31] LABS: Bacteria Urine None Seen (None Seen); Granular Casts Urine Present; Hyaline Casts Urine >20 /LPF (0-2); UACC Culture Trigger YES
[2022-09-08] MEDS: Acetaminophen Supp 650 MG SUPP.RECT PR (14:54)
--- NOTE | 2022-09-08 15:07 | PC.NURSE ---
LP done by MD Mcgee- samples obtained and will be walked to lab
--- NOTE | 2022-09-08 15:07 | PC.RT ---
RT called to pt room, pt intubated secondary to airway protection.Pt was int with 7.0 ett, secured @ 24 @ the lip. 1 attempt, no difficulty noted. pt placed on pnuemopack and trans to CT scan without issue. pt transitioned to [address] currently awaiting transfer to ICU.
[2022-09-08 15:18] LABS: Glucose, Whole Blood 184 mg/dL (60-115)
--- NOTE | 2022-09-08 15:19 | PC.NURSE ---
spoke with the lab d/t CSF lab stickers not having numbers on them- they stated it did not matter which sticker goes on which vial.
[2022-09-08] MEDS: cefTRIAXone sodium 1 GM in 0.9 % Sodium Chloride 50 ML IV (16:01)
[2022-09-08 16:07] LABS: Basophils Percent Auto 0.2 % (0-2); Hematocrit 53.9 % (37.0-47.0); Hemoglobin 18.7 g/dl (12.0-16.0); Imm Gran Abs Auto 0.17 X10*3/uL (0.00-0.03); Imm Gran Pct Auto 0.8 % (0.0-0.4); Lymphocytes Percent Auto 4.8 % (20-40); MANUAL DIFF FLAG SCAN; Mean Corpuscular HGB Conc 34.7 g/dl (31.0-35.0); Mean Corpuscular Hemoglobin 29.4 pg (27.0-33.0); Mean Corpuscular Volume 84.6 fL (80.0-98.0); Monocytes Absolute Auto 1.6 X10*3/uL (0.1-1.2); Monocytes Percent Auto 8.1 % (2-11); Neutrophils Absolute Auto 17.4 x10*3/uL (2.0-8.3); Neutrophils Percent Auto 86.1 % (45-73); Platelet Count 355 X10*3/uL (160-400); Red Blood Count 6.37 X10*6/uL (4.20-5.50); Red Cell Distribution Width 12.9 % (11.0-16.0); SCAN SMEAR FLAG 1; White Blood Count 20.2 X10*3/uL (4.8-10.8)
--- NOTE | 2022-09-08 16:11 | PHA.MEDREC ---
Pharmacy Consult ? Medication Reconciliation Pharmacy has completed the medication reconciliation. Spoke with patient daughter Tabby on the phone. She read of patient's medications. Susy Marshall, PharmD
[2022-09-08 16:12] LABS: Lactic Acid 2.4 mmol/L (0.5-2.0)
[2022-09-08 16:16] LABS: Glucose CSF 114 mg/dL; Total Protein CSF 39.5 mg/dL (15-45)
[2022-09-08 16:18] LABS: COVID-19 Test Negative (Negative); IDNOW Serial# 08D9AD1C
[2022-09-08 16:19] LABS: Prothrombin Time 12.4 SEC (11.1-13.3)
[2022-09-08 16:22] LABS: Partial Thromboplastin Time 44.5 SEC (26.0-36.4)
[2022-09-08] MEDS: vancomycin HCL 1,250 MG in 0.9 % Sodium Chloride 250 ML 166.67 MG IV (16:24)
[2022-09-08 16:26] LABS: Acetaminophen LAB < 17 mcg/mL (<30); Ethanol < 10 mg/dL; Salicylate < 5.0 mg/dL (15-30)
[2022-09-08 16:27] LABS: B Type Natriuretic Peptide 876 pg/mL (<100)
[2022-09-08 16:27] LABS: CSF Appearance Clear, Colorless; CSF Tube # 2
[2022-09-08 16:32] LABS: SLIDE REVIEW VERIFIED
[2022-09-08 16:38] LABS: Alanine Aminotransferase 22 U/L (0-31); Albumin Level 5.2 g/dL (3.5-5.0); Alkaline Phosphatase 70 U/L (39-117); Anion Gap 19 (12-20); Aspartate Amino Transferase 28 U/L (5-31); Bilirubin Total 1.6 mg/dL (0.0-1.0); Blood Urea Nitrogen 23 mg/dL (9-16); Calcium 10.4 mg/dL (8.4-10.2); Carbon Dioxide 19 mmol/L (22-29); Chloride 116 mmol/L (96-108); Creatinine Clr Calc Pharmacy 53.7; Estimated Glomerular Filt Rate > 60; Glucose Random 138 mg/dL (60-115); Lipase 103 U/L (8-78); Potassium 3.8 mmol/L (3.3-5.1); Sodium 150 mmol/L (135-145); Total Protein 7.9 g/dL (6.5-8.0)
[2022-09-08 16:39] LABS: Appearance CSF CLEAR; CSF Tube # 4; Color CSF COLORLESS; Red Blood Cell CSF 10 MM*3; White Blood Cell CSF 0 MM*3
[2022-09-08 16:49] LABS: Troponin-I High Sensitivity 280.7 ng/L (<3.5-17.0)
[2022-09-08 16:53] LABS: T4 Thyroxine 8.7 ug/dL (4.5-12.0); TSH reflex Free T4 0.08 uIU/mL (0.32-4.0)
[2022-09-08] MEDS: fentaNYL citrate/NS 1,000 MCG/100 ML PLAST..BAG 5 MCG IVCONT (16:57)
[2022-09-08] MEDS: Lactated Ringers 1,000 ML 100 ML IVCONT (16:59)
[2022-09-08] MEDS: Heparin Sodium,Porcine 5,000 UNIT/ML VIAL 5000 UNIT SUBCUT (17:00)
[2022-09-08 17:24] LABS: Cryptococcus neoformans/gattii Not Detected (Not Detect.); Enterovirus Not Detected (Not Detect.); Escherichia coli K1 Not Detected (Not Detect.)
[2022-09-08 17:25] LABS: Haemophilus influenzae Not Detected (Not Detect.); Herpes simplex virus 1 Not Detected (Not Detect.); Herpes simplex virus 2 Not Detected (Not Detect.); Human herpesvirus 6 Not Detected (Not Detect.); Human parechovirus Not Detected (Not Detect.); Listeria monocytogenes Not Detected (Not Detect.); Neisseria meningitidis Not Detected (Not Detect.); Streptococcus agalactiae Not Detected (Not Detect.); Streptococcus pneumoniae Not Detected (Not Detect.); Varicella zoster virus Not Detected (Not Detect.)
[2022-09-08 17:46] LABS: Reflex Lactate? Lactic Acid Added
[2022-09-08 17:56] LABS: Free T4 (Free Thyroxine) 1.12 ng/dL (0.71-1.85)
[2022-09-08] MEDS: levETIRAcetam in NaCl (iso-os) 1,000 MG/100 ML PIGGYBACK 400 MG IV (18:08)
[2022-09-08 18:27] LABS: ~Lactic Acid-LAB USE ONLY 1.7 mmol/L (0.5-2.0)
--- NOTE | 2022-09-08 19:19 | PC.NURSE ---
Nurse to nurse report given to Debby SR. PRICING ANALYST, patient to bet reexported to ICU 253 by transporter and ED nurse.
[2022-09-08 19:33] LABS: Troponin-I High Sensitivity 375.5 ng/L (<3.5-17.0)
[2022-09-08] MEDS: Metoprolol Tartrate 5 MG/5 ML VIAL IVPUSH ×2 (20:15→21:50)
[2022-09-08] MEDS: propofoL 1,000 MG/100 ML VIAL 13.5 MG IVCONT (20:21)
[2022-09-08 21:00] LABS: Basophils Absolute Auto 0.1 X10*3/uL (0.0-0.2); Basophils Percent Auto 0.2 % (0-2); Hemoglobin 17.9 g/dl (12.0-16.0); Imm Gran Abs Auto 0.11 X10*3/uL (0.00-0.03); Imm Gran Pct Auto 0.5 % (0.0-0.4); Lymphocytes Absolute Auto 1.8 X10*3/uL (1.2-4.9); Lymphocytes Percent Auto 8.9 % (20-40); MANUAL DIFF FLAG SCAN; Mean Corpuscular HGB Conc 34.4 g/dl (31.0-35.0); Mean Corpuscular Hemoglobin 29.1 pg (27.0-33.0); Mean Corpuscular Volume 84.4 fL (80.0-98.0); Mean Platelet Volume 10.7 fL (9.4-12.3); Monocytes Absolute Auto 2.1 X10*3/uL (0.1-1.2); Monocytes Percent Auto 10.6 % (2-11); Neutrophils Absolute Auto 16.1 x10*3/uL (2.0-8.3); Neutrophils Percent Auto 79.8 % (45-73); Platelet Count 330 X10*3/uL (160-400); Red Blood Count 6.16 X10*6/uL (4.20-5.50); Red Cell Distribution Width 12.9 % (11.0-16.0); SCAN SMEAR FLAG 1; White Blood Count 20.2 X10*3/uL (4.8-10.8)
[2022-09-08 21:11] LABS: D Dimer High Sensitivity 240 NG/ML
[2022-09-08 21:23] LABS: Alanine Aminotransferase 22 U/L (0-31); Albumin Level 4.6 g/dL (3.5-5.0); Alkaline Phosphatase 64 U/L (39-117); Anion Gap 21 (12-20); Aspartate Amino Transferase 28 U/L (5-31); Bilirubin Total 1.1 mg/dL (0.0-1.0); Blood Urea Nitrogen 26 mg/dL (9-16); Carbon Dioxide 19 mmol/L (22-29); Chloride 114 mmol/L (96-108); Creatinine Clr Calc Pharmacy 59.7; Estimated Glomerular Filt Rate > 60; Glucose Random 152 mg/dL (60-115); Magnesium 2.6 mg/dL (1.6-2.6); Phosphorus 4.8 mg/dL (2.7-4.5); Potassium 3.6 mmol/L (3.3-5.1); Sodium 150 mmol/L (135-145); Total Protein 7.2 g/dL (6.5-8.0)
[2022-09-08] MEDS: Metoprolol Tartrate 25 MG TABLET PO (21:39)
[2022-09-08] MEDS: Acetaminophen 325 MG TABLET 975 MG PO (21:39)
--- NOTE | 2022-09-08 21:43 | PM.CCHP ---
History of Present Illness Date of Service: 09/08/22 Attending physician on admission: Mariano Meeks Chief Complaint: Mental status changes/seizure disorder/opiate withdrawal HPI: ?49-year-old female with underlying history of polysubstance abuse including prior opioid prescription drugs, heroin use, daily alcohol ingestion, tobacco up abuse, chronic migraine headaches for which her claims she with use heroin when they got really bad as no one else would prescribe for opioids, had attempted Suboxone in the past but it was not successful. ?Patient presented to the emergency room with altered mental status, had not been eating or drinking well other than Coca-Cola an ice water.? While at home around noon the patient may have had a seizure by 11-12 o'clock the think she had a seizure and became less and less responsive so family decided to bring her to the ER.? At triage she was given intranasal Narcan which did awake her but had become rigid and spastic with her head towards 1 side, Deng but not answering any questions.? Her initial vital signs were overall stable, she was given Benadryl thinking this was related to a dystonic reaction but subsequently she had a tonic-clonic seizure which Ativan 2 mg IV was given subsequently she was not breathing spontaneously therefore she was intubated for airway protection. ? The workup in the ER included a head CT which was negative, white count 20.2, H&H of 18.7 in 53.9, platelets 355, sodium 150, potassium 3.8, chloride 116, carbon dioxide 19, anion gap 19, BUN ?23, creatinine 0.8, random glucose 138, lactic acid 2.4 which went down to 1.7, calcium 10.4, total bilirubin 1.6, troponin to 80.7, BNP a 76, lipase 103.? U tox were positive for fentanyl only. ?Alcohol level less than 10. ?TSH 0.08, free T4 1.12. ?Urinalysis appears to be contaminated and not reflective of a UTI. ?She had a lumbar puncture and fluid analysis is overall normal. ?COVID negative. Patient was given 1 L of IV fluids, placed on Keppra.? Was treated empirically with vancomycin and Rocephin as there was a concern his she my had aspirated although her x-ray did not show any infiltrates. ? Subsequently patient was transferred to the ICU for further care.? According to her , he was unaware and was almost certain that she had no consume any drugs in the past few days. ? ROS:? Unable to obtain ? Past Medical History:? As above ? Past Surgical History: none ? Family history:? Noncontributory ? Social History: ?Lives at home with her , on hoarding to him she would use a bundle of heroin every 2-3 days a, drinks 2-3 alcoholic beverages per day, smokes about 5 cigarettes a day.? He is no aware of her consuming fentanyl. ? CODE STATUS: FULL CODE ? Allergies: NKDA ? Home Medications: See Med Rec ? PHYSICAL EXAM: VS: ?170/112, 150, 16, 98% on a mechanical ventilator with settings of AC, 15, 400, 5, 30% FiO2 General:? Sedated and intubated Skin:? Intact, no lesions, edema, erythema, clubbing or cyanosis.? No ulcers. HEENT:? Head is normocephalic, atraumatic. Buccal mucosa is dry. Cardiac:? Clear S1-S2, no murmurs rubs or gallops. Pulmonary:? Clear to auscultation, no wheezes, rales or rhonchi. Abdomen:? Protuberant, positive bowel sounds in all 4 quadrants.? Soft, nontender, no rebound or guarding.? Musculoskeletal:? Passive range of motion full full stream it is at the major joints reveal no cogwheeling, no crepitus, no leg edema.? No calf or leg asymmetry. Neurologic:? As above. Vascular:? 2+ pulses upper and lower extremities distally. ?Less than 2nd capillary refill bilaterally finger and toes ? SIGNIFICANT LABORATORY DATA:? As above ? REVIEW OF IMAGES: ?As above ? EKG REVIEW: ?Sinus tachycardia rate 172 beats per minute, ST depressions throughout the anterior lateral and inferior leads.? No ST elevations.? QT 270. ? ASSESSMENT : 1. Chemical encephalopathy likely due to drug use 2. Chronic seizure disorder with present activity today 3. Reactive sinus tachycardia 4. Reactive versus infective leukocytosis 5. Acute kidney injury with BUN to creatinine ratio of 36 6. Hypovolemic hypernatremia 7. Severe dehydration 8. Metabolic and lactic acidosis likely due to severe dehydration and CHANDLER, so far there is no evidence of infection and/or sepsis although she fits the criteria for systemic inflammatory response syndrome 9. Hyperphosphatemia due to CHANDLER 10. BNP and troponin abnormality likely stress myopathy 11. Polysubstance abuse 12. EKG abnormalities with ST depressions rule out a stress myopathy, less likely ACS 13. FUO rule out drug reaction, endocarditis; other occult infection including but no suspected intra-abdominal pathology, very this likely lupus, lymphomas or leukemias, occult cancer such as renal, pancreatic or hepatic cellular carcinoma, lemierre?s syndrome; however given the severe migraine, temporal arteritis may be considered ? PLAN OF CARE: Admit to ICU, monitor vital signs, I's and O's, continue with sedation and obtain blood gas, titrate her FiO2 as tolerated, patient appears significantly dry, only receive 1 L of IV fluids and has significant tenting of skin, 1/2 L of IV fluids will be given x1 and will attempt to control her heart rate with beta-blockers, repeat laboratories now, recycle troponin levels and repeat EKG.? She has developed a new onset fever of unknown origin therefore CT of the chest will be ordered to further evaluate for aspiration pneumonia and less likely PE in the setting of troponin and BNP abnormalities.? Blood cultures have been ordered, will order an echo to rule out endocarditis.? Given her history of drug abuse, will cover her with Vanco and Zosyn until a source is found. ? GI PROPHYLAXIS: ?Famotidine DVT PROPHYLAXIS:? Heparin subQ ? 2300 clinical update The IV fluids worked great along with beta-blockers for this patient, she is now sinus rhythm at 70 beats per minute.? Remains hemodynamically stable, she is finally making urine as she was not doing so before. ?CT angiogram shows no PE, no evidence of pneumonia, other emphysematous changes noted.? No masses. ? Repeat EKG shows normal sinus rhythm ventricular rate 79 beats per minute.? There is no ST elevations, no ST depressions.? QTC 410.? In comparison to admission EKG disease a normal study with resolution of the ST depressions. ? Critical care time used for critical evaluation of this patient, diagnosis, treatment and coordination of care, review her records and documentation TOTAL CRITICAL CARE TIME? 90? MIN . discussion and coordination with consultants, completely separate from any procedures performed. Patient's care was discussed in detail with Dr. Meeks.? He is aware of all the above as well as the plan of care for this patient. ? [facility] Past Medical History Medical History Opioid use disorder Social History Social History Household Members: Significant Other Unable to assess alcohol history related to: Unknown Patient Tobacco Use Status: Current someday Tobacco user Cigarettes Per Day: 3 Years Smoked: 30 Use of substances other than those prescribed or required for medical reasons: Yes Substance Use Type: Heroin and Opiates Last Used Substance: Just Prior to Admission Currently Displaying Signs/Symptoms of Drug Intoxication Withdrawal: No Advance Directives: No Advance Directives Information Provided: Yes Advance Directives on File: No Recently lost weight without trying: Unsure Nutrition Risks: Anorexia and Poor intake 0-25% >4 days Patient : No service: No Current occupational status: employed Meds Allergies Allergy/AdvReac Type Severity Reaction Status Date / Time No Known Allergies Allergy Verified 06/23/21 15:12 Active Medications: Current Medications Acetaminophen (Acetaminophen 325 Mg Tablet) 975 mg PO Q8H PRN PRN Reason: Fever Last Admin: 09/08/22 21:39 Dose: 975 mg Chlorhexidine Gluconate (Chlorhexidine Gluc Oral Rinse 15 Ml Mouthwash) 15 ml BUCCAL Q8H VEL Last Admin: 09/08/22 20:25 Dose: Not Given Famotidine (Famotidine/Pf 20 Mg/2 Ml Vial) 20 mg IVPUSH DAILY [facility] Heparin Sodium (Porcine) (Heparin Sodium,Porcine 5,000 Unit/Ml Vial) 5,000 unit SUBCUT Q8H VEL Last Admin: 09/08/22 17:00 Dose: 5,000 unit Propofol (Diprivan) 1,000 mg in 100 mls @ 0 mls/hr IVCONT .Q0M VEL; Protocol Last Admin: 09/08/22 20:21 Dose: 50 mcg/kg/min, 13.5 mls/hr Lactated Ringer's (Lr) 1,000 mls @ 100 mls/hr IVCONT .Q10H VEL Last Admin: 09/08/22 16:59 Dose: 100 mls/hr Fentanyl (Sublimaze/Ns) 1,000 mcg in 100 mls @ 5 mls/hr IVCONT .Q20H VEL; Protocol Last Titration: 09/08/22 20:00 Dose: 75 mcg/hr, 7.5 mls/hr Levetiracetam (Keppra) 1,000 mg in 100 mls @ 400 mls/hr IV Q12H [facility] Last Infusion: 09/08/22 18:22 Dose: Infused Metoprolol Tartrate (Metoprolol Tartrate 25 Mg Tablet) 25 mg PO TID [facility]; Protocol Last Admin: 09/08/22 21:39 Dose: 25 mg Naloxone HCl (Naloxone Hcl 0.4 Mg/Ml Vial) 0.2 mg IVPUSH Q2M PRN PRN Reason: Excessive sedation or RR < 8 Home Medications Medication Instructions Recorded Confirmed Last Taken Type amitriptyline 10 mg tablet 2 tab PO BEDTIME 06/08/21 09/08/22 Unknown History amlodipine 10 mg tablet 1 tab PO DAILY 06/08/21 09/08/22 Unknown History levetiracetam 500 mg tablet 750 mg PO Q12H 06/08/21 09/08/22 Unknown History Physical Exam Vital Signs: Vital Signs: Last Vital Signs Temp 101.5 F H 09/08/22 21:00 Pulse 125 H 09/08/22 21:00 Resp 17 09/08/22 21:00 BP 142/106 H 09/08/22 21:00 Pulse Ox 97 09/08/22 21:00 O2 Del Method Mechanical Ventil ation 09/08/22 21:00 FiO2 30 09/08/22 21:00 BMI result Body Mass Index 17.6 Results Labs 09/08/22 20:53 09/08/22 20:53 Labs: Laboratory Results - last 24 hr 09/08/22 09/08/22 09/08/22 13:10 14:02 14:02 MCV MCH MCHC RDW Plt Count MPV Immature Gran % (Auto) Neut % (Auto) Lymph % (Auto) [place] % (Auto) Eos % (Auto) Baso % (Auto) Lymph # (Auto) [place] # (Auto) Eos # (Auto) Baso # (Auto) Abs Immat Gran (auto) Absolute Neuts (auto) Absolute Nucleated RBC Nucleated RBC % (auto) Smear Tech's Comments PT INR APTT D-Dimer High Sensitivty Anion Gap Estim Creat Clear Calc Estimated GFR POC Glucose 184 H Random Glucose Lactic Acid Lactic Acid F/U @ 2Hr Calcium Phosphorus Magnesium Total Bilirubin AST ALT Alkaline Phosphatase Total Creatine Kinase B-Natriuretic Peptide Total Protein Albumin Lipase TSH Free T4 Thyroxine (T4) Urine Color Yellow Urine Appearance Cloudy Urine pH 5.5 Ur Specific [place] 1.025 Urine Protein >=1000 (4+) H Urine Glucose (UA) 100 H Urine Ketones Negative Urine Blood Large (3+) H Urine Nitrite Negative Ur Leukocyte Esterase Negative Urine RBC 3-5 H Urine WBC 6-10 H Ur Squamous Epith Cells 6-10 Urine Bacteria None Seen Hyaline Casts >20 Granular Casts Present CSF Tube Number CSF Volume CSF Appearance CSF Color CSF WBC CSF RBC CSF Appearance (b) CSF Glucose CSF Total Protein CSF C.neoform/gat PCR CSF CMV DNA (PCR) CSF Enterovirus (PCR) CSF E. coli K1 (PCR) CSF H. influenzae (PCR) CSF HSV I (PCR) CSF HSV II (PCR) CSF HHV 6 (PCR) CSF L.monocytogenes PCR CSF N. meningitidis PCR CSF Parechovirus (PCR) CSF S. agalactiae (PCR) CSF S. pneumoniae (PCR) CSF VZV (PCR) Salicylates Urine Opiates Screen Not Detected Urine Fentanyl Screen POSITIVE H Acetaminophen Ur Barbiturates Screen Not Detected Ur Phencyclidine Scrn Not Detected Ur Amphetamines Screen Not Detected U Benzodiazepines Scrn Not Detected Urine Cocaine Screen Not Detected U Marijuana (THC) Screen Not Detected Ethyl Alcohol COVID-19 (CHANG) COVID-19 Clin Com 09/08/22 09/08/22 09/08/22 15:19 15:19 15:19 MCV MCH MCHC RDW Plt Count MPV Immature Gran % (Auto) Neut % (Auto) Lymph % (Auto) [place] % (Auto) Eos % (Auto) Baso % (Auto) Lymph # (Auto) [place] # (Auto) Eos # (Auto) Baso # (Auto) Abs Immat Gran (auto) Absolute Neuts (auto) Absolute Nucleated RBC Nucleated RBC % (auto) Smear Tech's Comments PT INR APTT D-Dimer High Sensitivty Anion Gap Estim Creat Clear Calc Estimated GFR POC Glucose Random Glucose Lactic Acid Lactic Acid F/U @ 2Hr Calcium Phosphorus Magnesium Total Bilirubin AST ALT Alkaline Phosphatase Total Creatine Kinase B-Natriuretic Peptide Total Protein Albumin Lipase TSH Free T4 Thyroxine (T4) Urine Color Urine Appearance Urine pH Ur Specific [place] Urine Protein Urine Glucose (UA) Urine Ketones Urine Blood Urine Nitrite Ur Leukocyte Esterase Urine RBC Urine WBC Ur Squamous Epith Cells Urine Bacteria Hyaline Casts Granular Casts CSF Tube Number 2 4 CSF Volume 1.0 CSF Appearance CLEAR CSF Color COLORLESS CSF WBC 0 CSF RBC 10 CSF Appearance (b) Clear, Colorless CSF Glucose 114 CSF Total Protein 39.5 CSF C.neoform/gat PCR Not Detected CSF CMV DNA (PCR) Not Detected CSF Enterovirus (PCR) Not Detected CSF E. coli K1 (PCR) Not Detected CSF H. influenzae (PCR) Not Detected CSF HSV I (PCR) Not Detected CSF HSV II (PCR) Not Detected CSF HHV 6 (PCR) Not Detected CSF L.monocytogenes PCR Not Detected CSF N. meningitidis PCR Not Detected CSF Parechovirus (PCR) Not Detected CSF S. agalactiae (PCR) Not Detected CSF S. pneumoniae (PCR) Not Detected CSF VZV (PCR) Not Detected Salicylates Urine Opiates Screen Urine Fentanyl Screen Acetaminophen Ur Barbiturates Screen Ur Phencyclidine Scrn Ur Amphetamines Screen U Benzodiazepines Scrn Urine Cocaine Screen U Marijuana (THC) Screen Ethyl Alcohol COVID-19 (CHANG) COVID-19 Clin Com 09/08/22 09/08/22 09/08/22 15:37 15:37 15:37 MCV 84.6 MCH 29.4 MCHC 34.7 RDW 12.9 Plt Count 355 D MPV 11.0 Immature Gran % (Auto) 0.8 H Neut % (Auto) 86.1 H Lymph % (Auto) 4.8 L [place] % (Auto) 8.1 Eos % (Auto) 0.0 Baso % (Auto) 0.2 Lymph # (Auto) 1.0 L [place] # (Auto) 1.6 H Eos # (Auto) 0.0 Baso # (Auto) 0.0 Abs Immat Gran (auto) 0.17 H Absolute Neuts (auto) 17.4 H Absolute Nucleated RBC 0.000 Nucleated RBC % (auto) 0.0 Smear Tech's Comments VERIFIED PT 12.4 INR 1.0 APTT 44.5 H D-Dimer High Sensitivty Anion Gap Estim Creat Clear Calc Estimated GFR POC Glucose Random Glucose Lactic Acid 2.4 H* Lactic Acid F/U @ 2Hr Calcium Phosphorus Magnesium Total Bilirubin AST ALT Alkaline Phosphatase Total Creatine Kinase B-Natriuretic Peptide Total Protein Albumin Lipase TSH Free T4 Thyroxine (T4) Urine Color Urine Appearance Urine pH Ur Specific [place] Urine Protein Urine Glucose (UA) Urine Ketones Urine Blood Urine Nitrite Ur Leukocyte Esterase Urine RBC Urine WBC Ur Squamous Epith Cells Urine Bacteria Hyaline Casts Granular Casts CSF Tube Number CSF Volume CSF Appearance CSF Color CSF WBC CSF RBC CSF Appearance (b) CSF Glucose CSF Total Protein CSF C.neoform/gat PCR CSF CMV DNA (PCR) CSF Enterovirus (PCR) CSF E. coli K1 (PCR) CSF H. influenzae (PCR) CSF HSV I (PCR) CSF HSV II (PCR) CSF HHV 6 (PCR) CSF L.monocytogenes PCR CSF N. meningitidis PCR CSF Parechovirus (PCR) CSF S. agalactiae (PCR) CSF S. pneumoniae (PCR) CSF VZV (PCR) Salicylates Urine Opiates Screen Urine Fentanyl Screen Acetaminophen Ur Barbiturates Screen Ur Phencyclidine Scrn Ur Amphetamines Screen U Benzodiazepines Scrn Urine Cocaine Screen U Marijuana (THC) Screen Ethyl Alcohol COVID-19 (CHANG) COVID-19 Clin Com 09/08/22 09/08/22 09/08/22 15:37 15:37 15:37 MCV MCH MCHC RDW Plt Count MPV Immature Gran % (Auto) Neut % (Auto) Lymph % (Auto) [place] % (Auto) Eos % (Auto) Baso % (Auto) Lymph # (Auto) [place] # (Auto) Eos # (Auto) Baso # (Auto) Abs Immat Gran (auto) Absolute Neuts (auto) Absolute Nucleated RBC Nucleated RBC % (auto) Smear Tech's Comments PT INR APTT D-Dimer High Sensitivty Anion Gap Estim Creat Clear Calc Estimated GFR POC Glucose Random Glucose Lactic Acid Lactic Acid F/U @ 2Hr Calcium Phosphorus Magnesium Total Bilirubin AST ALT Alkaline Phosphatase Total Creatine Kinase B-Natriuretic Peptide 876 H Total Protein Albumin Lipase TSH Free T4 Thyroxine (T4) Urine Color Urine Appearance Urine pH Ur Specific [place] Urine Protein Urine Glucose (UA) Urine Ketones Urine Blood Urine Nitrite Ur Leukocyte Esterase Urine RBC Urine WBC Ur Squamous Epith Cells Urine Bacteria Hyaline Casts Granular Casts CSF Tube Number CSF Volume CSF Appearance CSF Color CSF WBC CSF RBC CSF Appearance (b) CSF Glucose CSF Total Protein CSF C.neoform/gat PCR CSF CMV DNA (PCR) CSF Enterovirus (PCR) CSF E. coli K1 (PCR) CSF H. influenzae (PCR) CSF HSV I (PCR) CSF HSV II (PCR) CSF HHV 6 (PCR) CSF L.monocytogenes PCR CSF N. meningitidis PCR CSF Parechovirus (PCR) CSF S. agalactiae (PCR) CSF S. pneumoniae (PCR) CSF VZV (PCR) Salicylates < 5.0 L Urine Opiates Screen Urine Fentanyl Screen Acetaminophen < 17 Ur Barbiturates Screen Ur Phencyclidine Scrn Ur Amphetamines Screen U Benzodiazepines Scrn Urine Cocaine Screen U Marijuana (THC) Screen Ethyl Alcohol COVID-19 (CHANG) Negative COVID-19 Clin Com See Note 09/08/22 09/08/22 09/08/22 15:37 15:59 18:06 MCV MCH MCHC RDW Plt Count MPV Immature Gran % (Auto) Neut % (Auto) Lymph % (Auto) [place] % (Auto) Eos % (Auto) Baso % (Auto) Lymph # (Auto) [place] # (Auto) Eos # (Auto) Baso # (Auto) Abs Immat Gran (auto) Absolute Neuts (auto) Absolute Nucleated RBC Nucleated RBC % (auto) Smear Tech's Comments PT INR APTT D-Dimer High Sensitivty Anion Gap 19 Estim Creat Clear Calc 53.7 Estimated GFR > 60 POC Glucose Random Glucose 138 H Lactic Acid Lactic Acid F/U @ 2Hr 1.7 Calcium 10.4 H D Phosphorus Magnesium Total Bilirubin 1.6 H AST 28 ALT 22 Alkaline Phosphatase 70 Total Creatine Kinase 201 H B-Natriuretic Peptide Total Protein 7.9 Albumin 5.2 H Lipase 103 H TSH 0.08 L Free T4 1.12 Thyroxine (T4) 8.7 Urine Color Urine Appearance Urine pH Ur Specific [place] Urine Protein Urine Glucose (UA) Urine Ketones Urine Blood Urine Nitrite Ur Leukocyte Esterase Urine RBC Urine WBC Ur Squamous Epith Cells Urine Bacteria Hyaline Casts Granular Casts CSF Tube Number CSF Volume CSF Appearance CSF Color CSF WBC CSF RBC CSF Appearance (b) CSF Glucose CSF Total Protein CSF C.neoform/gat PCR CSF CMV DNA (PCR) CSF Enterovirus (PCR) CSF E. coli K1 (PCR) CSF H. influenzae (PCR) CSF HSV I (PCR) CSF HSV II (PCR) CSF HHV 6 (PCR) CSF L.monocytogenes PCR CSF N. meningitidis PCR CSF Parechovirus (PCR) CSF S. agalactiae (PCR) CSF S. pneumoniae (PCR) CSF VZV (PCR) Salicylates Urine Opiates Screen Urine Fentanyl Screen Acetaminophen Ur Barbiturates Screen Ur Phencyclidine Scrn Ur Amphetamines Screen U Benzodiazepines Scrn Urine Cocaine Screen U Marijuana (THC) Screen Ethyl Alcohol < 10 COVID-19 (CHANG) COVID-19 Clin Com 09/08/22 09/08/22 09/08/22 20:53 20:53 20:53 MCV 84.4 MCH 29.1 MCHC 34.4 RDW 12.9 Plt Count 330 MPV 10.7 Immature Gran % (Auto) 0.5 H Neut % (Auto) 79.8 H Lymph % (Auto) 8.9 L [place] % (Auto) 10.6 Eos % (Auto) 0.0 Baso % (Auto) 0.2 Lymph # (Auto) 1.8 [place] # (Auto) 2.1 H Eos # (Auto) 0.0 Baso # (Auto) 0.1 Abs Immat Gran (auto) 0.11 H Absolute Neuts (auto) 16.1 H Absolute Nucleated RBC 0.000 Nucleated RBC % (auto) 0.0 Smear Tech's Comments PT INR APTT D-Dimer High Sensitivty 240 Anion Gap 21 H Estim Creat Clear Calc 59.7 Estimated GFR > 60 POC Glucose Random Glucose 152 H Lactic Acid Lactic Acid F/U @ 2Hr Calcium 10.0 Phosphorus 4.8 H Magnesium 2.6 Total Bilirubin 1.1 H AST 28 ALT 22 Alkaline Phosphatase 64 Total Creatine Kinase B-Natriuretic Peptide Total Protein 7.2 Albumin 4.6 Lipase TSH Free T4 Thyroxine (T4) Urine Color Urine Appearance Urine pH Ur Specific [place] Urine Protein Urine Glucose (UA) Urine Ketones Urine Blood Urine Nitrite Ur Leukocyte Esterase Urine RBC Urine WBC Ur Squamous Epith Cells Urine Bacteria Hyaline Casts Granular Casts CSF Tube Number CSF Volume CSF Appearance CSF Color CSF WBC CSF RBC CSF Appearance (b) CSF Glucose CSF Total Protein CSF C.neoform/gat PCR CSF CMV DNA (PCR) CSF Enterovirus (PCR) CSF E. coli K1 (PCR) CSF H. influenzae (PCR) CSF HSV I (PCR) CSF HSV II (PCR) CSF HHV 6 (PCR) CSF L.monocytogenes PCR CSF N. meningitidis PCR CSF Parechovirus (PCR) CSF S. agalactiae (PCR) CSF S. pneumoniae (PCR) CSF VZV (PCR) Salicylates Urine Opiates Screen Urine Fentanyl Screen Acetaminophen Ur Barbiturates Screen Ur Phencyclidine Scrn Ur Amphetamines Screen U Benzodiazepines Scrn Urine Cocaine Screen U Marijuana (THC) Screen Ethyl Alcohol COVID-19 (CHANG) COVID-19 Clin Com Imaging Radiologist's Impressions: Impressions Chest X-Ray 09/08/22 14:35 IMPRESSION: 1. Endotracheal tube tip approximately 5 cm proximal to roni. 2. Enteric tube side-port overlies the gastroesophageal junction and should be advanced approximately 3 to 5 cm. 3. No acute cardiopulmonary process. Head CT 09/08/22 14:35 IMPRESSION: No acute intracranial pathology. Assessment and Plan Time Spent With Patient Time: Total time managing care of this patient today ____ minutes.
[2022-09-08 22:25] LABS: ABG Base Excess 0.6 mmol/L; ABG HCO3 22 mmol/L (22-26); ABG pCO2 30 mmHg (32-45); ABG pH 7.48 (7.35-7.45); ABG pO2 139 mmHg (83-108)
[2022-09-08] MEDS: Lactated Ringers 1,000 ML 999 ML IV ×2 (22:40→23:48)
[2022-09-08 22:41] LABS: ABG Refer to POC result
[2022-09-08] MEDS: Midazolam HCl/PF 2 MG/2 ML VIAL IVPUSH (23:00)
[2022-09-08] MEDS: iohexoL 350 MG/ML 100 ML INFUS..BTL 65 ML IV (23:36)
[2022-09-09] VITALS (33 sets, daily range): BP systolic 121–154; BP diastolic 75–93; PULSE 60–84; RESP 15–21; TEMP 34.9–38.4; O2SAT 94–99; BMI 17.1
--- NOTE | 2022-09-09 | ECG_ITS ---
Test Reason : repeat Blood Pressure : / mmHG Vent. Rate : 079 BPM Atrial Rate : 079 BPM P-R Int : 120 ms QRS Dur : 076 ms QT Int : 410 ms P-R-T Axes : 074 073 -26 degrees QTc Int : 470 ms Normal sinus rhythm Septal infarct , age undetermined T wave abnormality, consider inferior ischemia Abnormal ECG When compared to the previous EKG of Vent. rate has decreased Significant improvement in ST depressions Referred By: Julio Vanegas Electronically Signed By:MARK RODRIGUEZ MD
[2022-09-09] MEDS: Lactated Ringers 1,000 ML 100 ML IVCONT ×2 (00:49→10:01)
[2022-09-09] MEDS: Chlorhexidine Gluc Oral Rinse 15 ML MOUTHWASH BUCCAL ×3 (00:49→15:12)
[2022-09-09] MEDS: Heparin Sodium,Porcine 5,000 UNIT/ML VIAL 5000 UNIT SUBCUT ×2 (00:50→07:39)
[2022-09-09] MEDS: fentaNYL citrate/NS 1,000 MCG/100 ML PLAST..BAG 5 MCG IVCONT (01:38)
[2022-09-09] MEDS: propofoL 1,000 MG/100 ML VIAL 10.8 MG IVCONT ×2 (03:49→20:54)
[2022-09-09] MEDS: levETIRAcetam in NaCl (iso-os) 1,000 MG/100 ML PIGGYBACK 400 MG IV ×2 (05:11→17:54)
[2022-09-09 05:14] LABS: VBG Base Excess 3.7 mmol/L; VBG HCO3 26 mmol/L (22-26); VBG pCO2 33 mmHg; VBG pO2 42 mmHg
[2022-09-09] MEDS: amLODIPine Besylate 10 MG TABLET PO ×2 (05:14→07:40)
[2022-09-09 05:25] LABS: MANUAL DIFF FLAG NO
[2022-09-09 05:27] LABS: Basophils Absolute Auto 0.1 X10*3/uL (0.0-0.2); Basophils Percent Auto 0.3 % (0-2); Hematocrit 43.8 % (37.0-47.0); Imm Gran Abs Auto 0.11 X10*3/uL (0.00-0.03); Imm Gran Pct Auto 0.7 % (0.0-0.4); Lymphocytes Absolute Auto 1.6 X10*3/uL (1.2-4.9); Lymphocytes Percent Auto 9.7 % (20-40); Mean Corpuscular HGB Conc 34.2 g/dl (31.0-35.0); Mean Corpuscular Hemoglobin 29.6 pg (27.0-33.0); Mean Corpuscular Volume 86.4 fL (80.0-98.0); Monocytes Absolute Auto 1.1 X10*3/uL (0.1-1.2); Monocytes Percent Auto 6.6 % (2-11); Neutrophils Absolute Auto 13.4 x10*3/uL (2.0-8.3); Neutrophils Percent Auto 82.7 % (45-73); Platelet Count 212 X10*3/uL (160-400); Red Blood Count 5.07 X10*6/uL (4.20-5.50); White Blood Count 16.2 X10*3/uL (4.8-10.8)
[2022-09-09 05:45] LABS: Venous Blood Gas Refer to POC result
[2022-09-09 05:50] LABS: Alanine Aminotransferase 22 U/L (0-31); Albumin Level 3.8 g/dL (3.5-5.0); Alkaline Phosphatase 50 U/L (39-117); Anion Gap 15 (12-20); Aspartate Amino Transferase 32 U/L (5-31); Bilirubin Total 1.1 mg/dL (0.0-1.0); Blood Urea Nitrogen 20 mg/dL (9-16); Calcium 9.3 mg/dL (8.4-10.2); Carbon Dioxide 22 mmol/L (22-29); Chloride 113 mmol/L (96-108); Creatinine Clr Calc Pharmacy 61.3; Estimated Glomerular Filt Rate > 60; Glucose Random 115 mg/dL (60-115); Lipase 68 U/L (8-78); Phosphorus 3.2 mg/dL (2.7-4.5); Potassium 3.2 mmol/L (3.3-5.1); Sodium 147 mmol/L (135-145); Total Protein 5.9 g/dL (6.5-8.0)
--- NOTE | 2022-09-09 06:00 | PC.NURSE ---
Pt admitted to ICU on 09/08 at approx 2000 from ED. Upon initial assessment- pt sedated on propofol/fentanyl, RASS -4, intermittently emerges from sedation, restless, RUIZ but not to command, +cough/gag. Tmax 101.5 via esophageal probe, given APAP with some effect. On arrival, ST on tele, HR up to 150s, given Lopressor 5 mg IVP x2 with some effect. Narrow pulse pressure, minimal UOP, very cloudy/concentrated. Given 2L LR IV bolus with good effect, HR 60-80s, repeat EKG completed. At 2300- pt brought to ED for CTA chest without incident, given versed 2 mg IVP pre-procedure. ETT #7.0, 24 cm at lip. On AC/VC settings. OGT advanced per PA after CXR, small amount of dark brown output. Arevalo in place, UOP approx 50-100 ml/hr. Smear BM. Skin overall intact. Full CHG bath given, repositioned in bed q2hr, bed locked in low position. Pt updated at bedside and aware of plan of care/pt status.
[2022-09-09] MEDS: Potassium Chloride Packet 20 MEQ PACKET 40 MEQ PO (06:58)
[2022-09-09] MEDS: Piperacillin Sodium/Tazobactam 4.5 GM in 0.9 % Sodium Chloride 100 ML IV ×3 (07:30→20:55)
[2022-09-09] MEDS: Metoprolol Tartrate 25 MG TABLET PO (07:40)
[2022-09-09] MEDS: Famotidine/PF 20 MG/2 ML VIAL IVPUSH (07:40)
[2022-09-09] MEDS: vancomycin HCL 750 MG in 0.9 % Sodium Chloride 250 ML 265 MG IV ×2 (09:05→20:55)
[2022-09-09 09:12] LABS: OBS Int Ctl Valid YES; OBS1 POSITIVE (NEGATIVE)
--- NOTE | 2022-09-09 10:12 | PM.CCPN ---
Subjective Subjective Date of Service: 09/09/22 Interval History: 57-year-old lady with underlying history of polysubstance abuse including opioids, alcohol tobacco, also seizure disorder on Keppra admitted on 09/08/2022 with alteration of mental status. On ER evaluation patient with full body rigidity and tonic-clonic seizure requiring intubation. CT head with no acute findings. Laboratory studies significant for intravascular volume depletion. Patient started on empiric antibiotics and IV fluid support, and transferred to intensive care unit. Critical Care Time (minutes): 45 Physical Exam Vital Signs: Vital Signs: Last Vital Signs Temp 100.2 F 09/09/22 08:00 Pulse 68 09/09/22 09:45 Resp 18 09/09/22 09:45 BP 140/79 H 09/09/22 08:00 Pulse Ox 98 09/09/22 08:00 O2 Del Method Mechanical Ventil ation 09/09/22 08:00 FiO2 21 09/09/22 08:20 BMI result Body Mass Index 17.1 Const: General: no acute distress and other (Sedated on the vent, agitated with sedation vacation) Nutritional Appearance: malnourished Eyes: Sclerae: sclerae normal EOM: EOMs intact bilaterally Neck: Neck: Yes no lymphadenopathy, Yes trachea midline and Yes supple Resp: Auscultation: clear to auscultation bilaterally Cardio: Rate: regular rate Rhythm: regular rhythm Heart sounds: no gallops, no murmurs and no rubs GI: Palpation (GI): Soft to palpation and Other GI palpation findings present ( Nontender) Auscultation: normal bowel sounds Extrem: General: Yes no pedal edema, No clubbing and No cyanosis Objective Data Labs 09/09/22 05:02 09/09/22 05:02 Labs: Laboratory Results - last 24 hr 09/08/22 09/08/22 09/08/22 13:10 14:02 14:02 WBC RBC Hgb Hct MCV MCH MCHC RDW Plt Count MPV Immature Gran % (Auto) Neut % (Auto) Lymph % (Auto) [place] % (Auto) Eos % (Auto) Baso % (Auto) Lymph # (Auto) [place] # (Auto) Eos # (Auto) Baso # (Auto) Abs Immat Gran (auto) Absolute Neuts (auto) Absolute Nucleated RBC Nucleated RBC % (auto) Smear Tech's Comments PT INR APTT D-Dimer High Sensitivty O2 Saturation ABG pH at Pt Temp ABG pCO2 at Pt Temp ABG pO2 at Pt Temp ABG HCO3 ABG Base Excess (Actual) VBG pH VBG pCO2 VBG pO2 VBG HCO3 VBG O2 Saturation VBG Base Excess Sodium Potassium Chloride Carbon Dioxide Anion Gap BUN Creatinine Estim Creat Clear Calc Estimated GFR POC Glucose 184 H Random Glucose Lactic Acid Lactic Acid F/U @ 2Hr Calcium Phosphorus Magnesium Total Bilirubin AST ALT Alkaline Phosphatase Total Creatine Kinase Troponin I High Sens B-Natriuretic Peptide Total Protein Albumin Lipase TSH Free T4 Thyroxine (T4) Urine Color Yellow Urine Appearance Cloudy Urine pH 5.5 Ur Specific [place] 1.025 Urine Protein >=1000 (4+) H Urine Glucose (UA) 100 H Urine Ketones Negative Urine Blood Large (3+) H Urine Nitrite Negative Ur Leukocyte Esterase Negative Urine RBC 3-5 H Urine WBC 6-10 H Ur Squamous Epith Cells 6-10 Urine Bacteria None Seen Hyaline Casts >20 Granular Casts Present CSF Tube Number CSF Volume CSF Appearance CSF Color CSF WBC CSF RBC CSF Appearance (b) CSF Glucose CSF Total Protein CSF C.neoform/gat PCR CSF CMV DNA (PCR) CSF Enterovirus (PCR) CSF E. coli K1 (PCR) CSF H. influenzae (PCR) CSF HSV I (PCR) CSF HSV II (PCR) CSF HHV 6 (PCR) CSF L.monocytogenes PCR CSF N. meningitidis PCR CSF Parechovirus (PCR) CSF S. agalactiae (PCR) CSF S. pneumoniae (PCR) CSF VZV (PCR) Stool Occult Blood Salicylates Urine Opiates Screen Not Detected Urine Fentanyl Screen POSITIVE H Acetaminophen Ur Barbiturates Screen Not Detected Ur Phencyclidine Scrn Not Detected Ur Amphetamines Screen Not Detected U Benzodiazepines Scrn Not Detected Urine Cocaine Screen Not Detected U Marijuana (THC) Screen Not Detected Ethyl Alcohol COVID-19 ([facility]) COVID-19 Clin Com 09/08/22 09/08/22 09/08/22 15:19 15:19 15:19 WBC RBC Hgb Hct MCV MCH MCHC RDW Plt Count MPV Immature Gran % (Auto) Neut % (Auto) Lymph % (Auto) [place] % (Auto) Eos % (Auto) Baso % (Auto) Lymph # (Auto) [place] # (Auto) Eos # (Auto) Baso # (Auto) Abs Immat Gran (auto) Absolute Neuts (auto) Absolute Nucleated RBC Nucleated RBC % (auto) Smear Tech's Comments PT INR APTT D-Dimer High Sensitivty O2 Saturation ABG pH at Pt Temp ABG pCO2 at Pt Temp ABG pO2 at Pt Temp ABG HCO3 ABG Base Excess (Actual) VBG pH VBG pCO2 VBG pO2 VBG HCO3 VBG O2 Saturation VBG Base Excess Sodium Potassium Chloride Carbon Dioxide Anion Gap BUN Creatinine Estim Creat Clear Calc Estimated GFR POC Glucose Random Glucose Lactic Acid Lactic Acid F/U @ 2Hr Calcium Phosphorus Magnesium Total Bilirubin AST ALT Alkaline Phosphatase Total Creatine Kinase Troponin I High Sens B-Natriuretic Peptide Total Protein Albumin Lipase TSH Free T4 Thyroxine (T4) Urine Color Urine Appearance Urine pH Ur Specific [place] Urine Protein Urine Glucose (UA) Urine Ketones Urine Blood Urine Nitrite Ur Leukocyte Esterase Urine RBC Urine WBC Ur Squamous Epith Cells Urine Bacteria Hyaline Casts Granular Casts CSF Tube Number 2 4 CSF Volume 1.0 CSF Appearance CLEAR CSF Color COLORLESS CSF WBC 0 CSF RBC 10 CSF Appearance (b) Clear, Colorless CSF Glucose 114 CSF Total Protein 39.5 CSF C.neoform/gat PCR Not Detected CSF CMV DNA (PCR) Not Detected CSF Enterovirus (PCR) Not Detected CSF E. coli K1 (PCR) Not Detected CSF H. influenzae (PCR) Not Detected CSF HSV I (PCR) Not Detected CSF HSV II (PCR) Not Detected CSF HHV 6 (PCR) Not Detected CSF L.monocytogenes PCR Not Detected CSF N. meningitidis PCR Not Detected CSF Parechovirus (PCR) Not Detected CSF S. agalactiae (PCR) Not Detected CSF S. pneumoniae (PCR) Not Detected CSF VZV (PCR) Not Detected Stool Occult Blood Salicylates Urine Opiates Screen Urine Fentanyl Screen Acetaminophen Ur Barbiturates Screen Ur Phencyclidine Scrn Ur Amphetamines Screen U Benzodiazepines Scrn Urine Cocaine Screen U Marijuana (THC) Screen Ethyl Alcohol COVID-19 ([facility]) COVID-19 Clin Com 09/08/22 09/08/22 09/08/22 15:37 15:37 15:37 WBC 20.2 H RBC 6.37 H D Hgb 18.7 H D Hct 53.9 H D MCV 84.6 MCH 29.4 MCHC 34.7 RDW 12.9 Plt Count 355 D MPV 11.0 Immature Gran % (Auto) 0.8 H Neut % (Auto) 86.1 H Lymph % (Auto) 4.8 L [place] % (Auto) 8.1 Eos % (Auto) 0.0 Baso % (Auto) 0.2 Lymph # (Auto) 1.0 L [place] # (Auto) 1.6 H Eos # (Auto) 0.0 Baso # (Auto) 0.0 Abs Immat Gran (auto) 0.17 H Absolute Neuts (auto) 17.4 H Absolute Nucleated RBC 0.000 Nucleated RBC % (auto) 0.0 Smear Tech's Comments VERIFIED PT 12.4 INR 1.0 APTT 44.5 H D-Dimer High Sensitivty O2 Saturation ABG pH at Pt Temp ABG pCO2 at Pt Temp ABG pO2 at Pt Temp ABG HCO3 ABG Base Excess (Actual) VBG pH VBG pCO2 VBG pO2 VBG HCO3 VBG O2 Saturation VBG Base Excess Sodium Potassium Chloride Carbon Dioxide Anion Gap BUN Creatinine Estim Creat Clear Calc Estimated GFR POC Glucose Random Glucose Lactic Acid 2.4 H* Lactic Acid F/U @ 2Hr Calcium Phosphorus Magnesium Total Bilirubin AST ALT Alkaline Phosphatase Total Creatine Kinase Troponin I High Sens B-Natriuretic Peptide Total Protein Albumin Lipase TSH Free T4 Thyroxine (T4) Urine Color Urine Appearance Urine pH Ur Specific [place] Urine Protein Urine Glucose (UA) Urine Ketones Urine Blood Urine Nitrite Ur Leukocyte Esterase Urine RBC Urine WBC Ur Squamous Epith Cells Urine Bacteria Hyaline Casts Granular Casts CSF Tube Number CSF Volume CSF Appearance CSF Color CSF WBC CSF RBC CSF Appearance (b) CSF Glucose CSF Total Protein CSF C.neoform/gat PCR CSF CMV DNA (PCR) CSF Enterovirus (PCR) CSF E. coli K1 (PCR) CSF H. influenzae (PCR) CSF HSV I (PCR) CSF HSV II (PCR) CSF HHV 6 (PCR) CSF L.monocytogenes PCR CSF N. meningitidis PCR CSF Parechovirus (PCR) CSF S. agalactiae (PCR) CSF S. pneumoniae (PCR) CSF VZV (PCR) Stool Occult Blood Salicylates Urine Opiates Screen Urine Fentanyl Screen Acetaminophen Ur Barbiturates Screen Ur Phencyclidine Scrn Ur Amphetamines Screen U Benzodiazepines Scrn Urine Cocaine Screen U Marijuana (THC) Screen Ethyl Alcohol COVID-19 ([facility]) COVID-19 Clin Com 09/08/22 09/08/22 09/08/22 15:37 15:37 15:37 WBC RBC Hgb Hct MCV MCH MCHC RDW Plt Count MPV Immature Gran % (Auto) Neut % (Auto) Lymph % (Auto) [place] % (Auto) Eos % (Auto) Baso % (Auto) Lymph # (Auto) [place] # (Auto) Eos # (Auto) Baso # (Auto) Abs Immat Gran (auto) Absolute Neuts (auto) Absolute Nucleated RBC Nucleated RBC % (auto) Smear Tech's Comments PT INR APTT D-Dimer High Sensitivty O2 Saturation ABG pH at Pt Temp ABG pCO2 at Pt Temp ABG pO2 at Pt Temp ABG HCO3 ABG Base Excess (Actual) VBG pH VBG pCO2 VBG pO2 VBG HCO3 VBG O2 Saturation VBG Base Excess Sodium Potassium Chloride Carbon Dioxide Anion Gap BUN Creatinine Estim Creat Clear Calc Estimated GFR POC Glucose Random Glucose Lactic Acid Lactic Acid F/U @ 2Hr Calcium Phosphorus Magnesium Total Bilirubin AST ALT Alkaline Phosphatase Total Creatine Kinase Troponin I High Sens 280.7 H* B-Natriuretic Peptide 876 H Total Protein Albumin Lipase TSH Free T4 Thyroxine (T4) Urine Color Urine Appearance Urine pH Ur Specific [place] Urine Protein Urine Glucose (UA) Urine Ketones Urine Blood Urine Nitrite Ur Leukocyte Esterase Urine RBC Urine WBC Ur Squamous Epith Cells Urine Bacteria Hyaline Casts Granular Casts CSF Tube Number CSF Volume CSF Appearance CSF Color CSF WBC CSF RBC CSF Appearance (b) CSF Glucose CSF Total Protein CSF C.neoform/gat PCR CSF CMV DNA (PCR) CSF Enterovirus (PCR) CSF E. coli K1 (PCR) CSF H. influenzae (PCR) CSF HSV I (PCR) CSF HSV II (PCR) CSF HHV 6 (PCR) CSF L.monocytogenes PCR CSF N. meningitidis PCR CSF Parechovirus (PCR) CSF S. agalactiae (PCR) CSF S. pneumoniae (PCR) CSF VZV (PCR) Stool Occult Blood Salicylates Urine Opiates Screen Urine Fentanyl Screen Acetaminophen Ur Barbiturates Screen Ur Phencyclidine Scrn Ur Amphetamines Screen U Benzodiazepines Scrn Urine Cocaine Screen U Marijuana (THC) Screen Ethyl Alcohol COVID-19 ([facility]ANG) Negative COVID-19 Clin Com See Note 09/08/22 09/08/22 09/08/22 15:37 15:37 15:59 WBC RBC Hgb Hct MCV MCH MCHC RDW Plt Count MPV Immature Gran % (Auto) Neut % (Auto) Lymph % (Auto) [place] % (Auto) Eos % (Auto) Baso % (Auto) Lymph # (Auto) [place] # (Auto) Eos # (Auto) Baso # (Auto) Abs Immat Gran (auto) Absolute Neuts (auto) Absolute Nucleated RBC Nucleated RBC % (auto) Smear Tech's Comments PT INR APTT D-Dimer High Sensitivty O2 Saturation ABG pH at Pt Temp ABG pCO2 at Pt Temp ABG pO2 at Pt Temp ABG HCO3 ABG Base Excess (Actual) VBG pH VBG pCO2 VBG pO2 VBG HCO3 VBG O2 Saturation VBG Base Excess Sodium 150 H Potassium 3.8 Chloride 116 H Carbon Dioxide 19 L Anion Gap 19 BUN 23 H Creatinine 0.81 Estim Creat Clear Calc 53.7 Estimated GFR > 60 POC Glucose Random Glucose 138 H Lactic Acid Lactic Acid F/U @ 2Hr Calcium 10.4 H D Phosphorus Magnesium Total Bilirubin 1.6 H AST 28 ALT 22 Alkaline Phosphatase 70 Total Creatine Kinase 201 H Troponin I High Sens B-Natriuretic Peptide Total Protein 7.9 Albumin 5.2 H Lipase 103 H TSH 0.08 L Free T4 1.12 Thyroxine (T4) 8.7 Urine Color Urine Appearance Urine pH Ur Specific [place] Urine Protein Urine Glucose (UA) Urine Ketones Urine Blood Urine Nitrite Ur Leukocyte Esterase Urine RBC Urine WBC Ur Squamous Epith Cells Urine Bacteria Hyaline Casts Granular Casts CSF Tube Number CSF Volume CSF Appearance CSF Color CSF WBC CSF RBC CSF Appearance (b) CSF Glucose CSF Total Protein CSF C.neoform/gat PCR CSF CMV DNA (PCR) CSF Enterovirus (PCR) CSF E. coli K1 (PCR) CSF H. influenzae (PCR) CSF HSV I (PCR) CSF HSV II (PCR) CSF HHV 6 (PCR) CSF L.monocytogenes PCR CSF N. meningitidis PCR CSF Parechovirus (PCR) CSF S. agalactiae (PCR) CSF S. pneumoniae (PCR) CSF VZV (PCR) Stool Occult Blood Salicylates < 5.0 L Urine Opiates Screen Urine Fentanyl Screen Acetaminophen < 17 Ur Barbiturates Screen Ur Phencyclidine Scrn Ur Amphetamines Screen U Benzodiazepines Scrn Urine Cocaine Screen U Marijuana (THC) Screen Ethyl Alcohol < 10 COVID-19 ([facility]) COVID-19 Clin Com 09/08/22 09/08/22 09/08/22 18:06 18:52 20:53 WBC 20.2 H RBC 6.16 H Hgb 17.9 H Hct 52.0 H MCV 84.4 MCH 29.1 MCHC 34.4 RDW 12.9 Plt Count 330 MPV 10.7 Immature Gran % (Auto) 0.5 H Neut % (Auto) 79.8 H Lymph % (Auto) 8.9 L [place] % (Auto) 10.6 Eos % (Auto) 0.0 Baso % (Auto) 0.2 Lymph # (Auto) 1.8 [place] # (Auto) 2.1 H Eos # (Auto) 0.0 Baso # (Auto) 0.1 Abs Immat Gran (auto) 0.11 H Absolute Neuts (auto) 16.1 H Absolute Nucleated RBC 0.000 Nucleated RBC % (auto) 0.0 Smear Tech's Comments PT INR APTT D-Dimer High Sensitivty O2 Saturation ABG pH at Pt Temp ABG pCO2 at Pt Temp ABG pO2 at Pt Temp ABG HCO3 ABG Base Excess (Actual) VBG pH VBG pCO2 VBG pO2 VBG HCO3 VBG O2 Saturation VBG Base Excess Sodium Potassium Chloride Carbon Dioxide Anion Gap BUN Creatinine Estim Creat Clear Calc Estimated GFR POC Glucose Random Glucose Lactic Acid Lactic Acid F/U @ 2Hr 1.7 Calcium Phosphorus Magnesium Total Bilirubin AST ALT Alkaline Phosphatase Total Creatine Kinase Troponin I High Sens 375.5 H* B-Natriuretic Peptide Total Protein Albumin Lipase TSH Free T4 Thyroxine (T4) Urine Color Urine Appearance Urine pH Ur Specific [place] Urine Protein Urine Glucose (UA) Urine Ketones Urine Blood Urine Nitrite Ur Leukocyte Esterase Urine RBC Urine WBC Ur Squamous Epith Cells Urine Bacteria Hyaline Casts Granular Casts CSF Tube Number CSF Volume CSF Appearance CSF Color CSF WBC CSF RBC CSF Appearance (b) CSF Glucose CSF Total Protein CSF C.neoform/gat PCR CSF CMV DNA (PCR) CSF Enterovirus (PCR) CSF E. coli K1 (PCR) CSF H. influenzae (PCR) CSF HSV I (PCR) CSF HSV II (PCR) CSF HHV 6 (PCR) CSF L.monocytogenes PCR CSF N. meningitidis PCR CSF Parechovirus (PCR) CSF S. agalactiae (PCR) CSF S. pneumoniae (PCR) CSF VZV (PCR) Stool Occult Blood Salicylates Urine Opiates Screen Urine Fentanyl Screen Acetaminophen Ur Barbiturates Screen Ur Phencyclidine Scrn Ur Amphetamines Screen U Benzodiazepines Scrn Urine Cocaine Screen U Marijuana (THC) Screen Ethyl Alcohol COVID-19 ([facility]) COVID-19 Clin Com 09/08/22 09/08/22 09/08/22 20:53 20:53 22:13 WBC RBC Hgb Hct MCV MCH MCHC RDW Plt Count MPV Immature Gran % (Auto) Neut % (Auto) Lymph % (Auto) [place] % (Auto) Eos % (Auto) Baso % (Auto) Lymph # (Auto) [place] # (Auto) Eos # (Auto) Baso # (Auto) Abs Immat Gran (auto) Absolute Neuts (auto) Absolute Nucleated RBC Nucleated RBC % (auto) Smear Tech's Comments PT INR APTT D-Dimer High Sensitivty 240 O2 Saturation 99.0 ABG pH at Pt Temp 7.48 H ABG pCO2 at Pt Temp 30 L ABG pO2 at Pt Temp 139 H ABG HCO3 22 ABG Base Excess (Actual) 0.6 VBG pH VBG pCO2 VBG pO2 VBG HCO3 VBG O2 Saturation VBG Base Excess Sodium 150 H Potassium 3.6 Chloride 114 H Carbon Dioxide 19 L Anion Gap 21 H BUN 26 H Creatinine 0.73 Estim Creat Clear Calc 59.7 Estimated GFR > 60 POC Glucose Random Glucose 152 H Lactic Acid Lactic Acid F/U @ 2Hr Calcium 10.0 Phosphorus 4.8 H Magnesium 2.6 Total Bilirubin 1.1 H AST 28 ALT 22 Alkaline Phosphatase 64 Total Creatine Kinase 207 H Troponin I High Sens B-Natriuretic Peptide Total Protein 7.2 Albumin 4.6 Lipase TSH Free T4 Thyroxine (T4) Urine Color Urine Appearance Urine pH Ur Specific [place] Urine Protein Urine Glucose (UA) Urine Ketones Urine Blood Urine Nitrite Ur Leukocyte Esterase Urine RBC Urine WBC Ur Squamous Epith Cells Urine Bacteria Hyaline Casts Granular Casts CSF Tube Number CSF Volume CSF Appearance CSF Color CSF WBC CSF RBC CSF Appearance (b) CSF Glucose CSF Total Protein CSF C.neoform/gat PCR CSF CMV DNA (PCR) CSF Enterovirus (PCR) CSF E. coli K1 (PCR) CSF H. influenzae (PCR) CSF HSV I (PCR) CSF HSV II (PCR) CSF HHV 6 (PCR) CSF L.monocytogenes PCR CSF N. meningitidis PCR CSF Parechovirus (PCR) CSF S. agalactiae (PCR) CSF S. pneumoniae (PCR) CSF VZV (PCR) Stool Occult Blood Salicylates Urine Opiates Screen Urine Fentanyl Screen Acetaminophen Ur Barbiturates Screen Ur Phencyclidine Scrn Ur Amphetamines Screen U Benzodiazepines Scrn Urine Cocaine Screen U Marijuana (THC) Screen Ethyl Alcohol COVID-19 ([facility]ANG) COVID-19 Clin Com 09/09/22 09/09/22 09/09/22 05:02 05:02 05:02 WBC 16.2 H RBC 5.07 Hgb 15.0 Hct 43.8 MCV 86.4 MCH 29.6 MCHC 34.2 RDW 13.0 Plt Count 212 D MPV 11.0 Immature Gran % (Auto) 0.7 H Neut % (Auto) 82.7 H Lymph % (Auto) 9.7 L [place] % (Auto) 6.6 Eos % (Auto) 0.0 Baso % (Auto) 0.3 Lymph # (Auto) 1.6 [place] # (Auto) 1.1 Eos # (Auto) 0.0 Baso # (Auto) 0.1 Abs Immat Gran (auto) 0.11 H Absolute Neuts (auto) 13.4 H Absolute Nucleated RBC 0.000 Nucleated RBC % (auto) 0.0 Smear Tech's Comments PT INR APTT D-Dimer High Sensitivty O2 Saturation ABG pH at Pt Temp ABG pCO2 at Pt Temp ABG pO2 at Pt Temp ABG HCO3 ABG Base Excess (Actual) VBG pH VBG pCO2 VBG pO2 VBG HCO3 VBG O2 Saturation VBG Base Excess Sodium 147 H Potassium 3.2 L Chloride 113 H Carbon Dioxide 22 Anion Gap 15 BUN 20 H Creatinine 0.71 Estim Creat Clear Calc 61.3 Estimated GFR > 60 POC Glucose Random Glucose 115 Lactic Acid Lactic Acid F/U @ 2Hr Calcium 9.3 D Phosphorus 3.2 Magnesium 2.0 Total Bilirubin 1.1 H AST 32 H ALT 22 Alkaline Phosphatase 50 Total Creatine Kinase Troponin I High Sens 224.0 H* B-Natriuretic Peptide Total Protein 5.9 L Albumin 3.8 Lipase 68 TSH Free T4 Thyroxine (T4) Urine Color Urine Appearance Urine pH Ur Specific [place] Urine Protein Urine Glucose (UA) Urine Ketones Urine Blood Urine Nitrite Ur Leukocyte Esterase Urine RBC Urine WBC Ur Squamous Epith Cells Urine Bacteria Hyaline Casts Granular Casts CSF Tube Number CSF Volume CSF Appearance CSF Color CSF WBC CSF RBC CSF Appearance (b) CSF Glucose CSF Total Protein CSF C.neoform/gat PCR CSF CMV DNA (PCR) CSF Enterovirus (PCR) CSF E. coli K1 (PCR) CSF H. influenzae (PCR) CSF HSV I (PCR) CSF HSV II (PCR) CSF HHV 6 (PCR) CSF L.monocytogenes PCR CSF N. meningitidis PCR CSF Parechovirus (PCR) CSF S. agalactiae (PCR) CSF S. pneumoniae (PCR) CSF VZV (PCR) Stool Occult Blood Salicylates Urine Opiates Screen Urine Fentanyl Screen Acetaminophen Ur Barbiturates Screen Ur Phencyclidine Scrn Ur Amphetamines Screen U Benzodiazepines Scrn Urine Cocaine Screen U Marijuana (THC) Screen Ethyl Alcohol COVID-19 ([facility]ANG) COVID-19 Clin Com 09/09/22 09/09/22 05:02 08:46 WBC RBC Hgb Hct MCV MCH MCHC RDW Plt Count MPV Immature Gran % (Auto) Neut % (Auto) Lymph % (Auto) [place] % (Auto) Eos % (Auto) Baso % (Auto) Lymph # (Auto) [place] # (Auto) Eos # (Auto) Baso # (Auto) Abs Immat Gran (auto) Absolute Neuts (auto) Absolute Nucleated RBC Nucleated RBC % (auto) Smear Tech's Comments PT INR APTT D-Dimer High Sensitivty O2 Saturation ABG pH at Pt Temp ABG pCO2 at Pt Temp ABG pO2 at Pt Temp ABG HCO3 ABG Base Excess (Actual) VBG pH 7.50 H VBG pCO2 33 VBG pO2 42 VBG HCO3 26 VBG O2 Saturation 76.0 VBG Base Excess 3.7 Sodium Potassium Chloride Carbon Dioxide Anion Gap BUN Creatinine Estim Creat Clear Calc Estimated GFR POC Glucose Random Glucose Lactic Acid Lactic Acid F/U @ 2Hr Calcium Phosphorus Magnesium Total Bilirubin AST ALT Alkaline Phosphatase Total Creatine Kinase Troponin I High Sens B-Natriuretic Peptide Total Protein Albumin Lipase TSH Free T4 Thyroxine (T4) Urine Color Urine Appearance Urine pH Ur Specific [place] Urine Protein Urine Glucose (UA) Urine Ketones Urine Blood Urine Nitrite Ur Leukocyte Esterase Urine RBC Urine WBC Ur Squamous Epith Cells Urine Bacteria Hyaline Casts Granular Casts CSF Tube Number CSF Volume CSF Appearance CSF Color CSF WBC CSF RBC CSF Appearance (b) CSF Glucose CSF Total Protein CSF C.neoform/gat PCR CSF CMV DNA (PCR) CSF Enterovirus (PCR) CSF E. coli K1 (PCR) CSF H. influenzae (PCR) CSF HSV I (PCR) CSF HSV II (PCR) CSF HHV 6 (PCR) CSF L.monocytogenes PCR CSF N. meningitidis PCR CSF Parechovirus (PCR) CSF S. agalactiae (PCR) CSF S. pneumoniae (PCR) CSF VZV (PCR) Stool Occult Blood POSITIVE Salicylates Urine Opiates Screen Urine Fentanyl Screen Acetaminophen Ur Barbiturates Screen Ur Phencyclidine Scrn Ur Amphetamines Screen U Benzodiazepines Scrn Urine Cocaine Screen U Marijuana (THC) Screen Ethyl Alcohol COVID-19 ([facility]) COVID-19 Clin Com Microbiology Microbiology Results: Microbiology 09/08/22 15:19 Cerebrospinal Fluid Gram Stain - Final 09/08/22 15:19 Cerebrospinal Fluid CSF Examination - Final 09/08/22 15:19 Cerebrospinal Fluid Fluid Description - Final 09/08/22 15:19 Cerebrospinal Fluid CSF Culture - Preliminary No growth to date. Progress Note: A&P Assessment and plan (1) Acute alteration in mental status: Status: Acute (2) Generalized tonic-clonic seizure: Status: Acute (3) Intravascular volume depletion: Status: Acute (4) Polysubstance abuse: Status: Acute Plan Assessment: 57-year-old lady with underlying polysubstance abuse and seizure disorder admitted with lethargy/alteration of mental status, rigidity, and seizure requiring intubation and ventilatory support Plan: Neuro: CT head with no acute findings. Likely dystonic reaction. Underlying seizure disorder. Continue on Keppra. Cardiac: 2D echo is pending. Rise and fall in troponin level likely secondary to demand ischemia. Pulmonary: Intubated for airway protection, continue to titrate off ventilatory support as tolerated. Renal: Hypernatremia secondary to intravascular volume depletion, improved with IV fluids. Not oliguric. Continue to monitor renal indices and urine output. Endo: No acute issues. GI: Overnight with melanotic bowel movement. Hemoglobin is stable. Also with increased OGT output, likely secondary to opioid withdrawal. ID: Cultures are pending. Empirically covered with broad-spectrum antibiotics. Heme/Onc: No acute issues. Psych: No acute issues. Miscellaneous: No acute issues. Prophylaxis: Heparin, famotidine Diet: NPO Critical care time spent: 45 minutes Quality Stroke Does the patient have a stroke diagnosis?: No VTE Prior VTE?: No VTE Risk Level:: Medical - moderate - high VTE Device Contraindication: N/A - Device Ordered VTE Drug Contraindication: N/A - Med Ordered
[2022-09-09] MEDS: propofoL 1,000 MG/100 ML VIAL 13.5 MG IVCONT ×2 (10:20→15:09)
[2022-09-09] MEDS: Dextrose 5 % and Lactated Ring 1,000 ML 50 ML IVCONT (10:55)
[2022-09-09] MEDS: Pantoprazole Sodium 40 MG/10 ML VIAL IVPUSH (11:06)
--- NOTE | 2022-09-09 11:10 | PC.NURSE ---
Addendum entered by Celia Villafana RN 09/09/22 19:25: EGD completed at bedside by Dr. Heber SORENSEN, anesthesia MD, RN. Consent obtained from pt spouse prior to procedure. Original Note: Assumed care of patient [id number] had large, dark brown, liquid BM. Stool sample collected. MD ordered OBS, Pt provided full bed bath. 09:00 sedation vacation started per MD, propofol gtt paused. 09:30 Pt able to follow commands to squeeze hands b/l, does not open eyes. Pt began showing signs of nausea, gagging on ET tube. Pt very restless, reaching for ET tube, moving legs to edge of bed. MD notified and to bedside. Pt required oral suctioning. Per MD, end sedation vacation and re-sedate pt for concern for nausea and vomiting, airway protection. OG tube connected to low intermittent wall suction. 300 ml dark gastric secretions removed. 10:45 continuous fluids changed per orders to D5LR @50 ml/hr 11:00 MD notified of red/bloody gastric secretions via OG tube to intermittent suction. GI consult ordered, new H+H lab checked, Protonix 40 IVP given per orders, Protonix gtt started
[2022-09-09 11:34] LABS: MANUAL DIFF FLAG NO
[2022-09-09 11:39] LABS: Basophils Percent Auto 0.2 % (0-2); Hematocrit 46.9 % (37.0-47.0); Hemoglobin 15.9 g/dl (12.0-16.0); Imm Gran Abs Auto 0.13 X10*3/uL (0.00-0.03); Imm Gran Pct Auto 0.8 % (0.0-0.4); Lymphocytes Absolute Auto 1.8 X10*3/uL (1.2-4.9); Lymphocytes Percent Auto 10.1 % (20-40); Mean Corpuscular HGB Conc 33.9 g/dl (31.0-35.0); Mean Corpuscular Hemoglobin 29.4 pg (27.0-33.0); Mean Corpuscular Volume 86.7 fL (80.0-98.0); Mean Platelet Volume 10.9 fL (9.4-12.3); Monocytes Absolute Auto 1.4 X10*3/uL (0.1-1.2); Monocytes Percent Auto 8.2 % (2-11); Neutrophils Absolute Auto 13.9 x10*3/uL (2.0-8.3); Neutrophils Percent Auto 80.7 % (45-73); Platelet Count 191 X10*3/uL (160-400); Red Blood Count 5.41 X10*6/uL (4.20-5.50); Red Cell Distribution Width 12.9 % (11.0-16.0); White Blood Count 17.3 X10*3/uL (4.8-10.8)
[2022-09-09] MEDS: Pantoprazole Sodium 80 MG in 0.9 % Sodium Chloride 80 ML 10 MG IV ×2 (11:50→19:58)
[2022-09-09] MEDS: fentaNYL citrate/NS 1,000 MCG/100 ML PLAST..BAG 10 MCG IVCONT ×2 (13:52→23:00)
--- NOTE | 2022-09-09 14:48 | PM.EVENT ---
Event Note Date of Service: 09/09/22 Event Note: GI Consult-History from ICU staff, and daughter, and EMR Imp: UGI bleed with associated melena and blood via OG tube. Presently stable and without signs of active bleeding. Hgb stable. She has a history of substance abuse, EtOH use, and smoking. She takes Kylie [place] almost daily, but no other chronic ASA/NSAIDs. Diff dx: UGI bleed due to PUD, gastritis, esophagitis Rec: EGD before extubation. Full consent has been obtained from the patient's daughter and , including risks of bleeding and perforation. Continue IV PPI and follow labs. D/W her daughter and in detail . They are comfortable with this plan. Thanks Time Spent With Patient Time: Total time managing care of this patient today ____ minutes.
--- NOTE | 2022-09-09 14:58 | MHC.SHP ---
Pre-Procedural Eval Section A Date of Service: 09/09/22 The patient is an INPATIENT: Yes The History & Physical has been completed within 30 days and I have reviewed it.: Yes Section B Chief Complaint: AMS Allergies: Allergies Allergy/AdvReac Type Severity Reaction Status Date / Time No Known Allergies Allergy Verified 06/23/21 15:12 Plan I have reviewed the history and physical and performed a pertinent physical examination on my patient. No changes have occurred unless specified. Time Spent With Patient Time: Total time managing care of this patient today ____ minutes.
--- NOTE | 2022-09-09 16:22 | HO.ANESPROP2 ---
HPI - Anesthesia Eval Consult details Narrative: GI bleed PMFSH Active Problems Active Problems: All Active Problems (Updated 09/09/22 @ 10:18 by Mariano Meeks MD) Polysubstance abuse (Acute) Intravascular volume depletion (Acute) Acute alteration in mental status (Acute) Generalized tonic-clonic seizure (Acute) Dystonia (Acute) Opiate use (Acute) Past Medical History Medical History Opioid use disorder Family History Family history of problems with anesthesia: No Surgical History History of Problems with Anesthesia: No Social History Social History Household Members: Significant Other Unable to assess alcohol history related to: Unknown Patient Tobacco Use Status: Current someday Tobacco user Cigarettes Per Day: 3 Years Smoked: 30 Use of substances other than those prescribed or required for medical reasons: Yes Substance Use Type: Heroin and Opiates Last Used Substance: Just Prior to Admission Currently Displaying Signs/Symptoms of Drug Intoxication Withdrawal: No Advance Directives: No Advance Directives Information Provided: Yes Advance Directives on File: No Recently lost weight without trying: Unsure Nutrition Risks: Anorexia and Poor intake 0-25% >4 days Patient : No service: No Current occupational status: employed Meds Allergies Allergy/AdvReac Type Severity Reaction Status Date / Time No Known Allergies Allergy Verified 06/23/21 15:12 Active Medications: Current Medications Acetaminophen (Acetaminophen 325 Mg Tablet) 975 mg PO Q8H PRN PRN Reason: Fever Last Admin: 09/08/22 21:39 Dose: 975 mg Amlodipine Besylate (Amlodipine Besylate 10 Mg Tablet) 10 mg PO DAILY VEL; Protocol Last Admin: 09/09/22 07:40 Dose: 10 mg Chlorhexidine Gluconate (Chlorhexidine Gluc Oral Rinse 15 Ml Mouthwash) 15 ml BUCCAL Q8H VEL Last Admin: 09/09/22 15:12 Dose: 15 ml Propofol (Diprivan) 1,000 mg in 100 mls @ 0 mls/hr IVCONT .Q0M VEL; Protocol Last Admin: 09/09/22 15:09 Dose: 50 mcg/kg/min, 13.5 mls/hr Fentanyl (Sublimaze/Ns) 1,000 mcg in 100 mls @ 5 mls/hr IVCONT .Q20H VEL; Protocol Last Admin: 09/09/22 13:52 Dose: 100 mcg/hr, 10 mls/hr Levetiracetam (Keppra) 1,000 mg in 100 mls @ 400 mls/hr IV Q12H VEL Last Infusion: 09/09/22 05:49 Dose: Infused Piperacillin Sod/Tazobactam (Sod 4.5 gm/ Sodium Chloride) 100 mls @ 200 mls/hr IV Q6H VEL Last Infusion: 09/09/22 13:48 Dose: Infused Vancomycin HCl 750 mg/ Sodium (Chloride) 265 mls @ 265 mls/hr IV Q12H VEL Last Infusion: 09/09/22 10:09 Dose: Infused Dextrose/Lactated Ringer's (D5lr) 1,000 mls @ 100 mls/hr IVCONT .Q10H [facility] Last Admin: 09/09/22 10:55 Dose: 50 mls/hr Pantoprazole Sodium 80 mg/ (Sodium Chloride) 100 mls @ 10 mls/hr IV .Q10H VEL Last Admin: 09/09/22 11:50 Dose: 8 mg/hr, 10 mls/hr Naloxone HCl (Naloxone Hcl 0.4 Mg/Ml Vial) 0.2 mg IVPUSH Q2M PRN PRN Reason: Excessive sedation or RR < 8 Pharmacy Consult (Consult Rx Vancomycin Dosing) 1 each MISCELLANE DAILY PRN PRN Reason: Consult order Home Medications Medication Instructions Recorded Confirmed Last Taken Type amitriptyline 10 mg tablet 2 tab PO BEDTIME 06/08/21 09/08/22 Unknown History amlodipine 10 mg tablet 1 tab PO DAILY 06/08/21 09/08/22 Unknown History levetiracetam 500 mg tablet 750 mg PO Q12H 06/08/21 09/08/22 Unknown History Exam Exam Date and Time: September 09, 2022 162 Height,Weight and Vital Signs: Height 5 ft 3 in Weight 43.9 kg Last Vital Signs Temp 99.7 F 09/09/22 14:53 Pulse 70 09/09/22 14:53 Resp 15 09/09/22 14:53 BP 128/78 09/09/22 14:53 Pulse Ox 97 09/09/22 14:53 O2 Del Method Mechanical Ventilation 09/09/22 14:53 FiO2 21 09/09/22 15:22 Pertinent Lab Results Pertinent Lab Results: Laboratory Tests 09/08/22 09/08/22 09/08/22 13:10 14:02 14:02 WBC RBC Hgb Hct MCV MCH MCHC RDW Plt Count MPV Immature Gran % (Auto) Neut % (Auto) Lymph % (Auto) [place] % (Auto) Eos % (Auto) Baso % (Auto) Lymph # (Auto) [place] # (Auto) Eos # (Auto) Baso # (Auto) Abs Immat Gran (auto) Absolute Neuts (auto) Absolute Nucleated RBC Nucleated RBC % (auto) Smear Tech's Comments PT INR APTT D-Dimer High Sensitivty O2 Saturation ABG pH at Pt Temp ABG pCO2 at Pt Temp ABG pO2 at Pt Temp ABG HCO3 ABG Base Excess (Actual) VBG pH VBG pCO2 VBG pO2 VBG HCO3 VBG O2 Saturation VBG Base Excess Sodium Potassium Chloride Carbon Dioxide Anion Gap BUN Creatinine Estim Creat Clear Calc Estimated GFR POC Glucose 184 H Random Glucose Lactic Acid Lactic Acid F/U @ 2Hr Calcium Phosphorus Magnesium Total Bilirubin AST ALT Alkaline Phosphatase Total Creatine Kinase Troponin I High Sens B-Natriuretic Peptide Total Protein Albumin Lipase TSH Free T4 Thyroxine (T4) Urine Color Yellow Urine Appearance Cloudy Urine pH 5.5 Ur Specific [place] 1.025 Urine Protein >=1000 (4+) H Urine Glucose (UA) 100 H Urine Ketones Negative Urine Blood Large (3+) H Urine Nitrite Negative Ur Leukocyte Esterase Negative Urine RBC 3-5 H Urine WBC 6-10 H Ur Squamous Epith Cells 6-10 Urine Bacteria None Seen Hyaline Casts >20 Granular Casts Present CSF Tube Number CSF Volume CSF Appearance CSF Color CSF WBC CSF RBC CSF Appearance (b) CSF Glucose CSF Total Protein CSF C.neoform/gat PCR CSF CMV DNA (PCR) CSF Enterovirus (PCR) CSF E. coli K1 (PCR) CSF H. influenzae (PCR) CSF HSV I (PCR) CSF HSV II (PCR) CSF HHV 6 (PCR) CSF L.monocytogenes PCR CSF N. meningitidis PCR CSF Parechovirus (PCR) CSF S. agalactiae (PCR) CSF S. pneumoniae (PCR) CSF VZV (PCR) Stool Occult Blood Salicylates Urine Opiates Screen Not Detected Urine Fentanyl Screen POSITIVE H Acetaminophen Ur Barbiturates Screen Not Detected Ur Phencyclidine Scrn Not Detected Ur Amphetamines Screen Not Detected U Benzodiazepines Scrn Not Detected Urine Cocaine Screen Not Detected U Marijuana (THC) Screen Not Detected Ethyl Alcohol COVID-19 (CHANG) COVID-19 Clin Com 09/08/22 09/08/22 09/08/22 15:19 15:19 15:19 WBC RBC Hgb Hct MCV MCH MCHC RDW Plt Count MPV Immature Gran % (Auto) Neut % (Auto) Lymph % (Auto) [place] % (Auto) Eos % (Auto) Baso % (Auto) Lymph # (Auto) [place] # (Auto) Eos # (Auto) Baso # (Auto) Abs Immat Gran (auto) Absolute Neuts (auto) Absolute Nucleated RBC Nucleated RBC % (auto) Smear Tech's Comments PT INR APTT D-Dimer High Sensitivty O2 Saturation ABG pH at Pt Temp ABG pCO2 at Pt Temp ABG pO2 at Pt Temp ABG HCO3 ABG Base Excess (Actual) VBG pH VBG pCO2 VBG pO2 VBG HCO3 VBG O2 Saturation VBG Base Excess Sodium Potassium Chloride Carbon Dioxide Anion Gap BUN Creatinine Estim Creat Clear Calc Estimated GFR POC Glucose Random Glucose Lactic Acid Lactic Acid F/U @ 2Hr Calcium Phosphorus Magnesium Total Bilirubin AST ALT Alkaline Phosphatase Total Creatine Kinase Troponin I High Sens B-Natriuretic Peptide Total Protein Albumin Lipase TSH Free T4 Thyroxine (T4) Urine Color Urine Appearance Urine pH Ur Specific [place] Urine Protein Urine Glucose (UA) Urine Ketones Urine Blood Urine Nitrite Ur Leukocyte Esterase Urine RBC Urine WBC Ur Squamous Epith Cells Urine Bacteria Hyaline Casts Granular Casts CSF Tube Number 2 4 CSF Volume 1.0 CSF Appearance CLEAR CSF Color COLORLESS CSF WBC 0 CSF RBC 10 CSF Appearance (b) Clear, Colorless CSF Glucose 114 CSF Total Protein 39.5 CSF C.neoform/gat PCR Not Detected CSF CMV DNA (PCR) Not Detected CSF Enterovirus (PCR) Not Detected CSF E. coli K1 (PCR) Not Detected CSF H. influenzae (PCR) Not Detected CSF HSV I (PCR) Not Detected CSF HSV II (PCR) Not Detected CSF HHV 6 (PCR) Not Detected CSF L.monocytogenes PCR Not Detected CSF N. meningitidis PCR Not Detected CSF Parechovirus (PCR) Not Detected CSF S. agalactiae (PCR) Not Detected CSF S. pneumoniae (PCR) Not Detected CSF VZV (PCR) Not Detected Stool Occult Blood Salicylates Urine Opiates Screen Urine Fentanyl Screen Acetaminophen Ur Barbiturates Screen Ur Phencyclidine Scrn Ur Amphetamines Screen U Benzodiazepines Scrn Urine Cocaine Screen U Marijuana (THC) Screen Ethyl Alcohol COVID-19 (CHANG) COVID-19 Clin Com 09/08/22 09/08/22 09/08/22 15:37 15:37 15:37 WBC 20.2 H RBC 6.37 H D Hgb 18.7 H D Hct 53.9 H D MCV 84.6 MCH 29.4 MCHC 34.7 RDW 12.9 Plt Count 355 D MPV 11.0 Immature Gran % (Auto) 0.8 H Neut % (Auto) 86.1 H Lymph % (Auto) 4.8 L [place] % (Auto) 8.1 Eos % (Auto) 0.0 Baso % (Auto) 0.2 Lymph # (Auto) 1.0 L [place] # (Auto) 1.6 H Eos # (Auto) 0.0 Baso # (Auto) 0.0 Abs Immat Gran (auto) 0.17 H Absolute Neuts (auto) 17.4 H Absolute Nucleated RBC 0.000 Nucleated RBC % (auto) 0.0 Smear Tech's Comments VERIFIED PT 12.4 INR 1.0 APTT 44.5 H D-Dimer High Sensitivty O2 Saturation ABG pH at Pt Temp ABG pCO2 at Pt Temp ABG pO2 at Pt Temp ABG HCO3 ABG Base Excess (Actual) VBG pH VBG pCO2 VBG pO2 VBG HCO3 VBG O2 Saturation VBG Base Excess Sodium Potassium Chloride Carbon Dioxide Anion Gap BUN Creatinine Estim Creat Clear Calc Estimated GFR POC Glucose Random Glucose Lactic Acid 2.4 H* Lactic Acid F/U @ 2Hr Calcium Phosphorus Magnesium Total Bilirubin AST ALT Alkaline Phosphatase Total Creatine Kinase Troponin I High Sens B-Natriuretic Peptide Total Protein Albumin Lipase TSH Free T4 Thyroxine (T4) Urine Color Urine Appearance Urine pH Ur Specific [place] Urine Protein Urine Glucose (UA) Urine Ketones Urine Blood Urine Nitrite Ur Leukocyte Esterase Urine RBC Urine WBC Ur Squamous Epith Cells Urine Bacteria Hyaline Casts Granular Casts CSF Tube Number CSF Volume CSF Appearance CSF Color CSF WBC CSF RBC CSF Appearance (b) CSF Glucose CSF Total Protein CSF C.neoform/gat PCR CSF CMV DNA (PCR) CSF Enterovirus (PCR) CSF E. coli K1 (PCR) CSF H. influenzae (PCR) CSF HSV I (PCR) CSF HSV II (PCR) CSF HHV 6 (PCR) CSF L.monocytogenes PCR CSF N. meningitidis PCR CSF Parechovirus (PCR) CSF S. agalactiae (PCR) CSF S. pneumoniae (PCR) CSF VZV (PCR) Stool Occult Blood Salicylates Urine Opiates Screen Urine Fentanyl Screen Acetaminophen Ur Barbiturates Screen Ur Phencyclidine Scrn Ur Amphetamines Screen U Benzodiazepines Scrn Urine Cocaine Screen U Marijuana (THC) Screen Ethyl Alcohol COVID-19 (CHANG) COVID-19 Clin Com 09/08/22 09/08/22 09/08/22 15:37 15:37 15:37 WBC RBC Hgb Hct MCV MCH MCHC RDW Plt Count MPV Immature Gran % (Auto) Neut % (Auto) Lymph % (Auto) [place] % (Auto) Eos % (Auto) Baso % (Auto) Lymph # (Auto) [place] # (Auto) Eos # (Auto) Baso # (Auto) Abs Immat Gran (auto) Absolute Neuts (auto) Absolute Nucleated RBC Nucleated RBC % (auto) Smear Tech's Comments PT INR APTT D-Dimer High Sensitivty O2 Saturation ABG pH at Pt Temp ABG pCO2 at Pt Temp ABG pO2 at Pt Temp ABG HCO3 ABG Base Excess (Actual) VBG pH VBG pCO2 VBG pO2 VBG HCO3 VBG O2 Saturation VBG Base Excess Sodium Potassium Chloride Carbon Dioxide Anion Gap BUN Creatinine Estim Creat Clear Calc Estimated GFR POC Glucose Random Glucose Lactic Acid Lactic Acid F/U @ 2Hr Calcium Phosphorus Magnesium Total Bilirubin AST ALT Alkaline Phosphatase Total Creatine Kinase Troponin I High Sens 280.7 H* B-Natriuretic Peptide 876 H Total Protein Albumin Lipase TSH Free T4 Thyroxine (T4) Urine Color Urine Appearance Urine pH Ur Specific [place] Urine Protein Urine Glucose (UA) Urine Ketones Urine Blood Urine Nitrite Ur Leukocyte Esterase Urine RBC Urine WBC Ur Squamous Epith Cells Urine Bacteria Hyaline Casts Granular Casts CSF Tube Number CSF Volume CSF Appearance CSF Color CSF WBC CSF RBC CSF Appearance (b) CSF Glucose CSF Total Protein CSF C.neoform/gat PCR CSF CMV DNA (PCR) CSF Enterovirus (PCR) CSF E. coli K1 (PCR) CSF H. influenzae (PCR) CSF HSV I (PCR) CSF HSV II (PCR) CSF HHV 6 (PCR) CSF L.monocytogenes PCR CSF N. meningitidis PCR CSF Parechovirus (PCR) CSF S. agalactiae (PCR) CSF S. pneumoniae (PCR) CSF VZV (PCR) Stool Occult Blood Salicylates Urine Opiates Screen Urine Fentanyl Screen Acetaminophen Ur Barbiturates Screen Ur Phencyclidine Scrn Ur Amphetamines Screen U Benzodiazepines Scrn Urine Cocaine Screen U Marijuana (THC) Screen Ethyl Alcohol COVID-19 (CHANG) Negative COVID-19 Clin Com See Note 09/08/22 09/08/22 09/08/22 15:37 15:37 15:59 WBC RBC Hgb Hct MCV MCH MCHC RDW Plt Count MPV Immature Gran % (Auto) Neut % (Auto) Lymph % (Auto) [place] % (Auto) Eos % (Auto) Baso % (Auto) Lymph # (Auto) [place] # (Auto) Eos # (Auto) Baso # (Auto) Abs Immat Gran (auto) Absolute Neuts (auto) Absolute Nucleated RBC Nucleated RBC % (auto) Smear Tech's Comments PT INR APTT D-Dimer High Sensitivty O2 Saturation ABG pH at Pt Temp ABG pCO2 at Pt Temp ABG pO2 at Pt Temp ABG HCO3 ABG Base Excess (Actual) VBG pH VBG pCO2 VBG pO2 VBG HCO3 VBG O2 Saturation VBG Base Excess Sodium 150 H Potassium 3.8 Chloride 116 H Carbon Dioxide 19 L Anion Gap 19 BUN 23 H Creatinine 0.81 Estim Creat Clear Calc 53.7 Estimated GFR > 60 POC Glucose Random Glucose 138 H Lactic Acid Lactic Acid F/U @ 2Hr Calcium 10.4 H D Phosphorus Magnesium Total Bilirubin 1.6 H AST 28 ALT 22 Alkaline Phosphatase 70 Total Creatine Kinase 201 H Troponin I High Sens B-Natriuretic Peptide Total Protein 7.9 Albumin 5.2 H Lipase 103 H TSH 0.08 L Free T4 1.12 Thyroxine (T4) 8.7 Urine Color Urine Appearance Urine pH Ur Specific [place] Urine Protein Urine Glucose (UA) Urine Ketones Urine Blood Urine Nitrite Ur Leukocyte Esterase Urine RBC Urine WBC Ur Squamous Epith Cells Urine Bacteria Hyaline Casts Granular Casts CSF Tube Number CSF Volume CSF Appearance CSF Color CSF WBC CSF RBC CSF Appearance (b) CSF Glucose CSF Total Protein CSF C.neoform/gat PCR CSF CMV DNA (PCR) CSF Enterovirus (PCR) CSF E. coli K1 (PCR) CSF H. influenzae (PCR) CSF HSV I (PCR) CSF HSV II (PCR) CSF HHV 6 (PCR) CSF L.monocytogenes PCR CSF N. meningitidis PCR CSF Parechovirus (PCR) CSF S. agalactiae (PCR) CSF S. pneumoniae (PCR) CSF VZV (PCR) Stool Occult Blood Salicylates < 5.0 L Urine Opiates Screen Urine Fentanyl Screen Acetaminophen < 17 Ur Barbiturates Screen Ur Phencyclidine Scrn Ur Amphetamines Screen U Benzodiazepines Scrn Urine Cocaine Screen U Marijuana (THC) Screen Ethyl Alcohol < 10 COVID-19 (CHANG) COVID-19 Clin Com 09/08/22 09/08/22 09/08/22 18:06 18:52 20:53 WBC 20.2 H RBC 6.16 H Hgb 17.9 H Hct 52.0 H MCV 84.4 MCH 29.1 MCHC 34.4 RDW 12.9 Plt Count 330 MPV 10.7 Immature Gran % (Auto) 0.5 H Neut % (Auto) 79.8 H Lymph % (Auto) 8.9 L [place] % (Auto) 10.6 Eos % (Auto) 0.0 Baso % (Auto) 0.2 Lymph # (Auto) 1.8 [place] # (Auto) 2.1 H Eos # (Auto) 0.0 Baso # (Auto) 0.1 Abs Immat Gran (auto) 0.11 H Absolute Neuts (auto) 16.1 H Absolute Nucleated RBC 0.000 Nucleated RBC % (auto) 0.0 Smear Tech's Comments PT INR APTT D-Dimer High Sensitivty O2 Saturation ABG pH at Pt Temp ABG pCO2 at Pt Temp ABG pO2 at Pt Temp ABG HCO3 ABG Base Excess (Actual) VBG pH VBG pCO2 VBG pO2 VBG HCO3 VBG O2 Saturation VBG Base Excess Sodium Potassium Chloride Carbon Dioxide Anion Gap BUN Creatinine Estim Creat Clear Calc Estimated GFR POC Glucose Random Glucose Lactic Acid Lactic Acid F/U @ 2Hr 1.7 Calcium Phosphorus Magnesium Total Bilirubin AST ALT Alkaline Phosphatase Total Creatine Kinase Troponin I High Sens 375.5 H* B-Natriuretic Peptide Total Protein Albumin Lipase TSH Free T4 Thyroxine (T4) Urine Color Urine Appearance Urine pH Ur Specific [place] Urine Protein Urine Glucose (UA) Urine Ketones Urine Blood Urine Nitrite Ur Leukocyte Esterase Urine RBC Urine WBC Ur Squamous Epith Cells Urine Bacteria Hyaline Casts Granular Casts CSF Tube Number CSF Volume CSF Appearance CSF Color CSF WBC CSF RBC CSF Appearance (b) CSF Glucose CSF Total Protein CSF C.neoform/gat PCR CSF CMV DNA (PCR) CSF Enterovirus (PCR) CSF E. coli K1 (PCR) CSF H. influenzae (PCR) CSF HSV I (PCR) CSF HSV II (PCR) CSF HHV 6 (PCR) CSF L.monocytogenes PCR CSF N. meningitidis PCR CSF Parechovirus (PCR) CSF S. agalactiae (PCR) CSF S. pneumoniae (PCR) CSF VZV (PCR) Stool Occult Blood Salicylates Urine Opiates Screen Urine Fentanyl Screen Acetaminophen Ur Barbiturates Screen Ur Phencyclidine Scrn Ur Amphetamines Screen U Benzodiazepines Scrn Urine Cocaine Screen U Marijuana (THC) Screen Ethyl Alcohol COVID-19 (CHANG) COVID-19 Clin Com 09/08/22 09/08/22 09/08/22 20:53 20:53 22:13 WBC RBC Hgb Hct MCV MCH MCHC RDW Plt Count MPV Immature Gran % (Auto) Neut % (Auto) Lymph % (Auto) [place] % (Auto) Eos % (Auto) Baso % (Auto) Lymph # (Auto) [place] # (Auto) Eos # (Auto) Baso # (Auto) Abs Immat Gran (auto) Absolute Neuts (auto) Absolute Nucleated RBC Nucleated RBC % (auto) Smear Tech's Comments PT INR APTT D-Dimer High Sensitivty 240 O2 Saturation 99.0 ABG pH at Pt Temp 7.48 H ABG pCO2 at Pt Temp 30 L ABG pO2 at Pt Temp 139 H ABG HCO3 22 ABG Base Excess (Actual) 0.6 VBG pH VBG pCO2 VBG pO2 VBG HCO3 VBG O2 Saturation VBG Base Excess Sodium 150 H Potassium 3.6 Chloride 114 H Carbon Dioxide 19 L Anion Gap 21 H BUN 26 H Creatinine 0.73 Estim Creat Clear Calc 59.7 Estimated GFR > 60 POC Glucose Random Glucose 152 H Lactic Acid Lactic Acid F/U @ 2Hr Calcium 10.0 Phosphorus 4.8 H Magnesium 2.6 Total Bilirubin 1.1 H AST 28 ALT 22 Alkaline Phosphatase 64 Total Creatine Kinase 207 H Troponin I High Sens B-Natriuretic Peptide Total Protein 7.2 Albumin 4.6 Lipase TSH Free T4 Thyroxine (T4) Urine Color Urine Appearance Urine pH Ur Specific [place] Urine Protein Urine Glucose (UA) Urine Ketones Urine Blood Urine Nitrite Ur Leukocyte Esterase Urine RBC Urine WBC Ur Squamous Epith Cells Urine Bacteria Hyaline Casts Granular Casts CSF Tube Number CSF Volume CSF Appearance CSF Color CSF WBC CSF RBC CSF Appearance (b) CSF Glucose CSF Total Protein CSF C.neoform/gat PCR CSF CMV DNA (PCR) CSF Enterovirus (PCR) CSF E. coli K1 (PCR) CSF H. influenzae (PCR) CSF HSV I (PCR) CSF HSV II (PCR) CSF HHV 6 (PCR) CSF L.monocytogenes PCR CSF N. meningitidis PCR CSF Parechovirus (PCR) CSF S. agalactiae (PCR) CSF S. pneumoniae (PCR) CSF VZV (PCR) Stool Occult Blood Salicylates Urine Opiates Screen Urine Fentanyl Screen Acetaminophen Ur Barbiturates Screen Ur Phencyclidine Scrn Ur Amphetamines Screen U Benzodiazepines Scrn Urine Cocaine Screen U Marijuana (THC) Screen Ethyl Alcohol COVID-19 (CHANG) COVID-19 Clin Com 09/09/22 09/09/22 09/09/22 05:02 05:02 05:02 WBC 16.2 H RBC 5.07 Hgb 15.0 Hct 43.8 MCV 86.4 MCH 29.6 MCHC 34.2 RDW 13.0 Plt Count 212 D MPV 11.0 Immature Gran % (Auto) 0.7 H Neut % (Auto) 82.7 H Lymph % (Auto) 9.7 L [place] % (Auto) 6.6 Eos % (Auto) 0.0 Baso % (Auto) 0.3 Lymph # (Auto) 1.6 [place] # (Auto) 1.1 Eos # (Auto) 0.0 Baso # (Auto) 0.1 Abs Immat Gran (auto) 0.11 H Absolute Neuts (auto) 13.4 H Absolute Nucleated RBC 0.000 Nucleated RBC % (auto) 0.0 Smear Tech's Comments PT INR APTT D-Dimer High Sensitivty O2 Saturation ABG pH at Pt Temp ABG pCO2 at Pt Temp ABG pO2 at Pt Temp ABG HCO3 ABG Base Excess (Actual) VBG pH VBG pCO2 VBG pO2 VBG HCO3 VBG O2 Saturation VBG Base Excess Sodium 147 H Potassium 3.2 L Chloride 113 H Carbon Dioxide 22 Anion Gap 15 BUN 20 H Creatinine 0.71 Estim Creat Clear Calc 61.3 Estimated GFR > 60 POC Glucose Random Glucose 115 Lactic Acid Lactic Acid F/U @ 2Hr Calcium 9.3 D Phosphorus 3.2 Magnesium 2.0 Total Bilirubin 1.1 H AST 32 H ALT 22 Alkaline Phosphatase 50 Total Creatine Kinase Troponin I High Sens 224.0 H* B-Natriuretic Peptide Total Protein 5.9 L Albumin 3.8 Lipase 68 TSH Free T4 Thyroxine (T4) Urine Color Urine Appearance Urine pH Ur Specific [place] Urine Protein Urine Glucose (UA) Urine Ketones Urine Blood Urine Nitrite Ur Leukocyte Esterase Urine RBC Urine WBC Ur Squamous Epith Cells Urine Bacteria Hyaline Casts Granular Casts CSF Tube Number CSF Volume CSF Appearance CSF Color CSF WBC CSF RBC CSF Appearance (b) CSF Glucose CSF Total Protein CSF C.neoform/gat PCR CSF CMV DNA (PCR) CSF Enterovirus (PCR) CSF E. coli K1 (PCR) CSF H. influenzae (PCR) CSF HSV I (PCR) CSF HSV II (PCR) CSF HHV 6 (PCR) CSF L.monocytogenes PCR CSF N. meningitidis PCR CSF Parechovirus (PCR) CSF S. agalactiae (PCR) CSF S. pneumoniae (PCR) CSF VZV (PCR) Stool Occult Blood Salicylates Urine Opiates Screen Urine Fentanyl Screen Acetaminophen Ur Barbiturates Screen Ur Phencyclidine Scrn Ur Amphetamines Screen U Benzodiazepines Scrn Urine Cocaine Screen U Marijuana (THC) Screen Ethyl Alcohol COVID-19 (CHANG) COVID-19 Clin Com 09/09/22 09/09/22 09/09/22 05:02 08:46 11:30 WBC 17.3 H RBC 5.41 Hgb 15.9 Hct 46.9 MCV 86.7 MCH 29.4 MCHC 33.9 RDW 12.9 Plt Count 191 MPV 10.9 Immature Gran % (Auto) 0.8 H Neut % (Auto) 80.7 H Lymph % (Auto) 10.1 L [place] % (Auto) 8.2 Eos % (Auto) 0.0 Baso % (Auto) 0.2 Lymph # (Auto) 1.8 [place] # (Auto) 1.4 H Eos # (Auto) 0.0 Baso # (Auto) 0.0 Abs Immat Gran (auto) 0.13 H Absolute Neuts (auto) 13.9 H Absolute Nucleated RBC 0.000 Nucleated RBC % (auto) 0.0 Smear Tech's Comments PT INR APTT D-Dimer High Sensitivty O2 Saturation ABG pH at Pt Temp ABG pCO2 at Pt Temp ABG pO2 at Pt Temp ABG HCO3 ABG Base Excess (Actual) VBG pH 7.50 H VBG pCO2 33 VBG pO2 42 VBG HCO3 26 VBG O2 Saturation 76.0 VBG Base Excess 3.7 Sodium Potassium Chloride Carbon Dioxide Anion Gap BUN Creatinine Estim Creat Clear Calc Estimated GFR POC Glucose Random Glucose Lactic Acid Lactic Acid F/U @ 2Hr Calcium Phosphorus Magnesium Total Bilirubin AST ALT Alkaline Phosphatase Total Creatine Kinase Troponin I High Sens B-Natriuretic Peptide Total Protein Albumin Lipase TSH Free T4 Thyroxine (T4) Urine Color Urine Appearance Urine pH Ur Specific [place] Urine Protein Urine Glucose (UA) Urine Ketones Urine Blood Urine Nitrite Ur Leukocyte Esterase Urine RBC Urine WBC Ur Squamous Epith Cells Urine Bacteria Hyaline Casts Granular Casts CSF Tube Number CSF Volume CSF Appearance CSF Color CSF WBC CSF RBC CSF Appearance (b) CSF Glucose CSF Total Protein CSF C.neoform/gat PCR CSF CMV DNA (PCR) CSF Enterovirus (PCR) CSF E. coli K1 (PCR) CSF H. influenzae (PCR) CSF HSV I (PCR) CSF HSV II (PCR) CSF HHV 6 (PCR) CSF L.monocytogenes PCR CSF N. meningitidis PCR CSF Parechovirus (PCR) CSF S. agalactiae (PCR) CSF S. pneumoniae (PCR) CSF VZV (PCR) Stool Occult Blood POSITIVE Salicylates Urine Opiates Screen Urine Fentanyl Screen Acetaminophen Ur Barbiturates Screen Ur Phencyclidine Scrn Ur Amphetamines Screen U Benzodiazepines Scrn Urine Cocaine Screen U Marijuana (THC) Screen Ethyl Alcohol COVID-19 ([facility]ANG) COVID-19 Clin Com Airway Mallampati Class: Patient Non-Cooperative (intubated) TM Dist: >3cm Neck ROM: Full Loose/Missing/Broken Teeth: No Heart: RRR Lungs: CTA Assessment and Plan Assessment Anesthesia Assessment: Anesthesia Plan Discussed and Chart Reviewed Final Anesthetic Review Family History of Problems with Anesthesia: No History of Problems with Anesthesia: No NPO: Yes ASA Class: III and Emergency Final Preanesthetic Review: No Changes in Pt Med Stat, Meds/Allgs Chart Reviewed, Consent Obtained/Reviewed and Anes Risks/Benef Reviewed Patient Risk: High Procedure Risk: Low Anesthetic Plan Anesthetic Plan: Other (already intubated sedated) Disposition: Inp. Admit - ICU
--- NOTE | 2022-09-09 17:35 | P.BOP_ITS ---
Brief Operative Note Date of Service: 09/09/22 Pre-op diagnosis: UGI Bleed Post-op diagnosis: other (Ulcer at EG Junction due to ? Nasreen-Buck tear, Hiatal hernia) Procedure: EGD Surgeon: Aniket Buck Anesthesia: MAC Was an Physical Science Technician used for this Procedure?: No Estimated blood loss (mL): 0 Pathology: none sent Condition: stable Disposition: ICU
--- NOTE | 2022-09-09 17:36 | PM.EVENT ---
Event Note Date of Service: 09/09/22 Event Note: GI-EGD-Full note dictated-D/W in detail. Findings: 1. Benign appearing ulcer at the EG Junction at 37cm with a clean base and no bleeding 2. Hiatal hernia 3. No esophagitis 4. Stomach and duodenum WNL, except for a few suction reyna in the stomach from the OG tube. No bleeding nor old blood in the UGI tract. Rec: Keep OG/NG tubes out unless asolutely needed. Continue IV PPI and then switch to po PPI when able to. Advance diet once extubated. F/U CBC. Thanks Time Spent With Patient Time: Total time managing care of this patient today ____ minutes.
--- NOTE | 2022-09-09 23:29 | CONS_ITS ---
DATE OF SERVICE: 09/09/2022 REASON FOR CONSULTATION: Melena and upper GI bleeding. HISTORY OF PRESENT ILLNESS: This has been obtained from the ICU staff, her daughter and , and the medical record. The patient is a 57-year-old female with a history of substance abuse who came into the hospital with unresponsiveness and a seizure and was intubated in the ER. Today, she was noted to have a large black stool with some bloody drainage from the oral gastric tube. She has had no previous history of GI bleeding according to the family. She does take Kylie-Alta just about every day, does smoke, and has 1-2 alcoholic beverages every day. She does use at least heroin and/or fentanyl. She has had no further black stools since the original one this morning and the drainage from the oral gastric tube has turned bilious. Her followup hemoglobin has been stable. MEDICATIONS: Currently include IV pantoprazole infusion, amlodipine, fentanyl, subcu heparin, naloxone p.r.n., IV Zosyn, propofol, and IV vancomycin. PAST MEDICAL HISTORY: Substance abuse. Seizure disorder. Neck surgery for disc disease. Cervical cancer. There is no reported history of cardiac disease, diabetes, nor any known pulmonary disease. FAMILY HISTORY: Noncontributory. REVIEW OF SYSTEMS: Presently not obtainable as she is intubated. PHYSICAL EXAMINATION: GENERAL: The patient is a thin, chronically ill appearing female, in no distress. She is intubated and fairly sedated. She does have periods of some moving around. SKIN: Warm and dry. Nonjaundiced. ABDOMEN: Soft, nondistended, nontender. EXTREMITIES: Without edema. LABORATORIES: Hemoglobin on admission was 18.7, which has drifted down to 15.0 this morning and then 15.9 at noon time. White blood cell count 17.3, platelets are 191,000. PT 12.4 with INR 1.0. Sodium 147, potassium 3.2, chloride 113, CO2 of 22, BUN 20, and creatinine 0.7. BUN yesterday was 26. Total bilirubin 1.1, AST 32, ALT 22, alkaline phosphatase 50, and albumin 3.8. Her toxicology screen was positive for fentanyl yesterday and alcohol level was nondetectable. Acetaminophen and salicylate levels were also nondetectable. COVID was negative. CT of her chest was negative for pulmonary embolism and upper abdominal organs were reportedly unremarkable. IMPRESSION: Given the patient's clinical history of what appears to be some self-limited bleeding, I suspect this represents a gastrointestinal bleed from erosive gastritis and/or esophagitis. Other possibilities would include peptic ulcer disease. At this point, she appears stable but nonetheless I would agree with upper endoscopy for diagnostic measures today such that it can be done before she is extubated. I do think that would help guide her care both in the acute and post-hospital setting. I did review the procedure in detail with her and daughter via telephone and full consent has been obtained for that, including risks of bleeding and perforation. In the meantime, I would hold the SQ heparin and continue the IV PPI, as well as follow her hemoglobin closely. This has all been discussed with the patient's daughter and in detail. They are comfortable with the plan. Thanks for consultation. MD JOAN Dean/MARK / [id number] MTDD
[2022-09-10] VITALS (30 sets, daily range): BP systolic 127–168; BP diastolic 67–90; PULSE 53–95; RESP 15–38; TEMP 34.6–37.6; O2SAT 25–100; BMI 17.1
--- NOTE | 2022-09-10 00:30 | OP_ITS ---
DATE OF SERVICE: 09/09/2022 SURGEON: Aniket Buck MD INDICATIONS: The patient presents for evaluation of upper GI bleeding. Full consent has been obtained from her , Ralf, by telephone consent due to her current medical status and inability to give her own consent. Full consent has been obtained including risks of bleeding and perforation. PREOPERATIVE DIAGNOSIS: Upper gastrointestinal bleeding. POSTOPERATIVE DIAGNOSIS: Upper gastrointestinal bleeding, ulcer at gastroesophageal junction, hiatal hernia. PROCEDURE PERFORMED: Esophagogastroduodenoscopy. ESTIMATED BLOOD LOSS: COMPLICATIONS: ANESTHESIA: Monitored anesthesia care. ASSISTANTS: SPECIMENS: DESCRIPTION OF PROCEDURE: The patient was in the supine position. The oral gastric tube was removed. The Olympus video gastroscope was passed in the posterior oropharynx and upper esophagus. The scope was advanced to the distal esophagus. The gastroesophageal junction appeared at 37 cm. This area was notable for an ulceration just at the gastroesophageal junction at approximately 37 cm. This appeared to be grossly benign with a clean base. There was no visible vessel nor bleeding. The scope was advanced into the stomach. There was a small hiatal hernia. The scope was advanced to the pylorus and the duodenum was cannulated to the descending portion. The duodenum including the bulb appeared normal without mass or ulceration. The scope was withdrawn back in the stomach. The gastric antrum and body appeared normal with good peristalsis. The scope was retroflexed visualizing the proximal stomach carefully, which appeared normal, without any sign of mass or ulceration. Of note, there were several superficial suction reyna in the proximal stomach in relation to the oral gastric tube. None of these were bleeding nor associated with ulceration. There was no blood nor coffee-grounds material in the upper GI tract. The scope was withdrawn back into the esophagus. The ulceration at the gastroesophageal junction was carefully inspected, and there did not appear to be any active bleeding. This appeared to be most consistent with a possible resolving Nasreen Buck tear. The scope was withdrawn through the remainder of the esophagus, which appeared normal. There was no esophagitis. The scope was withdrawn from the patient. She tolerated procedure well. IMPRESSION: 1. Ulceration at gastroesophageal junction with findings consistent with possible Nasreen-Buck tear. She did have a history of a lot of retching since admission in relation to her agitated state and intubated status. 2. Hiatal hernia. PLAN: I would recommend the patient not have any further placement of oral gastric or nasogastric tubes unless absolutely needed. She will continue on the IV PPI therapy. The PPI can be changed to oral PPI therapy and her diet can be advanced once she is extubated. She will have continuation of the IV PPI. Otherwise, and continue to follow up her hemoglobin. This has all been discussed with her in detail. MD JOAN Dean/MARK / [id number]
[2022-09-10] MEDS: Dextrose 5 % and Lactated Ring 1,000 ML 100 ML IVCONT ×3 (01:39→23:38)
[2022-09-10] MEDS: Piperacillin Sodium/Tazobactam 4.5 GM in 0.9 % Sodium Chloride 100 ML IV ×4 (02:00→20:17)
[2022-09-10] MEDS: Chlorhexidine Gluc Oral Rinse 15 ML MOUTHWASH BUCCAL ×2 (02:06→08:54)
[2022-09-10] MEDS: propofoL 1,000 MG/100 ML VIAL 10.8 MG IVCONT (04:11)
[2022-09-10] MEDS: levETIRAcetam in NaCl (iso-os) 1,000 MG/100 ML PIGGYBACK 400 MG IV ×2 (05:20→18:00)
[2022-09-10 05:22] LABS: VBG Base Excess 2.2 mmol/L; VBG HCO3 24 mmol/L (22-26); VBG pCO2 32 mmHg; VBG pH 7.49 (7.32-7.43); VBG pO2 58 mmHg
[2022-09-10] MEDS: Pantoprazole Sodium 80 MG in 0.9 % Sodium Chloride 80 ML 10 MG IV ×2 (05:24→15:35)
[2022-09-10 06:58] LABS: MANUAL DIFF FLAG NO
[2022-09-10 07:02] LABS: Basophils Percent Auto 0.3 % (0-2); Eosinophils Percent Auto 0.3 % (0-4); Hematocrit 37.8 % (37.0-47.0); Imm Gran Abs Auto 0.04 X10*3/uL (0.00-0.03); Imm Gran Pct Auto 0.4 % (0.0-0.4); Lymphocytes Absolute Auto 1.5 X10*3/uL (1.2-4.9); Lymphocytes Percent Auto 16.1 % (20-40); Mean Corpuscular HGB Conc 34.4 g/dl (31.0-35.0); Mean Corpuscular Hemoglobin 29.3 pg (27.0-33.0); Mean Corpuscular Volume 85.1 fL (80.0-98.0); Mean Platelet Volume 11.1 fL (9.4-12.3); Monocytes Absolute Auto 0.7 X10*3/uL (0.1-1.2); Monocytes Percent Auto 6.8 % (2-11); Neutrophils Absolute Auto 7.3 x10*3/uL (2.0-8.3); Neutrophils Percent Auto 76.1 % (45-73); Platelet Count 153 X10*3/uL (160-400); Red Blood Count 4.44 X10*6/uL (4.20-5.50); Red Cell Distribution Width 12.2 % (11.0-16.0); White Blood Count 9.6 X10*3/uL (4.8-10.8)
[2022-09-10 07:17] LABS: Vancomycin Random 7.3 mcg/mL (15-20)
[2022-09-10 07:28] LABS: Albumin Level 3.1 g/dL (3.5-5.0); Anion Gap 14 (12-20); Blood Urea Nitrogen 9 mg/dL (9-16); Calcium 8.5 mg/dL (8.4-10.2); Carbon Dioxide 21 mmol/L (22-29); Chloride 110 mmol/L (96-108); Creatinine Clr Calc Pharmacy 66.4; Estimated Glomerular Filt Rate > 60; Glucose Random 130 mg/dL (60-115); Magnesium 2.1 mg/dL (1.6-2.6); Phosphorus 2.6 mg/dL (2.7-4.5); Potassium 2.9 mmol/L (3.3-5.1); Sodium 142 mmol/L (135-145)
--- NOTE | 2022-09-10 08:16 | HE.PHANOTE ---
VANCOMYCIN DOSING ADDENDUM VANCOMYCIN LEVEL AFTER 3RD DOSE IS 7.3. INCREASING DOSE TO 1000 MG Q12H WITH NEXT TROUGH 09/11/22 @0700. CREATININE DECREASING .
[2022-09-10] MEDS: LORazepam 2 MG/ML VIAL IVPUSH (08:37)
[2022-09-10] MEDS: vancomycin HCL 1,000 MG in 0.9 % Sodium Chloride 250 ML 270 MG IV ×2 (08:54→21:29)
[2022-09-10] MEDS: Potassium Phosphate/NS 15 MMOL/250 ML PLAST..BAG 62.5 MMOL IV ×2 (08:54→13:09)
[2022-09-10] MEDS: Potassium Chloride/H20 10 MEQ/100 ML PIGGYBACK 100 MEQ IV ×4 (08:55→14:18)
[2022-09-10] MEDS: dexmedeTOMIDidine HCL/NS 400 MCG/100 ML INFUS..BTL IVCONT (10:14)
--- NOTE | 2022-09-10 10:39 | PM.CCPN ---
Subjective Subjective Date of Service: 09/10/22 Interval History: 57-year-old lady with underlying history of polysubstance abuse including opioids, alcohol tobacco, also seizure disorder on Keppra admitted on 09/08/2022 with alteration of mental status. On ER evaluation patient with full body rigidity and tonic-clonic seizure requiring intubation. CT head with no acute findings. Laboratory studies significant for intravascular volume depletion. Patient started on empiric antibiotics and IV fluid support, and transferred to intensive care unit. Extubated on 09/10/2022. However, with significant agitation, now requiring Precedex drip. No events overnight. Critical Care Time (minutes): 45 Physical Exam Vital Signs: Vital Signs: Last Vital Signs Temp 99.7 F 09/10/22 08:00 Pulse 78 09/10/22 10:00 Resp 27 H 09/10/22 10:00 BP 162/87 H 09/10/22 10:00 Pulse Ox 97 09/10/22 10:00 O2 Del Method Room Air 09/10/22 10:00 FiO2 21 09/10/22 08:08 BMI result Body Mass Index 17.1 Const: General: no acute distress and lethargic (Arousable, intermittently agitated) Nutritional Appearance: malnourished Orientation/consciousness: lethargic (Arousable, intermittently agitated) Eyes: Sclerae: sclerae normal EOM: EOMs intact bilaterally Neck: Neck: Yes no lymphadenopathy, Yes trachea midline and Yes supple Resp: Effort & Inspection: normal respiratory effort and no respiratory distress Auscultation: clear to auscultation bilaterally Cardio: Rate: regular rate Rhythm: regular rhythm Heart sounds: no gallops, no murmurs and no rubs GI: Palpation (GI): Soft to palpation and Other GI palpation findings present ( Nontender) Auscultation: normal bowel sounds Extrem: General: Yes no pedal edema, No clubbing and No cyanosis Objective Data Labs 09/10/22 05:14 09/10/22 05:14 Labs: Laboratory Results - last 24 hr 09/09/22 09/10/22 09/10/22 11:30 05:11 05:14 WBC 17.3 H 9.6 RBC 5.41 4.44 Hgb 15.9 13.0 Hct 46.9 37.8 MCV 86.7 85.1 MCH 29.4 29.3 MCHC 33.9 34.4 RDW 12.9 12.2 Plt Count 191 153 L MPV 10.9 11.1 Immature Gran % (Auto) 0.8 H 0.4 Neut % (Auto) 80.7 H 76.1 H Lymph % (Auto) 10.1 L 16.1 L [place] % (Auto) 8.2 6.8 Eos % (Auto) 0.0 0.3 Baso % (Auto) 0.2 0.3 Lymph # (Auto) 1.8 1.5 [place] # (Auto) 1.4 H 0.7 Eos # (Auto) 0.0 0.0 Baso # (Auto) 0.0 0.0 Abs Immat Gran (auto) 0.13 H 0.04 H Absolute Neuts (auto) 13.9 H 7.3 Absolute Nucleated RBC 0.000 0.000 Nucleated RBC % (auto) 0.0 0.0 VBG pH 7.49 H VBG pCO2 32 VBG pO2 58 VBG HCO3 24 VBG O2 Saturation 91.0 VBG Base Excess 2.2 Sodium Potassium Chloride Carbon Dioxide Anion Gap BUN Creatinine Estim Creat Clear Calc Estimated GFR Random Glucose Calcium Phosphorus Magnesium Albumin Random Vancomycin 09/10/22 09/10/22 05:14 05:15 WBC RBC Hgb Hct MCV MCH MCHC RDW Plt Count MPV Immature Gran % (Auto) Neut % (Auto) Lymph % (Auto) [place] % (Auto) Eos % (Auto) Baso % (Auto) Lymph # (Auto) [place] # (Auto) Eos # (Auto) Baso # (Auto) Abs Immat Gran (auto) Absolute Neuts (auto) Absolute Nucleated RBC Nucleated RBC % (auto) VBG pH VBG pCO2 VBG pO2 VBG HCO3 VBG O2 Saturation VBG Base Excess Sodium 142 Potassium 2.9 L Chloride 110 H Carbon Dioxide 21 L Anion Gap 14 BUN 9 Creatinine 0.64 Estim Creat Clear Calc 66.4 Estimated GFR > 60 Random Glucose 130 H Calcium 8.5 D Phosphorus 2.6 L Magnesium 2.1 Albumin 3.1 L Random Vancomycin 7.3 L Microbiology Microbiology Results: Microbiology 09/08/22 15:19 Cerebrospinal Fluid Gram Stain - Final 09/08/22 15:19 Cerebrospinal Fluid CSF Examination - Final 09/08/22 15:19 Cerebrospinal Fluid Fluid Description - Final 09/08/22 15:19 Cerebrospinal Fluid CSF Culture - Final No growth after 2 days 09/08/22 15:59 Blood - Venous Blood Culture - Preliminary No growth after 24 hours. 09/08/22 15:37 Blood - Venous Blood Culture - Preliminary No growth after 24 hours. 09/08/22 15:42 Urine Catheterized - Arevalo Catheter Urine Culture - Final No growth. Progress Note: A&P Assessment and plan (1) Delirium: Status: Acute (2) Polysubstance abuse: Status: Acute (3) Intravascular volume depletion: Status: Acute (4) Generalized tonic-clonic seizure: Status: Acute Plan Assessment: 57-year-old lady with underlying polysubstance abuse and seizure disorder admitted with lethargy/alteration of mental status, rigidity, and seizure requiring intubation and ventilatory support Plan: Neuro: CT head with no acute findings. Likely dystonic reaction. Underlying seizure disorder. Continue on Keppra. Now with significant delirium requiring Precedex drip, likely a manifestation of substance withdrawal, continue to titrate off as tolerated. Cardiac: 2D echo is pending. Rise and fall in troponin level likely secondary to demand ischemia. Pulmonary: Intubated for airway protection, extubated uneventfully on 09/10/2022. Renal: Hypernatremia secondary to intravascular volume depletion, improved with IV fluids. Not oliguric. Continue to monitor renal indices and urine output. Endo: No acute issues. GI: EGD with GE junction non bleeding ulcer. No rebleeding. Gastroenterology service care appreciated. Continue on PPI. ID: Cultures are pending. Empirically covered with broad-spectrum antibiotics. Heme/Onc: No acute issues. Psych: No acute issues. Miscellaneous: No acute issues. Prophylaxis: Heparin, ppi Diet: NPO Critical care time spent: 45 minutes Quality Stroke Does the patient have a stroke diagnosis?: No VTE Prior VTE?: No VTE Risk Level:: Medical - moderate - high VTE Device Contraindication: N/A - Device Ordered VTE Drug Contraindication: N/A - Med Ordered
--- NOTE | 2022-09-10 11:57 | HO.POSTANES ---
Post Anesthesia Evaluation Post Anesthesia Evaluation Date of Service: 09/10/22 Vital Signs: Vital Signs Temp Pulse Resp BP Pulse Ox O2 Del Method FiO2 09/10/22 08:20 60 25 L 09/10/22 08:21 60 25 H 09/10/22 08:08 21 09/10/22 08:00 21 09/10/22 11:00 65 37 H 143/78 H 100 Room Air 09/10/22 10:00 78 27 H 162/87 H 97 Room Air 09/10/22 09:00 72 20 144/88 H 95 Room Air 09/10/22 08:00 99.7 F 63 21 H 152/83 H 98 Mechanical Ventilation 09/10/22 07:00 99.5 F 54 15 152/85 H 98 Mechanical Ventilation 09/10/22 04:07 09/10/22 03:02 98.6 F 53 15 135/80 99 Mechanical Ventilation 09/10/22 02:11 99.1 F 56 15 138/80 97 Mechanical Ventilation 09/10/22 01:11 99.3 F 56 15 134/82 98 Mechanical Ventilation 09/10/22 00:10 99.5 F 58 15 141/83 H 97 Mechanical Ventilation 09/10/22 00:11 09/10/22 06:00 99.1 F 55 15 149/78 H 98 Mechanical Ventilation 09/10/22 05:00 58 15 127/85 97 Mechanical Ventilation 09/10/22 04:00 09/10/22 04:00 99.1 F 54 15 136/82 98 Mechanical Ventilation 09/10/22 00:00 21 Anesthesia: General Endotracheal-GETA Mental Status: Awake Pain Control: Satisfactory Nausea/Vomiting: None Hydration: Adequate Anesthesia-Related Issues: No Anes. Related Issues
--- NOTE | 2022-09-10 14:17 | MHC.CM.PN ---
Attempted to meet with patient in regards to discharge planning. Patient currently sleeping. No family present. Attempted to speak with patient's , Ralf, via telephone at [phone]. Left message requesting return telephone call. Patient is listed as self-pay and has no PCP listed. Facesheet faxed to [facility] [place] [facility] for follow up on Sunday. Continue to monitor for d/c needs.
[2022-09-11] VITALS (19 sets, daily range): BP systolic 132–166; BP diastolic 62–90; PULSE 58–69; RESP 16–39; TEMP 36.2–37.1; O2SAT 94–99; BMI 18.9
[2022-09-11 00:28] LABS: Venous Blood Gas Refer to POC result
[2022-09-11] MEDS: Piperacillin Sodium/Tazobactam 4.5 GM in 0.9 % Sodium Chloride 100 ML IV ×3 (01:45→14:05)
[2022-09-11] MEDS: Pantoprazole Sodium 80 MG in 0.9 % Sodium Chloride 80 ML 10 MG IV (01:46)
[2022-09-11 05:15] LABS: VBG Base Excess 4.4 mmol/L; VBG HCO3 25 mmol/L (22-26); VBG pCO2 28 mmHg; VBG pH 7.56 (7.32-7.43); VBG pO2 77 mmHg
[2022-09-11 05:17] LABS: MANUAL DIFF FLAG NO
[2022-09-11 05:18] LABS: Venous Blood Gas Refer to POC result
[2022-09-11 05:20] LABS: Basophils Percent Auto 0.2 % (0-2); Eosinophils Absolute Auto 0.4 X10*3/uL (0.0-0.4); Eosinophils Percent Auto 4.2 % (0-4); Hematocrit 37.9 % (37.0-47.0); Hemoglobin 13.2 g/dl (12.0-16.0); Imm Gran Abs Auto 0.04 X10*3/uL (0.00-0.03); Imm Gran Pct Auto 0.5 % (0.0-0.4); Lymphocytes Absolute Auto 1.3 X10*3/uL (1.2-4.9); Lymphocytes Percent Auto 15.1 % (20-40); Mean Corpuscular HGB Conc 34.8 g/dl (31.0-35.0); Mean Corpuscular Hemoglobin 29.5 pg (27.0-33.0); Mean Corpuscular Volume 84.6 fL (80.0-98.0); Mean Platelet Volume 10.7 fL (9.4-12.3); Monocytes Absolute Auto 0.5 X10*3/uL (0.1-1.2); Monocytes Percent Auto 5.7 % (2-11); Neutrophils Absolute Auto 6.5 x10*3/uL (2.0-8.3); Neutrophils Percent Auto 74.3 % (45-73); Platelet Count 143 X10*3/uL (160-400); Red Blood Count 4.48 X10*6/uL (4.20-5.50); Red Cell Distribution Width 11.7 % (11.0-16.0); White Blood Count 8.8 X10*3/uL (4.8-10.8)
[2022-09-11 05:32] LABS: Vancomycin Trough 9.8 mcg/mL (10.0-20.0)
[2022-09-11 05:36] LABS: Albumin Level 3.2 g/dL (3.5-5.0); Anion Gap 14 (12-20); Blood Urea Nitrogen 6 mg/dL (9-16); Calcium 8.5 mg/dL (8.4-10.2); Carbon Dioxide 21 mmol/L (22-29); Chloride 110 mmol/L (96-108); Creatinine Clr Calc Pharmacy 68.5; Estimated Glomerular Filt Rate > 60; Glucose Random 126 mg/dL (60-115); Magnesium 1.7 mg/dL (1.6-2.6); Phosphorus 2.9 mg/dL (2.7-4.5); Potassium 2.8 mmol/L (3.3-5.1); Sodium 142 mmol/L (135-145)
--- NOTE | 2022-09-11 06:08 | HE.PHANOTE ---
RE: vanco Trough on 09/11 came back at 9.8mg/L. Changed dose to 750mg Q8H with predicted AUC of 474, trough of 12.2mg/L. Next level to be drawn 09/12 @0700
[2022-09-11] MEDS: levETIRAcetam in NaCl (iso-os) 1,000 MG/100 ML PIGGYBACK 400 MG IV ×2 (06:13→17:50)
--- NOTE | 2022-09-11 07:00 | CA_ITS ---
Transthoracic Echocardiogram Patient (Last, First, Middle): Mary Aviles L Gender: Female Date of : 1965 Age: 57 Procedure Date: 09/11/2022 Procedure Type: Transthoracic Echocardiogram Location: ICU Height: 160.02 cm Weight: 48.08 kg BSA: 1.48 m2 Heart Rate: bpm BP: 136 / 70 mmHg Parts Driver: RIGOBERTO Referring MD: Julio AGUILAR Symptoms: fever, substance abuse, r/o endocarditis Study Quality: Technically Difficult, contrast ECG Rhythm: Sinus Conclusions: - The left ventricular systolic function is normal. The visually estimated ejection fraction is between 55-60%. - There is mild calcification of the aortic valve. - There is mild anterior mitral leaflet thickening. - Non specific thickening of anterior tricuspid leaflet; cannot exclude vegetation. - Technically difficult study. Findings Procedure Information Contrast agent, definity, is being given per protocol without apparent complications. Left Ventricle Normal left ventricular cavity size. There is normal left ventricular wall thickness. The left ventricular systolic function is normal. The visually estimated ejection fraction is between 55-60%. There is no evidence of regional wall motion abnormalities. Diastolic function is normal for age. Right Ventricle Normal right ventricular cavity size and systolic function. Atria Both atria are normal in size. Aortic Valve The aortic valve was not well visualized. There is mild calcification of the aortic valve. There is no aortic valve stenosis. There is no aortic valve regurgitation. Mitral Valve There is mild anterior mitral leaflet thickening. There is trace mitral valve regurgitation. There is no mitral valve stenosis. Pulmonic Valve The pulmonic valve is likely normal. Tricuspid Valve There is trace tricuspid valve regurgitation. There is no evidence of pulmonary hypertension. Non specific thickening of anterior tricuspid leaflet; cannot exclude vegetation. Great Vessels The asc aorta is normal in size. Venous The inferior vena cava is normal in size and collapses greater than 50% with inspiration. Pericardium/Pleural There is no evidence of pericardial effusion. Prior Study Comparison No prior study available for comparison. Measurements 2D Linear Measurements IVSd: 0.99 0.6-0.9/0.6-1.0 cm LVIDd: 4.17 3.9-5.3/4.2-5.9 cm LVIDd Index: 2.82 2.4-3.2/2.2-3.1 cm/m2 LVIDs: 2.71 2.0-3.6 cm LVPWd: 0.81 0.7-1.1 cm LA Diam: 2.70 2.7-3.8/3.0-4.0 cm LAIDs Index: 1.82 1.5-2.3 cm/m2 LV Mass: 145.65 67-162/88-224 g LV Mass Index: 98.41 43-95/49-115 g/m2 LVOT Diam: 1.70 3.0+(-)1.3 cm 2D Systolic Function EF 4C: 57.00 >55% EF 2C: 77.20 >55% Mitral Valve MV Pk E: 0.76 MV PK A: 0.73 MV Decel Time: 258.00 E/A: 1.00 E'Lateral: 7.07 E'Medial: 8.38 E/E' Med: 9.10 E/E' Lat: 10.80 PHT: 76.00 MVA PHT: 2.89 Decel [place]: 2.95 Aortic Valve AoV Pk Keyur: 1.15 AoV Mn Keyur: 0.77 AoV VTI: 0.26 AoV Pk Grad: 5.00 Aov Mn Grad: 3.00 DAVID Cont.VTI: 1.86 LVOT LVOT Pk Keyur: 0.98 LVOT Mn Keyur: 0.63 LVOT VTI: 0.21 LVOT Pk Grad: 4.00 LVOT Mn Grad: 2.00 LVOT Diam: 1.70 LVOT Area: 2.27 Diastolic Function MV Pk E: 0.76 MV Pk A: 0.73 E/A: 1.00 E'Medial: 8.38 E/E' Med: 9.10 E' Laterial: 7.07 E/E' Lat: 10.80 Right Ventricle TAPSE (mm): 27.90 TVS' Keyur: 13.20 Tricuspid Valve TR Pk Keyur: 1.94 TR Pk Grad: 15.00 Great Vessels Aorta Sinus of Valsalva: 2.80 2.0-3.5 cm Ao Asc: 2.90 2.1-3.4 cm Pulmonary Valve PV Pk Keyur: 0.95 Peak PV Grad: 4.00 Updated in Other Vendor System with Status of Final Yasmany Coreas MD electronically signed on 09/11/2022 11:46:27 AM with status of Final
[2022-09-11] MEDS: KCl 40 mEq in 5% Dex/0.45% Sod 40 MEQ/1,000 ML IV.SOLN 100 MEQ IVCONT ×2 (07:48→17:49)
[2022-09-11] MEDS: Potassium Chloride/H20 10 MEQ/100 ML PIGGYBACK 100 MEQ IV ×4 (08:02→13:24)
[2022-09-11 10:34] LABS: Erythrocyte Sedimentation Rate 8 MM/HR (0-20)
[2022-09-11] MEDS: vancomycin HCL 750 MG in 0.9 % Sodium Chloride 250 ML 265 MG IV (10:37)
[2022-09-11] MEDS: HYDROmorphone HCl 0.5 MG/0.5 ML SYRINGE 0.25 MG IVPUSH (10:48)
--- NOTE | 2022-09-11 11:17 | MHC.CM.PN ---
Pt continues care in ICU: on Precedex gtt for increasing aggitation s/p extubation. Strong hx of polysubstance abuse including opioids and ETOH. Pt unable to particpate in CM assessment or d/c planning. Call placed to spouse Ralf: message left requesting callback. Pt is listed as self pay and without a PCP. I It is expected pt will d/c to home: referral placed for [facility] consult once pt is medically stable. Unknown if Ralf can transport pt to home. CM to follow for finalization of d/c needs.
[2022-09-11] MEDS: methADONE HCl 20 MG/2 ML ORAL.CONC 10 MG PO (13:57)
--- NOTE | 2022-09-11 15:08 | P.PNCC_ITS ---
Subjective Subjective Date of Service: 09/11/22 Interval History: 57-year-old female longstanding daily history of polysubstance abuse including opiates heroin this time it was fentanyl but cocaine as well in the past presented with delirium to the point where CSF was obtained which was completely normal including chemistries 0 white cells and the no certainly no organism that was present by either by PCR or by Gram stain or by culture and we weaned her off the dexmedetomidine and she woke up appropriately good cognitive function still a little bit lethargic but we did begin a methadone program under the auspices of our substance abuse people and she passed a swallow exam currently eating and at this point the no off all drips she is ready to go to the floor longstanding history of seizure disorder and and part of her presentation was witnessed seizure activity we do not know because we do not have a level whether not she has been taking her Keppra but she has been on the Keppra since she was admitted to the hospital without any recurrence because of low-grade fever which could have been related to the no her substance she was cultured everything has been negative in she has been empirically on vancomycin and Zosyn and we did a bedside echo which tends to show some degree of of redundancy of the anterior mitral leaflet an of at least 1 of the tricuspid leaflets but nothing that I would distinct recall of vegetation and there was no dysfunction in terms of regurgitation of either valve aortic valve is well and the sed rate is only 8 so it is making it very much less likely that this represents an endocarditis but the plate through may be another set of surveillance cultures off antibiotics at this point Critical Care Time (minutes): 35 Physical Exam Vital Signs: Vital Signs: Last Vital Signs Temp 97.8 F 09/11/22 12:00 Pulse 63 09/11/22 14:00 Resp 38 H 09/11/22 14:00 BP 151/88 H 09/11/22 14:00 Pulse Ox 97 09/11/22 14:00 O2 Del Method Room Air 09/11/22 14:00 FiO2 21 09/10/22 08:08 BMI result Body Mass Index 18.9 now awake with good cognitive function nonfocal neurologically echo by echo her cardiac exam is class 1 no primary valve or pericardial disease chest is clear by exam and by x-ray abdomen soft with no organomegaly skin without cellulitis no acrocyanosis Objective Data Labs 09/11/22 05:10 09/11/22 05:10 Labs: Laboratory Results - last 24 hr 09/11/22 09/11/22 09/11/22 05:05 05:10 05:10 WBC 8.8 RBC 4.48 Hgb 13.2 Hct 37.9 MCV 84.6 MCH 29.5 MCHC 34.8 RDW 11.7 Plt Count 143 L MPV 10.7 Immature Gran % (Auto) 0.5 H Neut % (Auto) 74.3 H Lymph % (Auto) 15.1 L [place] % (Auto) 5.7 Eos % (Auto) 4.2 H Baso % (Auto) 0.2 Lymph # (Auto) 1.3 [place] # (Auto) 0.5 Eos # (Auto) 0.4 Baso # (Auto) 0.0 Abs Immat Gran (auto) 0.04 H Absolute Neuts (auto) 6.5 Absolute Nucleated RBC 0.000 Nucleated RBC % (auto) 0.0 ESR VBG pH 7.56 H VBG pCO2 28 VBG pO2 77 VBG HCO3 25 VBG O2 Saturation 97.0 VBG Base Excess 4.4 Sodium Potassium Chloride Carbon Dioxide Anion Gap BUN Creatinine Estim Creat Clear Calc Estimated GFR Random Glucose Calcium Phosphorus Magnesium Albumin Vancomycin Trough 9.8 L 09/11/22 09/11/22 05:10 05:10 WBC RBC Hgb Hct MCV MCH MCHC RDW Plt Count MPV Immature Gran % (Auto) Neut % (Auto) Lymph % (Auto) [place] % (Auto) Eos % (Auto) Baso % (Auto) Lymph # (Auto) [place] # (Auto) Eos # (Auto) Baso # (Auto) Abs Immat Gran (auto) Absolute Neuts (auto) Absolute Nucleated RBC Nucleated RBC % (auto) ESR 8 VBG pH VBG pCO2 VBG pO2 VBG HCO3 VBG O2 Saturation VBG Base Excess Sodium 142 Potassium 2.8 L Chloride 110 H Carbon Dioxide 21 L Anion Gap 14 BUN 6 L Creatinine 0.62 Estim Creat Clear Calc 68.5 Estimated GFR > 60 Random Glucose 126 H Calcium 8.5 Phosphorus 2.9 Magnesium 1.7 Albumin 3.2 L Vancomycin Trough Microbiology Microbiology Results: Microbiology 09/08/22 15:59 Blood - Venous Blood Culture - Preliminary No growth after 48 hours. 09/08/22 15:37 Blood - Venous Blood Culture - Preliminary No growth after 48 hours. 09/08/22 15:19 Cerebrospinal Fluid Gram Stain - Final 09/08/22 15:19 Cerebrospinal Fluid CSF Examination - Final 09/08/22 15:19 Cerebrospinal Fluid Fluid Description - Final 09/08/22 15:19 Cerebrospinal Fluid CSF Culture - Final No growth after 2 days 09/08/22 15:42 Urine Catheterized - Arevalo Catheter Urine Culture - Final No growth. Progress Note: A&P Assessment and plan (1) Delirium: Status: Acute (2) Polysubstance abuse: Status: Acute (3) Intravascular volume depletion: Status: Acute (4) Acute alteration in mental status: Status: Acute (5) Generalized tonic-clonic seizure: Status: Acute (6) Dystonia: Status: Acute (7) Opiate use: Status: Acute Plan at this point she will begin a methadone program and be attached to the substance abuse people will begin a diet and will be able to be transferred to the floor Quality Stroke Does the patient have a stroke diagnosis?: No VTE Prior VTE?: No VTE Risk Level:: Medical - moderate - high VTE Device Contraindication: N/A - Device Ordered VTE Drug Contraindication: N/A - Med Ordered
[2022-09-11] MEDS: Pantoprazole Sodium 40 MG/10 ML VIAL IVPUSH (15:41)
--- NOTE | 2022-09-11 15:45 | PM.EVENT ---
Event Note Date of Service: 09/11/22 Event Note: consult placed for psych covering provider but it appears it is for addiction medicine. Forwarded to Gardenia Paulson. Time Spent With Patient Time: Total time managing care of this patient today ____ minutes.
[2022-09-11 17:33] LABS: Anion Gap 13 (12-20); Blood Urea Nitrogen 5 mg/dL (9-16); Calcium 8.7 mg/dL (8.4-10.2); Carbon Dioxide 21 mmol/L (22-29); Chloride 110 mmol/L (96-108); Creatinine Clr Calc Pharmacy 75.4; Estimated Glomerular Filt Rate > 60; Glucose Random 141 mg/dL (60-115); Potassium 3.2 mmol/L (3.3-5.1); Sodium 141 mmol/L (135-145)
--- NOTE | 2022-09-11 19:26 | HO.ADDICTPRO ---
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 Currently medically admitted in ICU following seizure and reported opioid use. Seen by this check writer salesperson post extubation. Awake, alert, laying in bed. Soft spoken, reporting daily IN use of approx 4 bags heroin/fentanyl daily prior to hospital admission. Reporting nausea and loose stools for withdrawal sx. Discussed initiating medications for OUD and patient agreeable. Previously prescribed suboxone--June 2021. Review of Systems Constitutional: Reports as per HPI Mental Status Exam Mental Status Exam Patient Appearance: Fatigued Level of Consciousness: Awake and Alert Patient Behavior: Cooperative Affect Description: Constricted Diagnostics Vital Signs (24Hr): Vital Signs - 24 hr 09/10/22 20:01 09/10/22 21:01 09/10/22 22:01 Temperature 98 F Pulse Rate 63 60 59 Respiratory Rate 30 H 33 H 36 H Blood Pressure 145/78 H 140/67 H 157/78 H Pulse Oximetry 98 93 98 Oxygen Delivery Method Room Air Room Air Room Air 09/10/22 23:00 09/11/22 00:02 09/11/22 01:01 Temperature Pulse Rate 69 58 59 Respiratory Rate 31 H 37 H 37 H Blood Pressure 143/82 H 132/62 140/73 H Pulse Oximetry 98 95 95 Oxygen Delivery Method Room Air Room Air Room Air 09/11/22 02:01 09/11/22 03:01 09/11/22 04:00 Temperature Pulse Rate 68 58 63 Respiratory Rate 31 H 38 H 25 H Blood Pressure 133/71 144/77 H 132/82 Pulse Oximetry 94 95 97 Oxygen Delivery Method Room Air Room Air Room Air 09/11/22 05:00 09/11/22 06:00 09/11/22 07:00 Temperature 98.5 F Pulse Rate 60 67 68 Respiratory Rate 30 H 33 H 38 H Blood Pressure 139/84 147/87 H 153/83 H Pulse Oximetry 96 96 97 Oxygen Delivery Method Room Air Room Air Room Air 09/11/22 08:00 09/11/22 09:00 09/11/22 10:00 Temperature 98.7 F Pulse Rate 69 64 64 Respiratory Rate 32 H 39 H 39 H Blood Pressure 143/83 H 136/70 140/74 H Pulse Oximetry 98 96 98 Oxygen Delivery Method Room Air Room Air Room Air 09/11/22 11:00 09/11/22 12:00 09/11/22 13:00 Temperature 97.8 F Pulse Rate 59 64 67 Respiratory Rate 35 H 31 H 36 H Blood Pressure 153/84 H 150/90 H 166/82 H Pulse Oximetry 99 98 98 Oxygen Delivery Method Room Air Room Air Room Air 09/11/22 14:00 09/11/22 10:48 09/11/22 15:00 Temperature Pulse Rate 63 66 Respiratory Rate 38 H 25 H 22 H Blood Pressure 151/88 H 163/87 H Pulse Oximetry 97 99 Oxygen Delivery Method Room Air Room Air 09/11/22 15:50 Temperature 97.2 F Pulse Rate 64 Respiratory Rate 27 H Blood Pressure 153/81 H Pulse Oximetry 98 Oxygen Delivery Method Room Air BMI result Body Mass Index 18.9 Labs 09/11/22 05:10 09/11/22 17:11 Labs: Laboratory Results - last 48 hr 09/10/22 09/10/22 09/10/22 05:11 05:14 05:14 WBC 9.6 RBC 4.44 Hgb 13.0 Hct 37.8 MCV 85.1 MCH 29.3 MCHC 34.4 RDW 12.2 Plt Count 153 L MPV 11.1 Immature Gran % (Auto) 0.4 Neut % (Auto) 76.1 H Lymph % (Auto) 16.1 L [place] % (Auto) 6.8 Eos % (Auto) 0.3 Baso % (Auto) 0.3 Lymph # (Auto) 1.5 [place] # (Auto) 0.7 Eos # (Auto) 0.0 Baso # (Auto) 0.0 Abs Immat Gran (auto) 0.04 H Absolute Neuts (auto) 7.3 Absolute Nucleated RBC 0.000 Nucleated RBC % (auto) 0.0 ESR VBG pH 7.49 H VBG pCO2 32 VBG pO2 58 VBG HCO3 24 VBG O2 Saturation 91.0 VBG Base Excess 2.2 Sodium 142 Potassium 2.9 L Chloride 110 H Carbon Dioxide 21 L Anion Gap 14 BUN 9 Creatinine 0.64 Estim Creat Clear Calc 66.4 Estimated GFR > 60 Random Glucose 130 H Calcium 8.5 D Phosphorus 2.6 L Magnesium 2.1 Albumin 3.1 L Vancomycin Trough Random Vancomycin 09/10/22 09/11/22 09/11/22 05:15 05:05 05:10 WBC RBC Hgb Hct MCV MCH MCHC RDW Plt Count MPV Immature Gran % (Auto) Neut % (Auto) Lymph % (Auto) [place] % (Auto) Eos % (Auto) Baso % (Auto) Lymph # (Auto) [place] # (Auto) Eos # (Auto) Baso # (Auto) Abs Immat Gran (auto) Absolute Neuts (auto) Absolute Nucleated RBC Nucleated RBC % (auto) ESR VBG pH 7.56 H VBG pCO2 28 VBG pO2 77 VBG HCO3 25 VBG O2 Saturation 97.0 VBG Base Excess 4.4 Sodium Potassium Chloride Carbon Dioxide Anion Gap BUN Creatinine Estim Creat Clear Calc Estimated GFR Random Glucose Calcium Phosphorus Magnesium Albumin Vancomycin Trough 9.8 L Random Vancomycin 7.3 L 09/11/22 09/11/22 09/11/22 05:10 05:10 05:10 WBC 8.8 RBC 4.48 Hgb 13.2 Hct 37.9 MCV 84.6 MCH 29.5 MCHC 34.8 RDW 11.7 Plt Count 143 L MPV 10.7 Immature Gran % (Auto) 0.5 H Neut % (Auto) 74.3 H Lymph % (Auto) 15.1 L [place] % (Auto) 5.7 Eos % (Auto) 4.2 H Baso % (Auto) 0.2 Lymph # (Auto) 1.3 [place] # (Auto) 0.5 Eos # (Auto) 0.4 Baso # (Auto) 0.0 Abs Immat Gran (auto) 0.04 H Absolute Neuts (auto) 6.5 Absolute Nucleated RBC 0.000 Nucleated RBC % (auto) 0.0 ESR 8 VBG pH VBG pCO2 VBG pO2 VBG HCO3 VBG O2 Saturation VBG Base Excess Sodium 142 Potassium 2.8 L Chloride 110 H Carbon Dioxide 21 L Anion Gap 14 BUN 6 L Creatinine 0.62 Estim Creat Clear Calc 68.5 Estimated GFR > 60 Random Glucose 126 H Calcium 8.5 Phosphorus 2.9 Magnesium 1.7 Albumin 3.2 L Vancomycin Trough Random Vancomycin 09/11/22 17:11 WBC RBC Hgb Hct MCV MCH MCHC RDW Plt Count MPV Immature Gran % (Auto) Neut % (Auto) Lymph % (Auto) [place] % (Auto) Eos % (Auto) Baso % (Auto) Lymph # (Auto) [place] # (Auto) Eos # (Auto) Baso # (Auto) Abs Immat Gran (auto) Absolute Neuts (auto) Absolute Nucleated RBC Nucleated RBC % (auto) ESR VBG pH VBG pCO2 VBG pO2 VBG HCO3 VBG O2 Saturation VBG Base Excess Sodium 141 Potassium 3.2 L Chloride 110 H Carbon Dioxide 21 L Anion Gap 13 BUN 5 L Creatinine 0.62 Estim Creat Clear Calc 75.4 Estimated GFR > 60 Random Glucose 141 H Calcium 8.7 Phosphorus Magnesium Albumin Vancomycin Trough Random Vancomycin Imaging Radiology Impressions: ITS Impressions Chest X-Ray 09/08/22 14:35 IMPRESSION: 1. Endotracheal tube tip approximately 5 cm proximal to roni. 2. Enteric tube side-port overlies the gastroesophageal junction and should be advanced approximately 3 to 5 cm. 3. No acute cardiopulmonary process. Head CT 09/08/22 14:35 IMPRESSION: No acute intracranial pathology. Chest CTA 09/08/22 23:36 IMPRESSION: 1. No central pulmonary embolism. Suboptimal opacification of the lobar and segmental levels. If clinically indicated repeat attempt of CT angiogram could be performed. Alternatively a nuclear medicine VQ scan could be performed. 2. Moderate emphysema. No acute pulmonary finding. VTE: indeterminate Medications Medications Current Medications Acetaminophen (Acetaminophen 325 Mg Tablet) 975 mg PO Q8H PRN PRN Reason: Fever Last Admin: 09/08/22 21:39 Dose: 975 mg Amlodipine Besylate (Amlodipine Besylate 10 Mg Tablet) 10 mg PO DAILY VEL; Protocol Last Admin: 09/11/22 08:13 Dose: Not Given Levetiracetam (Keppra) 1,000 mg in 100 mls @ 400 mls/hr IV Q12H VEL Last Infusion: 09/11/22 18:29 Dose: Infused Potassium Chloride/Dextrose/Sod Cl (Kcl 40 Meq In 5% Dex/0.45% Sod) 40 meq in 1,000 mls @ 100 mls/hr IVCONT .Q10H VEL Last Admin: 09/11/22 17:49 Dose: 100 mls/hr Methadone HCl (Methadone Hcl 20 Mg/2 Ml Oral.Conc) 10 mg PO Q3H PRN PRN Reason: Opiate Withdrawal Last Admin: 09/11/22 13:57 Dose: 10 mg Naloxone HCl (Naloxone Hcl 0.4 Mg/Ml Vial) 0.2 mg IVPUSH Q2M PRN PRN Reason: Excessive sedation or RR < 8 Pantoprazole Sodium (Pantoprazole Sodium 40 Mg/10 Ml Vial) 40 mg IVPUSH BID@0630,1630 [facility] Last Admin: 09/11/22 15:41 Dose: 40 mg Allergies Allergies Allergy/AdvReac Type Severity Reaction Status Date / Time No Known Allergies Allergy Verified 06/23/21 15:12 Assessment & Plan Assessment & Plan (1) Opioid use disorder: Status: Acute Code(s): F11.90 - Opioid use, unspecified, uncomplicated Assessment and Plan: methadone 10mg q3H PRN opioid withdrawal max of 3 doses will follow up in AM and reasses--plan for ongoing treatment (if patient agreeable) Total time managing care of this patient today ____ minutes.
[2022-09-12 03:06] VITALS: BP 173/86; PULSE 60; RESP 16; TEMP 36; O2SAT 99
[2022-09-12] MEDS: KCl 40 mEq in 5% Dex/0.45% Sod 40 MEQ/1,000 ML IV.SOLN 100 MEQ IVCONT (03:37)
[2022-09-12 04:54] VITALS: BP 168/76
[2022-09-12] MEDS: levETIRAcetam in NaCl (iso-os) 1,000 MG/100 ML PIGGYBACK 400 MG IV (05:41)
[2022-09-12] MEDS: Pantoprazole Sodium 40 MG/10 ML VIAL IVPUSH (05:41)
[2022-09-12 06:20] LABS: Creatinine Clr Calc Pharmacy 74.2; Estimated Glomerular Filt Rate > 60
[2022-09-12 07:11] VITALS: BP 150/90; PULSE 64; RESP 18; TEMP 36.4; O2SAT 99
[2022-09-12] MEDS: amLODIPine Besylate 10 MG TABLET PO (07:44)
--- NOTE | 2022-09-12 09:23 | P.DS_ITS ---
DS: Providers Provider Date of Service: 09/12/22 Date of admission: 09/08/22 16:41 Primary care physician: Unknown Physician Consults: 09/09/22 10:58 Consult to Gastroenterology Routine Consulting Provider: [facility] [place] Gastroenterology Services Reason for consultation: UGIB 09/11/22 08:57 Consult to Psychiatry Routine Consulting Provider: Psych Covering Reason for consultation: polysubstance abuse/anorectic Has provider been notified: Yes DS: Diagnosis Discharge Diagnosis (1) Opioid use disorder: Status: Acute DS: Summary Hospital Course Hospital Course: ?49-year-old female with underlying history of polysubstance abuse including prior opioid prescription drugs, heroin use, daily alcohol ingestion, tobacco up abuse, chronic migraine headaches for which her claims she with use heroin when they got really bad as no one else would prescribe for opioids, had attempted Suboxone in the past but it was not successful. ?Patient presented to the emergency room with altered mental status, had not been eating or drinking well other than Coca-Cola an ice water.? While at home around noon the patient may have had a seizure by 11-12 o'clock the think she had a seizure and became less and less responsive so family decided to bring her to the ER.? At triage she was given intranasal Narcan which did awake her but had become rigid and spastic with her head towards 1 side, Deng but not answering any questions.? Her initial vital signs were overall stable, she was given Benadryl thinking this was related to a dystonic reaction but subsequently she had a tonic-clonic seizure which Ativan 2 mg IV was given subsequently she was not breathing spontaneously therefore she was intubated for airway protection. ? The workup in the ER included a head CT which was negative, white count 20.2, H&H of 18.7 in 53.9, platelets 355, sodium 150, potassium 3.8, chloride 116, carbon dioxide 19, anion gap 19, BUN ?23, creatinine 0.8, random glucose 138, lactic acid 2.4 which went down to 1.7, calcium 10.4, total bilirubin 1.6, troponin to 80.7, BNP a 76, lipase 103.? U tox were positive for fentanyl only. ?Alcohol level less than 10. ?TSH 0.08, free T4 1.12. ?Urinalysis appears to be contaminated and not reflective of a UTI. ?She had a lumbar puncture and fluid analysis is overall normal. ?COVID negative. Patient was given 1 L of IV fluids, placed on Keppra.? Was treated empirically with vancomycin and Rocephin as there was a concern his she my had aspirated although her x-ray did not show any infiltrates. ? Subsequently patient was transferred to the ICU for further care.? According to her , he was unaware and was almost certain that she had no consume any drugs in the past few days. 1. Chemical encephalopathy likely due to drug use 2. Chronic seizure disorder with present activity today 3. Reactive sinus tachycardia 4. Reactive versus infective leukocytosis 5. Acute kidney injury with BUN to creatinine ratio of 36 6. Hypovolemic hypernatremia 7. Severe dehydration 8. Metabolic and lactic acidosis likely due to severe dehydration and CHANDLER, so far there is no evidence of infection and/or sepsis although she fits the criteria for systemic inflammatory response syndrome 9. Hyperphosphatemia due to CHANDLER 10. BNP and troponin abnormality likely stress myopathy 11. Polysubstance abuse 12. EKG abnormalities with ST depressions rule out a stress myopathy, less likely ACS 13. FUO rule out drug reaction, endocarditis; other occult infection including but no suspected intra-abdominal pathology, very this likely lupus, lymphomas or leukemias, occult cancer such as renal, pancreatic or hepatic cellular carcinoma, lemierre?s syndrome; however given the severe migraine, temporal arteritis may be considered ? Patient was essentially admitted for delirium, metabolic encephalopathy, infectious work up with LP was negative, no other source of infection. It is now believed that she likely suffered chemical encephalopath as result of ilicit substance use, likely fentanyl laced with other substances. Over the course of hospitalization, her mental status has improved and is presently fully intact and coherent. Addiction medicine has seen and offering her treatment, illicit substance use avoidance has been discussed with her and she understands the dangers Time Spent with Patient Time attestation: Total time managing care of this patient today ____ minutes. Discharge coordination time: Greater than 30 minutes Quality: Safe Use of Opioids Does Pt have an Active Cancer Diagnosis on the Problem List?: No Quality: Stroke Does the patient have a stroke diagnosis?: No Physical Exam Vital Signs: Vital Signs: Last Vital Signs Temp 97.6 F 09/12/22 07:11 Pulse 64 09/12/22 07:11 Resp 18 09/12/22 07:11 BP 150/90 H 09/12/22 07:11 Pulse Ox 99 09/12/22 07:11 O2 Del Method Room Air 09/12/22 07:11 FiO2 21 09/10/22 08:08 BMI result Body Mass Index 18.9 DS: Data Data Completed and Pending Completed studies during hospitalization [Text1]: Procedures Insertion of Endotracheal Airway into Trachea, Via Natural or Artificial Opening (06/08/21) Labs on day of discharge: Laboratory Results - last 24 hr 09/11/22 09/11/22 09/12/22 05:10 17:11 05:47 ESR 8 Sodium 141 Potassium 3.2 L Chloride 110 H Carbon Dioxide 21 L Anion Gap 13 BUN 5 L Creatinine 0.62 0.63 Estim Creat Clear Calc 75.4 74.2 Estimated GFR > 60 > 60 Random Glucose 141 H Calcium 8.7 Preliminary micro results at discharge 09/08/22 15:59 Blood Culture - Preliminary Blood - Venous No growth after 48 hours. 09/08/22 15:37 Blood Culture - Preliminary Blood - Venous No growth after 48 hours. Discharge Plan Discharge Anticipated Discharge Date/Time: 09/12/22 12:03 Patient Disposition: Home, Self-Care Discharge Diagnosis: Metabolic encephalopathy Referrals: Physician,Unknown J [Primary Care Provider] - 1 Week Discharge Medications: New buprenorphine-naloxone [Suboxone] 8-2 mg film 1 film sublingual DAILY Qty: 4 0RF Continued levetiracetam 500 mg tablet 750 mg PO Q12H amitriptyline 10 mg tablet 2 tab PO BEDTIME amlodipine 10 mg tablet 1 tab PO DAILY No Action mirtazapine 7.5 mg tablet 7.5 mg PO BEDTIME Qty: 10 0RF buprenorphine-naloxone [Suboxone] 8-2 mg film 1 film sublingual BID Qty: 15 0RF Discharge Orders: Discharge Order (Routine); Ordered 09/12/22 Ordered By: Ronald Ron Diet: Advance to usual diet Activity on Discharge: As tolerated Stand Alone Forms: Patient Portal Discharge page Care Plan Goals: To stay abstinent from substance use Health Concerns: substance use desorder Plan of Treatment: take suboxone as recommended and follow up with addiction clinic on sunday Assessment: as abve Discharge Date/Time: 09/12/22 15:19
[2022-09-12] MEDS: levETIRAcetam 250 MG TABLET 750 MG PO (10:19)
[2022-09-12] MEDS: Potassium Chloride Packet 20 MEQ PACKET 40 MEQ PO (10:19)
[2022-09-12] MEDS: Naloxone HCl Nasal TAKE HOME 4 MG SPRAY 8 MG NOSTRILALT (11:16)
--- NOTE | 2022-09-12 12:12 | MHC.CM.PN ---
DP: PT HAS BEEN MEDICALLY CLEARED FOR DC HOME, NO SERVICES. WILL F/U WITH ADDICTION MEDICINE OUTPATIENT. PT HAS OWN RIDE HOME.
--- NOTE | 2022-09-12 12:18 | P.PNADD_ITS ---
Subjective Subjective Date of Service: 09/12/22 Reason For Visit: AMS Interim History: Patient seen in follow up Transferred to S[facility] --awake, alert, engaged in interview. Per hospitalist, patient cleared to discharge today. Chart reviewed, patient received one 10mg methadone dose yesterday in the early afternoon. Discussed discharge plan with patient, offered ATS referral for admission directly from [facility] [place], after considering for some time, patient declined. Reviewed MOUD, patient agreeable to suboxone restart. Not interested in daily visits to [facility]. Recovery supports limited and current living situation challenging as her uses opiates as well. Overdose prevention discussed and take home narcan ordered. Review of Systems Constitutional: Reports as per HPI and Reports no additional constitutional complaints Mental Status Exam Mental Status Exam Patient Appearance: Disheveled Patient Orientation: Person, Place and Situation Level of Consciousness: Awake and Alert Patient Behavior: Appropriate, Guarded and Passive Mood Description: Withdrawn and Constricted Thought Process: Slowed Thinking Judgement: Fair Diagnostics Vital Signs (24Hr): Vital Signs - 24 hr 09/11/22 13:00 09/11/22 14:00 09/11/22 15:00 Temperature Pulse Rate 67 63 66 Respiratory Rate 36 H 38 H 22 H Blood Pressure 166/82 H 151/88 H 163/87 H Pulse Oximetry 98 97 99 Oxygen Delivery Method Room Air Room Air Room Air 09/11/22 15:50 09/11/22 20:00 09/12/22 03:06 Temperature 97.2 F 97.6 F 96.8 F Pulse Rate 64 63 60 Respiratory Rate 27 H 16 16 Blood Pressure 153/81 H 165/83 H 173/86 H Pulse Oximetry 98 98 99 Oxygen Delivery Method Room Air Room Air Room Air 09/12/22 04:54 09/12/22 07:11 Temperature 97.6 F Pulse Rate 64 Respiratory Rate 18 Blood Pressure 168/76 H 150/90 H Pulse Oximetry 99 Oxygen Delivery Method Room Air BMI result Body Mass Index 18.9 Labs 09/11/22 05:10 09/12/22 05:47 Labs: Laboratory Results - last 48 hr 09/11/22 09/11/22 09/11/22 05:05 05:10 05:10 WBC 8.8 RBC 4.48 Hgb 13.2 Hct 37.9 MCV 84.6 MCH 29.5 MCHC 34.8 RDW 11.7 Plt Count 143 L MPV 10.7 Immature Gran % (Auto) 0.5 H Neut % (Auto) 74.3 H Lymph % (Auto) 15.1 L [place] % (Auto) 5.7 Eos % (Auto) 4.2 H Baso % (Auto) 0.2 Lymph # (Auto) 1.3 [place] # (Auto) 0.5 Eos # (Auto) 0.4 Baso # (Auto) 0.0 Abs Immat Gran (auto) 0.04 H Absolute Neuts (auto) 6.5 Absolute Nucleated RBC 0.000 Nucleated RBC % (auto) 0.0 ESR VBG pH 7.56 H VBG pCO2 28 VBG pO2 77 VBG HCO3 25 VBG O2 Saturation 97.0 VBG Base Excess 4.4 Sodium Potassium Chloride Carbon Dioxide Anion Gap BUN Creatinine Estim Creat Clear Calc Estimated GFR Random Glucose Calcium Phosphorus Magnesium Albumin Vancomycin Trough 9.8 L 09/11/22 09/11/22 09/11/22 05:10 05:10 17:11 WBC RBC Hgb Hct MCV MCH MCHC RDW Plt Count MPV Immature Gran % (Auto) Neut % (Auto) Lymph % (Auto) [place] % (Auto) Eos % (Auto) Baso % (Auto) Lymph # (Auto) [place] # (Auto) Eos # (Auto) Baso # (Auto) Abs Immat Gran (auto) Absolute Neuts (auto) Absolute Nucleated RBC Nucleated RBC % (auto) ESR 8 VBG pH VBG pCO2 VBG pO2 VBG HCO3 VBG O2 Saturation VBG Base Excess Sodium 142 141 Potassium 2.8 L 3.2 L Chloride 110 H 110 H Carbon Dioxide 21 L 21 L Anion Gap 14 13 BUN 6 L 5 L Creatinine 0.62 0.62 Estim Creat Clear Calc 68.5 75.4 Estimated GFR > 60 > 60 Random Glucose 126 H 141 H Calcium 8.5 8.7 Phosphorus 2.9 Magnesium 1.7 Albumin 3.2 L Vancomycin Trough 09/12/22 05:47 WBC RBC Hgb Hct MCV MCH MCHC RDW Plt Count MPV Immature Gran % (Auto) Neut % (Auto) Lymph % (Auto) [place] % (Auto) Eos % (Auto) Baso % (Auto) Lymph # (Auto) [place] # (Auto) Eos # (Auto) Baso # (Auto) Abs Immat Gran (auto) Absolute Neuts (auto) Absolute Nucleated RBC Nucleated RBC % (auto) ESR VBG pH VBG pCO2 VBG pO2 VBG HCO3 VBG O2 Saturation VBG Base Excess Sodium Potassium Chloride Carbon Dioxide Anion Gap BUN Creatinine 0.63 Estim Creat Clear Calc 74.2 Estimated GFR > 60 Random Glucose Calcium Phosphorus Magnesium Albumin Vancomycin Trough Imaging Radiology Impressions: ITS Impressions Chest X-Ray 09/08/22 14:35 IMPRESSION: 1. Endotracheal tube tip approximately 5 cm proximal to roni. 2. Enteric tube side-port overlies the gastroesophageal junction and should be advanced approximately 3 to 5 cm. 3. No acute cardiopulmonary process. Head CT 09/08/22 14:35 IMPRESSION: No acute intracranial pathology. Chest CTA 09/08/22 23:36 IMPRESSION: 1. No central pulmonary embolism. Suboptimal opacification of the lobar and segmental levels. If clinically indicated repeat attempt of CT angiogram could be performed. Alternatively a nuclear medicine VQ scan could be performed. 2. Moderate emphysema. No acute pulmonary finding. VTE: indeterminate Medications Medications Current Medications Acetaminophen (Acetaminophen 325 Mg Tablet) 975 mg PO Q8H PRN PRN Reason: Fever Last Admin: 09/08/22 21:39 Dose: 975 mg Amitriptyline HCl (Amitriptyline Hcl 10 Mg Tablet) 20 mg PO BEDTIME [facility] Amlodipine Besylate (Amlodipine Besylate 10 Mg Tablet) 10 mg PO DAILY [facility]; Protocol Last Admin: 09/12/22 07:44 Dose: 10 mg Levetiracetam (Levetiracetam 250 Mg Tablet) 750 mg PO Q12H [facility] Last Admin: 09/12/22 10:19 Dose: 750 mg Methadone HCl (Methadone Hcl 20 Mg/2 Ml Oral.Conc) 10 mg PO Q3H PRN PRN Reason: Opiate Withdrawal Last Admin: 09/11/22 13:57 Dose: 10 mg Naloxone HCl (Naloxone Hcl 0.4 Mg/Ml Vial) 0.2 mg IVPUSH Q2M PRN PRN Reason: Excessive sedation or RR < 8 Pantoprazole Sodium (Pantoprazole Sodium 40 Mg/10 Ml Vial) 40 mg IVPUSH BID@0630,1630 [facility] Last Admin: 09/12/22 05:41 Dose: 40 mg Allergies Allergies Allergy/AdvReac Type Severity Reaction Status Date / Time No Known Allergies Allergy Verified 06/23/21 15:12 Assessment & Plan Assessment & Plan (1) Opioid use disorder: Status: Acute Code(s): F11.90 - Opioid use, unspecified, uncomplicated Assessment and Plan: * Suboxone 8mg films sent to [facility] * take home narcan provided prior to discharge * follow up scheduled with [facility] 09/15 Total time managing care of this patient today _30___ minutes.
--- NOTE | 2022-09-12 13:36 | PC.NURSE ---
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 Daughter demanding Neuro see patient related to memory loss. This ghost writer explained she is medically cleared to discharge and to follow up with PCP. Pt daughter familiar with pt drug use and history. States the patients mother had ALZ. Encouraged to follow up out patient. Pt was A&Ox3 this AM during head to toe assessment.
== END 2022-09-12 15:19 | disposition home or self-care (01) | DRG 100 ==
LOC: HO.ED 15:57 → HO.EDOVER 16:49 → HO.ICU 16:54 → HO.S3 09-11 17:47
PROVIDERS: Internal Medicine; Internal Medicine Cardiovascular Disease; Physician Assistant Medical; Admitting Provider Internal Medicine Pulmonary Disease; Emergency Provider Emergency Medicine Emergency Medical Services; Visit Provider Internal Medicine
PROC: 0DJ08ZZ Inspection of Upper Intestinal Tract, Via Natural or Artificial Opening Endoscopic (ICD-10-PCS; CPT 43235; principal; 2022-09-09 16:30)
DX: G40.909 Epilepsy, unspecified, not intractable, without status epilepticus (principal); G92.8 Other toxic encephalopathy; K22.6 Gastro-esophageal laceration-hemorrhage syndrome; E87.0 Hyperosmolality and hypernatremia; N17.9 Acute kidney failure, unspecified; R65.10 Systemic inflammatory response syndrome (SIRS) of non-infectious origin without acute organ dysfunction; F11.23 Opioid dependence with withdrawal; E44.0 Moderate protein-calorie malnutrition; Z68.1 Body mass index [BMI] 19.9 or less, adult; F05 Delirium due to known physiological condition; F19.10 Other psychoactive substance abuse, uncomplicated; K46.9 Unspecified abdominal hernia without obstruction or gangrene; F17.210 Nicotine dependence, cigarettes, uncomplicated; Z71.6 Tobacco abuse counseling; E86.1 Hypovolemia; E86.0 Dehydration; G72.89 Other specified myopathies; Z20.822 Contact with and (suspected) exposure to COVID-19; Z79.899 Other long term (current) drug therapy
CPT/HCPCS: 36415; 36600; 70450; 71045; 71275; 80048; 80053; 80143; 80179; 80202; 80307; 81001; 82040; 82272; 82550; 82565; 82803; 82945; 82947; 83605; 83690; 83735; 83880; 84100; 84157; 84436; 84439; 84443; 84484; 85025; 85379; 85610; 85652; 85730; 87015; 87040; 87070; 87086; 87205; 87483; 87635; 89051; 93005; 93306; 94002; 94003; 94799; 99285; C1758; J0696; J1170; J1200; J1643; J1953; J2060; J2250; J2543; J3010; J3370; J3371; Q9967

== ENCOUNTER → 2022-09-08 13:29 | Outpatient (BNV) | payer SELFPAY | PROVIDERS: Emergency Provider Emergency Medicine Emergency Medical Services; Visit Provider Internal Medicine Cardiovascular Disease | DX: G40.89 Other seizures (principal) | CPT/HCPCS: 93010 ==

== ENCOUNTER 2022-09-08 16:41 | Outpatient (BNV) | payer SELFPAY | END 2022-09-09 03:06 | PROVIDERS: Admitting Provider Internal Medicine Pulmonary Disease; Emergency Provider Emergency Medicine Emergency Medical Services; Visit Provider Internal Medicine Cardiovascular Disease | DX: G40.89 Other seizures (principal) | CPT/HCPCS: 93010 ==

== ENCOUNTER 2022-09-08 16:41 | Outpatient (BNV) | payer SELFPAY | END 2022-09-11 07:00 | PROVIDERS: Admitting Provider Internal Medicine Pulmonary Disease; Emergency Provider Emergency Medicine Emergency Medical Services; Visit Provider Internal Medicine | DX: I35.8 Other nonrheumatic aortic valve disorders (principal) | CPT/HCPCS: 93306 ==

== ENCOUNTER → 2022-09-08 16:41 | Outpatient (BNV) | payer SELFPAY | PROVIDERS: Admitting Provider Internal Medicine Pulmonary Disease; Emergency Provider Emergency Medicine Emergency Medical Services; Visit Provider Physician Assistant Medical | DX: R41.0 Disorientation, unspecified (principal); F19.10 Other psychoactive substance abuse, uncomplicated; E86.1 Hypovolemia; G40.409 Other generalized epilepsy and epileptic syndromes, not intractable, without status epilepticus; G24.9 Dystonia, unspecified; F11.90 Opioid use, unspecified, uncomplicated | CPT/HCPCS: 99291 ==

== ENCOUNTER → 2022-09-08 16:41 | Outpatient (BNV) | payer SELFPAY | PROVIDERS: Admitting Provider Internal Medicine Pulmonary Disease; Emergency Provider Emergency Medicine Emergency Medical Services; Visit Provider Social Worker | DX: F11.20 Opioid dependence, uncomplicated (principal) | CPT/HCPCS: 99232; 99499 ==

== ENCOUNTER → 2022-09-08 16:41 | Outpatient (BNV) | payer SELFPAY | PROVIDERS: Admitting Provider Internal Medicine Pulmonary Disease; Emergency Provider Emergency Medicine Emergency Medical Services; Visit Provider Internal Medicine Pulmonary Disease | DX: R41.82 Altered mental status, unspecified (principal); G40.409 Other generalized epilepsy and epileptic syndromes, not intractable, without status epilepticus; E86.1 Hypovolemia; F19.10 Other psychoactive substance abuse, uncomplicated | CPT/HCPCS: 99291 ==

== ENCOUNTER → 2022-09-08 16:41 | Outpatient (BNV) | payer SELFPAY | PROVIDERS: Admitting Provider Internal Medicine Pulmonary Disease; Emergency Provider Emergency Medicine Emergency Medical Services; Visit Provider Internal Medicine | DX: F11.90 Opioid use, unspecified, uncomplicated (principal) | CPT/HCPCS: 99239 ==

== ENCOUNTER 2022-12-13 09:01 | Inpatient (IN) | payer MEDICAID, SELFPAY ==
[2022-12-13] VITALS (26 sets, daily range): BP systolic 118–179; BP diastolic 80–124; PULSE 99–155; RESP 14–38; TEMP 34.4–37.1; O2SAT 90–100; BMI 18.6
--- NOTE | ~2022-12-13 | XR_ITS ---
EXAMINATION: XR CHEST CLINICAL INFORMATION: Seizures, dyspnea, intubation COMPARISON: August 2022 TECHNIQUE: Frontal view of the chest was obtained portably supine. FINDINGS: The well-expanded, cardiomediastinal silhouette is normal. There is distended saccular tube seen with the tip 5.7 cm above the roni. Nasogastric tube is below the diaphragm. XR/XR chest 1V IMPRESSION: Well-positioned support tubes and lines
--- NOTE | ~2022-12-13 | CT_ITS ---
EXAMINATION: CT HEAD WITHOUT CONTRAST CT CERVICAL SPINE WITHOUT CONTRAST CLINICAL INFORMATION: Frontal on floor rule out fracture or bleeding. COMPARISON: 09/08/2022 CT scan of the head TECHNIQUE: Contiguous axial imaging was performed from the skull base to vertex without intravenous administration of contrast. Contiguous axial imaging was performed from the upper chest through the skull base without intravenous administration of contrast. Coronal and sagittal reformats were obtained at the acquisition workstation. This CT examination was performed using dose optimization techniques as appropriate, variously including the following: *Automated exposure control. *Adjustment of mA and/or kV according to patient size (this includes techniques or standardized protocols for targeted exams where dose is matched to indication/reason for exam; i.e. extremities or head). *Use of iterative reconstruction technique. DLP: 841 mGy-cm FINDINGS: Head: There is no evidence of acute intracranial hemorrhage or edematous territorial infarction. Bradley-white matter differentiation is preserved. There is no abnormal attenuation within the brain parenchyma. Thousand ventricles are more prominent for age but symmetrical without midline shift. No abnormal mass effect or midline shift. No extra-axial fluid collections. No acute soft tissue or osseous abnormalities. The mastoid air cells and visualized paranasal sinuses are clear. Cervical Spine: Patient is intubated and there is nasogastric tube present. The atlantooccipital and atlantoaxial articulations remain well aligned patient is status post C5-C6 and C6-C7 placement of spacers there is mild chronic deformity of C5, C6, to the C7 vertebral bodies. There is no new fractures identified. There is no evidence of spinal canal stenosis. Partially visualized thyroid gland revealed nodularity in the right lobe of thyroid. Correlate clinically. CT/CT cervical spine wo IV con IMPRESSION: No acute fractures seen in the cervical spine. Status post remote placement of C5-C6 and C6-C7 discs bases and chronic deformity of C5-C7 vertebral bodies. No acute fractures seen. Mild global volume loss. No evidence of intracranial bleeding coronary acute stroke.
[2022-12-13] MEDS: Naloxone HCl 2 MG/2 ML SYRINGE IVPUSH ×2 (09:05→09:12)
[2022-12-13] MEDS: ondansetron HCL 4 MG/2 ML VIAL IVPUSH (09:07)
--- NOTE | 2022-12-13 09:11 | ECG_ITS ---
Test Reason : SEIZURE Blood Pressure : / mmHG Vent. Rate : 096 BPM Atrial Rate : 096 BPM P-R Int : 100 ms QRS Dur : 114 ms QT Int : 374 ms P-R-T Axes : 079 077 -08 degrees QTc Int : 472 ms Sinus rhythm with short NC Incomplete right bundle branch block ST & T wave abnormality, consider inferior ischemia Abnormal ECG When compared with ECG of 09-SEP-2022 03:06, ST more depressed Inferior leads Referred By: David Mcgee Electronically Signed By:JOCE FITZGERALD MD
[2022-12-13] MEDS: 0.9 % Sodium Chloride 1,000 ML 999 ML IV (09:18)
[2022-12-13 09:24] LABS: ABG Base Excess -4.9 mmol/L; ABG HCO3 16 mmol/L (22-26); ABG pCO2 23 mmHg (32-45); ABG pH 7.45 (7.35-7.45); ABG pO2 107 mmHg (83-108)
[2022-12-13] MEDS: Etomidate 20 MG/10 ML VIAL 12 MG IVPUSH (09:30)
[2022-12-13] MEDS: Rocuronium Bromide 50 MG/5 ML VIAL 24 MG IVPUSH (09:31)
[2022-12-13 09:37] LABS: Glucose, Whole Blood 192 mg/dL (60-115)
--- NOTE | 2022-12-13 09:45 | ED_ITS ---
HPI - Seizure General Chief Complaint: Seizure Stated Complaint: FAM AND EMS WIT SZ,ASSIT W/RESP PER EMS Time Seen by Provider: 12/13/22 09:11 Source: family (Daughter, Suzanne) Mode of arrival: EMS Limitations: altered mental status History of Present Illness HPI Narrative: 57-year-old female with a history of seizure disorder, on Keppra, polysubstance use disorder (heroin and fentanyl), alcohol use disorder, tobacco use, chronic migraine who presents emergency department for evaluation of being found on her bedroom floor having active tonic clonic seizures. Information came from the patient's daughter pain. Daughter states the patient was actively seizing and states the patient was violently shaking. Daughter reports that she was shaking for at least 15 minutes before the paramedics were able to stop her seizures with Versed 6 mg IV. On presentation to the emergency department the patient was minimally responsive to deep painful stimuli, pupils were 3 mm, minimally reactive. Patient was tachypnea with a respiratory rate of 33 but had very or inspiratory and inspiratory effort. Patient's O2 saturation on 90% FiO2 OxyMask was 98%. Patient end-tidal CO2 was 24 pain. The patient was observed for approximately 15 minutes but she continued to have or inspiratory and expiratory movement and remained tachypneic. She was given Narcan 2 mg IV x2 with no effect on her mental status She remain minimally responsive and was concerned that she may vomit and aspirate therefore she was intubated to protect her airway. According to the daughter, the patient has had a migraine for 3 days and has had nausea and vomiting associated with her migraines. She has not been able to hold down food or fluid was not able to take her medications including her Keppra. The patient has been using intranasal opiate - heroin and fentanyl, 5 times a day for total of 10 bags per day. Related Data Home Medications Medication Instructions Recorded Confirmed amlodipine 10 mg tablet 1 tab PO DAILY 06/08/21 12/13/22 levetiracetam 500 mg tablet 750 mg PO Q12H 06/08/21 12/13/22 Allergies Allergy/AdvReac Type Severity Reaction Status Date / Time No Known Allergies Allergy Verified 06/23/21 15:12 Review of Systems 2 Review of Systems: Yes Unobtainable due to mental status PMFSH Past Medical History PMFSH Narrative: Past medical history: Chronic migraines, heroin use disorder, fentanyl use disorder, seizure, alcohol use disorder. Social history: Daughter states the patient uses intranasal heroin 5 times a day and uses a total of 8-10 bags per day. The daughter is not certain if the patient has been drinking alcohol. Patient smokes 1-2 cigarettes per day for greater than 40 years. Medical History (Updated 12/13/22 @ 13:00 by Mariano Meeks MD) Opioid use disorder Social History Social History Household Members: Significant Other Unable to assess alcohol history related to: Unknown Patient Tobacco Use Status: Current someday Tobacco user Cigarettes Per Day: 3 Years Smoked: 30 Substance Use Type: Heroin and Opiates service: No Current occupational status: employed Physical Exam 2 Vital Signs: Vital Signs: Last Vital Signs Temp 98.5 F 12/13/22 11:58 Pulse 134 H 12/13/22 14:09 Resp 17 12/13/22 14:09 BP 161/108 H 12/13/22 14:09 Pulse Ox 100 12/13/22 14:00 O2 Del Method Mechanical Ventil ation 12/13/22 14:00 FiO2 50 12/13/22 14:00 Oxygen Flow Rate 15 12/13/22 09:12 BMI result Body Mass Index 18.6 Vital signs revealed elevated heart rate, elevated respiratory rate and hypertension Exam General: Patient is minimally arousable to painful stimuli, she is tachypneic with shallow respirator Head: Normocephalic, atraumatic EENT: PERRL, Lids normal, sclera normal, conjunctiva normal, nose normal , ears normal, throat without erythema or exudates Neck: Supple, no adenopathy, no trachea midline , C-collar is in place Lung: breath sounds symmetric poor inspiratory and poor expiratory effort, no wheezing, rales or rhonchi Chest: symmetric movement, Heart: r tachycardia, normal S1, S2 no murmurs or rubs Abdomen: soft, nondistended, normal bowel sounds Back: no vertebral tenderness, no CVAT Extremities: no deformities Neuro: Patient is lethargic, minimally arousable to painful stimuli Psych: Pleasant, cooperative Medications Administered Generic Name Dose Route Start Last Admin Trade Name Freq PRN Reason Stop Dose Admin Chlorhexidine Gluconate 15 ml 12/13/22 15:00 12/13/22 14:09 Chlorhexidine Gluc Oral Rinse 15 Ml Mouthwash BUCCAL 15 ml TID VEL Administration Heparin Sodium (Porcine) 5,000 unit 12/13/22 12:15 12/13/22 13:41 Heparin Sodium,Porcine 5,000 Unit/Ml Vial SUBCUT 5,000 unit Q8H VEL Administration Propofol 1,000 mg in 100 mls @ 0 mls/hr 12/13/22 09:45 12/13/22 14:09 Diprivan IVCONT 50 mcg/kg/min .Q0M VEL 15.65 mls/hr Administration Protocol Per Protocol Ceftriaxone Sodium 1 gm/ 50 mls @ 100 mls/hr 12/13/22 12:30 12/13/22 14:14 Sodium Chloride IV Infused Q24H VEL Infusion Levetiracetam 1,000 mg in 100 mls @ 400 mls/hr 12/13/22 13:00 12/13/22 13:57 Keppra IV Infused Q12H VEL Infusion Discontinued Medications Generic Name Dose Route Start Last Admin Trade Name Ashokq PRN Reason Stop Dose Admin Etomidate 12 mg 12/13/22 09:39 12/13/22 09:30 Etomidate 20 Mg/10 Ml Vial IVPUSH 12/13/22 09:40 12 mg ONCE ONE Administration Sodium Chloride 1,000 mls @ 999 mls/hr 12/13/22 09:11 12/13/22 14:04 Ns IV 12/13/22 10:11 Infused .Q1H1M STA Infusion Midazolam HCl 4 mg 12/13/22 10:04 12/13/22 10:08 Midazolam Hcl/Pf 2 Mg/2 Ml Vial IVPUSH 12/13/22 10:05 4 mg ONCE ONE Administration Naloxone HCl 2 mg 12/13/22 09:39 12/13/22 09:05 Naloxone Hcl 2 Mg/2 Ml Syringe IVPUSH 12/13/22 09:40 2 mg ONCE ONE Administration Naloxone HCl 2 mg 12/13/22 09:39 12/13/22 09:12 Naloxone Hcl 2 Mg/2 Ml Syringe IVPUSH 12/13/22 09:40 2 mg ONCE ONE Administration Ondansetron HCl 4 mg 12/13/22 10:21 12/13/22 09:07 Ondansetron Hcl 4 Mg/2 Ml Vial IVPUSH 12/13/22 10:22 4 mg ONCE ONE Administration Propofol 40 mg 12/13/22 12:37 12/13/22 12:41 Propofol 200 Mg/20 Ml Vial IVPUSH 12/13/22 12:38 40 mg ONCE STA Administration Rocuronium [place] 24 mg 12/13/22 09:39 12/13/22 09:31 Rocuronium [place] 50 Mg/5 Ml Vial IVPUSH 12/13/22 09:40 24 mg ONCE ONE Administration Medical Decision Making Medical Decision Making [facility] Narrative: 57-year-old female with a history of seizure disorder, on Keppra, polysubstance use disorder (heroin and fentanyl), alcohol use disorder, tobacco use, chronic migraine who presents emergency department for evaluation of being found on her bedroom floor having active tonic clonic seizures lasting at least 15 minute. According to the daughter the patient has had a severe migraine for 3 days associated with nausea, vomiting and poor oral intake. Patient has not been able to take her Keppra secondary to the symptoms. Patient has also been using bags of intranasal heroin per day. Patient was actively seizing in the paramedics gave her 6 mg of Versed prior to arrival. At the time arrival she was minimally responsive painful stimuli, tachypneic and tachycardic with poor inspiratory and expiratory effort. Patient was given Narcan 2 mg IV x2 with no response. The patient was minimally responsive and I was concerned that she may aspirate or get fatigue due to her rapid respiratory therefore she was intubated using etomidate 12 mg and rocuronium 24 mg IV push for RSI. She was easily intubated with a 7.5 endotracheal tube by our physician catering assistant. OG tube was placed by me. Differential Diagnosis Differential Diagnoses: The differential diagnosis associated with the presentation includes Differential diagnosis includes was not limited seizure with prolonged postictal, narcosis secondary to opiate use, stroke, cerebral bleed, cervical fracture, alcohol intoxication, metabolic disorder Admission/Observation Consideration of admission/observation: Escalation of care including admission/observation considered Consult Healthcare Provider Management of the patient was discussed with: Automotive Buyer (Corporate Travel Coordinator) Lab Data [facility] Lab Attestation statement: I reviewed the patient's lab results. My interpretation patient's laboratory evaluation is as follows: [place] [id number] is most likely secondary to the marginalization caused by seizures-similar elevations in the past. Elevated H&H 17.752.3-similar elevations in the past. Coags were normal pain. ABG revealed normal pH 7.45, low pCO2 of 23-patient is tachypnea, bicarb low at 16. Potassium low 3.2. Serum bicarb low 19. Glucose elevated 140. LFTs were normal. Troponin was detectable but not elevated at 9.3. ETOH below detectable limits. 12/13/22 10:24 12/13/22 10:24 Labs: Lab Results 12/13/22 12/13/22 12/13/22 Range/Units 09:09 09:19 10:24 WBC 20.8 H (4.8-10.8) X10*3/uL RBC 6.03 H D (4.20-5.50) X10*6/uL Hgb 17.7 H D (12.0-16.0) g/dl Hct 52.3 H D (37.0-47.0) % MCV 86.7 (80.0-98.0) fL MCH 29.4 (27.0-33.0) pg MCHC 33.8 (31.0-35.0) g/dl RDW 12.6 (11.0-16.0) % Plt Count 399 D (160-400) X10*3/uL MPV 10.2 (9.4-12.3) fL Immature Gran % (Auto) 1.0 H (0.0-0.4) % Neut % (Auto) 89.3 H (45-73) % Lymph % (Auto) 3.6 L (20-40) % Coal % (Auto) 6.0 (2-11) % Eos % (Auto) 0.0 (0-4) % Baso % (Auto) 0.1 (0-2) % Lymph # (Auto) 0.8 L (1.2-4.9) X10*3/uL Coal # (Auto) 1.2 (0.1-1.2) X10*3/uL Eos # (Auto) 0.0 (0.0-0.4) X10*3/uL Baso # (Auto) 0.0 (0.0-0.2) X10*3/uL Abs Immat Gran (auto) 0.20 H (0.00-0.03) X10*3/uL Absolute Neuts (auto) 18.6 H (2.0-8.3) x10*3/uL Absolute Nucleated RBC 0.000 (0.0-0.012) X10*3/uL Nucleated RBC % (auto) 0.0 (0.0-0.2) /100WBC PT (11.1-13.3) SEC INR (0.9-1.1) APTT (26.0-36.4) SEC O2 Saturation 99.0 % ABG pH at Pt Temp 7.45 (7.35-7.45) ABG pCO2 at Pt Temp 23 L (32-45) mmHg ABG pO2 at Pt Temp 107 (83-108) mmHg ABG HCO3 16 L (22-26) mmol/L ABG Base Excess (Actual) -4.9 mmol/L VBG pH (7.32-7.43) VBG pCO2 mmHg VBG pO2 mmHg VBG HCO3 (22-26) mmol/L VBG O2 Saturation % VBG Base Excess mmol/L Sodium 142 (135-145) mmol/L Potassium 3.2 L (3.3-5.1) mmol/L Chloride 107 (96-108) mmol/L Carbon Dioxide 19 L (22-29) mmol/L Anion Gap 19 (12-20) BUN 19 H (9-16) mg/dL Creatinine 0.79 (0.5-1.4) mg/dL Estim Creat Clear Calc 63.8 Estimated GFR > 60 POC Glucose 192 H (60-115) mg/dL Random Glucose 140 H (60-115) mg/dL Lactic Acid (0.5-2.0) mmol/L Calcium 10.1 D (8.4-10.2) mg/dL Total Bilirubin 1.1 H (0.0-1.0) mg/dL AST 30 (5-31) U/L ALT 19 (0-31) U/L Alkaline Phosphatase 106 (39-117) U/L Total Creatine Kinase 47 (26-140) U/L Troponin I High Sens 9.3 D (<3.5-17.0) ng/L B-Natriuretic Peptide (<100) pg/mL Total Protein 7.8 (6.5-8.0) g/dL Albumin 4.8 (3.5-5.0) g/dL Lipase 96 H (8-78) U/L Urine Color Urine Appearance Urine pH (5.0-9.0) Ur Specific [place] (1.005-1.025) Urine Protein (Neg-Trace) mg/dL Urine Glucose (UA) (Negative) mg/dL Urine Ketones (Negative) mg/dL Urine Blood (Negative) Urine Nitrite (Negative) Ur Leukocyte Esterase (Negative) Urine RBC (0-2) /HPF Urine WBC (0-5) /HPF Ur Squamous Epith Cells (0-2) /HPF Urine Bacteria (None Seen) Hyaline Casts (0-2) /LPF Urine Opiates Screen (Not Detect) Urine Fentanyl Screen (Not Detect) Ur Barbiturates Screen (Not Detect) Ur Phencyclidine Scrn (Not Detect) Ur Amphetamines Screen (Not Detect) U Benzodiazepines Scrn (Not Detect) Urine Cocaine Screen (Not Detect) U Marijuana (THC) Screen (Not Detect) Ethyl Alcohol < 10 mg/dL Influenza Type A (PCR) (Negative) Influenza Type B (PCR) (Negative) RSV RNA Qual (PCR) (Negative) SARS-CoV-2 RNA (RT-PCR) (Negative) 12/13/22 12/13/22 12/13/22 Range/Units 10:59 11:11 11:40 WBC (4.8-10.8) X10*3/uL RBC (4.20-5.50) X10*6/uL Hgb (12.0-16.0) g/dl Hct (37.0-47.0) % MCV (80.0-98.0) fL MCH (27.0-33.0) pg MCHC (31.0-35.0) g/dl RDW (11.0-16.0) % Plt Count (160-400) X10*3/uL MPV (9.4-12.3) fL Immature Gran % (Auto) (0.0-0.4) % Neut % (Auto) (45-73) % Lymph % (Auto) (20-40) % Coal % (Auto) (2-11) % Eos % (Auto) (0-4) % Baso % (Auto) (0-2) % Lymph # (Auto) (1.2-4.9) X10*3/uL [place] # (Auto) (0.1-1.2) X10*3/uL Eos # (Auto) (0.0-0.4) X10*3/uL Baso # (Auto) (0.0-0.2) X10*3/uL Abs Immat Gran (auto) (0.00-0.03) X10*3/uL Absolute Neuts (auto) (2.0-8.3) x10*3/uL Absolute Nucleated RBC (0.0-0.012) X10*3/uL Nucleated RBC % (auto) (0.0-0.2) /100WBC PT 13.3 (11.1-13.3) SEC INR 1.1 (0.9-1.1) APTT 35.8 (26.0-36.4) SEC O2 Saturation % ABG pH at Pt Temp (7.35-7.45) ABG pCO2 at Pt Temp (32-45) mmHg ABG pO2 at Pt Temp (83-108) mmHg ABG HCO3 (22-26) mmol/L ABG Base Excess (Actual) mmol/L VBG pH 7.55 H (7.32-7.43) VBG pCO2 29 mmHg VBG pO2 311 mmHg VBG HCO3 25 (22-26) mmol/L VBG O2 Saturation 100.0 % VBG Base Excess 4.7 mmol/L Sodium (135-145) mmol/L Potassium (3.3-5.1) mmol/L Chloride (96-108) mmol/L Carbon Dioxide (22-29) mmol/L Anion Gap (12-20) BUN (9-16) mg/dL Creatinine (0.5-1.4) mg/dL Estim Creat Clear Calc Estimated GFR POC Glucose (60-115) mg/dL Random Glucose (60-115) mg/dL Lactic Acid 1.4 (0.5-2.0) mmol/L Calcium (8.4-10.2) mg/dL Total Bilirubin (0.0-1.0) mg/dL AST (5-31) U/L ALT (0-31) U/L Alkaline Phosphatase (39-117) U/L Total Creatine Kinase 47 (26-140) U/L Troponin I High Sens (<3.5-17.0) ng/L B-Natriuretic Peptide 381 H (<100) pg/mL Total Protein (6.5-8.0) g/dL Albumin (3.5-5.0) g/dL Lipase (8-78) U/L Urine Color Yellow Urine Appearance Turbid Urine pH 5.5 (5.0-9.0) Ur Specific [place] 1.025 (1.005-1.025) Urine Protein 300 (3+) H (Neg-Trace) mg/dL Urine Glucose (UA) Negative (Negative) mg/dL Urine Ketones 15 (Negative) mg/dL Urine Blood Trace H (Negative) Urine Nitrite Negative (Negative) Ur Leukocyte Esterase Negative (Negative) Urine RBC 3-5 H (0-2) /HPF Urine WBC 6-10 H (0-5) /HPF Ur Squamous Epith Cells 6-10 (0-2) /HPF Urine Bacteria None Seen (None Seen) Hyaline Casts >20 (0-2) /LPF Urine Opiates Screen POSITIVE H (Not Detect) Urine Fentanyl Screen POSITIVE H (Not Detect) Ur Barbiturates Screen Not Detected (Not Detect) Ur Phencyclidine Scrn Not Detected (Not Detect) Ur Amphetamines Screen Not Detected (Not Detect) U Benzodiazepines Scrn POSITIVE H (Not Detect) Urine Cocaine Screen Not Detected (Not Detect) U Marijuana (THC) Screen Not Detected (Not Detect) Ethyl Alcohol mg/dL Influenza Type A (PCR) NEGATIVE (Negative) Influenza Type B (PCR) NEGATIVE (Negative) RSV RNA Qual (PCR) NEGATIVE (Negative) SARS-CoV-2 RNA (RT-PCR) NEGATIVE (Negative) Independent Interpretation I performed an independent interpretation of an: EKG Interpretation: My independent interpretation patient's 12 EKG done at 11:19 hours is as follows: Sinus rhythm with a rate of 96, normal TX interval, prolonged QRS of 114 milliseconds, normal QTC 472 milliseconds, less than 1-[address] segment depression leads 2 3 and AVF and V3 through V6 compared to EKG dated 09/09/2022 ST segment depression was similar but more prominent on today's EKG. Radiology Impression Discussion of test interpretation with radiology: I have reviewed the radiologist's reading. Radiologist Impression: CT head/brain wo IV con IMPRESSION: No acute fractures seen in the cervical spine. Status post remote placement of C5-C6 and C6-C7 discs bases and chronic deformity of C5-C7 vertebral bodies. No acute fractures seen. Mild global volume loss. No evidence of intracranial bleeding coronary acute stroke. Dictated By: Corey Guerra MD CT cervical spine wo IV con IMPRESSION: No acute fractures seen in the cervical spine. Status post remote placement of C5-C6 and C6-C7 discs bases and chronic deformity of C5-C7 vertebral bodies. No acute fractures seen. Mild global volume loss. No evidence of intracranial bleeding coronary acute stroke. Dictated By: Corey Guerra MD Independent Historian Clinical information obtained from an independent historian. History obtained from or confirmed by: Other (Daughter) External Record Review External record reviewed: Inpatient record Procedures Procedure Narrative Procedure Narrative: Oral gastric tube placement: The oral gastric tube was placed by me using the glide scope. I was able to visualize the soften gets and place the role gastric to through the esophagus without any difficulty. The patient had gastric suctioned out of the tube and placement was confirmed with x-ray Intubation: Please see the physician catering assistant Lori Grey's note. The intubation was done under my direct supervision. Intubation Time out performed: Yes sedative: Etomidate Mg Given: 12 paralytic: Rocuronium Mg Given: 24 Laryngoscope: fiber optic video scope Assist Device Used: fiber optic device ET Tube Size: 7.5 ET Tube Uncuffed: No Tube Secured Depth (cm): 24 Tube Secured Location: lips Tube Placement Confirmation: visualized tube passing through cords, equal breath sounds bilaterally, no breath sounds over epigastrium and confirmation by capnometry Patient Tolerated Procedure: well and no complications Intubation Complications: none Critical Care Time Critical Care Time Critical Care Time: Yes Total Critical Care Time: 120 Attestation: Critical Care: The patient was critically ill with a high probability of imminent or life threatening deterioration. I spent greater than 30 minutes of discontinuous time evaluating the patient,delivering critical care at the bedside, discussing and evaluating pertinent data with consultants. Critical care time does not include time spent performing separately billable procedures or teaching. Total time spent performing critical care was 120 minutes. Discharge Plan Discharge Clinical Impression: Seizure, Polysubstance abuse, Headache, Acute respiratory distress Patient Disposition: Admitted As Inpatient Interventions: Admission Worksheet (ED) Last Done: 12/13/22 13:03 Discharge Date/Time: 12/13/22 13:04
[2022-12-13 09:51] LABS: ABG Refer to POC result
[2022-12-13] MEDS: propofoL 1,000 MG/100 ML VIAL 9.39 MG IVCONT (09:51)
[2022-12-13] MEDS: Midazolam HCl/PF 2 MG/2 ML VIAL 4 MG IVPUSH (10:08)
[2022-12-13 10:28] LABS: MANUAL DIFF FLAG NO
[2022-12-13 10:31] LABS: Basophils Percent Auto 0.1 % (0-2); Hematocrit 52.3 % (37.0-47.0); Hemoglobin 17.7 g/dl (12.0-16.0); Lymphocytes Absolute Auto 0.8 X10*3/uL (1.2-4.9); Lymphocytes Percent Auto 3.6 % (20-40); Mean Corpuscular HGB Conc 33.8 g/dl (31.0-35.0); Mean Corpuscular Hemoglobin 29.4 pg (27.0-33.0); Mean Corpuscular Volume 86.7 fL (80.0-98.0); Mean Platelet Volume 10.2 fL (9.4-12.3); Monocytes Absolute Auto 1.2 X10*3/uL (0.1-1.2); Neutrophils Absolute Auto 18.6 x10*3/uL (2.0-8.3); Neutrophils Percent Auto 89.3 % (45-73); Platelet Count 399 X10*3/uL (160-400); Red Blood Count 6.03 X10*6/uL (4.20-5.50); Red Cell Distribution Width 12.6 % (11.0-16.0); White Blood Count 20.8 X10*3/uL (4.8-10.8)
[2022-12-13 10:48] LABS: Alanine Aminotransferase 19 U/L (0-31); Albumin Level 4.8 g/dL (3.5-5.0); Alkaline Phosphatase 106 U/L (39-117); Anion Gap 19 (12-20); Aspartate Amino Transferase 30 U/L (5-31); Bilirubin Total 1.1 mg/dL (0.0-1.0); Blood Urea Nitrogen 19 mg/dL (9-16); Calcium 10.1 mg/dL (8.4-10.2); Carbon Dioxide 19 mmol/L (22-29); Chloride 107 mmol/L (96-108); Creatinine Clr Calc Pharmacy 63.8; Estimated Glomerular Filt Rate > 60; Ethanol < 10 mg/dL; Glucose Random 140 mg/dL (60-115); Lipase 96 U/L (8-78); Potassium 3.2 mmol/L (3.3-5.1); Sodium 142 mmol/L (135-145); Total Protein 7.8 g/dL (6.5-8.0)
[2022-12-13 10:50] LABS: Troponin-I High Sensitivity 9.3 ng/L (<3.5-17.0)
[2022-12-13 11:18] LABS: Lactic Acid 1.4 mmol/L (0.5-2.0)
[2022-12-13 11:19] LABS: VBG Base Excess 4.7 mmol/L; VBG HCO3 25 mmol/L (22-26); VBG pCO2 29 mmHg; VBG pH 7.55 (7.32-7.43); VBG pO2 311 mmHg
[2022-12-13 11:22] LABS: INTERNATIONAL NORM RATIO 1.1 (0.9-1.1); Prothrombin Time 13.3 SEC (11.1-13.3)
[2022-12-13 11:24] LABS: Partial Thromboplastin Time 35.8 SEC (26.0-36.4)
--- NOTE | 2022-12-13 11:42 | PC.NURSE ---
pt found by daughter having a seizure in bedroom which continued for 10 minutes prior to EMS arrival. EMS gave 6mg versed, assisted airway with ambu bag. IN ER, pt was found to have shallow respirations, at 100% with oxymask at 15L. The decision was made to intubate. see mar for RSI meds. vent settings 14 RR, 400ml volume with 5 of peep. 7.5 tube, 23 @lip. OG tube on intermittent suction, now 400ml contents in canister - contents are dark brown. 1 IV 20g by EMS left AC,. 22 left hand and 20 right AC in ED. propofol drip increased to 50 mcg/jg/min from 30 per MD verbal order, pt was pulling at lines and bucking vent at 30mcg/kg/min. Pt went to CT scan and returned, awaiting read before removing collar. Pt was very difficult straight stick blood try, multiple techs and nurses tried. MD did groin stick for lab work. Arevalo inserted 14fr. small amount of output at insertion, 10-20ml. urine sent to lab
[2022-12-13 11:43] LABS: B Type Natriuretic Peptide 381 pg/mL (<100)
[2022-12-13 11:47] LABS: Venous Blood Gas Refer to POC result
[2022-12-13 11:51] LABS: Appearance Urine Turbid; Color Urine Yellow; Glucose Urine UA Negative (Negative); Leukocyte Esterase Urine Negative (Negative); Nitrite Urine Negative (Negative); PH 5.5 (5.0-9.0); Specific Gravity - Urine 1.025 (1.005-1.025); UMIC TRIGGER UACC YES; Urine Blood Trace (Negative); Urine Ketones 15 mg/dL (Negative); Urine Protein 300 (3+) mg/dL (Neg-Trace)
--- NOTE | 2022-12-13 11:54 | PHA.MEDREC ---
Pharmacy Consult ? Medication Reconciliation Pharmacy has completed the medication reconciliation. Patient came in unresponsive. Used most recent pharmacy claims
[2022-12-13 11:56] LABS: Amphetamine Screen Urine Not Detected (Not Detect); Barbiturates, Urine Not Detected (Not Detect); Benzodiazepines Screen Urine POSITIVE (Not Detect); Cannabinoid Screen Urine Not Detected (Not Detect); Cocaine Screen Urine Not Detected (Not Detect); Fentanyl, urine POSITIVE (Not Detect); Opiate Screen Urine POSITIVE (Not Detect); Phencyclidine Screen Urine Not Detected (Not Detect)
[2022-12-13 12:02] LABS: Bacteria Urine None Seen (None Seen); Hyaline Casts Urine >20 /LPF (0-2); UACC Culture Trigger YES
[2022-12-13 12:24] LABS: Influenza A PCR NEGATIVE (Negative); Influenza B PCR NEGATIVE (Negative); Resp Syncy Virus RNA Qual PCR NEGATIVE (Negative); SARS COV2 PCR INHOUSE NEGATIVE (Negative)
[2022-12-13] MEDS: propofoL 200 MG/20 ML VIAL 40 MG IVPUSH (12:41)
--- NOTE | 2022-12-13 12:54 | PM.CCHP ---
History of Present Illness Date of Service: 12/13/22 Chief Complaint: Encephalopathy 57-year-old lady with underlying history of polysubstance abuse including opioids, alcohol, tobacco, seizure disorder usually on Keppra, found actively seizing by her daughter. Patient brought to emergency room intubated for airway protection. She was given benzodiazepines. There was no seizure recurrence. Patient had CT head did not demonstrate intracranial hemorrhage in she was admitted to the intensive care unit. Patient empirically covered with broad-spectrum antibiotics and restarted on Keppra. Tox screen is positive for opiates, fentanyl, and benzodiazepines. Review of Systems Review of Systems: Yes unobtainable due to endotracheal tube, Unobtainable due to mental condition and Unobtainable due to mental status PMFSH Past Medical History Medical History (Updated 12/13/22 @ 13:00 by Mariano Meeks MD) Opioid use disorder Social History Social History Household Members: Significant Other Unable to assess alcohol history related to: Unknown Patient Tobacco Use Status: Current someday Tobacco user Cigarettes Per Day: 3 Years Smoked: 30 Substance Use Type: Heroin and Opiates Advance Directives: No Advance Directives Information Provided: No service: No Current occupational status: employed Meds Allergies Allergy/AdvReac Type Severity Reaction Status Date / Time No Known Allergies Allergy Verified 06/23/21 15:12 Active Medications: Current Medications Heparin Sodium (Porcine) (Heparin Sodium,Porcine 5,000 Unit/Ml Vial) 5,000 unit SUBCUT Q8H VEL Propofol (Diprivan) 1,000 mg in 100 mls @ 0 mls/hr IVCONT .Q0M [facility]; Protocol Last Titration: 12/13/22 09:59 Dose: 50 mcg/kg/min, 15.65 mls/hr Ceftriaxone Sodium 1 gm/ (Sodium Chloride) 50 mls @ 100 mls/hr IV Q24H VEL Levetiracetam (Keppra) 1,000 mg in 100 mls @ 400 mls/hr IV Q12H [facility] Home Medications Medication Instructions Recorded Confirmed Last Taken Type amlodipine 10 mg tablet 1 tab PO DAILY 06/08/21 12/13/22 Unknown History levetiracetam 500 mg tablet 750 mg PO Q12H 06/08/21 12/13/22 Unknown History Physical Exam Vital Signs: Vital Signs: Last Vital Signs Temp 98.5 F 12/13/22 11:58 Pulse 100 12/13/22 12:41 Resp 14 12/13/22 12:41 BP 162/112 H 12/13/22 12:41 Pulse Ox 99 12/13/22 12:41 O2 Del Method Mechanical Ventil ation 12/13/22 11:58 FiO2 50 12/13/22 09:49 Oxygen Flow Rate 15 12/13/22 09:12 BMI result Body Mass Index 18.6 Const: General: no acute distress, alert and awake Eyes: Sclerae: sclerae normal EOM: EOMs intact bilaterally Neck: Neck: Yes no lymphadenopathy, Yes trachea midline and Yes supple Resp: Effort & Inspection: normal respiratory effort and no respiratory distress Auscultation: clear to auscultation bilaterally Cardio: Rate: regular rate Rhythm: regular rhythm Heart sounds: no gallops, no murmurs and no rubs GI: Palpation (GI): Soft to palpation and Other GI palpation findings present ( Nontender) Auscultation: normal bowel sounds Extrem: General: Yes no pedal edema, No clubbing and No cyanosis Results Labs 12/13/22 10:24 12/13/22 10:24 Labs: Laboratory Results - last 24 hr 12/13/22 12/13/22 12/13/22 09:09 09:19 10:24 MCV 86.7 MCH 29.4 MCHC 33.8 RDW 12.6 Plt Count 399 D MPV 10.2 Immature Gran % (Auto) 1.0 H Neut % (Auto) 89.3 H Lymph % (Auto) 3.6 L [place] % (Auto) 6.0 Eos % (Auto) 0.0 Baso % (Auto) 0.1 Lymph # (Auto) 0.8 L [place] # (Auto) 1.2 Eos # (Auto) 0.0 Baso # (Auto) 0.0 Abs Immat Gran (auto) 0.20 H Absolute Neuts (auto) 18.6 H Absolute Nucleated RBC 0.000 Nucleated RBC % (auto) 0.0 PT INR APTT O2 Saturation 99.0 ABG pH at Pt Temp 7.45 ABG pCO2 at Pt Temp 23 L ABG pO2 at Pt Temp 107 ABG HCO3 16 L ABG Base Excess (Actual) -4.9 VBG pH VBG pCO2 VBG pO2 VBG HCO3 VBG O2 Saturation VBG Base Excess Anion Gap 19 Estim Creat Clear Calc 63.8 Estimated GFR > 60 POC Glucose 192 H Random Glucose 140 H Lactic Acid Calcium 10.1 D Total Bilirubin 1.1 H AST 30 ALT 19 Alkaline Phosphatase 106 Total Creatine Kinase 47 B-Natriuretic Peptide Total Protein 7.8 Albumin 4.8 Lipase 96 H Urine Color Urine Appearance Urine pH Ur Specific [place] Urine Protein Urine Glucose (UA) Urine Ketones Urine Blood Urine Nitrite Ur Leukocyte Esterase Urine RBC Urine WBC Ur Squamous Epith Cells Urine Bacteria Hyaline Casts Urine Opiates Screen Urine Fentanyl Screen Ur Barbiturates Screen Ur Phencyclidine Scrn Ur Amphetamines Screen U Benzodiazepines Scrn Urine Cocaine Screen U Marijuana (THC) Screen Ethyl Alcohol < 10 Influenza Type A (PCR) Influenza Type B (PCR) RSV RNA Qual (PCR) SARS-CoV-2 RNA (RT-PCR) 12/13/22 12/13/22 12/13/22 10:59 11:11 11:40 MCV MCH MCHC RDW Plt Count MPV Immature Gran % (Auto) Neut % (Auto) Lymph % (Auto) [place] % (Auto) Eos % (Auto) Baso % (Auto) Lymph # (Auto) [place] # (Auto) Eos # (Auto) Baso # (Auto) Abs Immat Gran (auto) Absolute Neuts (auto) Absolute Nucleated RBC Nucleated RBC % (auto) PT 13.3 INR 1.1 APTT 35.8 O2 Saturation ABG pH at Pt Temp ABG pCO2 at Pt Temp ABG pO2 at Pt Temp ABG HCO3 ABG Base Excess (Actual) VBG pH 7.55 H VBG pCO2 29 VBG pO2 311 VBG HCO3 25 VBG O2 Saturation 100.0 VBG Base Excess 4.7 Anion Gap Estim Creat Clear Calc Estimated GFR POC Glucose Random Glucose Lactic Acid 1.4 Calcium Total Bilirubin AST ALT Alkaline Phosphatase Total Creatine Kinase 47 B-Natriuretic Peptide 381 H Total Protein Albumin Lipase Urine Color Yellow Urine Appearance Turbid Urine pH 5.5 Ur Specific [place] 1.025 Urine Protein 300 (3+) H Urine Glucose (UA) Negative Urine Ketones 15 Urine Blood Trace H Urine Nitrite Negative Ur Leukocyte Esterase Negative Urine RBC 3-5 H Urine WBC 6-10 H Ur Squamous Epith Cells 6-10 Urine Bacteria None Seen Hyaline Casts >20 Urine Opiates Screen POSITIVE H Urine Fentanyl Screen POSITIVE H Ur Barbiturates Screen Not Detected Ur Phencyclidine Scrn Not Detected Ur Amphetamines Screen Not Detected U Benzodiazepines Scrn POSITIVE H Urine Cocaine Screen Not Detected U Marijuana (THC) Screen Not Detected Ethyl Alcohol Influenza Type A (PCR) NEGATIVE Influenza Type B (PCR) NEGATIVE RSV RNA Qual (PCR) NEGATIVE SARS-CoV-2 RNA (RT-PCR) NEGATIVE Imaging Radiologist's Impressions: Impressions Chest X-Ray 12/13/22 10:02 IMPRESSION: Well-positioned support tubes and lines Assessment and Plan (1) Polysubstance abuse: Status: Acute (2) Seizure: Status: Acute (3) Acute respiratory failure: Status: Acute Plan Assessment: 57-year-old lady with polysubstance abuse and seizure disorder admitted with encephalopathy after seizure requiring ventilatory support for airway protection Plan: Neuro: Polysubstance abuse, continue to titrate of sedatives as tolerated. Recurrent seizure. CT head with no acute intracranial findings. Restarted on Keppra. Cardiac: No acute issues. Pulmonary: Intubated in the emergency room for airway protection. Continue to titrate off as tolerated. Renal: No acute issues. Endo: No acute issues. GI: No acute issues. ID: Leukocytosis. Cultures are pending. Empirically covered with broad-spectrum antibiotics. Heme/Onc: No acute issues. Psych: No acute issues. Miscellaneous: No acute issues. Prophylaxis: Heparin, ppi Diet: NPO Critical care time spent: 60 minutes
--- NOTE | 2022-12-13 13:02 | PC.NURSE ---
pt moving legs and fluttering eyelids while preparing to transfer to ICU. MD order for 40mg propofol. bolus given
[2022-12-13] MEDS: Heparin Sodium,Porcine 5,000 UNIT/ML VIAL 5000 UNIT SUBCUT ×2 (13:41→19:40)
[2022-12-13] MEDS: levETIRAcetam in NaCl (iso-os) 1,000 MG/100 ML PIGGYBACK 400 MG IV (13:42)
[2022-12-13] MEDS: cefTRIAXone sodium 1 GM in 0.9 % Sodium Chloride 50 ML IV (13:42)
[2022-12-13] MEDS: Chlorhexidine Gluc Oral Rinse 15 ML MOUTHWASH BUCCAL ×2 (14:09→19:40)
[2022-12-13] MEDS: propofoL 1,000 MG/100 ML VIAL 15.65 MG IVCONT ×2 (14:09→20:53)
[2022-12-13] MEDS: fentaNYL citrate/PF 100 MCG/2 ML VIAL IVPUSH (17:20)
--- NOTE | 2022-12-13 17:52 | HO.SKINPHOTO ---
Location: Left anterior hip. Daughter states this is a tick bite from 2 weeks ago. Category: Stage: Length: Width: Depth: cm Location: Category: Stage: Length: Width: Depth: cm Location: Category: Stage: Length: Width: Depth: cm Location: Category: Stage: Length: Width: Depth: cm Location: Category: Stage: Length: Width: Depth: cm Location: Category: Stage: Length: Width: Depth: cm
[2022-12-13 18:47] LABS: Venous Blood Gas Refer to POC result
[2022-12-13 18:48] LABS: VBG Base Excess 5.3 mmol/L; VBG HCO3 25 mmol/L (22-26); VBG pCO2 26 mmHg; VBG pH 7.59 (7.32-7.43); VBG pO2 163 mmHg
[2022-12-13 18:54] LABS: Basophils Percent Auto 0.1 % (0-2); Hematocrit 49.4 % (37.0-47.0); Hemoglobin 16.8 g/dl (12.0-16.0); Imm Gran Pct Auto 1.1 % (0.0-0.4); Lymphocytes Absolute Auto 1.9 X10*3/uL (1.2-4.9); Lymphocytes Percent Auto 10.4 % (20-40); MANUAL DIFF FLAG SCAN; Mean Corpuscular Hemoglobin 29.1 pg (27.0-33.0); Mean Corpuscular Volume 85.5 fL (80.0-98.0); Mean Platelet Volume 10.2 fL (9.4-12.3); Monocytes Absolute Auto 1.9 X10*3/uL (0.1-1.2); Monocytes Percent Auto 10.4 % (2-11); Platelet Count 408 X10*3/uL (160-400); Red Blood Count 5.78 X10*6/uL (4.20-5.50); Red Cell Distribution Width 12.7 % (11.0-16.0); SCAN SMEAR FLAG 1
[2022-12-13 19:32] LABS: SLIDE REVIEW VERIFIED
[2022-12-13] MEDS: fentaNYL citrate/NS 1,000 MCG/100 ML PLAST..BAG 2.5 MCG IVCONT (19:39)
[2022-12-13] MEDS: Potassium Chloride Packet 20 MEQ PACKET 40 MEQ OG-TUBE (19:40)
[2022-12-13] MEDS: Doxycycline Hyclate 100 MG in 0.9 % Sodium Chloride 250 ML 166.67 MG IV (20:53)
[2022-12-13] MEDS: Midazolam HCl/PF 2 MG/2 ML VIAL IVPUSH (23:18)
[2022-12-14] VITALS (24 sets, daily range): BP systolic 95–189; BP diastolic 72–112; PULSE 68–138; RESP 14–38; TEMP 34.3–37.6; O2SAT 96–100; BMI 15.8; BMI 17.3
[2022-12-14] MEDS: Furosemide 20 MG/2 ML VIAL IVPUSH (00:18)
[2022-12-14] MEDS: Midazolam HCl/PF 2 MG/2 ML VIAL 4 MG IVPUSH (00:18)
[2022-12-14] MEDS: levETIRAcetam in NaCl (iso-os) 1,000 MG/100 ML PIGGYBACK 400 MG IV ×2 (00:19→12:38)
[2022-12-14] MEDS: propofoL 1,000 MG/100 ML VIAL 15.65 MG IVCONT ×2 (02:12→08:25)
[2022-12-14] MEDS: Heparin Sodium,Porcine 5,000 UNIT/ML VIAL 5000 UNIT SUBCUT ×3 (03:16→20:52)
[2022-12-14 04:46] LABS: VBG Base Excess 1.3 mmol/L; VBG HCO3 22 mmol/L (22-26); VBG pCO2 27 mmHg; VBG pH 7.51 (7.32-7.43); VBG pO2 80 mmHg
[2022-12-14 05:01] LABS: MANUAL DIFF FLAG NO
[2022-12-14 05:03] LABS: Basophils Percent Auto 0.1 % (0-2); Eosinophils Percent Auto 0.1 % (0-4); Hematocrit 49.9 % (37.0-47.0); Hemoglobin 16.5 g/dl (12.0-16.0); Imm Gran Abs Auto 0.07 X10*3/uL (0.00-0.03); Imm Gran Pct Auto 0.4 % (0.0-0.4); Lymphocytes Absolute Auto 1.9 X10*3/uL (1.2-4.9); Mean Corpuscular HGB Conc 33.1 g/dl (31.0-35.0); Mean Corpuscular Hemoglobin 28.8 pg (27.0-33.0); Mean Corpuscular Volume 87.1 fL (80.0-98.0); Mean Platelet Volume 10.6 fL (9.4-12.3); Monocytes Absolute Auto 1.5 X10*3/uL (0.1-1.2); Monocytes Percent Auto 9.3 % (2-11); Neutrophils Absolute Auto 12.3 x10*3/uL (2.0-8.3); Neutrophils Percent Auto 78.1 % (45-73); Platelet Count 416 X10*3/uL (160-400); Red Blood Count 5.73 X10*6/uL (4.20-5.50); Red Cell Distribution Width 12.8 % (11.0-16.0); White Blood Count 15.7 X10*3/uL (4.8-10.8)
[2022-12-14 05:24] LABS: Alanine Aminotransferase 13 U/L (0-31); Albumin Level 4.1 g/dL (3.5-5.0); Alkaline Phosphatase 89 U/L (39-117); Anion Gap 17 (12-20); Aspartate Amino Transferase 15 U/L (5-31); Bilirubin Total 0.9 mg/dL (0.0-1.0); Blood Urea Nitrogen 25 mg/dL (9-16); Calcium 9.5 mg/dL (8.4-10.2); Carbon Dioxide 21 mmol/L (22-29); Chloride 110 mmol/L (96-108); Creatinine Clr Calc Pharmacy 59.3; Estimated Glomerular Filt Rate > 60; Glucose Random 124 mg/dL (60-115); Magnesium 2.5 mg/dL (1.6-2.6); Phosphorus 3.8 mg/dL (2.7-4.5); Potassium 3.6 mmol/L (3.3-5.1); Sodium 144 mmol/L (135-145); Total Protein 6.7 g/dL (6.5-8.0)
[2022-12-14] MEDS: fentaNYL citrate/NS 1,000 MCG/100 ML PLAST..BAG 10 MCG IVCONT (06:14)
[2022-12-14] MEDS: Omeprazole/Na Bicarb Oral Susp 20 MG/10 ML UD Cup 40 MG PO (06:21)
[2022-12-14 06:56] LABS: Venous Blood Gas Refer to POC result
[2022-12-14] MEDS: Doxycycline Hyclate 100 MG in 0.9 % Sodium Chloride 250 ML 166.67 MG IV (08:02)
[2022-12-14] MEDS: Chlorhexidine Gluc Oral Rinse 15 ML MOUTHWASH BUCCAL (08:04)
[2022-12-14] MEDS: dexmedeTOMIDidine HCL/NS 400 MCG/100 ML INFUS..BTL 11.08 MCG IVCONT (08:34)
--- NOTE | 2022-12-14 10:25 | PC.NURSE ---
C collar removed per VO from Dr. Meeks. Placed at bedside.
[2022-12-14] MEDS: cefTRIAXone sodium 1 GM in 0.9 % Sodium Chloride 50 ML IV (12:31)
--- NOTE | 2022-12-14 12:40 | PM.CCPN ---
Subjective Subjective Date of Service: 12/14/22 Interval History: 57-year-old lady with underlying history of polysubstance abuse including opioids, alcohol, tobacco, seizure disorder usually on Keppra, found actively seizing by her daughter. Patient brought to emergency room intubated for airway protection. She was given benzodiazepines. There was no seizure recurrence. Patient had CT head did not demonstrate intracranial hemorrhage in she was admitted to the intensive care unit. Patient empirically covered with broad-spectrum antibiotics and restarted on Keppra. Tox screen is positive for opiates, fentanyl, and benzodiazepines. No events overnight. No recurrence of seizures. Encephalopathy improved. Extubated this a.m.. Critical Care Time (minutes): 45 Physical Exam Vital Signs: Vital Signs: Last Vital Signs Temp 98.5 F 12/14/22 12:00 Pulse 91 12/14/22 12:00 Resp 27 H 12/14/22 12:00 BP 132/87 12/14/22 12:00 Pulse Ox 97 12/14/22 12:00 O2 Del Method Room Air 12/14/22 12:00 FiO2 21 12/14/22 10:00 Oxygen Flow Rate 15 12/13/22 09:12 BMI result Body Mass Index 15.8 Const: General: no acute distress and lethargic (Easily arousable) Nutritional Appearance: not obese Orientation/consciousness: lethargic (Easily arousable) and Other orientation findings ( oriented) HEENT: Head: Yes atraumatic Eyes: General: appearance normal, both eyes and all related structures Sclerae: sclerae normal EOM: EOMs intact bilaterally Neck: Neck: Yes supple Lymphatic: no lymphadenopathy noted Resp: Effort & Inspection: normal respiratory effort and no use of accessory muscles Auscultation: clear to auscultation bilaterally Cardio: Rate: tachycardic Rhythm: regular rhythm Heart sounds: no gallops, no murmurs and no rubs Skin: General skin exam: other ( warm) Extrem: General: No clubbing, No cyanosis and No edema Objective Data Labs 12/14/22 04:38 12/14/22 04:38 Labs: Laboratory Results - last 24 hr 12/13/22 12/13/22 12/14/22 18:36 18:37 04:38 WBC 18.0 H 15.7 H RBC 5.78 H 5.73 H Hgb 16.8 H 16.5 H Hct 49.4 H 49.9 H MCV 85.5 87.1 MCH 29.1 28.8 MCHC 34.0 33.1 RDW 12.7 12.8 Plt Count 408 H 416 H MPV 10.2 10.6 Immature Gran % (Auto) 1.1 H 0.4 Neut % (Auto) 78.0 H 78.1 H Lymph % (Auto) 10.4 L 12.0 L [place] % (Auto) 10.4 9.3 Eos % (Auto) 0.0 0.1 Baso % (Auto) 0.1 0.1 Lymph # (Auto) 1.9 1.9 [place] # (Auto) 1.9 H 1.5 H Eos # (Auto) 0.0 0.0 Baso # (Auto) 0.0 0.0 Abs Immat Gran (auto) 0.20 H 0.07 H Absolute Neuts (auto) 14.0 H 12.3 H Absolute Nucleated RBC 0.000 0.000 Nucleated RBC % (auto) 0.0 0.0 Smear Tech's Comments VERIFIED VBG pH 7.59 H 7.51 H VBG pCO2 26 27 VBG pO2 163 80 VBG HCO3 25 22 VBG O2 Saturation 100.0 97.0 VBG Base Excess 5.3 1.3 Sodium 144 Potassium 3.6 Chloride 110 H Carbon Dioxide 21 L Anion Gap 17 BUN 25 H Creatinine 0.85 Estim Creat Clear Calc 59.3 Estimated GFR > 60 Random Glucose 124 H Calcium 9.5 Phosphorus 3.8 Magnesium 2.5 Total Bilirubin 0.9 AST 15 ALT 13 Alkaline Phosphatase 89 Total Protein 6.7 Albumin 4.1 Progress Note: A&P Assessment and plan (1) Polysubstance abuse: Status: Acute (2) Acute metabolic encephalopathy: Status: Acute (3) Seizure: Status: Acute Plan Assessment: 57-year-old lady with polysubstance abuse and seizure disorder admitted with encephalopathy after seizure requiring ventilatory support for airway protection Plan: Neuro: Polysubstance abuse with metabolic encephalopathy, improving, continue to titrate of sedative drips as tolerated. Recurrent seizure. CT head with no acute intracranial findings. Continue on Keppra. Cardiac: No acute issues. Pulmonary: Intubated in the emergency room for airway protection. Extubated uneventfully this a.m.. Renal: No acute issues. Endo: No acute issues. GI: No acute issues. ID: Leukocytosis. Cultures are pending. Empirically covered with broad-spectrum antibiotics. Heme/Onc: No acute issues. Psych: No acute issues. Miscellaneous: No acute issues. Prophylaxis: Heparin Diet: Regular Critical care time spent: 45 minutes Quality Stroke Does the patient have a stroke diagnosis?: No VTE Prior VTE?: No VTE Risk Level:: Medical - moderate - high VTE Device Contraindication: N/A - Device Ordered VTE Drug Contraindication: N/A - Med Ordered
--- NOTE | 2022-12-14 12:58 | P.CDIM_ITS ---
PROVIDER RESPONSE TEXT: To clarify, the appropriate diagnosis supported by the clinical indicators: Underweight QUERY TEXT: PHYSICIAN'S DOCUMENTATION REQUEST Date of Query: 12/14/2022 12:46 PM EDT Patient Name: Mary Aviles Admit Date: 12/13/2022 Dear Mariano Meeks, A review of the medical record indicates additional documentation may be needed. Please review below and update the documentation accordingly. Clinical Indicators: BMI: 15.8 Nursing notes Height and Weight: underweight 44.6kg 5ft 6in If possible, please provide an associated diagnosis related to the abnormal BMI, such as: Underweight Weight loss Cachexia Anorexia Other (explain)Clinically unable to determine (explain)Thank you, Lois Prather, CCS, CDIS Use of terms such as suspected, likely, concern for, or probable (associated with a specific diagnosi s that is being evaluated, monitored, or treated as if it exists) are acceptable and can be coded in the inpatient se tting, when documented at the time of discharge. Please use your independent medical judgment in providing your response. THIS QUERY IS PART OF THE PERMANENT MEDICAL RECORD
--- NOTE | 2022-12-14 12:58 | MHC.CM.PN ---
Pt presently in ICU post intubation for airway management following encephalopathy. Information obtained from EMR and pt's dtr Tabby. Pt resides w/spouse and dtr, is independent w/ADL's and has no services. Pt has a long hx of substance misuse without any MAT per dtr. Pt is also non compliant with follow up. Her PCP is a new provider through a [facility] affiliated office. No HCP on file. CM to await pt's clinical improvement for additional information. It is likely pt will be able to d/c to home without services - dtr to transport. Pt will benefit from a CARE team consult for assistance w/substance use. CM to follow.
--- NOTE | 2022-12-14 16:32 | HO.ADDICTCON ---
History of Present Illness Date of Service: 12/14/22 Chief Complaint: Encephalopathy Reason for Consult: OUD Sources of Information: patient interviewed and chart reviewed HPI Narrative: Patient is a 57 year old female with OUD and seizure disorder currently medically admitted with encephalopathy following a seizure at home. Recently extubated, and in ICU. Seen in room 255. Patient appearing weak, but opened eyes to voice and engaged briefly with this job specification writer. Not oriented to time. Denies any withdrawal sx at this time. Reporting less than a bundle of heroin/fentanyl daily about 5-6 bags IN. Reminder of interview deferred as patient was quite drowsy. Patient know to this job specification writer via previous admissions and outpatient treatment. overall health and appearance have deteriorated significantly since first meeting with this patient Review of Systems Constitutional: Reports as per HPI Diagnostics Vital Signs (24Hr): Vital Signs - 24 hr 12/13/22 17:00 12/13/22 18:00 12/13/22 19:00 Temperature 98.1 F Pulse Rate 147 H 118 H 128 H Respiratory Rate 21 H 15 22 H Blood Pressure 172/111 H 164/112 H 154/108 H Pulse Oximetry 98 99 100 Oxygen Delivery Method Mechanical Ventilation Mechanical Ventilation Mechanical Ventilation Fraction of Inspired Oxygen 50 50 50 12/13/22 19:38 12/13/22 20:00 12/13/22 20:00 Temperature Pulse Rate 122 H Respiratory Rate 16 Blood Pressure 162/113 H Pulse Oximetry 96 Oxygen Delivery Method Mechanical Ventilation Fraction of Inspired Oxygen 21 50 21 12/13/22 21:00 12/13/22 22:00 12/13/22 22:49 Temperature Pulse Rate 117 H 125 H Respiratory Rate 20 15 Blood Pressure 161/115 H 158/106 H Pulse Oximetry 97 100 Oxygen Delivery Method Mechanical Ventilation Mechanical Ventilation Fraction of Inspired Oxygen 50 50 21 12/13/22 23:00 12/14/22 00:00 12/14/22 00:00 Temperature Pulse Rate 121 H 135 H Respiratory Rate 17 14 Blood Pressure 164/107 H 155/108 H Pulse Oximetry 100 98 Oxygen Delivery Method Mechanical Ventilation Mechanical Ventilation Fraction of Inspired Oxygen 50 50 21 12/14/22 01:00 12/14/22 02:00 12/14/22 03:00 Temperature Pulse Rate 133 H 125 H 124 H Respiratory Rate 14 15 14 Blood Pressure 141/100 H 156/108 H 158/111 H Pulse Oximetry 98 98 98 Oxygen Delivery Method Mechanical Ventilation Mechanical Ventilation Mechanical Ventilation Fraction of Inspired Oxygen 50 50 50 12/14/22 04:00 12/14/22 04:00 12/14/22 04:29 Temperature Pulse Rate 129 H Respiratory Rate 14 Blood Pressure 154/111 H Pulse Oximetry 98 Oxygen Delivery Method Mechanical Ventilation Fraction of Inspired Oxygen 50 21 21 12/14/22 05:00 12/14/22 06:00 12/14/22 07:00 Temperature Pulse Rate 130 H 133 H 116 H Respiratory Rate 15 17 19 Blood Pressure 162/112 H 161/112 H 152/110 H Pulse Oximetry 100 100 100 Oxygen Delivery Method Mechanical Ventilation Mechanical Ventilation Mechanical Ventilation Fraction of Inspired Oxygen 50 50 21 12/14/22 07:34 12/14/22 07:40 12/14/22 08:00 Temperature 98.0 F Pulse Rate 126 H Respiratory Rate 19 Blood Pressure 162/112 H Pulse Oximetry 100 Oxygen Delivery Method Mechanical Ventilation Fraction of Inspired Oxygen 21 21 21 12/14/22 09:00 12/14/22 10:00 12/14/22 11:00 Temperature 99.7 F Pulse Rate 112 H 94 97 Respiratory Rate 21 H 15 20 Blood Pressure 128/94 H 95/72 112/82 Pulse Oximetry 100 100 96 Oxygen Delivery Method Mechanical Ventilation Mechanical Ventilation Room Air Fraction of Inspired Oxygen 21 21 12/14/22 12:00 12/14/22 13:00 12/14/22 14:00 Temperature 98.5 F Pulse Rate 91 95 92 Respiratory Rate 27 H 30 H 33 H Blood Pressure 132/87 142/87 H Pulse Oximetry 97 97 96 Oxygen Delivery Method Room Air Room Air Room Air Fraction of Inspired Oxygen 12/14/22 15:33 Temperature 98 F Pulse Rate 90 Respiratory Rate 38 H Blood Pressure 136/74 Pulse Oximetry 98 Oxygen Delivery Method Room Air Fraction of Inspired Oxygen BMI result Body Mass Index 17.3 Labs 12/14/22 04:38 12/14/22 04:38 Labs: Laboratory Results - last 48 hr 12/13/22 12/13/22 12/13/22 09:09 09:19 10:24 WBC 20.8 H RBC 6.03 H D Hgb 17.7 H D Hct 52.3 H D MCV 86.7 MCH 29.4 MCHC 33.8 RDW 12.6 Plt Count 399 D MPV 10.2 Immature Gran % (Auto) 1.0 H Neut % (Auto) 89.3 H Lymph % (Auto) 3.6 L [place] % (Auto) 6.0 Eos % (Auto) 0.0 Baso % (Auto) 0.1 Lymph # (Auto) 0.8 L [place] # (Auto) 1.2 Eos # (Auto) 0.0 Baso # (Auto) 0.0 Abs Immat Gran (auto) 0.20 H Absolute Neuts (auto) 18.6 H Absolute Nucleated RBC 0.000 Nucleated RBC % (auto) 0.0 Smear Tech's Comments PT INR APTT O2 Saturation 99.0 ABG pH at Pt Temp 7.45 ABG pCO2 at Pt Temp 23 L ABG pO2 at Pt Temp 107 ABG HCO3 16 L ABG Base Excess (Actual) -4.9 VBG pH VBG pCO2 VBG pO2 VBG HCO3 VBG O2 Saturation VBG Base Excess Sodium 142 Potassium 3.2 L Chloride 107 Carbon Dioxide 19 L Anion Gap 19 BUN 19 H Creatinine 0.79 Estim Creat Clear Calc 63.8 Estimated GFR > 60 POC Glucose 192 H Random Glucose 140 H Lactic Acid Calcium 10.1 D Phosphorus Magnesium Total Bilirubin 1.1 H AST 30 ALT 19 Alkaline Phosphatase 106 Total Creatine Kinase 47 Troponin I High Sens 9.3 D B-Natriuretic Peptide Total Protein 7.8 Albumin 4.8 Lipase 96 H Urine Color Urine Appearance Urine pH Ur Specific [place] Urine Protein Urine Glucose (UA) Urine Ketones Urine Blood Urine Nitrite Ur Leukocyte Esterase Urine RBC Urine WBC Ur Squamous Epith Cells Urine Bacteria Hyaline Casts Urine Opiates Screen Urine Fentanyl Screen Ur Barbiturates Screen Ur Phencyclidine Scrn Ur Amphetamines Screen U Benzodiazepines Scrn Urine Cocaine Screen U Marijuana (THC) Screen Ethyl Alcohol < 10 Influenza Type A (PCR) Influenza Type B (PCR) RSV RNA Qual (PCR) SARS-CoV-2 RNA (RT-PCR) 12/13/22 12/13/22 12/13/22 10:59 11:11 11:40 WBC RBC Hgb Hct MCV MCH MCHC RDW Plt Count MPV Immature Gran % (Auto) Neut % (Auto) Lymph % (Auto) [place] % (Auto) Eos % (Auto) Baso % (Auto) Lymph # (Auto) [place] # (Auto) Eos # (Auto) Baso # (Auto) Abs Immat Gran (auto) Absolute Neuts (auto) Absolute Nucleated RBC Nucleated RBC % (auto) Smear Tech's Comments PT 13.3 INR 1.1 APTT 35.8 O2 Saturation ABG pH at Pt Temp ABG pCO2 at Pt Temp ABG pO2 at Pt Temp ABG HCO3 ABG Base Excess (Actual) VBG pH 7.55 H VBG pCO2 29 VBG pO2 311 VBG HCO3 25 VBG O2 Saturation 100.0 VBG Base Excess 4.7 Sodium Potassium Chloride Carbon Dioxide Anion Gap BUN Creatinine Estim Creat Clear Calc Estimated GFR POC Glucose Random Glucose Lactic Acid 1.4 Calcium Phosphorus Magnesium Total Bilirubin AST ALT Alkaline Phosphatase Total Creatine Kinase 47 Troponin I High Sens B-Natriuretic Peptide 381 H Total Protein Albumin Lipase Urine Color Yellow Urine Appearance Turbid Urine pH 5.5 Ur Specific [place] 1.025 Urine Protein 300 (3+) H Urine Glucose (UA) Negative Urine Ketones 15 Urine Blood Trace H Urine Nitrite Negative Ur Leukocyte Esterase Negative Urine RBC 3-5 H Urine WBC 6-10 H Ur Squamous Epith Cells 6-10 Urine Bacteria None Seen Hyaline Casts >20 Urine Opiates Screen POSITIVE H Urine Fentanyl Screen POSITIVE H Ur Barbiturates Screen Not Detected Ur Phencyclidine Scrn Not Detected Ur Amphetamines Screen Not Detected U Benzodiazepines Scrn POSITIVE H Urine Cocaine Screen Not Detected U Marijuana (THC) Screen Not Detected Ethyl Alcohol Influenza Type A (PCR) NEGATIVE Influenza Type B (PCR) NEGATIVE RSV RNA Qual (PCR) NEGATIVE SARS-CoV-2 RNA (RT-PCR) NEGATIVE 12/13/22 12/13/22 12/14/22 18:36 18:37 04:38 WBC 18.0 H 15.7 H RBC 5.78 H 5.73 H Hgb 16.8 H 16.5 H Hct 49.4 H 49.9 H MCV 85.5 87.1 MCH 29.1 28.8 MCHC 34.0 33.1 RDW 12.7 12.8 Plt Count 408 H 416 H MPV 10.2 10.6 Immature Gran % (Auto) 1.1 H 0.4 Neut % (Auto) 78.0 H 78.1 H Lymph % (Auto) 10.4 L 12.0 L [place] % (Auto) 10.4 9.3 Eos % (Auto) 0.0 0.1 Baso % (Auto) 0.1 0.1 Lymph # (Auto) 1.9 1.9 [place] # (Auto) 1.9 H 1.5 H Eos # (Auto) 0.0 0.0 Baso # (Auto) 0.0 0.0 Abs Immat Gran (auto) 0.20 H 0.07 H Absolute Neuts (auto) 14.0 H 12.3 H Absolute Nucleated RBC 0.000 0.000 Nucleated RBC % (auto) 0.0 0.0 Smear Tech's Comments VERIFIED PT INR APTT O2 Saturation ABG pH at Pt Temp ABG pCO2 at Pt Temp ABG pO2 at Pt Temp ABG HCO3 ABG Base Excess (Actual) VBG pH 7.59 H 7.51 H VBG pCO2 26 27 VBG pO2 163 80 VBG HCO3 25 22 VBG O2 Saturation 100.0 97.0 VBG Base Excess 5.3 1.3 Sodium 144 Potassium 3.6 Chloride 110 H Carbon Dioxide 21 L Anion Gap 17 BUN 25 H Creatinine 0.85 Estim Creat Clear Calc 59.3 Estimated GFR > 60 POC Glucose Random Glucose 124 H Lactic Acid Calcium 9.5 Phosphorus 3.8 Magnesium 2.5 Total Bilirubin 0.9 AST 15 ALT 13 Alkaline Phosphatase 89 Total Creatine Kinase Troponin I High Sens B-Natriuretic Peptide Total Protein 6.7 Albumin 4.1 Lipase Urine Color Urine Appearance Urine pH Ur Specific [place] Urine Protein Urine Glucose (UA) Urine Ketones Urine Blood Urine Nitrite Ur Leukocyte Esterase Urine RBC Urine WBC Ur Squamous Epith Cells Urine Bacteria Hyaline Casts Urine Opiates Screen Urine Fentanyl Screen Ur Barbiturates Screen Ur Phencyclidine Scrn Ur Amphetamines Screen U Benzodiazepines Scrn Urine Cocaine Screen U Marijuana (THC) Screen Ethyl Alcohol Influenza Type A (PCR) Influenza Type B (PCR) RSV RNA Qual (PCR) SARS-CoV-2 RNA (RT-PCR) Imaging Radiology Impressions: ITS Impressions Chest X-Ray 12/13/22 10:02 IMPRESSION: Well-positioned support tubes and lines Cervical Spine CT 12/13/22 11:59 IMPRESSION: No acute fractures seen in the cervical spine. Status post remote placement of C5-C6 and C6-C7 discs bases and chronic deformity of C5-C7 vertebral bodies. No acute fractures seen. Mild global volume loss. No evidence of intracranial bleeding coronary acute stroke. Head CT 12/13/22 11:59 IMPRESSION: No acute fractures seen in the cervical spine. Status post remote placement of C5-C6 and C6-C7 discs bases and chronic deformity of C5-C7 vertebral bodies. No acute fractures seen. Mild global volume loss. No evidence of intracranial bleeding coronary acute stroke. Mental Status Exam Mental Status Exam Level of Consciousness: Drowsy and Lethargic Medications Medications Current Medications Heparin Sodium (Porcine) (Heparin Sodium,Porcine 5,000 Unit/Ml Vial) 5,000 unit SUBCUT Q8H VEL Last Admin: 12/14/22 12:31 Dose: 5,000 unit Levetiracetam (Keppra) 1,000 mg in 100 mls @ 400 mls/hr IV Q12H VEL Last Infusion: 12/14/22 12:54 Dose: Infused Fentanyl (Sublimaze/Ns) 1,000 mcg in 100 mls @ 0 mls/hr IVCONT .Q0M VEL; Protocol Last Titration: 12/14/22 11:13 Dose: Infused Doxycycline Hyclate 100 mg/ (Sodium Chloride) 250 mls @ 166.67 mls/hr IV BID VEL Last Infusion: 12/14/22 09:47 Dose: Infused Dexmedetomidine HCl (Precedex) 400 mcg in 100 mls @ 0 mls/hr IVCONT .Q0M VEL; Protocol Last Titration: 12/14/22 12:39 Dose: Infused Allergies Allergies Allergy/AdvReac Type Severity Reaction Status Date / Time No Known Allergies Allergy Verified 06/23/21 15:12 Assessment & Plan Assessment & Plan (1) Opioid use disorder: Status: Acute Code(s): F11.90 - Opioid use, unspecified, uncomplicated Assessment and Plan: at time of interview did not appear to be experiencing withdrawal sx. --recommend methadone 10mg q4 hrs PRN max of 3 doses. will follow up in AM Total time managing care of this patient today __15__ minutes. [facility] Past Medical History Medical History (Updated 12/14/22 @ 12:41 by Mariano Meeks MD) Opioid use disorder Social History Social History Household Members: Unknown / Unable to assess Housing: Unknown / Unable to assess Unable to assess alcohol history related to: Unable to respond Patient Tobacco Use Status: Tobacco use Unknown Cigarettes Per Day: 3 Years Smoked: 30 Substance Use Type: Heroin and Opiates service: No Current occupational status: employed
[2022-12-14] MEDS: Doxycycline Hyclate 100 MG in 0.9 % Sodium Chloride 250 ML IV (21:34)
[2022-12-15] VITALS (16 sets, daily range): BP systolic 150–184; BP diastolic 77–100; PULSE 60–105; RESP 14–37; TEMP 36.6–37.2; O2SAT 95–100; BMI 17.4
[2022-12-15] MEDS: levETIRAcetam in NaCl (iso-os) 1,000 MG/100 ML PIGGYBACK 400 MG IV (00:48)
--- NOTE | 2022-12-15 03:27 | PC.NURSE ---
PT A&O X3 ALTHOUGH IS VAGUE. SPEECH IS SLOW. ABLE TO SWALLOW WITHOUT DIFFICULTY. HAD APPLE JUICE 120 ML AND A FEW BITES OF PUDDING. FOLLOWS COMMANDS. PRN ADAPTER FROM LEFT HAND WAS FOUND IN THE BED. NO BLEEDING FROM SITE. THE ADAPTER IN RAC WAS LEAKING AND THUS, REMOVED. NEW IV INSERTED LEFT FOREARM. PT RECEIVING IV ANTIBIOTICS AND KEPPRA. NO RESP DIFFICULTIES. O2 SAT 98% ON ROOM AIR. RECEIVED CALL FROM PT'S DAUGHTER WHO EXPRESSED CONCERN ABOUT PT HAVING A COMPETENCY EVAL TODAY BY PSYCH. IS CONCERNED THAT PT IS NOT BACK TO HER NORMAL SELF.
[2022-12-15] MEDS: Heparin Sodium,Porcine 5,000 UNIT/ML VIAL 5000 UNIT SUBCUT ×3 (04:36→22:01)
[2022-12-15 05:08] LABS: MANUAL DIFF FLAG NO
[2022-12-15 05:08] LABS: VBG Base Excess 1.8 mmol/L; VBG HCO3 24 mmol/L (22-26); VBG pCO2 34 mmHg; VBG pH 7.47 (7.32-7.43); VBG pO2 29 mmHg
[2022-12-15 05:10] LABS: Venous Blood Gas Refer to POC result
[2022-12-15 05:12] LABS: Basophils Percent Auto 0.2 % (0-2); Eosinophils Percent Auto 0.1 % (0-4); Hematocrit 46.7 % (37.0-47.0); Hemoglobin 15.7 g/dl (12.0-16.0); Imm Gran Abs Auto 0.03 X10*3/uL (0.00-0.03); Imm Gran Pct Auto 0.3 % (0.0-0.4); Lymphocytes Absolute Auto 1.7 X10*3/uL (1.2-4.9); Lymphocytes Percent Auto 18.5 % (20-40); Mean Corpuscular HGB Conc 33.6 g/dl (31.0-35.0); Mean Corpuscular Hemoglobin 29.2 pg (27.0-33.0); Monocytes Absolute Auto 0.7 X10*3/uL (0.1-1.2); Monocytes Percent Auto 7.9 % (2-11); Neutrophils Absolute Auto 6.7 x10*3/uL (2.0-8.3); Platelet Count 302 X10*3/uL (160-400); Red Blood Count 5.37 X10*6/uL (4.20-5.50); Red Cell Distribution Width 12.3 % (11.0-16.0); White Blood Count 9.2 X10*3/uL (4.8-10.8)
[2022-12-15 05:34] LABS: Albumin Level 4.1 g/dL (3.5-5.0); Anion Gap 14 (12-20); Blood Urea Nitrogen 17 mg/dL (9-16); Calcium 9.3 mg/dL (8.4-10.2); Carbon Dioxide 26 mmol/L (22-29); Chloride 108 mmol/L (96-108); Creatinine Clr Calc Pharmacy 54.9; Estimated Glomerular Filt Rate > 60; Glucose Random 124 mg/dL (60-115); Magnesium 2.4 mg/dL (1.6-2.6); Phosphorus 2.5 mg/dL (2.7-4.5); Potassium 3.6 mmol/L (3.3-5.1); Sodium 144 mmol/L (135-145)
--- NOTE | 2022-12-15 07:52 | HE.PHANOTE ---
DOXYCYCLINE IV TO PO OK TO CHANGE TO PO PER DR BAR. ORDER ADJUSTED.
[2022-12-15] MEDS: amLODIPine Besylate 10 MG TABLET PO (08:34)
[2022-12-15] MEDS: Doxycycline Monohydrate 100 MG CAPSULE PO ×2 (08:34→22:01)
--- NOTE | 2022-12-15 09:49 | MHC.CLN ---
F/U DIET=REGULAR. MAGIC CUP TID. PROVIDES 870 KCALS, 27 G PROTEIN. SUPPLEMENT DUE TO RECENT POOR PO INTAKE. PT EXTUBATED 12/14. MONITOR PO INTAKE CLOSELY.
--- NOTE | 2022-12-15 11:35 | PM.CCPN ---
Subjective Subjective Date of Service: 12/15/22 Interval History: 57-year-old lady with underlying history of polysubstance abuse including opioids, alcohol, tobacco, seizure disorder usually on Keppra, found actively seizing by her daughter. Patient brought to emergency room intubated for airway protection. She was given benzodiazepines. There was no seizure recurrence. Patient had CT head did not demonstrate intracranial hemorrhage in she was admitted to the intensive care unit. Patient empirically covered with broad-spectrum antibiotics and restarted on Keppra. Tox screen is positive for opiates, fentanyl, and benzodiazepines. no recurrence of seizures. Extubated uneventfully on 12/14/2022. No events overnight. Critical Care Time (minutes): 0 Physical Exam Vital Signs: Vital Signs: Last Vital Signs Temp 97.8 F 12/15/22 08:00 Pulse 82 12/15/22 10:00 Resp 32 H 12/15/22 10:00 BP 175/89 H 12/15/22 10:00 Pulse Ox 96 12/15/22 10:00 O2 Del Method Room Air 12/15/22 10:00 FiO2 21 12/14/22 10:00 Oxygen Flow Rate 15 12/13/22 09:12 BMI result Body Mass Index 17.4 Const: General: no acute distress and alert Nutritional Appearance: not obese Orientation/consciousness: Other orientation findings ( oriented) HEENT: Head: Yes atraumatic Eyes: General: appearance normal, both eyes and all related structures Sclerae: sclerae normal EOM: EOMs intact bilaterally Neck: Neck: Yes supple Lymphatic: no lymphadenopathy noted Resp: Effort & Inspection: normal respiratory effort and no use of accessory muscles Auscultation: clear to auscultation bilaterally Cardio: Rate: tachycardic Rhythm: regular rhythm Heart sounds: no gallops, no murmurs and no rubs Skin: General skin exam: other ( warm) Extrem: General: No clubbing, No cyanosis and No edema Objective Data Labs 12/15/22 05:01 12/15/22 05:01 Labs: Laboratory Results - last 24 hr 12/15/22 12/15/22 05:01 05:02 WBC 9.2 RBC 5.37 Hgb 15.7 Hct 46.7 MCV 87.0 MCH 29.2 MCHC 33.6 RDW 12.3 Plt Count 302 D MPV 10.0 Immature Gran % (Auto) 0.3 Neut % (Auto) 73.0 Lymph % (Auto) 18.5 L [place] % (Auto) 7.9 Eos % (Auto) 0.1 Baso % (Auto) 0.2 Lymph # (Auto) 1.7 [place] # (Auto) 0.7 Eos # (Auto) 0.0 Baso # (Auto) 0.0 Abs Immat Gran (auto) 0.03 Absolute Neuts (auto) 6.7 Absolute Nucleated RBC 0.000 Nucleated RBC % (auto) 0.0 VBG pH 7.47 H VBG pCO2 34 VBG pO2 29 VBG HCO3 24 VBG O2 Saturation 51.0 VBG Base Excess 1.8 Sodium 144 Potassium 3.6 Chloride 108 Carbon Dioxide 26 Anion Gap 14 BUN 17 H Creatinine 0.78 Estim Creat Clear Calc 54.9 Estimated GFR > 60 Random Glucose 124 H Calcium 9.3 Phosphorus 2.5 L Magnesium 2.4 Albumin 4.1 Microbiology Microbiology Results: Microbiology 12/13/22 18:36 Blood - Venous Blood Culture - Preliminary No growth after 24 hours. 12/13/22 13:42 Blood - Venous Blood Culture - Preliminary No growth after 24 hours. 12/13/22 Unknown Urine clean catch - Urine solorio top Urine Culture - Final No growth. Progress Note: A&P Assessment and plan (1) Seizure: Status: Acute (2) Polysubstance abuse: Status: Acute Plan Assessment: 57-year-old lady with polysubstance abuse and seizure disorder admitted with encephalopathy after seizure requiring ventilatory support for airway protection Plan: Neuro: Polysubstance abuse with metabolic encephalopathy, resolved. Recurrent seizure. CT head with no acute intracranial findings. Continue on Keppra. Cardiac: No acute issues. Pulmonary: Intubated in the emergency room for airway protection. Extubated uneventfully On 12/14/2022. Renal: No acute issues. Endo: No acute issues. GI: No acute issues. ID: Tick bite with retained tick head, started n doxycycline. Heme/Onc: No acute issues. Psych: No acute issues. Miscellaneous: No acute issues. Prophylaxis: Heparin Diet: Regular Quality Stroke Does the patient have a stroke diagnosis?: No VTE Prior VTE?: No VTE Risk Level:: Medical - moderate - high VTE Device Contraindication: N/A - Device Ordered VTE Drug Contraindication: N/A - Med Ordered
--- NOTE | 2022-12-15 12:33 | MHC.CM.PN ---
Met w/pt to complete HCP - named her dtr at primary and only proxy. Pt unsure of PCP but states it was a [facility] affiliated provider. Discussed d/c planning needs including [facility] application pending - pt states she had GIC through her employer but lost it when she retired this spring. Pt will not be eligible for VNA until she has a payor. Pt and dtr aTbby aware. Tabby concerned w/pt's progressive memory impairment and would like her cognitive fx assessed. Message placed to MD who will address. Pt to be seen by addictive medicine prior to d/c. CM to follow.
--- NOTE | 2022-12-15 15:51 | P.PNADD_ITS ---
Subjective Subjective Date of Service: 12/15/22 Reason For Visit: Encephalopathy Interim History: Patient seen in follow up. Out of ICU, seen in room 476. Awake, alert, laying in bed, curled up on her side. Superficially pleasant affect, although reporting that she feels terrible . Reporting withdrawal sx, difficulty explaining her sx. Agreeable to methadone to address withdrawal sx. Review of Systems Constitutional: Reports as per HPI Mental Status Exam Mental Status Exam Patient Appearance: Disheveled Patient Orientation: Person Level of Consciousness: Awake and Alert Patient Behavior: Passive Mood Description: Blunted Affect Description: Blunted Patient Cognition Impaired: Yes Speech Pattern: Clear Thought Process: Slowed Thinking Thought Content: positive for Slowed Thinking Diagnostics Vital Signs (24Hr): Vital Signs - 24 hr 12/14/22 18:00 12/14/22 19:00 12/14/22 20:00 Temperature 98.2 F 97.8 F Pulse Rate 77 76 78 Respiratory Rate 32 H 29 H 28 H Blood Pressure 151/79 H 169/95 H 157/90 H Pulse Oximetry 100 97 99 Oxygen Delivery Method Room Air Room Air Room Air 12/14/22 21:00 12/14/22 22:00 12/14/22 23:00 Temperature Pulse Rate 78 68 72 Respiratory Rate 32 H 34 H 27 H Blood Pressure 164/88 H 189/107 H 164/103 H Pulse Oximetry 99 100 96 Oxygen Delivery Method Room Air Room Air Room Air 12/15/22 00:00 12/15/22 00:55 12/15/22 02:00 Temperature 98.0 F Pulse Rate 70 68 67 Respiratory Rate 25 H 23 H 26 H Blood Pressure 164/85 H 171/84 H 164/87 H Pulse Oximetry 98 98 99 Oxygen Delivery Method Room Air Room Air Room Air 12/15/22 03:00 12/15/22 04:00 12/15/22 05:00 Temperature 98.1 F Pulse Rate 70 68 60 Respiratory Rate 24 H 20 22 H Blood Pressure 166/84 H 167/93 H 158/77 H Pulse Oximetry 98 98 98 Oxygen Delivery Method Room Air Room Air Room Air 12/15/22 06:00 12/15/22 07:00 12/15/22 08:00 Temperature 97.8 F Pulse Rate 76 105 H 65 Respiratory Rate 26 H 33 H 35 H Blood Pressure 155/87 H 159/87 H 184/88 H Pulse Oximetry 97 98 95 Oxygen Delivery Method Room Air Room Air Room Air 12/15/22 09:00 12/15/22 10:00 12/15/22 12:00 Temperature 97.8 F Pulse Rate 66 82 96 Respiratory Rate 37 H 32 H 29 H Blood Pressure 168/100 H 175/89 H 150/77 H Pulse Oximetry 96 96 98 Oxygen Delivery Method Room Air Room Air Room Air 12/15/22 15:25 Temperature 97.8 F Pulse Rate 79 Respiratory Rate 16 Blood Pressure 167/83 H Pulse Oximetry 100 Oxygen Delivery Method Room Air BMI result Body Mass Index 17.4 Labs 12/15/22 05:01 12/15/22 05:01 Labs: Laboratory Results - last 48 hr 12/13/22 12/13/22 12/14/22 18:36 18:37 04:38 WBC 18.0 H 15.7 H RBC 5.78 H 5.73 H Hgb 16.8 H 16.5 H Hct 49.4 H 49.9 H MCV 85.5 87.1 MCH 29.1 28.8 MCHC 34.0 33.1 RDW 12.7 12.8 Plt Count 408 H 416 H MPV 10.2 10.6 Immature Gran % (Auto) 1.1 H 0.4 Neut % (Auto) 78.0 H 78.1 H Lymph % (Auto) 10.4 L 12.0 L [place] % (Auto) 10.4 9.3 Eos % (Auto) 0.0 0.1 Baso % (Auto) 0.1 0.1 Lymph # (Auto) 1.9 1.9 [place] # (Auto) 1.9 H 1.5 H Eos # (Auto) 0.0 0.0 Baso # (Auto) 0.0 0.0 Abs Immat Gran (auto) 0.20 H 0.07 H Absolute Neuts (auto) 14.0 H 12.3 H Absolute Nucleated RBC 0.000 0.000 Nucleated RBC % (auto) 0.0 0.0 Smear Tech's Comments VERIFIED VBG pH 7.59 H 7.51 H VBG pCO2 26 27 VBG pO2 163 80 VBG HCO3 25 22 VBG O2 Saturation 100.0 97.0 VBG Base Excess 5.3 1.3 Sodium 144 Potassium 3.6 Chloride 110 H Carbon Dioxide 21 L Anion Gap 17 BUN 25 H Creatinine 0.85 Estim Creat Clear Calc 59.3 Estimated GFR > 60 Random Glucose 124 H Calcium 9.5 Phosphorus 3.8 Magnesium 2.5 Total Bilirubin 0.9 AST 15 ALT 13 Alkaline Phosphatase 89 Total Protein 6.7 Albumin 4.1 12/15/22 12/15/22 05:01 05:02 WBC 9.2 RBC 5.37 Hgb 15.7 Hct 46.7 MCV 87.0 MCH 29.2 MCHC 33.6 RDW 12.3 Plt Count 302 D MPV 10.0 Immature Gran % (Auto) 0.3 Neut % (Auto) 73.0 Lymph % (Auto) 18.5 L [place] % (Auto) 7.9 Eos % (Auto) 0.1 Baso % (Auto) 0.2 Lymph # (Auto) 1.7 [place] # (Auto) 0.7 Eos # (Auto) 0.0 Baso # (Auto) 0.0 Abs Immat Gran (auto) 0.03 Absolute Neuts (auto) 6.7 Absolute Nucleated RBC 0.000 Nucleated RBC % (auto) 0.0 Smear Tech's Comments VBG pH 7.47 H VBG pCO2 34 VBG pO2 29 VBG HCO3 24 VBG O2 Saturation 51.0 VBG Base Excess 1.8 Sodium 144 Potassium 3.6 Chloride 108 Carbon Dioxide 26 Anion Gap 14 BUN 17 H Creatinine 0.78 Estim Creat Clear Calc 54.9 Estimated GFR > 60 Random Glucose 124 H Calcium 9.3 Phosphorus 2.5 L Magnesium 2.4 Total Bilirubin AST ALT Alkaline Phosphatase Total Protein Albumin 4.1 Imaging Radiology Impressions: ITS Impressions Chest X-Ray 12/13/22 10:02 IMPRESSION: Well-positioned support tubes and lines Cervical Spine CT 12/13/22 11:59 IMPRESSION: No acute fractures seen in the cervical spine. Status post remote placement of C5-C6 and C6-C7 discs bases and chronic deformity of C5-C7 vertebral bodies. No acute fractures seen. Mild global volume loss. No evidence of intracranial bleeding coronary acute stroke. Head CT 12/13/22 11:59 IMPRESSION: No acute fractures seen in the cervical spine. Status post remote placement of C5-C6 and C6-C7 discs bases and chronic deformity of C5-C7 vertebral bodies. No acute fractures seen. Mild global volume loss. No evidence of intracranial bleeding coronary acute stroke. Medications Medications Current Medications Amlodipine Besylate (Amlodipine Besylate 10 Mg Tablet) 10 mg PO DAILY VEL; Protocol Last Admin: 12/15/22 08:34 Dose: 10 mg Doxycycline Monohydrate (Doxycycline Monohydrate 100 Mg Capsule) 100 mg PO Q12H VEL Last Admin: 12/15/22 08:34 Dose: 100 mg Heparin Sodium (Porcine) (Heparin Sodium,Porcine 5,000 Unit/Ml Vial) 5,000 unit SUBCUT Q8H VEL Last Admin: 12/15/22 13:05 Dose: 5,000 unit Levetiracetam (Levetiracetam 1,000 Mg Tablet) 1,000 mg PO BID [facility] Allergies Allergies Allergy/AdvReac Type Severity Reaction Status Date / Time No Known Allergies Allergy Verified 06/23/21 15:12 Assessment & Plan Assessment & Plan (1) Opioid use disorder: Status: Acute Code(s): F11.90 - Opioid use, unspecified, uncomplicated Assessment and Plan: * methadone 15mg X1 * AM dose methadone 20mg * vocational training instructor to follow up over the wkend Total time managing care of this patient today ____ minutes.
[2022-12-15] MEDS: methADONE HCl 20 MG/2 ML ORAL.CONC 15 MG PO (16:29)
[2022-12-15] MEDS: levETIRAcetam 1,000 MG TABLET 1000 MG PO ×2 (16:29→22:01)
[2022-12-16 04:00] VITALS: BP 178/80; PULSE 64; RESP 18; TEMP 36.7; O2SAT 100
[2022-12-16] MEDS: Heparin Sodium,Porcine 5,000 UNIT/ML VIAL 5000 UNIT SUBCUT ×3 (05:01→21:47)
[2022-12-16 07:36] VITALS: BP 160/88; PULSE 75; RESP 18; TEMP 37.4; O2SAT 100
[2022-12-16] MEDS: amLODIPine Besylate 10 MG TABLET PO (07:51)
[2022-12-16] MEDS: Doxycycline Monohydrate 100 MG CAPSULE PO ×2 (07:51→21:49)
[2022-12-16] MEDS: levETIRAcetam 1,000 MG TABLET 1000 MG PO ×2 (07:51→21:49)
[2022-12-16] MEDS: methADONE HCl 20 MG/2 ML ORAL.CONC PO (07:52)
[2022-12-16 08:02] LABS: MANUAL DIFF FLAG NO
[2022-12-16 08:05] LABS: Basophils Percent Auto 0.2 % (0-2); Eosinophils Absolute Auto 0.2 X10*3/uL (0.0-0.4); Hematocrit 44.4 % (37.0-47.0); Hemoglobin 14.9 g/dl (12.0-16.0); Imm Gran Abs Auto 0.03 X10*3/uL (0.00-0.03); Imm Gran Pct Auto 0.3 % (0.0-0.4); Lymphocytes Absolute Auto 2.1 X10*3/uL (1.2-4.9); Lymphocytes Percent Auto 23.8 % (20-40); Mean Corpuscular HGB Conc 33.6 g/dl (31.0-35.0); Mean Corpuscular Hemoglobin 28.8 pg (27.0-33.0); Mean Corpuscular Volume 85.9 fL (80.0-98.0); Mean Platelet Volume 10.8 fL (9.4-12.3); Monocytes Absolute Auto 0.6 X10*3/uL (0.1-1.2); Monocytes Percent Auto 6.7 % (2-11); Platelet Count 317 X10*3/uL (160-400); Red Blood Count 5.17 X10*6/uL (4.20-5.50); Red Cell Distribution Width 11.9 % (11.0-16.0); White Blood Count 8.9 X10*3/uL (4.8-10.8)
[2022-12-16 08:24] LABS: Albumin Level 3.9 g/dL (3.5-5.0); Anion Gap 11 (12-20); Blood Urea Nitrogen 10 mg/dL (9-16); Calcium 9.4 mg/dL (8.4-10.2); Carbon Dioxide 27 mmol/L (22-29); Chloride 106 mmol/L (96-108); Creatinine Clr Calc Pharmacy 63.3; Estimated Glomerular Filt Rate > 60; Glucose Random 103 mg/dL (60-115); Magnesium 2.1 mg/dL (1.6-2.6); Phosphorus 2.6 mg/dL (2.7-4.5); Potassium 3.3 mmol/L (3.3-5.1); Sodium 141 mmol/L (135-145)
--- NOTE | 2022-12-16 11:15 | MHC.RECOVRN ---
Met with pt to follow up, provide support, and assess for withdrawal. Pt sitting in bed, awake, alert, easily engages in conversation. Reports feeling okay, appears comfortable, smiling throughout conversation. Pt unaware she has received 2 doses of methadone, is unable to tell me if she was feeling symptomatic before receiving methadone. Pt currently denies opioid withdrawal symptoms, reports only a headache. Pt reports she had been using heroin/fentanyl, 4 bags daily, IN. Discussed methadone continuation, pt is not interested in continuing after dc. Pt reports looking forward to returning home to new puppy and family. Denies questions or concerns for t/w. Discussed with Gardenia Paulson APRN.
[2022-12-16 12:00] VITALS: BP 150/84; PULSE 81; RESP 18; TEMP 37.5; O2SAT 100
--- NOTE | 2022-12-16 14:07 | HO.PM.IMPN ---
Subjective Subjective Date of Service: 12/16/22 Interval History: Possible toxic encephalopathy, polysubstance use Review of Systems Mental status seems similar to yesterday Denies any chest pain or shortness of breath or abdominal pain or fever chills. Physical Exam Vital Signs: Vital Signs: Last Vital Signs Temp 99.5 F 12/16/22 12:00 Pulse 81 12/16/22 12:00 Resp 18 12/16/22 12:00 BP 150/84 H 12/16/22 12:00 Pulse Ox 100 12/16/22 12:00 O2 Del Method Room Air 12/16/22 12:00 FiO2 21 12/14/22 10:00 Oxygen Flow Rate 15 12/13/22 09:12 BMI result Body Mass Index 17.4 Appearance: Alert.? Oriented X2 , cvs: rrr, [id number] , no murmur res: clear to auscultation ,no rhonchii or wheezing abd: no rebound or guarding ,nt, bs present. ext pulses present , no cyanosis ,Gait well balanced well coordinated. neuro: axo3 , nonfocal. Objective Data Active Medications Amlodipine Besylate (Amlodipine Besylate 10 Mg Tablet) 10 mg PO DAILY [facility]; Protocol Last Admin: 12/16/22 07:51 Dose: 10 mg Documented By: SD Doxycycline Monohydrate (Doxycycline Monohydrate 100 Mg Capsule) 100 mg PO Q12H [facility] Last Admin: 12/16/22 07:51 Dose: 100 mg Documented By: SD Heparin Sodium (Porcine) (Heparin Sodium,Porcine 5,000 Unit/Ml Vial) 5,000 unit SUBCUT Q8H [facility] Last Admin: 12/16/22 13:52 Dose: 5,000 unit Documented By: SD Levetiracetam (Levetiracetam 1,000 Mg Tablet) 1,000 mg PO BID [facility] Last Admin: 12/16/22 07:51 Dose: 1,000 mg Documented By: SD Methadone HCl (Methadone Hcl 20 Mg/2 Ml Oral.Conc) 20 mg PO DAILY [facility] Last Admin: 12/16/22 07:52 Dose: 20 mg Documented By: SD Labs 12/16/22 07:03 12/16/22 07:03 Labs: Laboratory Results - last 24 hr 12/16/22 07:03 MCV 85.9 MCH 28.8 MCHC 33.6 RDW 11.9 Plt Count 317 MPV 10.8 Immature Gran % (Auto) 0.3 Neut % (Auto) 67.0 Lymph % (Auto) 23.8 [place] % (Auto) 6.7 Eos % (Auto) 2.0 Baso % (Auto) 0.2 Lymph # (Auto) 2.1 [place] # (Auto) 0.6 Eos # (Auto) 0.2 Baso # (Auto) 0.0 Abs Immat Gran (auto) 0.03 Absolute Neuts (auto) 6.0 Absolute Nucleated RBC 0.000 Nucleated RBC % (auto) 0.0 Anion Gap 11 L Estim Creat Clear Calc 63.3 Estimated GFR > 60 Random Glucose 103 Calcium 9.4 Phosphorus 2.6 L Magnesium 2.1 Albumin 3.9 Microbiology Microbiology Results: Microbiology 12/13/22 18:36 Blood Culture - Preliminary Blood - Venous No growth after 48 hours. 12/13/22 13:42 Blood Culture - Preliminary Blood - Venous No growth after 48 hours. Assessment and Plan (1) Acute metabolic encephalopathy: Status: Acute Plan 57year old female with a history of opiate use disorder previously on suboxone, seizure disorder, HTN who presented to the ED: Was found on the floor at home with chronic tonic seizure-subsequently got intubated and went to ICU For respiratory failure. Acute respiratory failure possible in the setting of of multi poly substance use and seizure: Got intubated in ED for airway protection. CT head negative Tox screen positive for opioid, fentanyl, benzodiazepines Patient respiratory failure resolved, [id number]/2/23. Transfer the floor. Toxic encephalopathy Suspected secondary to drug ingestion. Tox screen +for fentanyl and opiates, benzos. brain imaging negative no infectious etiology identified-urine and blood culture negative Chest x-ray also negative seems to be improving, still not totally clear mental status rosenthal. Added capacity evaluation for psych-patient lacks capacity -can not leave AMA. Opiate use disorder addiction medicine following resumed on suboxone seizure disorder continue Keppra hypertension continue Norvasc monitor blood pressure closely patient requires ongoing inpatient hospitalization secondary to encephalopathy, need psych evaluation for capacity Quality Stroke Does the patient have a stroke diagnosis?: No VTE Prior VTE?: No VTE Risk Level:: Medical - moderate - high VTE Device Contraindication: N/A - Device Ordered VTE Drug Contraindication: N/A - Med Ordered
--- NOTE | 2022-12-16 14:53 | PM.PSYCN ---
History of Present Illness Date of Service: 12/16/22 Chief Complaint: Encephalopathy Reason for Consult: capacity Requesting physician: Maria R Chen Discussed with referring provider: No Sources of Information: patient interviewed and chart reviewed HPI Narrative: Asked to see this patient with multi-drug addiction who is wanting to leave today and is not medically stable. She was brought in after daughter witnessed a seizure. She has had a complicated course including respiratory failure and intubation. She has been confused with diagnosis of encephalopathy. Old chart indicates prior similar episodes of seizures with subsequent encephalopathy. Past Psychiatric History: Denies admissions. Denies suicide attempts. Denies history of psychosis or jluis Medical Evaluation Reviewed: Yes Personal & Social History: Lives in [facility] with and adult daughter [facility] Medical History (Updated 12/14/22 @ 12:41 by Mariano Meeks MD) Opioid use disorder Diagnostics Vital Signs (24Hr): Vital Signs - 24 hr 12/15/22 15:25 12/15/22 19:14 12/15/22 22:00 Temperature 97.8 F 98.5 F Pulse Rate 79 67 Respiratory Rate 16 14 Blood Pressure 167/83 H 184/96 H 168/90 H Pulse Oximetry 100 99 Oxygen Delivery Method Room Air Room Air 12/15/22 23:55 12/16/22 04:00 12/16/22 07:36 Temperature 98.9 F 98.1 F 99.3 F Pulse Rate 70 64 75 Respiratory Rate 17 18 18 Blood Pressure 164/82 H 178/80 H 160/88 H Pulse Oximetry 100 100 100 Oxygen Delivery Method Room Air Room Air Room Air 12/16/22 12:00 Temperature 99.5 F Pulse Rate 81 Respiratory Rate 18 Blood Pressure 150/84 H Pulse Oximetry 100 Oxygen Delivery Method Room Air BMI result Body Mass Index 17.4 Labs 12/16/22 07:03 12/16/22 07:03 Labs: Laboratory Results - last 48 hr 12/15/22 12/15/22 12/16/22 05:01 05:02 07:03 WBC 9.2 8.9 RBC 5.37 5.17 Hgb 15.7 14.9 Hct 46.7 44.4 MCV 87.0 85.9 MCH 29.2 28.8 MCHC 33.6 33.6 RDW 12.3 11.9 Plt Count 302 D 317 MPV 10.0 10.8 Immature Gran % (Auto) 0.3 0.3 Neut % (Auto) 73.0 67.0 Lymph % (Auto) 18.5 L 23.8 [place] % (Auto) 7.9 6.7 Eos % (Auto) 0.1 2.0 Baso % (Auto) 0.2 0.2 Lymph # (Auto) 1.7 2.1 [place] # (Auto) 0.7 0.6 Eos # (Auto) 0.0 0.2 Baso # (Auto) 0.0 0.0 Abs Immat Gran (auto) 0.03 0.03 Absolute Neuts (auto) 6.7 6.0 Absolute Nucleated RBC 0.000 0.000 Nucleated RBC % (auto) 0.0 0.0 VBG pH 7.47 H VBG pCO2 34 VBG pO2 29 VBG HCO3 24 VBG O2 Saturation 51.0 VBG Base Excess 1.8 Sodium 144 141 Potassium 3.6 3.3 Chloride 108 106 Carbon Dioxide 26 27 Anion Gap 14 11 L BUN 17 H 10 Creatinine 0.78 0.68 Estim Creat Clear Calc 54.9 63.3 Estimated GFR > 60 > 60 Random Glucose 124 H 103 Calcium 9.3 9.4 Phosphorus 2.5 L 2.6 L Magnesium 2.4 2.1 Albumin 4.1 3.9 Imaging Radiology Impressions: ITS Impressions Chest X-Ray 12/13/22 10:02 IMPRESSION: Well-positioned support tubes and lines Cervical Spine CT 12/13/22 11:59 IMPRESSION: No acute fractures seen in the cervical spine. Status post remote placement of C5-C6 and C6-C7 discs bases and chronic deformity of C5-C7 vertebral bodies. No acute fractures seen. Mild global volume loss. No evidence of intracranial bleeding coronary acute stroke. Head CT 12/13/22 11:59 IMPRESSION: No acute fractures seen in the cervical spine. Status post remote placement of C5-C6 and C6-C7 discs bases and chronic deformity of C5-C7 vertebral bodies. No acute fractures seen. Mild global volume loss. No evidence of intracranial bleeding coronary acute stroke. Mental Status Exam Mental Status Exam Patient Appearance: Disheveled Patient Orientation: Person, Place and Time (states it is the end of December) Level of Consciousness: Drowsy Patient Behavior: Confused Mood Description: Calm Affect Description: Blunted Ability to Follow Directions: Fair Speech Pattern: Perseverating and Impoverished Memory Description: Immediate Impaired and Recent Impaired Hallucinations: None Delusions: Not Present Thought Process: Disoriented Thought Content: positive for Poverty of Content Judgement: Poor Medications Medications Current Medications Amlodipine Besylate (Amlodipine Besylate 10 Mg Tablet) 10 mg PO DAILY [facility]; Protocol Last Admin: 12/16/22 07:51 Dose: 10 mg Doxycycline Monohydrate (Doxycycline Monohydrate 100 Mg Capsule) 100 mg PO Q12H [facility] Last Admin: 12/16/22 07:51 Dose: 100 mg Heparin Sodium (Porcine) (Heparin Sodium,Porcine 5,000 Unit/Ml Vial) 5,000 unit SUBCUT Q8H [facility] Last Admin: 12/16/22 13:52 Dose: 5,000 unit Levetiracetam (Levetiracetam 1,000 Mg Tablet) 1,000 mg PO BID [facility] Last Admin: 12/16/22 07:51 Dose: 1,000 mg Methadone HCl (Methadone Hcl 20 Mg/2 Ml Oral.Conc) 20 mg PO DAILY [facility] Last Admin: 12/16/22 07:52 Dose: 20 mg Allergies Allergies Allergy/AdvReac Type Severity Reaction Status Date / Time No Known Allergies Allergy Verified 06/23/21 15:12 Assessment & Plan Assessment & Plan (1) Acute metabolic encephalopathy: Status: Acute Code(s): G93.41 - Metabolic encephalopathy Plan This patient lacks capacity to make decisions about care and disposition. She is unaware of her current circumstances and has fluctuating level of awareness. She has no concerns about her safety or risk of further health problems and does not feel that she needs any assistance or supervision. Total time managing care of this patient today ____ minutes.
[2022-12-16 15:18] VITALS: BP 152/78; PULSE 74; RESP 18; TEMP 37.1; O2SAT 100
[2022-12-16 19:27] VITALS: BP 159/83; PULSE 74; RESP 20; TEMP 37.3; O2SAT 97
[2022-12-16] MEDS: Acetaminophen 325 MG TABLET 650 MG PO (22:13)
[2022-12-16 23:53] VITALS: BP 157/81; PULSE 75; RESP 20; TEMP 37.2; O2SAT 97
[2022-12-17 03:14] VITALS: BP 135/90; PULSE 85; RESP 20; TEMP 37.3; O2SAT 98
[2022-12-17] MEDS: Heparin Sodium,Porcine 5,000 UNIT/ML VIAL 5000 UNIT SUBCUT ×3 (03:23→20:41)
[2022-12-17 07:34] VITALS: BP 154/70; PULSE 95; RESP 20; TEMP 36.2; O2SAT 98
[2022-12-17] MEDS: levETIRAcetam 1,000 MG TABLET 1000 MG PO ×2 (08:14→20:41)
[2022-12-17] MEDS: methADONE HCl 20 MG/2 ML ORAL.CONC PO (08:14)
[2022-12-17] MEDS: Doxycycline Monohydrate 100 MG CAPSULE PO ×2 (08:14→20:41)
[2022-12-17] MEDS: amLODIPine Besylate 10 MG TABLET PO (08:14)
[2022-12-17 11:25] VITALS: BP 141/74; PULSE 76; RESP 20; TEMP 36.7; O2SAT 99
--- NOTE | 2022-12-17 13:26 | HO.PM.IMPN ---
Subjective Subjective Date of Service: 12/17/22 Interval History: Possible toxic encephalopathy, polysubstance use Review of Systems Mental status seems slightly improving but still not at her baseline Denies any chest pain or shortness of breath or abdominal pain or fever chills. Physical Exam Vital Signs: Vital Signs: Last Vital Signs Temp 98.0 F 12/17/22 11:25 Pulse 76 12/17/22 11:25 Resp 20 12/17/22 11:25 BP 141/74 H 12/17/22 11:25 Pulse Ox 99 12/17/22 11:25 O2 Del Method Room Air 12/17/22 11:25 FiO2 21 12/14/22 10:00 Oxygen Flow Rate 15 12/13/22 09:12 BMI result Body Mass Index 17.4 Appearance: Alert.? Oriented X2 , cvs: rrr, [id number] , no murmur res: clear to auscultation ,no rhonchii or wheezing abd: no rebound or guarding ,nt, bs present. ext pulses present , no cyanosis ,Gait well balanced well coordinated. neuro: axo3 , nonfocal. Objective Data Active Medications Acetaminophen (Acetaminophen 325 Mg Tablet) 650 mg PO Q6H PRN PRN Reason: Headache Last Admin: 12/16/22 22:13 Dose: 650 mg Documented By: RADHA Amlodipine Besylate (Amlodipine Besylate 10 Mg Tablet) 10 mg PO DAILY [facility]; Protocol Last Admin: 12/17/22 08:14 Dose: 10 mg Documented By: SD Doxycycline Monohydrate (Doxycycline Monohydrate 100 Mg Capsule) 100 mg PO Q12H [facility] Last Admin: 12/17/22 08:14 Dose: 100 mg Documented By: SD Heparin Sodium (Porcine) (Heparin Sodium,Porcine 5,000 Unit/Ml Vial) 5,000 unit SUBCUT Q8H [facility] Last Admin: 12/17/22 13:18 Dose: 5,000 unit Documented By: SD Levetiracetam (Levetiracetam 1,000 Mg Tablet) 1,000 mg PO BID [facility] Last Admin: 12/17/22 08:14 Dose: 1,000 mg Documented By: SD Methadone HCl (Methadone Hcl 20 Mg/2 Ml Oral.Conc) 20 mg PO DAILY [facility] Last Admin: 12/17/22 08:14 Dose: 20 mg Documented By: SD Labs 12/16/22 07:03 12/16/22 07:03 Assessment and Plan (1) Acute metabolic encephalopathy: Status: Acute Plan 57year old female with a history of opiate use disorder previously on suboxone, seizure disorder, HTN who presented to the ED: Was found on the floor at home with chronic tonic seizure-subsequently got intubated and went to ICU For respiratory failure. Acute respiratory failure possible in the setting of of multi poly substance use and seizure: Got intubated in ED for airway protection. CT head negative Tox screen positive for opioid, fentanyl, benzodiazepines Patient respiratory failure resolved, [id number]/23. Transfer the floor. Toxic encephalopathy Suspected secondary to drug ingestion. Tox screen +for fentanyl and opiates, benzos. brain imaging negative no infectious etiology identified-urine and blood culture negative Chest x-ray also negative seems to be improving, still not totally clear mental status rosenthal. capacity evaluation for psych-patient lacks capacity Opiate use disorder addiction medicine following resumed on suboxone seizure disorder continue Keppra hypertension continue Norvasc monitor blood pressure closely patient requires ongoing inpatient hospitalization secondary to encephalopathy, capacity evaluation for psych-patient lacks capacity -can not leave AMA. Quality Stroke Does the patient have a stroke diagnosis?: No VTE Prior VTE?: No VTE Risk Level:: Medical - moderate - high VTE Device Contraindication: N/A - Device Ordered VTE Drug Contraindication: N/A - Med Ordered
[2022-12-17 15:29] VITALS: BP 143/70; PULSE 92; RESP 20; TEMP 36.9; O2SAT 98
[2022-12-17 19:58] VITALS: BP 139/81; PULSE 98; RESP 20; TEMP 36.1; O2SAT 99
[2022-12-18 00:28] VITALS: BP 143/82; PULSE 78; RESP 20; TEMP 36.7; O2SAT 97
[2022-12-18] MEDS: Heparin Sodium,Porcine 5,000 UNIT/ML VIAL 5000 UNIT SUBCUT ×2 (03:33→13:42)
[2022-12-18 07:53] VITALS: BP 140/81; PULSE 88; RESP 18; TEMP 36.6; O2SAT 98
[2022-12-18] MEDS: methADONE HCl 20 MG/2 ML ORAL.CONC PO (09:31)
[2022-12-18] MEDS: levETIRAcetam 1,000 MG TABLET 1000 MG PO (09:31)
[2022-12-18] MEDS: amLODIPine Besylate 10 MG TABLET PO (09:31)
[2022-12-18] MEDS: Doxycycline Monohydrate 100 MG CAPSULE PO (09:31)
--- NOTE | 2022-12-18 10:45 | P.DS_ITS ---
DS: Providers Provider Date of Service: 12/18/22 Date of admission: 12/13/22 12:14 Date of discharge: 12/18/22 Primary care physician: Unknown Physician Admitting clinician: Mariano Meeks Attending physician on admission: Mariano Meeks Consults: 12/14/22 13:47 Addiction Medicine Routine Consulting Provider: Addiction Covering Reason for consultation: hx opioid / heroin misuse: ongoing Has provider been notified: Yes 12/16/22 11:10 Consult to Psychiatry Routine Consulting Provider: Psych Covering Reason for consultation: cpapacity eval Has provider been notified: No 12/16/22 16:34 Consult for Sitter Routine Reason for consultation: encpehalopthy Has provider been notified: No Attending physician on discharge: Maria R Chen Discharging clinician: Maria R Chen DS: Diagnosis Discharge Diagnosis (1) Acute metabolic encephalopathy: Status: Acute DS: Summary Hospital Course Hospital Course: 57-year-old lady with underlying history of polysubstance abuse including opioids, alcohol, tobacco, seizure disorder usually on Keppra, found actively seizing by her daughter. Patient brought to emergency room intubated for airway protection. She was given benzodiazepines. There was no seizure recurrence. Patient had CT head did not demonstrate intracranial hemorrhage in she was admitted to the intensive care unit. Patient empirically covered with broad- spectrum antibiotics and restarted on Keppra. Tox screen is positive for opiates, fentanyl, and benzodiazepines. Hospital course : Patient was admittedAcute respiratory failure possible in the setting of of toxic encephalopathy, multi poly substance use and seizure- good intubated for airway protection, CT head negative, urine toxicology positive for opioid and fentanyl, benzodiazepine- patient seems to be improved , extubated [id number]/23. Initially also received antibiotics for possible aspiration in ICU but was stopped since patient improved. Patient toxic encephalopathy is also improving significantly, patient will be revaluated by psych today. Seizure : Keppra adjusted to 1000 mg b.i.d. in ICU. patient is concered about tick bite on lower leg area-started on doxycycline ,tick serology panel pending -patient need to follow up outpatient. opoid use -seen by addiction team -started on methadone. plan: given doxycycline 100 mg p.o. b.i.d. for 7 days until serology pending ct head: shows Mild global volume loss. consider outpatient neurology eval as per pcp.currently patient asymptomatic . Assessment plan coordination discussed with patient and her family in detail length -they understand and in agreement with the above plan, time spent 50 minute. Time Attestation Discharge coordination time: Greater than 30 minutes Quality: Safe Use of Opioids Does Pt have an Active Cancer Diagnosis on the Problem List?: No Quality: Stroke Does the patient have a stroke diagnosis?: No Physical Exam Vital Signs: Vital Signs: Last Vital Signs Temp 97.9 F 12/18/22 07:53 Pulse 88 12/18/22 07:53 Resp 18 12/18/22 07:53 BP 140/81 H 12/18/22 07:53 Pulse Ox 98 12/18/22 07:53 O2 Del Method Room Air 12/18/22 07:53 FiO2 21 12/14/22 10:00 Oxygen Flow Rate 15 12/13/22 09:12 BMI result Body Mass Index 17.4 Appearance: Alert.? Oriented X3. cvs: rrr, [id number] , no murmur res: clear to auscultation ,no rhonchii or wheezing abd: no rebound or guarding ,nt, bs present. ext pulses present , no cyanosis ,Gait well balanced well coordinated. neuro: axo3 , nonfocal. DS: Data Data Completed and Pending Completed studies during hospitalization [Text1]: Procedures Drainage of Spinal Canal, Percutaneous Approach, Diagnostic (09/08/22) Insertion of Endotracheal Airway into Trachea, Via Natural or Artificial Opening (09/08/22) Inspection of Upper Intestinal Tract, Via Natural or Artificial Opening Endoscopic (09/08/22) Respiratory Ventilation, 24-96 Consecutive Hours (09/08/22) Labs on day of discharge: Preliminary micro results at discharge 12/13/22 18:36 Blood Culture - Preliminary Blood - Venous No growth after 48 hours. 12/13/22 13:42 Blood Culture - Preliminary Blood - Venous No growth after 48 hours. Imaging Chest x-ray: Radiologist's impression: ITS Impressions Chest X-Ray 12/13/22 10:02 IMPRESSION: Well-positioned support tubes and lines Cervical Spine CT 12/13/22 11:59 IMPRESSION: No acute fractures seen in the cervical spine. Status post remote placement of C5-C6 and C6-C7 discs bases and chronic deformity of C5-C7 vertebral bodies. No acute fractures seen. Mild global volume loss. No evidence of intracranial bleeding coronary acute stroke. Head CT 12/13/22 11:59 IMPRESSION: No acute fractures seen in the cervical spine. Status post remote placement of C5-C6 and C6-C7 discs bases and chronic deformity of C5-C7 vertebral bodies. No acute fractures seen. Mild global volume loss. No evidence of intracranial bleeding coronary acute stroke. Discharge Plan Discharge Anticipated Discharge Date/Time: 12/18/22 16:05 Patient Disposition: Home, Self-Care Discharge Diagnosis: Toxic encephalopathy secondary to drug use. Referrals: Physician,Unknown J [Primary Care Provider] - 1 Week Discharge Medications: New doxycycline monohydrate 100 mg Capsule 100 mg PO Q12H Qty: 18 0RF Continued amlodipine 10 mg tablet 1 tab PO DAILY Changed levetiracetam 500 mg tablet 1,000 mg PO Q12H Qty: 60 0RF Discharge Orders: Discharge Order (Routine); Ordered 12/18/22 Ordered By: Maria R Chen Diet: Advance to usual diet Activity on Discharge: As tolerated Stand Alone Forms: Patient Portal Discharge page Care Plan Goals: Patient was admitted Acute respiratory failure possible in the setting of of toxic encephalopathy, multi poly substance use and seizure- good intubated for airway protection, CT head negative, urine toxicology positive for opioid and fentanyl, benzodiazepine- patient seems to be improved , extubated [id number]/2/23. Patient toxic encephalopathy is also improving significantly, patient will be revaluated by psych today. Seizure : Keppra adjusted to 1000 mg b.i.d. in ICU. patient is concered about tick bite on lower leg area-started on doxycycline ,tick serology panel pending -patient need to follow up outpatient. opoiod use -seen by addiction team -started on methadone.she need to follow up with additcion outpatient she was strongly encouraged to abstain from substance use. Health Concerns: As above. Plan of Treatment: As above. Assessment: As above. Denies any new complaint of chest pain or shortness of breath or abdominal pain or fever or chills or nausea or vomiting Denies any cough Denies any weakness or numbness. Discharge Date/Time: 12/18/22 16:30
[2022-12-18 11:02] VITALS: BP 136/75; PULSE 82; RESP 18; TEMP 36.6; O2SAT 97
--- NOTE | 2022-12-18 12:56 | P.CDIM_ITS ---
PROVIDER RESPONSE TEXT: To clarify, the appropriate diagnosis supported by the clinical indicators: Other (explain): seizer -unclear type QUERY TEXT: PHYSICIAN'S DOCUMENTATION REQUEST Date of Query: 12/18/2022 09:38 AM EST Patient Name: Mary Aviles Admit Date: 12/13/2022 Dear Maria R Chen, A review of the medical record indicates additional documentation may be needed. Please review below and update the documentation accordingly. Clinical Indicators: PN: Underlying history of polysubstance abuse including opioids, alcohol, tobacco, seizure disorder u [facility] in [facility], found actively seizing by her daughter. There was no seizure recurrence. Intubated for airway protection. If possible, please further clarify the type/etiology of seizure(s): Idiopathic Due to external cause please further specify if drug, alcohol, stress, etc. Absence Generalized epilepsy (grand mal, myoclonic, atonic, clonic, tonic-clonic, etc.) Focal or partial please further specify simple or complex Petit mal Other (explain)Clinically unable to determine (explain)Thank you, Lois Prather, CCS, CDIS Use of terms such as suspected, likely, concern for, or probable (associated with a specific diagnosi s that is being evaluated, monitored, or treated as if it exists) are acceptable and can be coded in the inpatient se tting, when documented at the time of discharge. Please use your independent medical judgment in providing your response. THIS QUERY IS PART OF THE PERMANENT MEDICAL RECORD
--- NOTE | 2022-12-18 14:01 | MHC.CLN ---
F/U DIET=REGULAR-APPROPRIATE. RECEIVING MAGIC CUP TID TO IMPROVE NUTRITIONAL INTAKE. PROVIDES 870 KCALS, 27 G PROTEIN. INTAKE VARIABLE. PATIENT REPORTS THAT SHE IS EATING WELL. MONITOR PO INTAKE CLOSELY.
--- NOTE | 2022-12-18 14:50 | MHC.CM.PN ---
Pt is not yet medically cleared for DC, psych has determined that she does not have capacity to make her decisions. Her understanding of her DC plan is that she will go home and then see Gardenia Paulson at [facility] to help her stay clean. CM received a message today that Gardenia Khurram has expressed concern about pt returning home as not a safe DC. Cm will follow, awaiting psych clearance to determine DC plan.
[2022-12-18 15:32] VITALS: BP 120/65; PULSE 80; RESP 14; TEMP 36.8; O2SAT 99
--- NOTE | 2022-12-18 15:47 | MHC.CM.PN ---
Pt has been medically cleared for DC, [facility] and called dtr and to find out when they will be here to pick her up. said that he will be right over.
--- NOTE | 2022-12-18 16:08 | PM.PSYCN ---
History of Present Illness Date of Service: 12/18/22 Chief Complaint: Encephalopathy Reason for Consult: Capacity to care for self if discharged. Requesting physician: Maria R Chen Discussed with referring provider: Yes Sources of Information: patient interviewed HPI Narrative: Patient is a 57-year-old woman with underlying history of polysubstance abuse including opioids, alcohol, tobacco, seizure disorder usually on Keppra, found actively seizing by her daughter. Patient brought to emergency room intubated for airway protection. She was given benzodiazepines. There was no seizure recurrence. Patient had CT head did not demonstrate intracranial hemorrhage in she was admitted to the intensive care unit. Patient empirically covered with broad-spectrum antibiotics and restarted on Keppra. Tox screen is positive for opiates, fentanyl, and benzodiazepines. Patient was seen to determine if she possesses capacity to care for self if discharged home. During consult, pt presents alert and oriented, calm and cooperative. She was able to state why she came into the hospital; pt stated, my daughter found me having a seizure from drug use. I accidentally overdosed; it was not a suicide attempt . Pt denies any hx of mental illness; she currently denies any depression. Pt stated, I only use because my also uses and it gives me energy . Pt reports she plans on following up with the [facility] at [facility]. Pt stated, I want to stay clean. I understand that If I keep using I'll . I don't know if my will get help but I want it for me . Pt reports she is not interested in having a psychiatrist or therapist at this time; nor is she interested in psychiatric medications. Pt denies SI/HI/VH/AH. Past Psychiatric History: Denies admissions. Denies suicide attempts. Denies history of psychosis or jluis Review of Systems Constitutional: Reports as per HPI Eyes: Reports as per HPI Reports as per HPI Cardiovascular: Reports as per HPI Respiratory: Reports as per HPI Gastrointestinal: Reports as per HPI Genitourinary: Reports as per HPI Musculoskeletal: Reports as per HPI Skin/Breast: Reports as per HPI Reports as per HPI Psychiatric: Reports as per HPI Endocrine: Reports as per HPI Hematologic/Lymphatic: Reports as per HPI Allergic/Immunologic: Reports as per HPI [facility] Medical History (Updated 12/14/22 @ 12:41 by Mariano Meeks MD) Opioid use disorder Social History: Lives with and daughter. also uses heroin. Substance History: pt reports heroin use. Diagnostics Vital Signs (24Hr): Vital Signs - 24 hr 12/17/22 19:58 12/18/22 00:28 12/18/22 07:53 Temperature 96.9 F 98.0 F 97.9 F Pulse Rate 98 78 88 Respiratory Rate 20 20 18 Blood Pressure 139/81 143/82 H 140/81 H Pulse Oximetry 99 97 98 Oxygen Delivery Method Room Air Room Air Room Air 12/18/22 11:02 12/18/22 15:32 Temperature 97.9 F 98.2 F Pulse Rate 82 80 Respiratory Rate 18 14 Blood Pressure 136/75 120/65 Pulse Oximetry 97 99 Oxygen Delivery Method Room Air Room Air BMI result Body Mass Index 17.4 Labs 12/16/22 07:03 12/16/22 07:03 Imaging Radiology Impressions: ITS Impressions Chest X-Ray 12/13/22 10:02 IMPRESSION: Well-positioned support tubes and lines Cervical Spine CT 12/13/22 11:59 IMPRESSION: No acute fractures seen in the cervical spine. Status post remote placement of C5-C6 and C6-C7 discs bases and chronic deformity of C5-C7 vertebral bodies. No acute fractures seen. Mild global volume loss. No evidence of intracranial bleeding coronary acute stroke. Head CT 12/13/22 11:59 IMPRESSION: No acute fractures seen in the cervical spine. Status post remote placement of C5-C6 and C6-C7 discs bases and chronic deformity of C5-C7 vertebral bodies. No acute fractures seen. Mild global volume loss. No evidence of intracranial bleeding coronary acute stroke. Mental Status Exam Mental Status Exam Narrative: Pt is alert and oriented; behavior is cooperative, friendly and calm; mood is described as good ; eye contact appropriate; Speech is normal rate, volume and prosody and not pressured; no psychomotor agitation/retardation present; thought process is organized and goal directed; Thought content is on tx; otherwise pertinent to relevant topics and without any delusional content, paranoid ideations or grandiosity; denies SI/HI. There is no evidence of perceptual disturbance. Patients insight and judgment are fair. Medications Medications Current Medications Acetaminophen (Acetaminophen 325 Mg Tablet) 650 mg PO Q6H PRN PRN Reason: Headache Last Admin: 12/16/22 22:13 Dose: 650 mg Amlodipine Besylate (Amlodipine Besylate 10 Mg Tablet) 10 mg PO DAILY [facility]; Protocol Last Admin: 12/18/22 09:31 Dose: 10 mg Doxycycline Monohydrate (Doxycycline Monohydrate 100 Mg Capsule) 100 mg PO Q12H [facility] Last Admin: 12/18/22 09:31 Dose: 100 mg Heparin Sodium (Porcine) (Heparin Sodium,Porcine 5,000 Unit/Ml Vial) 5,000 unit SUBCUT Q8H [facility] Last Admin: 12/18/22 13:42 Dose: 5,000 unit Levetiracetam (Levetiracetam 1,000 Mg Tablet) 1,000 mg PO BID [facility] Last Admin: 12/18/22 09:31 Dose: 1,000 mg Methadone HCl (Methadone Hcl 20 Mg/2 Ml Oral.Conc) 20 mg PO DAILY [facility] Last Admin: 12/18/22 09: Dose: 20 mg Allergies Allergies Allergy/AdvReac Type Severity Reaction Status Date / Time No Known Allergies Allergy Verified 06/23/21 15:12 Assessment & Plan Assessment & Plan (1) Opioid use disorder: Status: Acute Code(s): F11.90 - Opioid use, unspecified, uncomplicated Plan Patient is a 57-year-old woman with underlying history of polysubstance abuse including opioids, alcohol, tobacco, seizure disorder usually on Keppra, found actively seizing by her daughter. Patient was seen to determine if she possesses capacity to care for self if discharged home. During consult, pt presents alert and oriented, calm and cooperative. She was able to state why she came into the hospital; pt stated, my daughter found me having a seizure from drug use. I accidentally overdosed; it was not a suicide attempt . Pt denies any hx of mental illness; she currently denies any depression. Pt stated, I only use because my also uses and it gives me energy . Pt reports she plans on following up with the [facility] at [facility]. Pt stated, I want to stay clean. I understand that If I keep using I'll . I don't know if my will get help but I want it for me . Pt reports she is not interested in having a psychiatrist or therapist at this time; nor is she interested in psychiatric medications. Pt denies SI/HI/VH/AH. Recommendation: In my professional opinion, pt possesses capacity to care for self if discharged home. She verbalizes her understanding of possible outcomes with continued substance abuse. Pt plans on following up with [facility] at [facility] for substance treatment. Total time managing care of this patient today _30___ minutes. Patient educated on: diagnosis, medication risk/benefits, substance abuse and therapeutic strategies Informed Consent: understands and further education needed
--- NOTE | 2022-12-18 16:32 | P.PNADD_ITS ---
Subjective Subjective Date of Service: 12/18/22 Reason For Visit: Encephalopathy Interim History: Patient seen in follow up Currently on methadone 20mg QD. Patient with some difficulty word finding and impaired short term memory. Requires prompting when asked about MOUD. Unable to report if sx have improved at all, however, patient appears to be much better. Smiling, sitting up, eating, talkative. Confabulating some, I am so glad you came to see me yesterday, you work so late . This expert medical writer has not seen patient in several days. Patient seen by psychiatry over the weekend as she was requesting to be discharged, found to lack capacity with regards to medical decision making. Daughter, Tabby, is patient's documented HCP. Plan for patient to discharge today. This expert medical writer reviewed plan to present to O[facility] in the AM and referral would be sent over by Recovery team this evening. Review of Systems Review of Systems Yes Unobtainable due to mental status Diagnostics Vital Signs (24Hr): Vital Signs - 24 hr 12/17/22 19:58 12/18/22 00:28 12/18/22 07:53 Temperature 96.9 F 98.0 F 97.9 F Pulse Rate 98 78 88 Respiratory Rate 20 20 18 Blood Pressure 139/81 143/82 H 140/81 H Pulse Oximetry 99 97 98 Oxygen Delivery Method Room Air Room Air Room Air 12/18/22 11:02 12/18/22 15:32 Temperature 97.9 F 98.2 F Pulse Rate 82 80 Respiratory Rate 18 14 Blood Pressure 136/75 120/65 Pulse Oximetry 97 99 Oxygen Delivery Method Room Air Room Air BMI result Body Mass Index 17.4 Labs 12/16/22 07:03 12/16/22 07:03 Imaging Radiology Impressions: ITS Impressions Chest X-Ray 12/13/22 10:02 IMPRESSION: Well-positioned support tubes and lines Cervical Spine CT 12/13/22 11:59 IMPRESSION: No acute fractures seen in the cervical spine. Status post remote placement of C5-C6 and C6-C7 discs bases and chronic deformity of C5-C7 vertebral bodies. No acute fractures seen. Mild global volume loss. No evidence of intracranial bleeding coronary acute stroke. Head CT 12/13/22 11:59 IMPRESSION: No acute fractures seen in the cervical spine. Status post remote placement of C5-C6 and C6-C7 discs bases and chronic deformity of C5-C7 vertebral bodies. No acute fractures seen. Mild global volume loss. No evidence of intracranial bleeding coronary acute stroke. Medications Allergies Allergies Allergy/AdvReac Type Severity Reaction Status Date / Time No Known Allergies Allergy Verified 06/23/21 15:12 Assessment & Plan Assessment & Plan (1) Opioid use disorder: Status: Acute Code(s): F11.90 - Opioid use, unspecified, uncomplicated Assessment and Plan: * follow up with [facility] * plan reviewed with daughter * overdose prevention discussion Total time managing care of this patient today _35___ minutes.
[2022-12-18 19:38] LABS: Lyme Abs Screen <0.90 index
[2022-12-20 17:13] LABS: A. Phagocytphilium DNA,RT-PCR NOT DETECTED (NOT DETECTED); Babesia Microti DNA, RT-PCR NOT DETECTED (NOT DETECTED); Borrelia Miyamotoi,DNA RT-PCR NOT DETECTED (NOT DETECTED); E.Chaffeensis DNA RT-PCR NOT DETECTED (NOT DETECTED); Lyme(Borrelia ssp)DNA RT-PCR NOT DETECTED (NOT DETECTED)
== END 2022-12-18 16:30 | disposition home or self-care (01) | DRG 917 ==
LOC: HO.ED 11:27 → HO.EDOVER 12:39 → HO.ICU 12:43 → HO.IMC 12-15 13:44
PROVIDERS: Admitting Provider Internal Medicine Pulmonary Disease; Emergency Provider Emergency Medicine Emergency Medical Services; Visit Provider Internal Medicine
DX: T40.411A Poisoning by fentanyl or fentanyl analogs, accidental (unintentional), initial encounter (principal); G92.8 Other toxic encephalopathy; J96.01 Acute respiratory failure with hypoxia; G40.509 Epileptic seizures related to external causes, not intractable, without status epilepticus; Z68.1 Body mass index [BMI] 19.9 or less, adult; I10 Essential (primary) hypertension; T42.4X1A Poisoning by benzodiazepines, accidental (unintentional), initial encounter; T40.2X1A Poisoning by other opioids, accidental (unintentional), initial encounter; F19.10 Other psychoactive substance abuse, uncomplicated; F17.210 Nicotine dependence, cigarettes, uncomplicated; Z71.6 Tobacco abuse counseling; R63.6 Underweight; Z20.822 Contact with and (suspected) exposure to COVID-19; Z79.899 Other long term (current) drug therapy
CPT/HCPCS: 0241U; 36415; 70450; 71045; 72125; 80048; 80053; 80307; 81001; 82040; 82550; 82803; 82947; 83605; 83690; 83735; 83880; 84100; 84484; 85025; 85610; 85730; 86617; 86618; 87040; 87086; 87468; 87469; 87478; 87484; 87798; 93005; 94002; 94003; 94799; 99285; C1758; J0696; J1643; J1940; J1953; J2250; J2405; J3010

== ENCOUNTER → 2022-12-13 12:14 | Outpatient (BNV) | payer SELFPAY | PROVIDERS: Admitting Provider Internal Medicine Pulmonary Disease; Emergency Provider Emergency Medicine Emergency Medical Services; Visit Provider Nurse Practitioner Psychiatric/Mental Health | DX: F11.90 Opioid use, unspecified, uncomplicated (principal) | CPT/HCPCS: 99231 ==

== ENCOUNTER → 2022-12-13 12:14 | Outpatient (BNV) | payer SELFPAY | PROVIDERS: Admitting Provider Internal Medicine Pulmonary Disease; Emergency Provider Emergency Medicine Emergency Medical Services; Visit Provider Internal Medicine Pulmonary Disease | DX: R56.9 Unspecified convulsions (principal); F19.10 Other psychoactive substance abuse, uncomplicated | CPT/HCPCS: 99232; 99291 ==

== ENCOUNTER → 2022-12-13 12:14 | Outpatient (BNV) | payer SELFPAY | PROVIDERS: Admitting Provider Internal Medicine Pulmonary Disease; Emergency Provider Emergency Medicine Emergency Medical Services; Visit Provider Internal Medicine | DX: G93.41 Metabolic encephalopathy (principal) | CPT/HCPCS: 99231; 99239 ==

== ENCOUNTER 2023-08-08 15:49 | Outpatient (AMB) | payer MEDICAID, SELFPAY ==
--- NOTE | 2023-08-08 16:13 | A.OFFVISCC_ITS ---
Vital Signs 08/08/23 16:39 Blood Pressure Location Rt radial Respiration 20 Pulse 80 Pulse Source Pulse Oximeter Pulse Oximetry (%) 96 Intake Visit Reasons: Walk in- Intake Allergies No Known Allergies Allergy (Verified 06/23/21 15:12) HPI HPI Walk in- Intake: Details: Patient presents as walk in with her to initiate treatment for OUD Known to this bond underwriter via previous outpatient treatment and inpatient medical admissions She reports she has not used opiates in a week and recently had a sliver of a suboxone film Denies any recent overdoses Reports splitting a pack of heroin with her every 5 days or so. Would like to restart suboxone Experiencing withdrawal sx --body aches, restlessness, anxiety, runny nose PFSH Medical History (Updated 12/26/22 @ 00:02 by Benson Lama) Opioid use disorder Social History Household Members: Unknown / Unable to assess Housing: Unknown / Unable to assess Unable to assess alcohol history related to: Unable to respond Comment: refusing to use call bahena, impulsive, not calling to use the bathroom. Patient Tobacco Use Status: Tobacco use Unknown Cigarettes Per Day: 3 Years Smoked: 30 Substance Use Type: Heroin and Opiates service: No Current occupational status: employed Review of Systems Const Reports as per HPI Physical Exam Vital Signs: Last Vital Signs Pulse 80 08/08/23 16:39 Resp 20 08/08/23 16:39 Pulse Ox 96 08/08/23 16:39 Const General: cooperative Nutritional Appearance: thin Limitations: no limitations Psych Appearance: grossly normal Speech and movement: Clear speech present Affect: Anxious affect present Attitude: cooperative Thought process: Circumstantial thought process present Insight: Limited insight present (Psych) Judgement: Fair judgement present (Psych) Results AMB 14 Panel Urine Drug Screen Urine Marijuana (THC) Negative Last Edit by Dianne Woods RN on 08/08/23 16:45 Urine Cocaine Negative Last Edit by Dianne Woods RN on 08/08/23 16:45 Urine Morphine Negative Last Edit by Dianne Woods RN on 08/08/23 16:45 Urine Methamphetamine Negative Last Edit by Dianne Woods RN on 08/08/23 16:45 Urine Amphetamine Negative Last Edit by Dianne Woods RN on 08/08/23 16:45 Urine Benzodiazepine Negative Last Edit by Dianne Woods RN on 08/08/23 16 :45 Urine Barbiturates Negative Last Edit by Dianne Woods RN on 08/08/23 16:4 5 Urine Methadone Negative Last Edit by Dianne Woods RN on 08/08/23 16:45 Urine Buprenorphine Positive Last Edit by Dianne Woods RN on 08/08/23 16: 45 Urine Tricyclic Antidepressant Negative Last Edit by Dianne Woods RN on 08/08/23 16:45 Urine MDMA Negative Last Edit by Dianne Woods RN on 08/08/23 16:45 Urine Oxycodone Negative Last Edit by Dianne Woods RN on 08/08/23 16:45 Urine Phencyclidine Negative Last Edit by Dianne Woods RN on 08/08/23 16: 45 Urine Propoxyphene Negative Last Edit by Dianne Woods RN on 08/08/23 16:4 5 Results Reviewed Results Reviewed: Laboratory Last Values POC Urine Buprenorphine Positive 08/08/23 16:44 POC Urine Morphine Negative 08/08/23 16:44 POC Urine Oxycodone Negative 08/08/23 16:44 POC Urine Methadone Negative 08/08/23 16:44 POC Urine Propoxyphene Negative 08/08/23 16:44 POC Urine Barbiturates Negative 08/08/23 16:44 POC U Tricyclic Antidpr Negative 08/08/23 16:44 POC Urine PCP Negative 08/08/23 16:44 POC Ur Amphetamines Negative 08/08/23 16:44 POC Ur Methamphetamine Negative 08/08/23 16:44 POC Urine MDMA Negative 08/08/23 16:44 POC Ur Benzodiazepine Negative 08/08/23 16:44 POC Urine Cocaine Negative 08/08/23 16:44 POC Ur Marijuana (THC) Negative 08/08/23 16:44 Assessment & Plan Assessment & Plan (1) Opioid use disorder: Code(s): F11.90 - Opioid use, unspecified, uncomplicated Category: Medical Plan: * suboxone 12mg BID * follow up with RN as provider will be on vacation Orders: Orders AMB 14 Panel Urine Drug Screen 08/08/23 F11.90 - Opioid use, unspecified, uncomplicated Medications: New buprenorphine-naloxone 12-3 mg (Suboxone) 1 film buccal BID 28 ea 1RF
[2023-08-08 16:39] VITALS: PULSE 80; RESP 20; O2SAT 96
== END 2023-08-08 16:50 | disposition home or self-care (01) ==
PROVIDERS: Visit Provider Nurse Practitioner Psychiatric/Mental Health
DX: F11.90 Opioid use, unspecified, uncomplicated (principal)
CPT/HCPCS: 99213

== ENCOUNTER → 2023-08-08 15:49 | Outpatient (BNVA) | payer OTHER, SELFPAY | PROVIDERS: Visit Provider Nurse Practitioner Psychiatric/Mental Health | DX: F11.20 Opioid dependence, uncomplicated (principal); F17.210 Nicotine dependence, cigarettes, uncomplicated; Z51.81 Encounter for therapeutic drug level monitoring | CPT/HCPCS: 80305; 99212 ==

== ENCOUNTER 2024-11-01 18:00 | Emergency (ER) | payer MEDICAID, SELFPAY ==
--- NOTE | 2024-11-01 | ECG_ITS ---
Test Reason : SIEZURE Blood Pressure : */* mmHG Vent. Rate : 109 BPM Atrial Rate : 109 BPM P-R Int : 122 ms QRS Dur : 88 ms QT Int : 338 ms P-R-T Axes : 78 79 270 degrees QTcB Int : 455 ms Sinus tachycardia Septal infarct , age undetermined ST & T wave abnormality, consider inferior ischemia ST & T wave abnormality, consider anterolateral ischemia Abnormal ECG When compared with ECG of 13-Dec-2022 11:19, T wave inversion now evident in Anterolateral leads Referred By: Generic ED Physician Electronically Signed By: MARITZA FREEMAN
--- NOTE | ~2024-11-01 | CT_ITS ---
CLINICAL HISTORY: head injury CT cervical spine without contrast Comparison: 12/13/2022 Findings: No acute fracture or dislocation. Posterior alignment is normal. Moderate degenerative change. C5-6 and C6-7 anterior fusion. Impression: No acute processes This document has been electronically signed by: Maciel Villalobos MD on 11/01/2024 20:14:27
--- NOTE | ~2024-11-01 | CT_ITS ---
CLINICAL HISTORY: head injury CT head without contrast Comparison: 12/13/2022 Findings: No intracranial mass, midline shift, hydrocephalus, or acute hemorrhage. Mild chronic ischemic white matter disease with volume loss. No acute process in sinuses or mastoids. No acute bony abnormality. Impression: No acute intracranial process This document has been electronically signed by: Maciel Villalobos MD on 11/01/2024 19:55:00
[2024-11-01 18:56] VITALS: BP 154/101; PULSE 109; RESP 17; TEMP 36.4; O2SAT 99; BMI 12.8
--- NOTE | 2024-11-01 18:58 | ECG_ITS ---
Test Reason : CP Blood Pressure : */* mmHG Vent. Rate : 112 BPM Atrial Rate : 112 BPM P-R Int : 126 ms QRS Dur : 84 ms QT Int : 360 ms P-R-T Axes : 80 79 -81 degrees QTcB Int : 491 ms Sinus tachycardia Septal infarct (cited on or before 01-Nov-2024) ST & T wave abnormality, consider inferior ischemia ST & T wave abnormality, consider anterolateral ischemia Abnormal ECG When compared with ECG of 01-Nov-2024 18:38, No significant changes seen Referred By: Kim Bolanos Electronically Signed By: MARITZA FREEMAN
--- NOTE | 2024-11-01 19:05 | PC.NURSE ---
Pt comes to ED today with daughter who reports Pt had a seizure yesterday with a laceration to her R eyebrow. Daughter speaks privately with this RN and reports that Pt has been abusing ETOH daily x1 yr. She explains that Pt does not take care of herself and barely leaves the couch. She also reports that Pt has regular passive SI and stated yesterday that she wanted to but would not kill herself. Daughter requests Pt also be seen for detox and MH services. Pt is alert but orientation difficult to assess as Pt appear to be under the influence of ETOH. Lac noted to lateral R eyebrow, scabbed at this time. Pt denies n/v and changes in vision. Facial symmetry noted. (+) PERRLA EKG completed. During change of shift report, this RN alerted by charge that Pt is being evaluated for possible STEMI. Overnight RN and silverware supervisor currently at bedside for IV, blood labs, and repeat EKG ordered. Pt heading to CT for imaging now. Care of Pt relinquished to JUNE Gonzalez.
[2024-11-01 19:10] LABS: MANUAL DIFF FLAG NO
--- NOTE | 2024-11-01 19:20 | ED.GENADULT ---
HPI - General Adult General Chief complaint: Seizure Stated complaint: head injury (08/30); ETOH (NOW) Time Seen by Provider: 11/01/24 18:47 History of Present Illness HPI narrative: Patient is a 59-year-old female with a long history of ETOH. History of smoking. Family history of coronary artery disease. Patient complained that she felt lightheaded yesterday fell hit her head came in for the headache. An EKG was done prior to patient being brought to the ED. I actually saw the patient at 645 p.m.. Upon questioning patient she had chest tightness she had lightheadedness after drinking while trying to get up she fell and hit her head. She elected to come to the ED today. She said her symptom has not improved and her chest pressure has gotten worse. Denies any bloody stool. Denies any fever chills coughing congestion upper respiratory symptoms. No diaphoresis. Never passed out. Daughter stated that patient drinks on a regular basis. Patient is extremely cachectic when we finally got a weight she weighs about 35 kg. Related Data Home Medications ?Medication ?Instructions ?Recorded ?Confirmed amlodipine 10 mg tablet 1 tab PO DAILY 06/08/21 12/13/22 Previous Rx's ?Medication ?Instructions ?Recorded doxycycline monohydrate 100 mg 100 mg PO Q12H #18 caps 12/18/22 capsule levetiracetam 500 mg tablet 1,000 mg (2 x 500 mg) PO Q12H #60 12/18/22 tabs buprenorphine 12 mg-naloxone 3 mg 1 film buccal BID #28 ea 08/08/23 sublingual film (Suboxone) Allergies Allergy/AdvReac Type Severity Reaction Status Date / Time No Known Allergies Allergy Verified 11/01/24 19:02 Review of Systems Review of Systems: positive headache positive chest pain positive dizziness PMFSH Past Medical History Attestation statement: The following information was validated with the patient. Medical History Opioid use disorder Social History Social History Household Members: Unknown / Unable to assess Housing: Unknown / Unable to assess Unable to assess alcohol history related to: Unable to respond Alcohol intake: current Alcohol intake frequency: 3 or more drinks per day Comment: refusing to use call bahena, impulsive, not calling to use the bathroom. Patient Tobacco Use Status: Tobacco use Unknown Cigarettes Per Day: 3 Years Smoked: 30 Smoked in Last 30 Days: Yes Use of substances other than those prescribed or required for medical reasons: No Substance Use Type: Heroin and Opiates Do you have a plan to hurt others: No Plan service: No Current occupational status: employed Physical Exam ED Exam Exam: Appearance: Alert. Oriented X3. No acute distress. Eyes: Pupils equal, round and reactive to light. ENT: Pharynx normal. Neck: Normal inspection. Neck supple. No lymph nodes noted. No crepitus CVS: Normal heart rate and rhythm. Pulses normal. Normal S1 and S2 Respiratory: No respiratory distress. Breath sounds normal. No Wheezing. No rales Abdomen: Soft and nontender. No rigidity. No distention. good BS x4 Skin: Skin warm and dry. Normal skin color. Normal skin turgor. Extremities: No lower extremity edema. Neurovascular intact to all extremities. No Lacerations. No Rash Neuro: Oriented X 3. No motor deficit. No sensory deficit. Moving all extermities. No slurred speech Vital Signs: Vital Signs - 24 hr 11/01/24 18:56 Temperature 97.5 F Pulse Rate 109 H Respiratory Rate 17 Blood Pressure 154/101 H Pulse Oximetry 99 Oxygen Delivery Method Room Air BMI result Body Mass Index 12.8 Medications Administered Generic Name Dose Route Start Last Admin Trade Name Freq PRN Reason Stop Dose Admin Sodium Chloride 500 mls @ 999 mls/hr 11/01/24 19:00 11/01/24 19:08 Ns IV 11/01/24 19:30 999 mls/hr .Q31M [facility] Administration Medical Decision Making Medical Decision Making [facility] Narrative: My interpretation of patient's EKG shows a sinus pattern heart rate is 110 MN is normal QRS is normal QTC is normal there is significant ST segment depression over lead V3 V4 with T-wave inversions noted on the EKG from 1838. I repeated the EKG at 0 essentially showed the same heart rate is about 110 MN QRS QTC is normal there is significant ST segment depression over V3 V4 V5 with T-wave inversion suggestive of a posterior wall SD. a STEMI alert was activated I spoke with Dr. Edward at [facility] I reviewed patient's old EKG from the system which did not show the same posterior wall changes. IV fluid was ordered. Patient taken to the CAT scanner immediately as she has fallen she has a long history of EtOH she hit her head. CT scan of the head per my interpretation showed no acute evidence of bleeding no fracture. We then proceeded to give patient her aspirin, Brilinta, heparin. Risk and benefits of transfer explained to patient and family. Patient being taken straight to labor employment associate at [facility]. Dr. Edward has accepted. Family made aware. Being transferred in critical condition Differential Diagnosis Differential Diagnoses: The differential diagnosis associated with the presentation includes Myocardial infarction, head injury intracranial bleed Admission/Observation Consideration of admission/observation: Escalation of care including admission/observation considered Consult Healthcare Provider Management of the patient was discussed with: Frame Opener (Intervention locomotive observer at [facility]) Lab Data MDM Lab Attestation statement: I reviewed the patient's lab results. 11/01/24 19:07 11/01/24 19:07 Independent Interpretation I performed an independent interpretation of an: EKG (My interpretation patient's EKG as above) and CT Scan (My interpretation of the CT head was grossly negative) Critical Care Time Critical Care Time Critical Care Time: Yes Total Critical Care Time: 40 Attestation: I have personally provided 40 minutes of critical care time exclusive of time spent on separately billable procedures. ?Time includes review of lab data, radiology results, discussion with consultants, and monitoring for potential decompensation. ?Interventions were performed as documented above Discharge Plan Discharge Clinical Impression: Myocardial infarction, Head injury Patient Disposition: er [facility] Transfer Details: Being transferred to labor employment associate Prescriptions: No Action amlodipine 10 mg tablet 1 tab PO DAILY doxycycline monohydrate 100 mg Capsule 100 mg PO Q12H Qty: 18 0RF levetiracetam 500 mg tablet 1,000 mg PO Q12H Qty: 60 0RF buprenorphine-naloxone [Suboxone] 12-3 mg film 1 film buccal BID Qty: 28 1RF Print Language: Palauan
--- NOTE | 2024-11-01 19:29 | PC.NURSE ---
Attempted to call Nurse to Nurse report to [facility] at [phone] and no answer
[2024-11-01 19:32] LABS: INTERNATIONAL NORM RATIO 0.9 (0.9-1.1); Prothrombin Time 10.2 SEC (10.9-12.4)
--- NOTE | 2024-11-01 19:32 | PC.NURSE ---
Pt brought immediately to CT. Pt medicated per APR and pt loaded onto [place] stretcher for transport to [facility].
[2024-11-01 19:33] LABS: Hematocrit 45.5 % (37.0-47.0); Hemoglobin 16.4 g/dl (12.0-16.0); Imm Gran Abs Auto 0.09 X10*3/uL (0.00-0.03); Imm Gran Pct Auto 1.2 % (0.0-0.4); Lymphocytes Absolute Auto 1.0 X10*3/uL (1.2-4.9); Mean Corpuscular HGB Conc 36.0 g/dl (31.0-35.0); Mean Corpuscular Hemoglobin 32.7 pg (27.0-33.0); Mean Corpuscular Volume 90.8 fL (80.0-98.0); NRBC Abs Auto 0.000 X10*3/uL (0.0-0.012); NRBC Pct Auto 0.0 /100WBC (0.0-0.2); Platelet Count 341 X10*3/uL (160-400); Red Blood Count 5.01 X10*6/uL (4.20-5.50); White Blood Count 7.4 X10*3/uL (4.8-10.8)
[2024-11-01 19:39] LABS: Troponin-I High Sensitivity 18.9 ng/L (<3.5-17.0)
--- NOTE | 2024-11-01 19:46 | PC.NURSE ---
Called report to [facility] [employer].
[2024-11-01 19:48] LABS: Alanine Aminotransferase 116 U/L (0-31); Albumin Level 3.8 g/dL (3.5-5.0); Alkaline Phosphatase 171 U/L (39-117); Anion Gap 22 (12-20); Aspartate Amino Transferase 235 U/L (5-31); Blood Urea Nitrogen 7 mg/dL (9-16); Calcium 8.6 mg/dL (8.4-10.2); Carbon Dioxide 25 mmol/L (22-29); Chloride 96 mmol/L (96-108); Creatinine Clr Calc Pharmacy 46.4; Estimated Glomerular Filt Rate > 60; Lipase 46 U/L (8-78); Magnesium 1.9 mg/dL (1.6-2.6); Potassium 2.7 mmol/L (3.3-5.1); Sodium 140 mmol/L (135-145); Total Protein 6.3 g/dL (6.5-8.0)
--- NOTE | 2024-11-01 23:26 | PC.NURSE ---
Pt leaving ED on EMS stretcher at 1925 to transfer to [facility].
[2024-11-01 23:27] VITALS: BP 154/101; PULSE 109; RESP 17; TEMP 36.4; O2SAT 99
== END 2024-11-01 19:41 | disposition short-term general hospital (02) ==
PROVIDERS: Emergency Provider Emergency Medicine Emergency Medical Services; PCP Family Medicine
DX: S09.90XA Unspecified injury of head, initial encounter (principal); I21.9 Acute myocardial infarction, unspecified; R42 Dizziness and giddiness; M54.2 Cervicalgia; R07.89 Other chest pain; R11.0 Nausea; R00.0 Tachycardia, unspecified; X58.XXXA Exposure to other specified factors, initial encounter; Y93.9 Activity, unspecified; Y92.9 Unspecified place or not applicable; Y99.8 Other external cause status; Z87.891 Personal history of nicotine dependence; Z51.81 Encounter for therapeutic drug level monitoring
CPT/HCPCS: 36415; 70450; 72125; 80048; 80076; 80307; 83690; 83735; 84484; 85025; 85610; 93005; 96361; 96374; 96375; 99285; J1644

== ENCOUNTER → 2024-11-01 18:38 | Outpatient (BNV) | payer MEDICAID, SELFPAY | PROVIDERS: Emergency Provider Emergency Medicine Emergency Medical Services; PCP Family Medicine; Visit Provider Internal Medicine | DX: R00.0 Tachycardia, unspecified (principal) | CPT/HCPCS: 93010 ==

== ENCOUNTER → 2024-11-01 18:57 | Outpatient (BNV) | payer MEDICAID, SELFPAY | PROVIDERS: Emergency Provider Emergency Medicine Emergency Medical Services; PCP Family Medicine; Visit Provider Radiology Diagnostic Radiology | DX: S09.90XA Unspecified injury of head, initial encounter (principal) | CPT/HCPCS: 70450; 72125 ==